=== PATIENT | female | born 1975 | race Caucasian/White ===

== ENCOUNTER 2019-12-06 03:55 | Inpatient (IN) ==
[2019-12-06] MEDS ORDERED: fentaNYL citrate 100 MCG/2 ML VIAL IV PRN (04:00)
[2019-12-06] MEDS ORDERED: NiCARDipine HCL INJ 2.5 MG/ML 10 ML AMP ONE (04:09)
[2019-12-06] MEDS ORDERED: fentaNYL citrate 100 MCG/2 ML VIAL ONE (04:09)
[2019-12-06] MEDS ORDERED: HEPARIN (PORCINE) 1000 UNIT/ML 10 ML (CATH LAB USE ONLY) ONE ×2 (04:09→05:10)
[2019-12-06] MEDS ORDERED: MIDAZOLAM HCL 1 MG/ML 2ML VIAL ONE ×2 (04:10→04:47)
[2019-12-06] MEDS ORDERED: NITROGLYCERIN/D5W 100MCG/ML 20ML SYR ONE (04:10)
--- NOTE | 2019-12-06 04:18 | Emergency Department Note ---
History of Present Illness General Chief complaint: Chest Pain Stated complaint: Chest Pain Time Seen by Provider: 12/06/19 03:59 Source: patient and EMS Mode of arrival: EMS Limitations: no limitations History of Present Illness Provider complaint: Chest pain Location: chest Radiation: back Severity: moderate Pain Consistency: + constant Maximum Pain Intensity: 7 Current Pain Intensity: 1 Quality: + constant Relieved By: + medication Exacerbated By: + movement Treatments prior to arrival: aspirin and other (Nitro) 44-year-old female brought in by EMS for central chest pain. EMS called in to alert us of the patient's condition condition prior to arrival and was suspicious for an evolving heart attack. Based on description of patient's symptoms, risk factors, as well as my review of the prehospital EKG, a heart alert was activated. Patient states she had some pain yesterday which she thought was indigestion. She states the pain went away and she felt fine during the rest of the day. She states pain came on again tonight. She states she had no accompanying abnormal feeling in bilateral arms. Patient states she had a brief period of back pain, however that has since resolved. Denies any pain in the neck or jaw. Denies nausea vomiting, trouble breathing, dizziness or lightheadedness. Patient denies any prior cardiac history. Patient states multiple family members have extensive cardiac history and of also as result of heart problems. Patient denies any recent illness, travel, or new medications. Patient states she has never had symptoms like this previously. Patient was given 4 baby aspirin and nitroglycerin sublingual by EMS prior to arrival. Patient's pain improved from a 6 or 7 down to a 1. On arrival here patient states she no longer had any chest pain or discomfort. Patient denies any current back or arm pain. Home Medications Home Medications Medication Instructions Recorded Confirmed Type No Known Home Medications 12/06/19 12/06/19 History Allergies Allergy/AdvReac Type Severity Reaction Status Date / Time coconut Allergy Unknown Verified 12/06/19 04:09 ham Allergy Unknown Uncoded 12/06/19 04:09 sun Allergy Unknown Uncoded 12/06/19 04:09 Past Med/Surg History Medical History Tobacco abuse Family History Other Coronary heart disease Diabetes Dyslipidemia Hypertension Myocardial infarction Social History Preferred Language: [place]ambican Communication Ability: Effective Beliefs That Will Affect Care: None Current Living Situation: Family Current Living Situation Comment: lives with brother Other Information That Helps Us Care for You: No Feels Safe at Home: Yes Safety Concerns: Feels Safe At This Time Smoking Status: Current every day smoker Tobacco Type: cigarettes ; Cigarettes Per Day: 3/4 pack a day ; Tobacco Cessation Education Requested by Patient: No Hx Alcohol Use: Yes Alcohol type: beer, wine and hard liquor Hx Substance Use: No Review of Systems See HPI for pertinent positives & negatives. and A total of 10 systems reviewed and were otherwise negative Physical Exam Vital Signs Vital Signs - 24 hr 12/06/19 04:01 12/06/19 04:20 12/06/19 04:26 Temperature 36.7 C Temperature Source Oral Pulse Rate 103 H 97 H Pulse Rate [Bilateral] 87 Pulse Rate from SpO2 Sensor 97 H Pulse Rhythm Regular Pulse Rhythm [Bilateral] Regular Pulse Strength Normal Pulse Strength [Bilateral] Normal Respiratory Rate 18 15 20 Respiratory Effort / Characteristics Non-Labored Spontaneous Non-Labored Spontaneous Respiratory Depth Normal Normal Respiratory Pattern Regular Regular Blood Pressure 150/96 H 153/118 H Blood Pressure [Left Arm] 165/94 H Blood Pressure Mean 114 129 Blood Pressure Mean [Left Arm] 117 Blood Pressure Position Sitting Blood Pressure Position [Left Arm] Sitting Pulse Oximetry 97 100 98 Oxygen Delivery Method Room Air Room Air Room Air Sepsis Recent Fever Within 48 Hours No Sepsis Action Taken by Nursing No Action Required GENERAL: alert, well appearing, well nourished, no distress, non-toxic EYE EXAM: normal conjunctiva, PERRL and EOM's grossly intact OROPHARYNX: no exudate, no erythema, lips, buccal mucosa, and tongue normal and mucous membranes are moist, poor dentition NECK: supple, no nuchal rigidity, no adenopathy, non-tender LUNGS: Clear to auscultation. Normal chest wall mechanics, no w/r/r HEART: no murmurs, S1 normal and S2 normal ABDOMEN: abdomen soft, non-tender, normo-active bowel sounds, no masses, no rebound or guarding. BACK: Back is symmetrical on inspection and there is no deformity, no midline tenderness, no CVA tenderness. SKIN: no rashes and no bruising UPPER EXTREMITIES: upper extremities are grossly normal. FROM, nml pulses b/l. LOWER EXTREMITIES: No pitting edema. FROM, nml pulses b/l. NEURO EXAM: Normal sensorium, cranial nerves II-XII grossly intact, normal speech, no gross weakness of arms, no gross weakness of legs. Gross sensation intact. Course Course 0415: Dr. Duran now at bedside evaluating the patient. 0430: Case discussed with Dr. Albarado, [facility] hospitalist team. Administered Medications Sodium Chloride (Nss 1000ml) 1,000 mls @ 125 mls/hr IV .Q8H ERROL Stop: 01/05/20 03:59 Last Admin: 12/06/19 06:55 Dose: 125 mls/hr Documented by: [id number] Discontinued Medications Fentanyl Citrate (Fentanyl Citrate) Confirm Administered Dose 100 mcg .ROUTE .STK-MED ONE Stop: 12/06/19 04:10 Last Admin: 12/06/19 06:08 Dose: 125 mcg Documented by: [id number] Heparin Sodium (Porcine) (Heparin Iv Bolus ([employer] Use Only)) Confirm Ad ministered Dose 10,000 units .ROUTE .STK-MED ONE Stop: 12/06/19 04:10 Last Admin: 12/06/19 06:08 Dose: 13,000 units Documented by: [id number] Heparin Sodium (Porcine) (Heparin Iv Bolus ([employer] Use Only)) Confirm Administered Dose 10,000 units .ROUTE .STK-MED ONE Stop: 12/06/19 05:11 Last Admin: 12/06/19 06:10 Dose: Not Given Documented by: [id number] Heparin Sodium/Sodium Chloride (Heparin/Nss 1000 Unit/500ml Flush Bag) Confirm Administered Dose 3,000 units IV .STK-MED ONE Stop: 12/06/19 04:11 Last Admin: 12/06/19 06:09 Dose: 3,000 units Documented by: [id number] Midazolam HCl (Versed) Confirm Administered Dose 2 mg .ROUTE .STK-MED ONE Stop: 12/06/19 04:11 Last Admin: 12/06/19 06:09 Dose: 4 mg Documented by: [id number] Midazolam HCl (Versed) Confirm Administered Dose 2 mg .ROUTE .STK-MED ONE Stop: 12/06/19 04:48 Last Admin: 12/06/19 06:09 Dose: Not Given Documented by: [id number] Nicardipine HCl (Cardene) Confirm Administered Dose 25 mg .ROUTE .ThePresent.Co-MED ONE Stop: 12/06/19 04:10 Last Admin: 12/06/19 05:56 Dose: 25 mg Documented by: [id number] Nitroglycerin/Dextrose (Nitroglycerin/D5w 100 Mcg/Ml 20ml Syringe) Confirm Administered Dose 2,000 mcg .ROUTE .ThePresent.Co-MED ONE Stop: 12/06/19 04:11 Last Admin: 12/06/19 06:09 Dose: 2,000 mcg Documented by: [id number] Ticagrelor (Brilinta) Confirm Administered Dose 180 mg PO .[employer] ONE Stop: 12/06/19 05:52 Last Admin: 12/06/19 06:10 Dose: 180 mg Documented by: [id number] Medical Decision Making Differential Diagnosis Differential diagnoses includes but is not limited to acute coronary syndrome, myocardial infarction, pericarditis, pulmonary embolus, aortic dissection, pneumonia, pneumothorax, musculoskeletal, shingles, esophageal. Medical Records Attestation: I reviewed the patient's medical records. Home Medications Current Medication List: was personally reviewed by me Laboratory Data Attestation: I reviewed the patient's lab results. Result diagrams: 12/06/19 04:14 12/06/19 04:14 Lab Results 12/06/19 12/06/19 12/06/19 Range/Units 04:14 04:14 04:14 WBC 12.04 H (4.8-10.8) K/uL RBC 4.68 (4.2-5.4) M/uL Hgb 13.8 (12.0-16.0) g/dL Hct 39.2 (37-47) % MCV 83.8 (80-100) fL MCH 29.5 (25-34) pg MCHC 35.2 (32-36) g/dL RDW Std Deviation 41.3 (36.4-46.3) fL RDW Coeff of Bishop 13.8 (11.5-14.5) % Plt Count 240 (130-400) K/uL MPV 11.5 H (7.4-10.4) fL Immature Gran % (Auto) 0.2 % Neut % (Auto) 79.7 % Lymph % (Auto) 14.4 % Weld % (Auto) 4.3 % Eos % (Auto) 1.2 % Baso % (Auto) 0.2 % Immature Gran # (Auto) 0.03 H (0.00-0.02) K/uL Neut # (Auto) 9.58 H (1.4-6.5) K/uL Lymph # (Auto) 1.73 (1.2-3.4) K/uL Weld # (Auto) 0.52 (0.11-0.59) K/uL Eos # (Auto) 0.15 (0-0.5) K/uL Baso # (Auto) 0.03 (0-0.2) K/uL PT 10.0 (9.0-12.0) Seconds INR 1.0 (0.9-1.1) APTT 23.4 (21.0-31.0) Seconds PTT Ratio 0.9 Activ Coag Time Kaolin (94-140) SECONDS Sodium 135 L (136-145) mmol/L Potassium 3.8 (3.5-5.1) mmol/L Chloride 102 (98-107) mmol/L Carbon Dioxide 25 (21-32) mmol/L Anion Gap 8.0 (3-11) BUN 11 (7-18) mg/dl Creatinine 0.83 (0.6-1.2) mg/dl Est Cr Clr Drug Dosing 88.3 ml/min Est GFR ( Amer) 100.8 Est GFR (Non-Af Amer) 87.0 BUN/Creatinine Ratio 13.2 (10-20) Glucose 323 H* (70-99) mg/dl Calcium 8.9 (8.5-10.1) mg/dl Magnesium 1.9 (1.8-2.4) mg/dl Total Bilirubin 0.3 (0.2-1) mg/dl AST 10 L (15-37) U/L ALT 27 (12-78) U/L Alkaline Phosphatase 121 H (45-117) U/L Total Creatine Kinase 68 (26-192) U/L CK-MB (CK-2) 3.2 (0.5-3.6) ng/ml CK/CKMB % Calc 4.7 H (0-3.0) Troponin I 0.159 H* (0-0.045) ng/ml Total Protein 8.2 (6.4-8.2) gm/dl Albumin 3.6 (3.4-5.0) gm/dl Globulin 4.6 H (2.5-4.0) gm/dl Albumin/Globulin Ratio 0.8 L (0.9-2) Lipase 63 L (73-393) U/L Beta-Hydroxybutyric Acd 5.32 H (0.2-2.81) mg/dl TSH 1.780 (0.300-4.500) uIu/ml 12/06/19 12/06/19 Range/Units 05:06 05:32 WBC (4.8-10.8) K/uL RBC (4.2-5.4) M/uL Hgb (12.0-16.0) g/dL Hct (37-47) % MCV (80-100) fL MCH (25-34) pg MCHC (32-36) g/dL RDW Std Deviation (36.4-46.3) fL RDW Coeff of Bishop (11.5-14.5) % Plt Count (130-400) K/uL MPV (7.4-10.4) fL Immature Gran % (Auto) % Neut % (Auto) % Lymph % (Auto) % Weld % (Auto) % Eos % (Auto) % Baso % (Auto) % Immature Gran # (Auto) (0.00-0.02) K/uL Neut # (Auto) (1.4-6.5) K/uL Lymph # (Auto) (1.2-3.4) K/uL Weld # (Auto) (0.11-0.59) K/uL Eos # (Auto) (0-0.5) K/uL Baso # (Auto) (0-0.2) K/uL PT (9.0-12.0) Seconds INR (0.9-1.1) APTT (21.0-31.0) Seconds PTT Ratio Activ Coag Time Kaolin 246 H 263 H (94-140) SECONDS Sodium (136-145) mmol/L Potassium (3.5-5.1) mmol/L Chloride (98-107) mmol/L Carbon Dioxide (21-32) mmol/L Anion Gap (3-11) BUN (7-18) mg/dl Creatinine (0.6-1.2) mg/dl Est Cr Clr Drug Dosing ml/min Est GFR ( Amer) Est GFR (Non-Af Amer) BUN/Creatinine Ratio (10-20) Glucose (70-99) mg/dl Calcium (8.5-10.1) mg/dl Magnesium (1.8-2.4) mg/dl Total Bilirubin (0.2-1) mg/dl AST (15-37) U/L ALT (12-78) U/L Alkaline Phosphatase (45-117) U/L Total Creatine Kinase (26-192) U/L CK-MB (CK-2) (0.5-3.6) ng/ml CK/CKMB % Calc (0-3.0) Troponin I (0-0.045) ng/ml Total Protein (6.4-8.2) gm/dl Albumin (3.4-5.0) gm/dl Globulin (2.5-4.0) gm/dl Albumin/Globulin Ratio (0.9-2) Lipase (73-393) U/L Beta-Hydroxybutyric Acd (0.2-2.81) mg/dl TSH (0.300-4.500) uIu/ml Imaging Data My Impression: X-ray: I interpreted the following studies. Chest: A single view study of the chest was reviewed and was negative for cardiomegaly, focal infiltrate, effusion, pulmonary edema, or wide mediastinum. ECG Data Attestation: I personally reviewed and interpreted this ECG as follows: Indication: chest pain Rate (beats per minute): 95 Rhythm: normal sinus Findings: + ST depression and + ST elevation Additional Comments: ST elevation in II, III, aVF, V5/6 ST depression I, aVL Blood Pressure Blood Pressure Findings: Elevated blood pressure Blood Pressure Disposition: further management by hospitalist MELANY Narrative Patient brought in by EMS as a heart alert which was called prehospital. Upon arrival here, EKG obtained, labs drawn and sent, chest x-ray performed, and a second IV site was eventually established by the time the interventional c ardiologist, Dr. Duran, came to bedside. Patient remained hemodynamically stable and denied any recurrent pain. Patient had received aspirin and nitro from EMS. Patient taken to the [facility] [employer] [facility] prior to any additional results being noted. Impression & Plan Chest pain, ST elevation myocardial infarction (STEMI), Tobacco abuse, Hyperglycemia Discharge Plan Visit Data *Final* Discharge Date/Time: 12/06/19 04:30 Chief Complaint: Chest Pain Stated Complaint: Chest Pain ED Provider: Malu Garcia Discharge Problem: Chest pain, ST elevation myocardial infarction (STEMI), Tobacco abuse, Hyperglycemia Patient Disposition: Still a Patient Condition: Good Discharge Instructions Interventions: ED Discharge Assessment Last Done: 12/06/19 04:30 Discharge Problem: Chest pain Qualifiers: Chest pain type: chest pain due to myocardial ischemia Ischemic chest pain type: unspecified angina pectoris type Qualified Code(s): I25.9 - Chronic ischemic heart disease, unspecified ST elevation myocardial infarction (STEMI) Qualifiers: Involved coronary artery: unspecified coronary artery Qualified Code(s): I21.3 - ST elevation (STEMI) myocardial infarction of unspecified site
[2019-12-06 04:24] LABS: Basophils # (auto) 0.03 K/uL (0-0.2); Basophils % (auto) 0.2 %; Eosinophils # (auto) 0.15 K/uL (0-0.5); Eosinophils % (auto) 1.2 %; Hematocrit (blood only) 39.2 % (37-47); Hemoglobin 13.8 g/dL (12.0-16.0); Immature Granulocytes # (auto) 0.03 K/uL (0.00-0.02); Immature Granulocytes % (auto) 0.2 %; Lymphocytes # (auto) 1.73 K/uL (1.2-3.4); Lymphocytes % (auto) 14.4 %; Mean Corpuscular Hemoglobin 29.5 pg (25-34); Mean Corpuscular Hgb Conc 35.2 g/dL (32-36); Mean Corpuscular Volume 83.8 fL (80-100); Mean Platelet Volume 11.5 fL (7.4-10.4); Monocytes # (auto) 0.52 K/uL (0.11-0.59); Monocytes % (auto) 4.3 %; Neutrophils # (auto) 9.58 K/uL (1.4-6.5); Neutrophils % (auto) 79.7 %; Platelet Count 240 K/uL (130-400); RDW Coefficient of Variation 13.8 % (11.5-14.5); RDW Standard Deviation 41.3 fL (36.4-46.3); Red Blood Count 4.68 M/uL (4.2-5.4); White Blood Count 12.04 K/uL (4.8-10.8)
--- NOTE | 2019-12-06 04:27 | Pre Anesthesia Assessment ---
Date of Service December 06, 2019 Pre Sedation Assessment Vital Signs Temp Pulse Resp BP Pulse Ox 12/06/19 04:01 98.1 F 103 H 18 150/96 H 97 Pre-Sedation Airway Assessment Smoking Status: Current every day smoker Notes The planned sedation has been discussed with the patient. Informed Consent was obtained. I have identified the patient, determined the appropriateness of sedation and have assessed the patient immediately prior to the procedure. All medicine(s) and interventions are by my order.
[2019-12-06 04:36] LABS: Partial Thromboplastin Ratio 0.9; Partial Thromboplastin Time 23.4 Seconds (21.0-31.0)
--- NOTE | 2019-12-06 04:36 | Cardiology Consultation ---
Date of Consultation December 06, 2019 Assessment & Plan (1) Acute AR: Presentation consistent with inferolateral STEMI and recommend proceeding with emergent cardiac catheterization and likely primary PCI. No apparent contraindications to procedure. Discussed risks, benefits, alternatives of procedure with patient and they are willing to proceed. Further recommendations pending findings of coronary angiography. History of Present Illness History of Present Illness Ms. Marcelo is a 44-year-old woman here with acute chest pain and ECG concerning for acute AR. Patient seen emergently in the ED after heart alert activated en route. No prior significant cardiac history. Cardiac risk factors include ongoing tobacco use, family history of premature coronary disease, obesity. Denies other medical problems and is on no medications. Reports an episode of chest pain occurring approximately 1 day prior to presentation. Pain mild, associated with strange feeling in her arms and eventually went away with rest. Approximately 1 AM while patient was at work today (around 3 hours prior to arrival) chest pain recurred, more severe, again associated with numbness in her arms along with nausea, diaphoresis. Initial EKG from the field showed sinus rhythm with inferolateral ST elevations. Given sublingual nitroglycerin with improvement in pain. In ED hemodynamically stable. Chest pain 410. EKG showed improved but still present inferolateral ST elevations. Allergies Allergy/AdvReac Type Severity Reaction Status Date / Time coconut Allergy Unknown Verified 12/06/19 04:09 ham Allergy Unknown Uncoded 12/06/19 04:09 sun Allergy Unknown Uncoded 12/06/19 04:09 Home Medications Home Medications Medication Instructions Recorded Confirmed Type No Known Home Medications 12/06/19 12/06/19 History Patient History Medical History (Updated 12/06/19 @ 04:48 by Malu Garcia DO) Tobacco abuse Family History (Updated 12/06/19 @ 04:15 by Malu Garcia DO) Other Coronary heart disease Diabetes Dyslipidemia Hypertension Myocardial infarction Social History Feels Safe at Home: Yes Smoking Status: Current every day smoker Review of Systems Review of Systems: All systems reviewed & are unremarkable except as noted in HPI & below Physical Exam Physical Exam: General: Uncomfortable but no acute distress HEENT: Sclerae anicteric, mucous membranes moist Lungs: Clear to auscultation bilaterally, no rhonchi or wheezes Cardiac: Regular rate and rhythm, no murmurs. Abdomen: Soft, nontender Extremities: Warm, well perfused, no edema. 2+ radial pulses Skin: No rashes or lesions. Neuro: Nonfocal Psych: Alert orient x3, normal affect and mood Results & Data Vital Signs (Past 12 Hours) Vital Signs Temp Pulse Pulse Resp BP BP Pulse Ox 12/06/19 04:26 87 20 165/94 H 98 12/06/19 04:20 97 H 15 153/118 H 100 12/06/19 04:01 98.1 F 103 H 18 150/96 H 97 PG Care Time/CCT Total # of Minutes Spent Total Time Spent with Patient: Total time spent is greater than 50% in coordination of care (as documented) at patient's floor/unit and/or counseling patient: Coding Level of Care Code 32761 Inpt Consult Level 5 Diagnoses Acute AR I21.9
[2019-12-06 05:04] LABS: Albumin Globulin Ratio 0.8 (0.9-2); Albumin Level 3.6 gm/dl (3.4-5.0); BUN Creatinine Ratio 13.2 (10-20); Bilirubin,Total 0.3 mg/dl (0.2-1); Calcium 8.9 mg/dl (8.5-10.1); Creatine Kinase MB 3.2 ng/ml (0.5-3.6); Creatinine Clr Calc Pharmacy 88.3 ml/min; Est GFR (African American) 100.8; Globulin 4.6 gm/dl (2.5-4.0); Magnesium 1.9 mg/dl (1.8-2.4); Potassium 3.8 mmol/L (3.5-5.1); Thyroid Stimulating Hormone 1.78 uIu/ml (0.300-4.500); Total Protein 8.2 gm/dl (6.4-8.2); Troponin I 0.159 ng/ml (0-0.045)
[2019-12-06 05:21] LABS: Beta-Hydroxybutyrate 5.32 mg/dl (0.2-2.81)
[2019-12-06] MEDS ORDERED: TICAGRELOR 90 MG TAB PO ONE (05:51)
[2019-12-06] MEDS ORDERED: ICU PROTOCOL FOR HYPERGLYCEMIA PRN (05:58)
[2019-12-06] MEDS ORDERED: ONDANSETRON INJ 2 MG/ML 2 ML VIAL IV PRN (05:58)
--- NOTE | 2019-12-06 06:08 | Post Anesthesia Assessment ---
Date of Service December 06, 2019 Post Sedation Assessment Vital Signs Temp Pulse Pulse Resp BP BP Pulse Ox 12/06/19 04:26 87 20 165/94 H 98 12/06/19 04:20 97 H 15 153/118 H 100 12/06/19 04:01 98.1 F 103 H 18 150/96 H 97 Recovery Score Activity: Moves 4 extremities Respiration: Deep Breath/Cough Circulation: +/-20% PreAnes Value Consciousness: Fully Awake Oxygen Saturation: O2 needed for >90% Discharge Sedation Level of Care: Fast Track Phase II Post Sedation Plan On clinical assessment, the patient appears to have tolerated the sedation without complications. Patient is recovering as anticipated. Patient will continue to be monitored by nursing and may be discharged when sedation discharge criteria are met per below protocol. Upon Completions of procedure up to 15 minutes continue every 5 minute vital signs and the P.A.R. score; then discharge to a Phase I or Fast Track to Phase II per the following guidelines: * Discharge Patient to appropriate Phase II area if PAR is 8 or greater or return to pre- procedure baseline. The post - procedure orders will be as directed. * If PAR score is less than 8 or not return to pre-procedure baseline then patient will follow Phase I monitoring till PAR is reached for Phase II. The Phase I may be done in procedure room or may call to secure a Phase I area. * If naloxone or flumazenil are used for reversal, hold in Phase I for con tinued monitoring from when last reversal dose was given for a minimum of 60 minutes or longer pending the nurse and/or physician discretion of patient condition before discharge to Phase II. Please call the Sedation Physician to re-evaluate and complete post-note for discharge to Phase II area. Do NOT discharge from procedure sedation or Phase 1 until post- sedation evaluation note is complete by procedure /sedation MD Sedation Discharge Instructions to be given to the patient at discharge to home.
--- NOTE | 2019-12-06 06:12 | History & Physical Report ---
Date of Service December 06, 2019 Assessment & Plan (1) ST elevation myocardial infarction (STEMI): Admit ICU Inferior [place] Stent placed to distal circ 100% Stent placed to distal RCA 80% (non-culprit lesion) Aspirin 81 mg daily Brilinta 90mg BID Atorvastatin 80mg daily Lisinopril 5mg daily Metoprolol 25mg BID Smoking cessation. (2) Type II diabetes mellitus: Glucose 323 This is new onset No anion gap Will order Lantus 10units to start (5 units BID) Cover with sliding scale insulin. Would not be able to start metformin for 48 hours. History of Present Illness 44 y/o female presented to the ED via EMS with substernal non-radiating chest pain. The pain was 6/10 and improved to 1/10 after NTG. She has multiple members of her family with CAD. Patient was taken directly from the ED to clinical genetics laboratory chief for intervention. She is currently in the ICU. She is chest pain free. . Primary Care Provider: NO PCP Allergies Allergy/AdvReac Type Severity Reaction Status Date / Time coconut Allergy Unknown Verified 12/06/19 04:09 ham Allergy Unknown Uncoded 12/06/19 04:09 sun Allergy Unknown Uncoded 12/06/19 04:09 Home Medications Home Medications Medication Instructions Recorded Confirmed Type No Known Home Medications 12/06/19 12/06/19 History Past Med/Surg History Medical History Tobacco abuse Family History Other Coronary heart disease Diabetes Dyslipidemia Hypertension Myocardial infarction Social History Preferred Language: [place] Communication Ability: Effective Beliefs That Will Affect Care: None Current Living Situation: Family Current Living Situation Comment: lives with brother Other Information That Helps Us Care for You: No Feels Safe at Home: Yes Safety Concerns: Feels Safe At This Time Smoking Status: Current every day smoker Tobacco Type: cigarettes ; Cigarettes Per Day: 3/4 pack a day ; Tobacco Cessation Education Requested by Patient: No Hx Alcohol Use: Yes Alcohol type: beer, wine and hard liquor Hx Substance Use: No Review of Systems Review of Systems: Constitutional- no fever; no weight loss Eyes- no acute visual changes ENT- no sinus drainage; no pharyngitis Pulmonary- no cough, no wheezing, no shortness of breath Cardiac- As in HPI GI- no nausea, no vomiting, no diarrhea, no melena, no hematochezia - no dysuria, no hematuria Musculoskeletal- no arthralgias, no myalgias Derm- no rashes, no new skin lesions. Hematologic- no unusual bruising, no unusual bleeding Lymphatics- no adenopathy Endocrine- no polyuria or polydipsia; no heat or cold intolerance Neuro- no headaches, no focal neurologic symptoms Psych- no anxiety, no depression Physical Exam Physical Exam: General- adult female, NAD. Head- atraumatic Eyes- PERRL, EOMI, anicteric ENT- oropharynx clear Neck- supple, no JVD, no adenopathy, no thyromegaly. Lungs- CTA b/l no R/R/W. Heart- regular rhythm; no murmur, no gallop, no rub appreciated Abdomen- normal bowel sounds, soft, nontender. Extremities- no pretibial edema, no calf tenderness; peripheral pulses intact Neuro- alert, oriented x 3; PERRL, EOMI; CN's II-XII grossly intact, non-focal. Skin- warm & dry Results & Data Vital Signs (Past 12 Hours) Vital Signs Temp Pulse Pulse Resp BP BP Pulse Ox 12/06/19 04:26 87 20 165/94 H 98 12/06/19 04:20 97 H 15 153/118 H 100 12/06/19 04:01 36.7 C 103 H 18 150/96 H 97 Laboratory Results Laboratory Results WBC 12.04 K/uL (4.8-10.8) H 12/06/19 04:14 RBC 4.68 M/uL (4.2-5.4) 12/06/19 04:14 Hgb 13.8 g/dL (12.0-16.0) 12/06/19 04:14 Hct 39.2 % (37-47) 12/06/19 04:14 MCV 83.8 fL (80-100) 12/06/19 04:14 MCH 29.5 pg (25-34) 12/06/19 04:14 MCHC 35.2 g/dL (32-36) 12/06/19 04:14 RDW Std Deviation 41.3 fL (36.4-46.3) 12/06/19 04:14 RDW Coeff of Bishop 13.8 % (11.5-14.5) 12/06/19 04:14 Plt Count 240 K/uL (130-400) 12/06/19 04:14 MPV 11.5 fL (7.4-10.4) H 12/06/19 04:14 Immature Gran % (Auto) 0.2 % 12/06/19 04:14 Neut % (Auto) 79.7 % 12/06/19 04:14 Lymph % (Auto) 14.4 % 12/06/19 04:14 [place] % (Auto) 4.3 % 12/06/19 04:14 Eos % (Auto) 1.2 % 12/06/19 04:14 Baso % (Auto) 0.2 % 12/06/19 04:14 Immature Gran # (Auto) 0.03 K/uL (0.00-0.02) H 12/06/19 04:14 Neut # (Auto) 9.58 K/uL (1.4-6.5) H 12/06/19 04:14 Lymph # (Auto) 1.73 K/uL (1.2-3.4) 12/06/19 04:14 [place] # (Auto) 0.52 K/uL (0.11-0.59) 12/06/19 04:14 Eos # (Auto) 0.15 K/uL (0-0.5) 12/06/19 04:14 Baso # (Auto) 0.03 K/uL (0-0.2) 12/06/19 04:14 PT 10.0 Seconds (9.0-12.0) 12/06/19 04:14 INR 1.0 (0.9-1.1) 12/06/19 04:14 APTT 23.4 Seconds (21.0-31.0) 12/06/19 04:14 PTT Ratio 0.9 12/06/19 04:14 Activ Coag Time Kaolin 263 SECONDS (94-140) H 12/06/19 05:32 Sodium 135 mmol/L (136-145) L 12/06/19 04:14 Potassium 3.8 mmol/L (3.5-5.1) 12/06/19 04:14 Chloride 102 mmol/L (98-107) 12/06/19 04:14 Carbon Dioxide 25 mmol/L (21-32) 12/06/19 04:14 Anion Gap 8.0 (3-11) 12/06/19 04:14 BUN 11 mg/dl (7-18) 12/06/19 04:14 Creatinine 0.83 mg/dl (0.6-1.2) 12/06/19 04:14 Est Cr Clr Drug Dosing 88.3 ml/min 12/06/19 04:14 Est GFR ( Amer) 100.8 12/06/19 04:14 Est GFR (Non-Af Amer) 87.0 12/06/19 04:14 BUN/Creatinine Ratio 13.2 (10-20) 12/06/19 04:14 Glucose 323 mg/dl (70-99) H* 12/06/19 04:14 Calcium 8.9 mg/dl (8.5-10.1) 12/06/19 04:14 Magnesium 1.9 mg/dl (1.8-2.4) 12/06/19 04:14 Total Bilirubin 0.3 mg/dl (0.2-1) 12/06/19 04:14 AST 10 U/L (15-37) L 12/06/19 04:14 ALT 27 U/L (12-78) 12/06/19 04:14 Alkaline Phosphatase 121 U/L (45-117) H 12/06/19 04:14 Total Creatine Kinase 68 U/L (26-192) 12/06/19 04:14 CK-MB (CK-2) 3.2 ng/ml (0.5-3.6) 12/06/19 04:14 CK/CKMB % Calc 4.7 (0-3.0) H 12/06/19 04:14 Troponin I 0.159 ng/ml (0-0.045) H* 12/06/19 04:14 Total Protein 8.2 gm/dl (6.4-8.2) 12/06/19 04:14 Albumin 3.6 gm/dl (3.4-5.0) 12/06/19 04:14 Globulin 4.6 gm/dl (2.5-4.0) H 12/06/19 04:14 Albumin/Globulin Ratio 0.8 (0.9-2) L 12/06/19 04:14 Lipase 63 U/L (73-393) L 12/06/19 04:14 Beta-Hydroxybutyric Acd 5.32 mg/dl (0.2-2.81) H 12/06/19 04:14 TSH 1.780 uIu/ml (0.300-4.500) 12/06/19 04:14 PG Care Time/CCT Total # of Minutes Spent Total Time Spent: 45 Total Time Spent with Patient: Total time spent is greater than 50% in coordination of care (as documented) at patient's floor/unit and/or counseling patient: Coding Level of Care Code 36541 Initial Inpt Care Lvl [address] elevation myocardial infarction (STEMI) I21.3 Involved coronary artery: unspecified coronary artery Type II diabetes mellitus E11.9 (1) ST elevation myocardial infarction (STEMI) Involved coronary artery: unspecified coronary artery Qualified Code(s): I21.3 - ST elevation (STEMI) myocardial infarction of unspecified site
[2019-12-06] MEDS ORDERED: GLUCAGON FOR INJ 1 MG VIAL SQ PRN (06:19)
[2019-12-06] MEDS ORDERED: CARBOHYDRATES FOR HYPOGLYCEMIA PO PRN (06:19)
[2019-12-06] MEDS ORDERED: DEXTROSE 50% 50 ML SYRINGE IV PRN (06:19)
[2019-12-06] MEDS ORDERED: GLUCOSE 10 TABS/TUBE PO PRN (06:19)
[2019-12-06] MEDS ORDERED: GLUCOSE 40% GEL 15 GM TUBE PO PRN (06:19)
--- NOTE | 2019-12-06 06:22 | Cardiac Catheterization ---
ACC Data: Assistant Clinical Director Cardiac Status Clinical evaluation leading to the procedure CAD Presenation: STEMI Anginal Classification: CCS IV Heart Failure: No Cardiogenic Shock within 24 Hours: No Cardiac Arrest within 24 Hours: No Imaging Studies Past 6 Months: No Stress Studies Past 6 Months: No Diagnostic Physicians Name: Luan Duran MD Closure Device Percutaneous Entry Location: Radial Closure Device: Radial Band Recommendations: PCI without planned CABG PCI Indication: Immediate PCI for STEMI First Noted: First EKG Lesion Segment Name: distal circumflex Culprit Artery: Yes Stenosis Prior to Rx (%): 100 Chronic Total Occlusion: No IVUS: No FFR: No Pre-Procedure DARIEL Flow: 0 Previously Treated Lesion: No Lesion Complexity: Non-High/Non-C Lesion Length (mm): 25 Thrombus Present: Yes Bifurcation Lesion: No Guidewire Across Lesion: Stenosis Post-Procedure (%): 0 Post-Procedure DARIEL Flow: 3 Devices(s) Deployed: Yes Yes Lesion #2 Segment Name: Distal RCA Culprit Artery: No Stenosis Prior to Rx (%): 80 Chronic Total Occlusion: No IVUS: No FFR: No Pre-Procedure DARIEL Flow: 3 Previously Treated Lesion: No Lesion Complexity: Non-High/Non-C Lesion Length (mm): 15 Thrombus Present: No Bifurcation Lesion: No Guidewire Across Lesion: Yes Stenosis Post-Procedure (%): 0 Post-Procedure DARIEL Flow: 3 Devices(s) Deployed: Yes Intraprocedure Events Significant Disection: No Perforation: No Cardiac Cath Procedure Full Procedure Date December 06, 2019 Pre-Procedure Diagnosis Pre-Procedure Diagnosis: STEMI AUC Score AUC Score: 9 Post-Procedure Diagnosis Post-Procedure Diagnosis: Severe CAD, Successful PCI and Elevated Intracardiac Pressures Procedure(s) Performed Procedure(s) Performed: Coronary Angiography, Left Heart Cath, Drug Eluting Stent and Femoral Artery Angiography Water Pollution Control Technician Luan Duran MD Periodontal Assistant(s) Tawana Estimated Blood Loss Estimated Blood Loss: 15 Medication(s) Medication(s): Fentanyl, Heparin, Lidocaine 1%, Nicardipine, Nitroglycerin and Versed Medication(s): Ticagrelor Summary of Findings Indication: STEMI/Heart Alert Access: 6 Fr right radial artery (unable to pass catheter through proximal radial/distal brachial artery due to spasm and converted to femoral approach) 6 Fr right common femoral artery Catheters: JL4, EBU 3.75 guide, JR4, JR4 guide Findings: LM -medium caliber, angiographically normal LAD -medium caliber, 20 to 30% mid segment disease, distal luminal irregularities prior to vessel wrapping around apex. Medium caliber first diagonal with 30 to 40% mid segment disease. Circumflex -large caliber, proximal luminal irregularities, distal 100% acute occlusion after takeoff of medium caliber OM 2. RCA -large caliber vessel, mid segment luminal irregularities, 80% distal stenosis. Small PDA with 50 to 60% proximal disease LVEDP -20 -- PCI -- Antithrombotic therapy: Heparin, ticagrelor Procedure: Left main cannulated with EBU 3.75 guide BMW wire passed across lesion into distal PLB Distal circumflex lesion predilated with 2.5 compliant balloon Dilated lesion stented with 2.75 x 33 mm Xience Lucia Stent post-dilated with 3.0 noncompliant balloon IC vasodilators administered for spasm Post procedure DARIEL 3 flow, stent well expanded with minimal residual stenosis. Some apparent thrombus in distal aspect of OM 2, dottered with 2.5 balloon with reestablished flow. RCA cannulated with JR4 guide BMW wire placed across lesion into distal vessel Mid to distal RCA stented with 3.5 x 23 mm Xience Lucia Stent postdilated with 3.5 NC balloon Post procedure DARIEL 3 flow, stent well expanded with minimal residual stenosis. Arterial Closure: TR band Summary: 1. Inferolateral STEMI/100% occluded distal circumflex 2. Severe non-culprit vessel coronary artery disease -80% distal RCA 3. Elevated intracardiac filling pressure 4. Successful PCI of mid to distal circumflex with single drug-eluting stent (2.75 x 33 mm Xience Lucia; postdilated with 3.0 NC). 5. Successful PCI of mid to distal RCA with single drug-eluting stent (3.5 x 23 mm Xience Lucia). Recommendations: Admit to ICU for continued monitoring Loaded with ticagrelor 180 mg in cath lab radiological technologist Continue dual-antiplatelet therapy for at least 1 year. Trend troponins until peak, Check Echo Uptitrate beta-natalie/RADHA as BP allows High-dose statin Consult cardiac Rehab Hemodynamics Rest Ao:: 125/85/104 Final Ao: 128/78/102 LV: 139/20 Recommendations Recommendations: PCI without planned CABG Specimens Specimens: None Radiation Exposure (mGy) 4532 Contrast (mls) 145 Fluids (cc crystalloids) Fluids (cc crystalloids): 134 Drains Drains: None Anesthesia Moderate Procedural Complication(s) None Disposition ICU I attest to the content of the Intraoperative Record and any orders documented therein. Any exceptions are noted below. [facility] Card Cath Procedure Codes Cardiac Catheterization Procedure 1: Cardiovascular Cath Procedures: 56633 Coronaries and LHC (+/-LV) Moderate Sedation Procedure 1: Sedation/Anesthesia: 93788 Mod Sedation by the same physician;Init15 Min Child Age 5 & Up Procedure 2: Sedation/Anesthesia: 55910 Mod Sedation by the same physician; Ea [id number] Minutes Stenting Procedure 1: Cardiovascular Stent Procedures: 57367 Perc transluminal revascularization of acute sub/total occl, aMI Procedure 10: Cardiovascular Stent Procedures: 48086 Ea addl branch of a major coronary artery PG Care Time/CCT Total # of Minutes Spent Total Time Spent with Patient: Total time spent is greater than 50% in coordination of care (as documented) at patient's floor/unit and/or counseling patient:
--- NOTE | 2019-12-06 06:47 | Critical Care Consultation ---
Date of Consultation December 06, 2019 Assessment & Plan (1) Admitted to intensive care unit: Reason Critically Ill: 44-year-old female with no significant past medical history presented with STEMI, now status post cardiac cath with PCI to circumflex x1 and RCA x1 Neuro - CAM ICU: Negative Cardiac - STEMIno prior history of heart disease, presented with chest pain, nausea and vomiting, arm numbness while at work 3 hours prior to arrival -EKG showed ST elevation in inferolateral leads and heart alert initiated -Initial troponin 0.159, will trend for peak -Cardiac catheter revealed 100% occlusion of circumflex and 80% occlusion of RCA, successful PCI to distal circumflex with PABLO and successful PCI to mid RCA with PABLO -Bolused with heparin Brilinta in [facility] [facility] -Continue ASA, Brilinta, Lipitor, MTP, lisinopril -Follow-up lipid panel, hemoglobin A1c -Maximize electrolytes, monitor on telemetry, risk for reperfusion dysrhythmias -Follow-up echo -Follow-up cardiology recs Respiratory - No history of pulmonary disease, maintaining sats on room air, continuous monitor on pulse ox Current smoker, encourage cessation GI - Heart healthy diabetic diet RENAL/LYTES - Creatinine stable, maximize electrolytes and replete as necessary - Strict I's and O's ENDO - TSH within normal limits Likely new onset type II diabetic with blood glucose 323 on admission -BHA 5.23, no anion gap -Follow-up hemoglobin A1c, consider director it project consult if elevated -ICU hyperglycemic protocol, started on Lantus/NovoLog therapy HEME - H&H stable, monitor routine CBCs ID - No indication for infectious process at this time LINES/IV ACCESS - Peripheral IVs DVT PROPHYLAXIS - SCDs, will hold anticoagulation for now as patient was loaded with Brilinta and heparin in [facility] [employer] Representative Thank you for allowing us to participate in the care of this patient. Please refer to my attending physician's documentation for any further recommendations. (2) Type II diabetes mellitus: (3) ST elevation myocardial infarction (STEMI): (4) Acute OK: (5) Tobacco abuse: History of Present Illness Attending Physician: Luan Duran MD History of Present Illness Patient is a 44-year-old female without prior medical history but smokes and has family history of CAD, who was at work and started experiencing chest pain with associated nausea and vomiting and numbness in the left arm. She was brought to the ED by EMS and was experiencing substernal chest pain 6 out of 10 which had improved from previous. She was found to have anteriolateral ST elevation on EKG and mildly elevated troponin. Heart alert was initiated and patient was taken to [facility] Representative where she was found to have 1% occlusion of circumflex and 80% occlusion of RCA. She received successful PCI with PABLO x1 to the circumflex artery, and successful PCI with PABLO x1 to RCA. She was given Brilinta and heparin. She now presents to ICU post catheterization. On arrival to the ICU the patient is alert and oriented and appears comfortable. She currently denies headache, dizziness, chest pain, shortness of breath, palpitations, nausea or vomiting. She denies numbness or lack of sensation to right lower extremity and has good color and perfusion below catheter site. Patient does appear to have very poor dental hygiene with tooth decay. She also likely has new onset diabetes, hemoglobin A1c pending, but will likely need animal caretaker on this admission. Patient to remain in ICU for now following cardiac cath with stent x2. Allergies Allergy/AdvReac Type Severity Reaction Status Date / Time coconut Allergy Unknown Verified 12/06/19 04:09 ham Allergy Unknown Uncoded 12/06/19 04:09 sun Allergy Unknown Uncoded 12/06/19 04:09 Home Medications Home Medications Medication Instructions Recorded Confirmed Type No Known Home Medications 12/06/19 12/06/19 History Patient History Medical History Tobacco abuse Family History Other Coronary heart disease Diabetes Dyslipidemia Hypertension Myocardial infarction Social History Preferred Language: Kinyarw[place] Communication Ability: Effective Beliefs That Will Affect Care: None Current Living Situation: Family Current Living Situation Comment: lives with brother Other Information That Helps Us Care for You: No Feels Safe at Home: Yes Safety Concerns: Feels Safe At This Time Smoking Status: Current every day smoker Tobacco Type: cigarettes ; Cigarettes Per Day: 3/4 pack a day ; Tobacco Cessation Education Requested by Patient: No Hx Alcohol Use: Yes Alcohol type: beer, wine and hard liquor Hx Substance Use: No Review of Systems Review of Systems: All systems reviewed & are unremarkable except as noted in HPI & below Physical Exam Constitutional: cooperative and comfortable Eyes: PERRL, conjunctivae normal, anicteric sclerae ENMT: external ear and nose normal, oropharynx normal Patient with poor dental hygiene and tooth decay, malodorous breath Neck: trachea midline, no thyromegaly Respiratory: normal respiratory effort, lungs clear to auscultation Cardiovascular: RRR, no murmur, no edema Heart Sounds: normal S1 and normal S2 Vessels: no JVD Extremities: normal capillary refill; no edema Gastrointestinal (Abdomen): normal bowel sounds, soft, nontender, no hepatosplenomegaly Skin: no rashes, warm and dry Neurologic: PERRL, EOMI, accommodation nl, no face palsy, no dysarthria Psychiatric: A+Ox3, euthymic affect Results & Data ([facility]) Vital Signs (Past 12 Hours) Vital Signs Temp Pulse Pulse Resp BP BP Pulse Ox 12/06/19 04:26 87 20 165/94 H 98 12/06/19 04:20 97 H 15 153/118 H 100 12/06/19 04:01 36.7 C 103 H 18 150/96 H 97 Coding Level of Care Code 56935 Inpt Consult Level 5 Diagnoses Admitted to intensive care unit Z78.9 Type II diabetes mellitus E11.9 ST elevation myocardial infarction (STEMI) I21.3 Involved coronary artery: unspecified coronary artery Acute OK I21.9 Tobacco abuse Z72.0 (1) ST elevation myocardial infarction (STEMI) Involved coronary artery: unspecified coronary artery Qualified Code(s): I21.3 - ST elevation (STEMI) myocardial infarction of unspecified site
[2019-12-06] MEDS: SODIUM CHLORIDE 0.9% 1000ML 1,000 ML IV SCH ×3 (06:55→20:48)
--- NOTE | 2019-12-06 06:55 | XRay Report ---
XR chest 1V portable CLINICAL HISTORY: Chest pain. Heart alert. COMPARISON STUDY: No previous studies for comparison. FINDINGS: Lung volumes are normal. Lungs are clear. There is no pneumothorax or pleural effusion. Car diac size is normal. Mediastinal contours are normal. There is no evidence for pulmonary edema. IMPRESSION: No acute cardiopulmonary findings. ACT 112: Negative or not required by law. Electronically signed by: Kwabena Phipps M.D. 12/06/2019 6:54 AM
[2019-12-06] MEDS: INSULIN ASPART 100 UNITS/ML 3 ML PEN SC SCH ×4 (08:30→20:50)
[2019-12-06] MEDS ORDERED: ICU PROTOCOL FOR HYPERGLYCEMIA SCH (09:00)
[2019-12-06] MEDS ORDERED: INSULIN GLARGINE SOLOSTAR 100 UNITS/ML 3 ML PEN SC SCH ×3 (09:00→21:00)
--- NOTE | 2019-12-06 09:32 | XCELERA ---
[id number] [email or web address]\[email or web address]\[id number]
[2019-12-06] MEDS: ASPIRIN 81 MG ECTAB PO SCH (11:56)
[2019-12-06] MEDS: ATORVASTATIN 40 MG TAB PO SCH (11:56)
[2019-12-06] MEDS: METOPROLOL TARTRATE 25 MG TAB PO SCH ×2 (11:56→20:59)
[2019-12-06] MEDS: lisinopriL 5 MG TAB PO SCH (11:56)
[2019-12-06] MEDS ORDERED: PHARMACY GLYCEMIC MGMT CONSULT PRN (12:02)
--- NOTE | 2019-12-06 12:05 | Pharmacy Report ---
Pharmacy Glycemic Short Note 2 - Date of Service December 06, 2019 - Glycemic Short BSG Results (Last 24 hours): 12/06/19 12/06/19 04:14 08:11 Glucose 323 H* POC Glucose 261 H OUTPATIENT ANTIDIABETIC REGIMEN: * No prior dx of DM * A1c = pending ASSESSMENT: * Patient admitted with STEMI now s/p PABLO x 2 * Hyperglycemia noted on both PRP and Accucheck this AM. A1c ordered to assess possible underlying insulin resistance vs stress hyperglycemia * Prelunch BSG also elevated in 230's * Will escalate basal/bolus SQ orders at this time based upon pt weight and moderate stress level PLAN FOR INPATIENT GLYCEMIC CONTROL: * Check A1c * Basal insulin * Lantus 10 units SQ BID (give 5 units now x 1 as pt received only 5 units this AM) * Bolus insulin * NovoLog per scale ACHS or Q6hrs while NPO * Goal Range: Low 110 mg/dL - High 140 mg/dL * Correction Factor: 30 mg/dL/unit * Nutritional / Prandial insulin per carb ratio of 1 unit per 9 grams CHO consumed PLAN FOR DISCHARGE: * to be determined
[2019-12-06 12:20] LABS: Estimated Average Glucose 258 mg/dl; Hemoglobin A1C 10.6 % (4.5-5.6)
--- NOTE | 2019-12-06 12:45 | Electrocardiogram Report ---
Test Reason : Blood Pressure : / mmHG Vent. Rate : 095 BPM Atrial Rate : 095 BPM P-R Int : 154 ms QRS Dur : 082 ms QT Int : 380 ms P-R-T Axes : 050 036 057 degrees QTc Int : 477 ms Normal sinus rhythm ST elevation, consider early repolarization, pericarditis, or injury Abnormal ECG No previous ECGs available Confirmed by Alberto Douglas ([id number]) on 12/06/2019 12:45:22 PM Referred By: REFERRED SELF Confirmed By:Alberto Douglas
--- NOTE | 2019-12-06 12:49 | Electrocardiogram Report ---
Test Reason : Blood Pressure : / mmHG Vent. Rate : 089 BPM Atrial Rate : 089 BPM P-R Int : 166 ms QRS Dur : 084 ms QT Int : 388 ms P-R-T Axes : 060 -14 066 degrees QTc Int : 472 ms Normal sinus rhythm Early repolarization Nonspecific T wave abnormality Abnormal ECG When compared with ECG of 06-DEC-2019 04:01, (unconfirmed) ST no longer elevated in Inferior leads ST less elevated in Lateral leads Nonspecific T wave abnormality now evident in Lateral leads Confirmed by Alberto Douglas ([id number]) on 12/06/2019 12:48:36 PM Referred By: REFERRED SELF Confirmed By:Alberto Douglas
--- NOTE | 2019-12-06 14:48 | History & Physical Bridge Note ---
Date of Service December 06, 2019 History & Physical Bridge Note I have examined the patient, reviewed the History & Physical and in the interval since the performance of the History & Physical I have noted the following changes of clinical significance: patient resting comfortably in the ICU, no further chest pain, vitals stable every since cath with PCI reviewed the chart and recommendations from cardiology will keep patient in the ICU over night
[2019-12-06] MEDS: TICAGRELOR 90 MG TAB PO SCH (17:27)
[2019-12-07] MEDS: INSULIN ASPART 100 UNITS/ML 3 ML PEN SC SCH ×5 (03:31→20:41)
[2019-12-07] MEDS: SODIUM CHLORIDE 0.9% 1000ML 1,000 ML IV SCH (04:05)
[2019-12-07 07:21] LABS: Basophils # (auto) 0.04 K/uL (0-0.2); Basophils % (auto) 0.4 %; Eosinophils # (auto) 0.24 K/uL (0-0.5); Eosinophils % (auto) 2.3 %; Hematocrit (blood only) 34.1 % (37-47); Hemoglobin 11.3 g/dL (12.0-16.0); Immature Granulocytes # (auto) 0.02 K/uL (0.00-0.02); Immature Granulocytes % (auto) 0.2 %; Lymphocytes # (auto) 3.34 K/uL (1.2-3.4); Lymphocytes % (auto) 32.1 %; Mean Corpuscular Hemoglobin 28.4 pg (25-34); Mean Corpuscular Hgb Conc 33.1 g/dL (32-36); Mean Corpuscular Volume 85.7 fL (80-100); Mean Platelet Volume 11.5 fL (7.4-10.4); Monocytes # (auto) 0.82 K/uL (0.11-0.59); Monocytes % (auto) 7.9 %; Neutrophils # (auto) 5.96 K/uL (1.4-6.5); Neutrophils % (auto) 57.1 %; Platelet Count 205 K/uL (130-400); RDW Coefficient of Variation 14.4 % (11.5-14.5); RDW Standard Deviation 44.7 fL (36.4-46.3); Red Blood Count 3.98 M/uL (4.2-5.4); White Blood Count 10.42 K/uL (4.8-10.8)
[2019-12-07] MEDS: INSULIN GLARGINE SOLOSTAR 100 UNITS/ML 3 ML PEN SC SCH ×2 (07:44→20:41)
[2019-12-07] MEDS: METOPROLOL TARTRATE 25 MG TAB PO SCH ×2 (07:45→20:40)
[2019-12-07] MEDS: lisinopriL 5 MG TAB PO SCH (07:45)
[2019-12-07] MEDS: TICAGRELOR 90 MG TAB PO SCH ×2 (07:45→20:40)
[2019-12-07] MEDS: ATORVASTATIN 40 MG TAB PO SCH (07:45)
[2019-12-07] MEDS: ASPIRIN 81 MG ECTAB PO SCH (07:46)
[2019-12-07 07:49] LABS: BUN Creatinine Ratio 16.4 (10-20); Calcium 8.3 mg/dl (8.5-10.1); Creatinine Clr Calc Pharmacy 111.3 ml/min; Est GFR (African American) 126.9; Est GFR (Non-African American) 109.5; Potassium 3.3 mmol/L (3.5-5.1)
[2019-12-07] MEDS ORDERED: INSULIN GLARGINE SOLOSTAR 100 UNITS/ML 3 ML PEN SC SCH (09:00)
--- NOTE | 2019-12-07 09:10 | Cardiology Progress Note ---
Date of Service December 07, 2019 Assessment & Plan (1) ST elevation myocardial infarction (STEMI): 2. Severe non-culprit multivessel disease 3. Preserved LV function with inferolateral wall motion abnormality 4. Newly diagnosed diabetes 5. Dyslipidemia 6. Anemia Has remained chest pain-free. Troponins peaked. Some relatively low blood pressures overnight No heart failure on exam No access site complications Post procedure labs stable Continue DAPT with aspirin, Brilinta Can discontinue IV fluids Continue current metoprolol, lisinopril Continue high-intensity statin On insulin per primary team Up walking halls today. Likely home tomorrow a.m. Subjective Feeling well this morning. No recurrent chest pain. Denies significant shortness of breath. Just tired from difficulty sleeping at hospital. Denies significant pain at right radial and right common femoral artery access sites. Telemetry reviewedno events Review of Systems Review of Systems: All systems reviewed & are unremarkable except as noted in HPI & below Physical Exam Physical Exam: General: Comfortable, no acute distress HEENT: Sclerae anicteric, mucous membranes moist Lungs: Clear to auscultation bilaterally, no rhonchi or wheezes Cardiac: Regular rate and rhythm, no murmurs. Abdomen: Soft, nontender Extremities: Warm, well perfused, no edema. Right radial artery access site with no ecchymosis, hematoma. Distal pulse and sensation intact. Right ACID PATROLLER tender, no significant hematoma, pulse intact Skin: No rashes or lesions. Neuro: Nonfocal Psych: Alert orient x3, normal affect and mood Results & Data Vital Signs (Past 12 Hours) Vital Signs Temp Pulse Pulse Resp BP Pulse Ox 12/07/19 07:09 97.9 F 71 18 107/77 98 12/07/19 03:06 98.1 F 76 18 100/68 98 12/07/19 00:00 83 12/06/19 23:43 98.1 F 73 20 89/62 L 97 PG Care Time/CCT Total # of Minutes Spent Total Time Spent with Patient: Total time spent is greater than 50% in coordination of care (as documented) at patient's floor/unit and/or counseling patient: Coding Level of Care Code 86044 Subseq Hosp Care Lvl [address] elevation myocardial infarction (STEMI) I21.3 Involved coronary artery: unspecified coronary artery (1) ST elevation myocardial infarction (STEMI) Involved coronary artery: unspecified coronary artery Qualified Code(s): I21.3 - ST elevation (STEMI) myocardial infarction of unspecified site
--- NOTE | 2019-12-07 09:34 | Pharmacy Report ---
Pharmacy Glycemic Short Note 2 - Date of Service December 07, 2019 - Glycemic Short BSG Results (Last 24 hours): 12/06/19 12/06/19 12/06/19 11:50 16:23 20:23 Glucose POC Glucose 233 H 272 H 278 H 12/07/19 12/07/19 12/07/19 03:28 07:04 07:23 Glucose 156 H POC Glucose 190 H 157 H OUTPATIENT ANTIDIABETIC REGIMEN: * No prior dx of DM * A1c = pending ASSESSMENT: 12/07 * 47 units SQ insulin administered yesterday * Fasting BSG 157 this AM with 20 units Lantus on board and after receiving 9 units correctional insulin HS thru this AM - will increase basal dose * Post-prandial BSGs now well controlled yesterday, however this was in part due to basal insulin deficiency. * Insulin doses will be increased today based upon anticipated total daily dose 50+ units * Initiate metformin at least 48 hrs from cath procedure 12/06 * Patient admitted with STEMI now s/p PABLO x 2 * Hyperglycemia noted on both PRP and Accucheck this AM. A1c ordered to assess possible underlying insulin resistance vs stress hyperglycemia * Prelunch BSG also elevated in 230's * Will escalate basal/bolus SQ orders at this time based upon pt weight and moderate stress level PLAN FOR INPATIENT GLYCEMIC CONTROL: * Begin metformin 500mg PO BID tomorrow AM * Basal insulin - increase * Lantus 15units BID * Bolus insulin - increase * NovoLog per scale ACHS or Q6hrs while NPO * Goal Range: Low 110 mg/dL - High 140 mg/dL * Correction Factor: 20 mg/dL/unit * Nutritional / Prandial insulin per carb ratio of 1 unit per 7 grams CHO consumed PLAN FOR DISCHARGE: * Given A1c result of 10.6%, recent STEMI and patient's age, would recommend discharge on metformin + basal insulin + (GLP1-RA or prandial insulin) as well as lifestyle modifications. If patient is unwilling to use insulin therapy or injectable therapy on discharge, metformin + SGLT2i (either empagliflozin or canagliflozin) + lifestyle modifications would be our secondary recommendation.
--- NOTE | 2019-12-07 12:47 | Hospitalist Progress Note ---
Date of Service December 07, 2019 Assessment & Plan (1) ST elevation myocardial infarction (STEMI): Inferior [place] Stent placed to distal circ 100% Stent placed to distal RCA 80% (non-culprit lesion) Aspirin 81 mg daily Brilinta 90mg BID Atorvastatin 80mg daily Lisinopril 5mg daily Metoprolol 25mg BID patient doing well today, no chest pain or pressure ambulating in halls without difficulty will plan to d/c tomorrow will need DAPT for year with aspirin and Brilinta Lipitor 80mg metoprolol and lisinopril (2) Type II diabetes mellitus: Glucose 323 This is new onset No anion gap continue on Lantus and Novolog while hospitalized plan to start on Metformin on discharge DM educator met with patient to explain dietary changes, glucose monitoring she is well versed in checking sugars as she checked her mom's sugar and administered insulin to her over the years lots of room for improvement in diet, as she drinks a lot of soda, eats complex carbs (3) Tobacco abuse: educated on need to quit (4) Cardiomyopathy: EF is reduced at 45-50% with hypokinesis in areas of [place] likely transient issue will be on lisinopril and metoprolol and will need repeat repeat echo in a few months euvolemic on exam (5) CAD (coronary artery disease): diffuse disease with two areas of severe stenosis treated with PABLO continue DAPT, continue Lipitor Subjective patient feeling well today, no chest pain she was able to walk 4 laps around the RN unit without any chest pain or pressure had some dyspnea that made her stop no fever/chills, no nausea, no diarrhea eating well we discussed new diagnosis of DM with HBA1c of 10.4% she admits to a family h/o DM, her mother was on hemodialysis due to ESRD with DM she does not like the idea of using insulin, hoping to control with dietary changes and Metformin she admits to drinking a lot of soda, eating pasta, breads and other complex car bs labs reviewed, LDL is < 100 and HDL is only 32 CBC and BMP stable discussed with Dr. Duran, plan for d/c tomorrow morning Review of Systems Review of Systems: All systems reviewed & are unremarkable except as noted in HPI & below Constitutional: no fever, no chills and no sweats Respiratory: no cough Cardiovascular: no chest pain, no palpitations and no edema Gastrointestinal: no abdominal pain, no nausea, no vomiting, no constipation and no diarrhea/loose stools Physical Exam Constitutional: WD/WN, vitals as above Eyes: PERRL, conjunctivae normal, anicteric sclerae ENMT: external ear and nose normal, oropharynx normal (Poor dentition) Neck: trachea midline, no thyromegaly Respiratory: normal respiratory effort, lungs clear to auscultation Cardiovascular: RRR, no murmur, no edema Gastrointestinal (Abdomen): normal bowel sounds, soft, nontender, no hepatosplenomegaly Musculoskeletal: no cyanosis or clubbing, extremities motor strength 5/5 Skin: no rashes, warm and dry Neurologic: patellar DTR's 2+ bilat, sensation intact and PERRL, EOMI, accommodation nl, no face palsy, no dysarthria Psychiatric: A+Ox3, euthymic affect Lymphatic: no cervical or axillary lymphadenopathy Results & Data ([facility]) Vital Signs (Past 12 Hours) Vital Signs Temp Pulse Resp BP Pulse Ox 12/07/19 11:00 37.0 C 72 19 90/61 L 97 12/07/19 07:09 36.6 C 71 18 107/77 98 12/07/19 03:06 36.7 C 76 18 100/68 98 Laboratory Results Laboratory Results - last 24 hr 12/06/19 12/06/19 12/06/19 15:21 16:23 18:07 WBC RBC Hgb Hct MCV MCH MCHC RDW Std Deviation RDW Coeff of Bishop Plt Count MPV Immature Gran % (Auto) Neut % (Auto) Lymph % (Auto) [place] % (Auto) Eos % (Auto) Baso % (Auto) Immature Gran # (Auto) Neut # (Auto) Lymph # (Auto) [place] # (Auto) Eos # (Auto) Baso # (Auto) Sodium Potassium Chloride Carbon Dioxide Anion Gap BUN Creatinine Est Cr Clr Drug Dosing Est GFR ( Amer) Est GFR (Non-Af Amer) BUN/Creatinine Ratio Glucose POC Glucose 272 H Calcium Troponin I 67.100 H* 54.500 H* Triglycerides Cholesterol LDL Cholesterol, Calc VLDL Cholesterol, Calc HDL Cholesterol Cholesterol/HDL Ratio 12/06/19 12/06/19 12/07/19 20:23 21:02 03:28 WBC RBC Hgb Hct MCV MCH MCHC RDW Std Deviation RDW Coeff of Bishop Plt Count MPV Immature Gran % (Auto) Neut % (Auto) Lymph % (Auto) [place] % (Auto) Eos % (Auto) Baso % (Auto) Immature Gran # (Auto) Neut # (Auto) Lymph # (Auto) [place] # (Auto) Eos # (Auto) Baso # (Auto) Sodium Potassium Chloride Carbon Dioxide Anion Gap BUN Creatinine Est Cr Clr Drug Dosing Est GFR ( Amer) Est GFR (Non-Af Amer) BUN/Creatinine Ratio Glucose POC Glucose 278 H 190 H Calcium Troponin I 57.200 H* Triglycerides Cholesterol LDL Cholesterol, Calc VLDL Cholesterol, Calc HDL Cholesterol Cholesterol/HDL Ratio 12/07/19 12/07/19 12/07/19 07:04 07:04 07:23 WBC 10.42 RBC 3.98 L Hgb 11.3 L Hct 34.1 L MCV 85.7 MCH 28.4 MCHC 33.1 RDW Std Deviation 44.7 RDW Coeff of Bishop 14.4 Plt Count 205 MPV 11.5 H Immature Gran % (Auto) 0.2 Neut % (Auto) 57.1 Lymph % (Auto) 32.1 [place] % (Auto) 7.9 Eos % (Auto) 2.3 Baso % (Auto) 0.4 Immature Gran # (Auto) 0.02 Neut # (Auto) 5.96 Lymph # (Auto) 3.34 [place] # (Auto) 0.82 H Eos # (Auto) 0.24 Baso # (Auto) 0.04 Sodium 141 Potassium 3.3 L Chloride 112 H Carbon Dioxide 23 Anion Gap 6.0 BUN 11 Creatinine 0.65 Est Cr Clr Drug Dosing 111.3 Est GFR ( Amer) 126.9 Est GFR (Non-Af Amer) 109.5 BUN/Creatinine Ratio 16.4 Glucose 156 H POC Glucose 157 H Calcium 8.3 L Troponin I Triglycerides 243 H Cholesterol 170 LDL Cholesterol, Calc 89 VLDL Cholesterol, Calc 49 HDL Cholesterol 32 Cholesterol/HDL Ratio 5 12/07/19 11:26 WBC RBC Hgb Hct MCV MCH MCHC RDW Std Deviation RDW Coeff of Bishop Plt Count MPV Immature Gran % (Auto) Neut % (Auto) Lymph % (Auto) [place] % (Auto) Eos % (Auto) Baso % (Auto) Immature Gran # (Auto) Neut # (Auto) Lymph # (Auto) [place] # (Auto) Eos # (Auto) Baso # (Auto) Sodium Potassium Chloride Carbon Dioxide Anion Gap BUN Creatinine Est Cr Clr Drug Dosing Est GFR ( Amer) Est GFR (Non-Af Amer) BUN/Creatinine Ratio Glucose POC Glucose 181 H Calcium Troponin I Triglycerides Cholesterol LDL Cholesterol, Calc VLDL Cholesterol, Calc HDL Cholesterol Cholesterol/HDL Ratio Medications Administered Current Inpatient Medications Aspirin (Ecotrin Ectab) 81 mg PO [facility] Stop: 01/05/20 08:59 Last Admin: 12/07/19 07:46 Dose: 81 mg Documented by: Atorvastatin Calcium (Lipitor) 80 mg PO [facility] Stop: 01/05/20 08:59 Last Admin: 12/07/19 07:45 Dose: 80 mg Documented by: Dextrose (Dextrose 50%) 25 - 50 ml IV UD PRN; Protocol PRN Reason: Hypoglycemia Protocol Stop: 01/05/20 06:18 Glucagon (Glucagen) 1 mg SQ UD PRN; Protocol PRN Reason: Hypoglycemia Protocol Stop: 01/05/20 06:18 Glucose (Dex4 Glucose) 4 - 8 tabs PO UD PRN; Protocol PRN Reason: Hypoglycemia Protocol Stop: 01/05/20 06:18 Glucose (Glucose 40%) 15 - 30 gm PO UD PRN; Protocol PRN Reason: Hypoglycemia Protocol Stop: 01/05/20 06:18 Insulin Aspart (Novolog Flexpen) 0 units SC ACHS [facility]; Protocol Stop: 01/05/20 07:29 Last Admin: 12/07/19 12:01 Dose: 10 units Documented by: Insulin Aspart (Novolog Flexpen) 0 units SC TODAY@0200 [facility]; Protocol Stop: 01/06/20 01:59 Last Admin: 12/07/19 03:31 Dose: 2 units Documented by: Insulin Glargine (Lantus Solostar Pen) 15 units SC BID [facility]; Protocol Stop: 01/06/20 08:59 Last Admin: 12/07/19 07:44 Dose: 15 units Documented by: Lisinopril (Zestril) 5 mg PO [facility] Stop: 01/05/20 08:59 Last Admin: 12/07/19 07:45 Dose: 5 mg Documented by: [facility] ([facility]) [facility] Stop: 01/07/20 07:59 Metoprolol Tartrate (Lopressor) 25 mg PO BID [facility] Stop: 01/05/20 08:59 Last Admin: 12/07/19 07:45 Dose: 25 mg Documented by: Miscellaneous (Carbohydrates For Hypoglycemia) 15 - 30 gm PO UD PRN PRN Reason: Hypoglycemia Protocol Stop: 01/05/20 06:18 Miscellaneous Information (Consult Glycemic Management Pharmacy) 1 ea N/A UD PRN PRN Reason: Consult Stop: 01/05/20 12:01 Ondansetron HCl (Zofran) 4 mg IV Q6H PRN PRN Reason: Nausea And Vomiting Stop: 01/05/20 05:57 Ticagrelor (Brilinta) 90 mg PO BID [facility] Stop: 01/05/20 17:59 Last Admin: 12/07/19 07:45 Dose: 90 mg Documented by: PG Care Time/CCT Total # of Minutes Spent Total Time Spent with Patient: Total time spent is greater than 50% in coordination of care (as documented) at patient's floor/unit and/or counseling patient: Coding Level of Care Code 59791 Subseq Hosp Care Lvl [address] elevation myocardial infarction (STEMI) I21.3 Involved coronary artery: unspecified coronary artery Type II diabetes mellitus E11.9 Tobacco abuse Z72.0 Cardiomyopathy I42.9 CAD (coronary artery disease) I25.10 (1) ST elevation myocardial infarction (STEMI) Involved coronary artery: unspecified coronary artery Qualified Code(s): I21.3 - ST elevation (STEMI) myocardial infarction of unspecified site :
[2019-12-08] MEDS: INSULIN ASPART 100 UNITS/ML 3 ML PEN SC SCH ×2 (02:23→08:41)
[2019-12-08 07:52] LABS: BUN Creatinine Ratio 25.9 (10-20); Calcium 8.5 mg/dl (8.5-10.1); Est GFR (African American) 117.7; Est GFR (Non-African American) 101.6; Potassium 3.3 mmol/L (3.5-5.1)
[2019-12-08] MEDS ORDERED: METFORMIN HCL 500 MG TAB PO SCH ×2 (08:00→11:30)
[2019-12-08] MEDS: lisinopriL 5 MG TAB PO SCH (08:39)
[2019-12-08] MEDS: METOPROLOL TARTRATE 25 MG TAB PO SCH (08:39)
[2019-12-08] MEDS: ATORVASTATIN 40 MG TAB PO SCH (08:39)
[2019-12-08] MEDS: ASPIRIN 81 MG ECTAB PO SCH (08:40)
[2019-12-08] MEDS ORDERED: INSULIN GLARGINE SOLOSTAR 100 UNITS/ML 3 ML PEN SC SCH (09:00)
--- NOTE | 2019-12-08 10:03 | Discharge Summary ---
Date of Service December 08, 2019 Admission HPI Per Admitting Provider 44 y/o female presented to the ED via EMS with substernal non-radiating chest pain. The pain was 6/10 and improved to 1/10 after NTG. She has multiple members of her family with CAD. Patient was taken directly from the ED to petroleum laboratory technician for intervention. She is currently in the ICU. She is chest pain free. Principal Diagnosis ST elevation [place] Discharge Exam Constitutional WD/WN, vitals as above Eyes PERRL, conjunctivae normal, anicteric sclerae ENMT external ear and nose normal, oropharynx normal (Poor dentition) Neck trachea midline, no thyromegaly Respiratory normal respiratory effort, lungs clear to auscultation Cardiovascular RRR, no murmur, no edema Gastrointestinal (Abdomen) normal bowel sounds, soft, nontender, no hepatosplenomegaly Musculoskeletal no cyanosis or clubbing, extremities motor strength 5/5 Skin no rashes, warm and dry Neurologic patellar DTR's 2+ bilat, sensation intact and PERRL, EOMI, accommodation nl, no face palsy, no dysarthria Psychiatric A+Ox3, euthymic affect Lymphatic no cervical or axillary lymphadenopathy Discharge Data Allergies Allergy/AdvReac Type Severity Reaction Status Date / Time coconut Allergy Unknown Verified 12/06/19 04:09 ham Allergy Unknown Uncoded 12/06/19 04:09 sun Allergy Unknown Uncoded 12/06/19 04:09 Consultations 12/06/19 06:03 Consult Cardiac Rehabilitation Routine Consult Case Management - Discharge Planning Routine Consult Housing Specialist Routine Procedures Performed Operation Date: 12/06/19 05:00 Actual Procedures p Aspiration/PCI w/PABLO for Stemi - Caesar Duran MD s Drug Eluting Stent each ADDTL Vessel - Caesar Duran MD s Cineradiography w/Routine Exam - Caesar Duran MD s Placement Art Occlusive Device - Caesar Duran MD Ordered Studies 12/06/19 03:59 CL Cath Imgs for PACS use only Stat Hospital Course (1) ST elevation myocardial infarction (STEMI): Inferior [place] Stent placed to distal circ 100% (culprit lesion) Stent placed to distal RCA 80% (non-culprit lesion) will need DAPT for a year, Aspirin 81 mg daily, Brilinta 90mg BID Atorvastatin 80mg daily Lisinopril 5mg daily Metoprolol 25mg BID patient doing well for two days, no chest pain or pressure when walking in halls will follow up with new PCP and will see Dr. Duran in 2-3 weeks (2) Type II diabetes mellitus: Glucose 323 This is new onset No anion gap treated with Lantus and Novolog while hospitalized will start Metformin 500mg BID on discharge DM educator met with patient to explain dietary changes, glucose monitoring she is well versed in checking sugars as she checked her mom's sugar and administered insulin to her over the years lots of room for improvement in diet, as she drinks a lot of soda, eats complex carbs spent time educating her on day of discharge, she seems motivated to quit follow up with PCP (3) Tobacco abuse: educated on need to quit (4) Cardiomyopathy: EF is reduced at 45-50% with hypokinesis in areas of [place] likely transient issue will be on lisinopril and metoprolol and will need repeat repeat echo in a few months euvolemic on exam (5) CAD (coronary artery disease): diffuse disease with two areas of severe stenosis treated with PABLO continue DAPT, continue Lipitor Total Time Total Time Spent Total Time Spent (In Minutes): 39 minutes Total Time Includes: Examination of the Patient, Discharge Planning, Medication Reconciliation and Communication With Other Providers (cardiology) Discharge Plan Discharge Items Patient Disposition: Home - Self-Care Reason For Visit: STEMI Discharge Diagnosis: STEMI Ischemic cardiomyopathy DM type II, new diagnosis Condition on Discharge: Good Goals: improve heart function by taking medications treat diabetes with Metformin and dietary/lifestyle changes Activity: Per Instructions section Bathing: No limitations Exercise/Sports: Gradually increase as tolerated Driving/Machine Use: Resume 1 day after discharge Non-emergency contact: Primary Care Provider and Woodyard Operator Call non-emergency contact if: you have any medication questions, your symptoms worsen and you have a fever Follow-up/Referrals: Caesar Duran MD [Physician] - 12/21/19 10:00 am (patient should be seen in 2 weeks) Carlos Dobson D.O. [Primary Care Provider] - 12/14/19 1:30 pm (Please, follow up at Dr. Dobson's office on FridayDecember 14 at 1:30 pm. *I called and faxed his office with your information. THE NURSE, CHARLINE, ASKED FOR YOU CALL THEIR OFFICE LATER TODAY TO CONFIRM THE APPOINTMENT AND REVIEW DR. DOBSON'S OFFICE POLICIES. The office phone number is [phone].) Diet: Carb Consistent or DM2 and Heart Healthy Addtl Attending Provider Instructions: Medications: - BRILINTA: 90mg twice a day to help keep stent open, you need to take this as directed, do not miss doses - ASPIRIN: 81mg daily to help keep stent open, you can but this over the counter - LIPITOR: statin medication to lower cholesterol, stabilize plaques, proven to prevent future heart attacks, take 80mg daily - LISINOPRIL: 5mg daily, will help prevent remodeling of heart muscle, help your heart recover from ND - METOPROLOL: 25mg twice a day, also, helps decrease stress on heart muscle as it recovers from ND - METFORMIN: 500mg twice a day, may increase to 1000mg twice a day after 2 weeks if you are tolerating well, main side effect is loose stools, stay with it as it should improve Acute heart attack, treated with stents to distal circumflex artery and right coronary artery echocardiogram shows that heart function mildly reduced, this is due to the acute heart attack, should recover over next few weeks/months the medications you will be on are essential to both preventing future heart attacks and helping heart muscle recover, improving overall function take Brilinta and aspirin as directed to help keep stents open take Lipitor 80mg daily to stabilize plaques and control cholesterol take lisinopril and metoprolol to treat cardiomyopathy Diabetes type II, hb A1c is 10.4% new diagnosis, will start on Metformin 500mg twice a day, likely will increase this dose but this will be per Dr Dobson provided with scripts for test strips and Lancets recommend checking sugars 1-2 times a day, can check in the morning when you wake up, check in the afternoon as we discussed, there is a lot of room for improvement with you diet avoid excessive amounts of complex carbohydrates such as pasta, breads, you can still eat these but decrease portions by 50% stop eating simple sugars such as sweets, sodas focus on eating more proteins, vegetables follow up with Dr. Dobson for primary care, will need to follow renal function, get eye and foot exams routinely if you make major diet and lifestyle changes (exercise 4-5 times a day, 30 minutes at at time) you can improve your HbA1c and hopefully avoid need for insulin Pending Studies at Discharge: No Stand-Alone Forms: Call Back Authorization, [facility], Smoking Cessation Medications and DC Order Prescriptions: New Brilinta 90 mg Tablet 90 mg PO BID 30 Days Qty: 60 RF: 3 atorvastatin 80 mg tablet 80 mg PO QAM 30 Days Qty: 30 RF: 3 metformin [Glucophage] 500 mg Tablet 500 mg PO BIDM 30 Days Qty: 60 RF: 3 aspirin [Ecotrin Low Strength] 81 mg Tablet,Delayed Release (Dr/Ec) 81 mg PO QAM 30 Days Qty: 30 RF: 3 lisinopril [Zestril] 5 mg Tablet 5 mg PO QAM 30 Days Qty: 30 RF: 3 metoprolol tartrate 25 mg Tablet 25 mg PO BID 30 Days Qty: 60 RF: 3 (DME) OneTouch Verio Strip See Rx Instructions .ROUTE .MEDSUPPLY Qty: 50 RF: 1 (DME) lancets [OneTouch Delica Lancets] 33 gauge misc See Rx Instructions .ROUTE .MEDSUPPLY Qty: 100 RF: 1 No Action No Known Home Medications RF: 0 Discharge Orders: Discharge Order (Routine); Ordered 12/08/19 Ordered By: Bryan Guido Admission Data Admit Date/Time: 12/06/19 06:03 Attending Provider: Bryan Guido Admit Provider: Caesar Duran Primary Care Provider: Carlos Dobson Other Providers: Chirag Tineo Other Interventions: Discharge Summary Assessment (RN) Last Done: 12/08/19 10:32 DC Date/Time DO NOT enter until pt leaves facility: 12/08/19 12:45 Coding Level of Care Code D/C Day Management >[address] elevation myocardial infarction (STEMI) I21.3 Involved coronary artery: unspecified coronary artery Type II diabetes mellitus E11.9 Tobacco abuse Z72.0 Cardiomyopathy I42.9 CAD (coronary artery disease) I25.10
[2019-12-08] MEDS: TICAGRELOR 90 MG TAB PO SCH (10:08)
[2019-12-08] MEDS ORDERED: Nursing to Pharmacy Communication ONE (11:04)
--- NOTE | 2019-12-08 11:15 | Cardiology Progress Note ---
Date of Service December 08, 2019 Assessment & Plan (1) ST elevation myocardial infarction (STEMI): 2. Severe non-culprit multivessel disease 3. Preserved LV function with inferolateral wall motion abnormality 4. Newly diagnosed diabetes 5. Dyslipidemia 6. Anemia Patient stable for discharge today from a cardiac standpoint. Home on ASA and ticagrelor for at least 1 year. Continue current metoprolol, lisinopril Continue high-intensity statin Follow-up with me in 2 weeks. Subjective Doing well this morning. Ready to go home. Denies chest pain or pain at access sites. Review of Systems Review of Systems: All systems reviewed & are unremarkable except as noted in HPI & below Physical Exam Physical Exam: General: Comfortable, no acute distress Eyes: Sclerae anicteric, extraocular movements intact HENT: Oropharynx clear mucous membranes moist Lungs: Clear to auscultation bilaterally Cardiac: Regular rate and rhythm, no murmurs Abdomen: Soft, nontender Neuro: Nonfocal Psych: Alert orient x3, normal affect and mood Extremities/Vascular: -- 2+ radial bilaterally -- No edema Results & Data Vital Signs (Past 12 Hours) Vital Signs Temp Pulse Pulse Pulse Resp BP Pulse Ox 12/08/19 10:32 98.2 F 81 69 20 106/72 98 12/08/19 07:59 98.2 F 69 20 106/72 98 12/08/19 07:47 68 12/08/19 03:10 99.5 F 73 18 102/71 96 12/08/19 00:00 76 PG Care Time/CCT Total # of Minutes Spent Total Time Spent with Patient: Total time spent is greater than 50% in coordination of care (as documented) at patient's floor/unit and/or counseling patient: Coding Level of Care Code 28741 Subseq Hosp Care Lvl [address] elevation myocardial infarction (STEMI) I21.3 Involved coronary artery: unspecified coronary artery (1) ST elevation myocardial infarction (STEMI) Involved coronary artery: unspecified coronary artery Qualified Code(s): I21.3 - ST elevation (STEMI) myocardial infarction of unspecified site
[2019-12-08] MEDS ORDERED: TICAGRELOR 90 MG TAB PO SCH (11:30)
[2019-12-08] MEDS ORDERED: METOPROLOL TARTRATE 25 MG TAB PO SCH (11:30)
== END 2019-12-08 12:45 | disposition home or self-care (01) | DRG 247 ==
LOC: ED 03:55 → CC 04:25 → 1E 06:03 → SUATTDRO 06:03 → 2S 15:30
DX: I21.9 Acute myocardial infarction, unspecified; I21.3 ST elevation (STEMI) myocardial infarction of unspecified site; F17.210 Nicotine dependence, cigarettes, uncomplicated; Z83.3 Family history of diabetes mellitus; Z82.49 Family history of ischemic heart disease and other diseases of the circulatory system; E11.9 Type 2 diabetes mellitus without complications; I25.9 Chronic ischemic heart disease, unspecified

== ENCOUNTER 2023-06-19 20:24 | Observation (INO) ==
[2023-06-19] MEDS ORDERED: SODIUM CHLORIDE 0.9% 500 ML IV ONE (20:46)
[2023-06-19 21:16] LABS: Basophils # (auto) 0.07 K/uL (0-0.2); Basophils % (auto) 0.5 %; Eosinophils # (auto) 0.31 K/uL (0-0.50); Eosinophils % (auto) 2.3 %; Hematocrit (blood only) 31.1 % (37.0-47.0); Hemoglobin 10.2 g/dl (12.0-16.0); Immature Granulocytes # (auto) 0.06 K/uL (0.01-0.20); Immature Granulocytes % (auto) 0.4 %; Lymphocytes # (auto) 1.86 K/uL (1.2-3.4); Lymphocytes % (auto) 13.9 %; Mean Corpuscular Hemoglobin 31.1 pg (25.0-34.0); Mean Corpuscular Hgb Conc 32.8 g/dL (32.0-36.0); Mean Corpuscular Volume 94.8 fL (80.0-100.0); Mean Platelet Volume 10.9 fL (9.4-12.4); Monocytes # (auto) 0.78 K/uL (0.11-0.59); Monocytes % (auto) 5.8 %; Neutrophils # (auto) 10.31 K/uL (1.40-6.50); Neutrophils % (auto) 77.1 %; Platelet Count 246 K/uL (130-400); RDW Coefficient of Variation 14.1 % (11.5-14.5); RDW Standard Deviation 48.9 fL (36.4-46.3); Red Blood Count 3.28 M/uL (4.20-5.40); White Blood Count 13.39 K/ul (4.8-10.8)
[2023-06-19 21:29] LABS: Albumin Level 3.9 gm/dl (3.4-5.0); Bilirubin,Total 0.3 mg/dl (0.2-1.0); Calcium 8.2 mg/dl (8.6-10.3); Potassium 4.3 mmol/L (3.5-5.1)
[2023-06-19 21:35] LABS: Albumin Globulin Ratio 1.3 (0.9-2); BUN Creatinine Ratio 16.4 (10-20); Creatinine Clr Calc Pharmacy 40.2 ml/min; Est GFR (African American) 39.5 ml/min; Est GFR (Non-African American) 34.1 ml/min; Globulin 2.9 gm/dl (2.5-4.0); Total Protein 6.8 gm/dl (6.0-8.3)
[2023-06-19] MEDS ORDERED: FAMOTIDINE 20MG IV PUSH 20 MG/5 ML SYR IV STA (21:35)
[2023-06-19] MEDS ORDERED: SODIUM CHLORIDE 0.9% 1000ML 1,000 ML IV ONE ×2 (21:35→22:47)
[2023-06-19] MEDS ORDERED: ONDANSETRON INJ 2 MG/ML 2 ML VIAL IV STA (21:36)
[2023-06-19 22:03] LABS: Pregnancy Test, Serum Negative (Negative)
[2023-06-19 23:01] LABS: Magnesium 1.6 mg/dl (1.7-2.4)
[2023-06-19 23:09] LABS: Troponin I High Sensitivity 4.3 pg/ml (0-14)
--- NOTE | 2023-06-19 23:16 | CT Scan Report ---
Exam(s): CT HEAD Without Contrast EXAM: CT Head Without Intravenous Contrast CLINICAL HISTORY: Reason for exam: TORRES, hypotension. TECHNIQUE: Axial computed tomography images of the head/brain without intravenous contrast. CTDI is 37.61 mGy and DLP is 624.41 mGy-cm. Automated exposure control was utilized for the study. A dose lowering technique was utilized adhering to the principles of ALARA. COMPARISON: No relevant prior studies available. FINDINGS: No acute intracranial hemorrhage. No midline shift or mass effect. The territorial hood-white matter differentiation is maintained throughout. The ventricles and sulci are commensurate with age. The visualized orbits appear grossly unremarkable. The calvarium is intact. The visualized paranasal sinuses and mastoid air cells are grossly clear. IMPRESSION: No acute intracranial hemorrhage, midline shift, or mass effect. Electronically signed by: David Thorne MD 06/19/23 23:15 PM
--- NOTE | 2023-06-19 23:51 | Emergency Department Note ---
History of Present Illness General Chief complaint: Hypotension Stated complaint: NEAR SYNCOPAL/HYPOTENSION Time Seen by Provider: 06/19/23 21:24 History of Present Illness Maximum Pain Intensity: 7 This 47-year-old female presents ER complaint of nausea vomiting diarrhea dehydration near syncope and low blood pressure for the past 2 days. Patient had antibiotics recently for a dental infection. Patient denies chest pain, dyspnea, abdominal pain, flank pain, fever, chills, cough, congestion. No blood or black in the vomit or diarrhea. No well water. Home Medications Medication Instructions Recorded Confirmed Type aspirin 81 mg tablet,delayed 81 mg PO QAM 30 days #30 tabs 12/08/19 06/20/23 Rx release (Ecotrin Low Strength) atorvastatin 80 mg tablet 80 mg PO QAM 30 days #30 tabs 12/08/19 06/20/23 Rx blood sugar diagnostic (LockrTouch #50 ea 12/08/19 06/19/23 Rx Verio test strips) lancets 33 gauge ([email or web address] Delica #100 ea 12/08/19 06/19/23 Rx Lancets) metoprolol tartrate 25 mg tablet 25 mg PO BID 30 days #60 tabs 12/08/19 06/20/23 Rx lisinopril 20 mg tablet 20 mg PO QAM 30 days #90 tabs 02/04/23 06/20/23 Rx metformin 1,000 mg tablet 1,000 mg PO BID 06/19/23 06/20/23 History empagliflozin 10 mg tablet 10 mg PO QAM 06/20/23 06/20/23 History gemfibrozil 600 mg tablet 600 mg PO BID 06/20/23 06/20/23 History Allergies Allergy/AdvReac Type Severity Reaction Status Date / Time coconut Allergy Unknown Verified 04/18/22 13:09 ham Allergy Unknown Uncoded 04/18/22 13:09 sun Allergy Unknown Uncoded 04/18/22 13:09 Past Med/Surg History Medical History (Updated 06/20/23 @ 01:02 by Lucretia Lopez PA-C) Tobacco abuse Family History Other Coronary heart disease Diabetes Dyslipidemia Hypertension Myocardial infarction Social History Smoking Status: Current every day smoker Tobacco Type: Cigarettes and E-cigarettes / Vaping Cigarettes Per Day: 3/4 pack a day; Hx Alcohol Use: Yes Alcohol type: beer, wine and hard liquor Hx Substance Use: No Preferred Language: American Communication Ability: Effective Beliefs That Will Affect Care: None Current Living Situation: Family Current Living Situation Comment: lives with brother Feels Safe at Home: Yes Assistive Devices: Glasses Review of Systems A total of 10 systems reviewed and were otherwise negative Physical Exam Vital Signs Vital Signs - 24 hr 06/19/23 20:37 06/19/23 20:45 06/19/23 21:00 Temperature 36.8 C Temperature Source Oral Pulse Rate 79 82 75 Pulse Rate from SpO2 Sensor 82 75 Respiratory Rate 18 19 19 Respiratory Effort / Characteristics Non-Labored Spontaneous Respiratory Depth Normal Blood Pressure 87/55 L 95/67 L 87/61 L Blood Pressure Mean 65 76 69 Pulse Oximetry 99 100 100 Oxygen Delivery Method Room Air Sepsis Recent Fever Within 48 Hours No Sepsis New/Unexplained Change in Mental Status No Sepsis Action Taken by Nursing No Action Required 06/19/23 20:35 06/19/23 21:15 06/19/23 21:28 Temperature Temperature Source Pulse Rate 79 75 78 Pulse Rate from SpO2 Sensor 76 79 Respiratory Rate 26 H 18 Respiratory Effort / Characteristics Respiratory Depth Blood Pressure 88/56 L 91/59 L Blood Pressure Mean 66 69 Pulse Oximetry 100 100 Oxygen Delivery Method Sepsis Recent Fever Within 48 Hours Sepsis New/Unexplained Change in Mental Status Sepsis Action Taken by Nursing 06/19/23 21:30 06/19/23 21:30 06/19/23 21:45 Temperature Temperature Source Pulse Rate 90 75 Pulse Rate from SpO2 Sensor 83 75 Respiratory Rate 16 18 Respiratory Effort / Characteristics Respiratory Depth Blood Pressure 91/59 L 90/49 L Blood Pressure Mean 61 62 Pulse Oximetry 99 100 Oxygen Delivery Method Sepsis Recent Fever Within 48 Hours Sepsis New/Unexplained Change in Mental Status Sepsis Action Taken by Nursing 06/19/23 22:00 06/19/23 22:23 06/19/23 22:30 Temperature Temperature Source Pulse Rate 77 84 85 Pulse Rate from SpO2 Sensor 75 85 Respiratory Rate 14 19 23 Respiratory Effort / Characteristics Respiratory Depth Blood Pressure 84/54 L 90/55 L 91/52 L Blood Pressure Mean 64 66 65 Pulse Oximetry 100 99 Oxygen Delivery Method Sepsis Recent Fever Within 48 Hours Sepsis New/Unexplained Change in Mental Status Sepsis Action Taken by Nursing 06/19/23 22:47 06/19/23 22:47 06/19/23 20:30 Temperature Temperature Source Pulse Rate 91 H 79 Pulse Rate from SpO2 Sensor 90 Respiratory Rate 18 Respiratory Effort / Characteristics Respiratory Depth Blood Pressure 81/48 L Blood Pressure Mean 55 Pulse Oximetry 95 Oxygen Delivery Method Sepsis Recent Fever Within 48 Hours Sepsis New/Unexplained Change in Mental Status Sepsis Action Taken by Nursing 06/19/23 23:08 06/19/23 23:26 06/19/23 23:30 Temperature Temperature Source Pulse Rate Pulse Rate from SpO2 Sensor Respiratory Rate Respiratory Effort / Characteristics Respiratory Depth Blood Pressure 90/58 L 87/50 L 97/56 L Blood Pressure Mean 63 61 64 Pulse Oximetry Oxygen Delivery Method Sepsis Recent Fever Within 48 Hours Sepsis New/Unexplained Change in Mental Status Sepsis Action Taken by Nursing 06/20/23 00:31 06/20/23 00:00 06/20/23 00:15 Temperature Temperature Source Pulse Rate 81 94 H 78 Pulse Rate from SpO2 Sensor Respiratory Rate 20 16 Respiratory Effort / Characteristics Respiratory Depth Blood Pressure 84/60 L 98/64 L Blood Pressure Mean 68 75 Pulse Oximetry 100 Oxygen Delivery Method Sepsis Recent Fever Within 48 Hours Sepsis New/Unexplained Change in Mental Status Sepsis Action Taken by Nursing 06/20/23 00:30 Temperature Temperature Source Pulse Rate 87 Pulse Rate from SpO2 Sensor Respiratory Rate 26 H Respiratory Effort / Characteristics Respiratory Depth Blood Pressure 117/78 Blood Pressure Mean 91 Pulse Oximetry 99 Oxygen Delivery Method Sepsis Recent Fever Within 48 Hours Sepsis New/Unexplained Change in Mental Status Sepsis Action Taken by Nursing VITALS: Vitals are noted on the nurse's note and reviewed by myself. Vital signs reviewed. GENERAL: Pleasant female, in no acute distress, nondiaphoretic, well-developed well-nourished. SKIN: The skin was without rashes, erythema, edema, or bruising. There is no tenting of the skin. Capillary reflex less than 2 seconds. HEAD: Normocephalic atraumatic. EARS: External auditory canals clear, tympanic membranes pearly hood without erythema or effusion bilaterally. EYES: Pupils equal round and reactive to light and accommodation. Conjunctivae without injection, sclerae without icterus. Extraocular movements intact. NOSE: Patent, turbinates without inflammation or discharge. . MOUTH: Mucous membranes dry Pharynx without erythema or exudate. Uvula midline. Airway patent. Tongue does not deviate. NECK: Supple without nuchal rigidity. No lymphadenopathy. No thyromegaly. Cervical spine is nontender. No JVD. HEART: Regular rate and rhythm LUNGS: Clear to auscultation bilaterally without wheezes, rales or rhonchi. No retractions or accessory muscle use. ABDOMEN: Positive bowel sounds x 4. Normal tympanic percussion. Soft, nontender, without masses or organomegaly. Real sign negative. No guarding or rebound tenderness. No CVA tenderness MUSCULOSKELETAL: No muscle atrophy, erythema, or edema noted. NEURO: Patient was alert and oriented to person place and time. Normal sensation to light and sharp touch. No focal neurological deficits. Course Administered Medications Sodium Chloride (Nss 1000ml) 1,000 mls @ 999 mls/hr IV .Q1H1M ONE Stop: 06/20/23 01:09 Last Admin: 06/20/23 00:30 Dose: 999 mls/hr Documented By: BUD Discontinued Medications Sodium Chloride (Nss) 500 mls @ 999 mls/hr IV .Q31M ONE Stop: 06/19/23 21:16 Last Infusion: 06/19/23 21:55 Dose: 0 mls/hr Documented By: Admin: 06/19/23 21:04 Dose: 999 mls/hr Documented By: CRISTOBAL Famotidine (Pepcid 20mg Iv Push) 20 mg in 5 mls @ 2.5 mls/min IV NOW STA Stop: 06/19/23 21:36 Last Admin: 06/19/23 22:31 Dose: Not Given Documented By: CRISTOBAL Sodium Chloride (Nss 1000ml) 1,000 mls @ 999 mls/hr IV .Q1H1M ONE Stop: 06/19/23 22:35 Last Infusion: 06/20/23 00:08 Dose: 0 mls/hr Documented By: Admin: 06/19/23 22:30 Dose: 999 mls/hr Documented By: CRISTOBAL Sodium Chloride (Nss 1000ml) 1,000 mls @ 999 mls/hr IV .Q1H1M ONE Stop: 06/19/23 23:47 Last Infusion: 06/20/23 00:08 Dose: 0 mls/hr Documented By: Admin: 06/19/23 22:54 Dose: 999 mls/hr Documented By: CRISTOBAL Ondansetron HCl (Ondansetron Inj 2 Mg/Ml 2 Ml Vial) 4 mg IV NOW STA Stop: 06/19/23 21:37 Last Admin: 06/19/23 22:32 Dose: Not Given Documented By: CRISTOBAL Medical Decision Making Medical Records Attestation: I reviewed the patient's medical records. Home Medications Current Medication List: was personally reviewed by me Laboratory Data Attestation: I reviewed the patient's lab results. 06/19/23 Unknown 06/19/23 Unknown Lab Results 06/19/23 06/19/23 06/19/23 Range/Units 23:23 Unknown Unknown WBC 13.39 H (4.8-10.8) K/ul RBC 3.28 L (4.20-5.40) M/uL Hgb 10.2 L (12.0-16.0) g/dl Hct 31.1 L (37.0-47.0) % MCV 94.8 (80.0-100.0) fL MCH 31.1 (25.0-34.0) pg MCHC 32.8 (32.0-36.0) g/dL RDW Std Deviation 48.9 H (36.4-46.3) fL RDW Coeff of Bishop 14.1 (11.5-14.5) % Plt Count 246 (130-400) K/uL MPV 10.9 (9.4-12.4) fL Immature Gran % (Auto) 0.4 % Neut % (Auto) 77.1 % Lymph % (Auto) 13.9 % Bath % (Auto) 5.8 % Eos % (Auto) 2.3 % Baso % (Auto) 0.5 % Neut # (Auto) 10.31 H (1.40-6.50) K/uL Lymph # (Auto) 1.86 (1.2-3.4) K/uL Bath # (Auto) 0.78 H (0.11-0.59) K/uL Eos # (Auto) 0.31 (0-0.50) K/uL Baso # (Auto) 0.07 (0-0.2) K/uL Immature Gran # (Auto) 0.06 (0.01-0.20) K/uL Sodium 138 (136-145) mmol/L Potassium 4.3 (3.5-5.1) mmol/L Chloride 110 H (98-107) mmol/L Carbon Dioxide 19 L (21-32) mmol/L Anion Gap 9 (3-11) BUN 29 H (6-23) mg/dl Creatinine 1.77 H (0.6-1.2) mg/dl Est Cr Clr Drug Dosing 40.2 ml/min Est GFR ( Amer) 39.5 ml/min Est GFR (Non-Af Amer) 34.1 ml/min BUN/Creatinine Ratio 16.4 (10-20) Glucose 124 H (70-99(Fasting)) mg/dl Calcium 8.2 L (8.6-10.3) mg/dl Magnesium Cancelled Total Bilirubin 0.3 (0.2-1.0) mg/dl AST 13 (13-39) U/L ALT 11 (7-52) U/L Alkaline Phosphatase 83 (34-104) U/L Troponin I High Sens Cancelled Total Protein 6.8 (6.0-8.3) gm/dl Albumin 3.9 (3.4-5.0) gm/dl Globulin 2.9 (2.5-4.0) gm/dl Albumin/Globulin Ratio 1.3 (0.9-2) TSH (0.300-4.500) uIu/ml HCG, Qual (Negative) Urine Color Yellow Urine Appearance Clear (Clear) Urine pH 5.0 (4.5-7.5) Ur Specific [place] 1.016 (1.000-1.030) Urine Protein Negative (Negative) Urine Glucose (UA) 3+ H (Negative) Urine Ketones Negative (Negative) Urine Blood Negative (Negative) Urine Nitrite Negative (Negative) Urine Bilirubin Negative (Negative) Urine Urobilinogen Negative (Negative) Ur Leukocyte Esterase Negative (Negative) 06/19/23 06/19/23 06/19/23 Range/Units Unknown Unknown Unknown WBC (4.8-10.8) K/ul RBC (4.20-5.40) M/uL Hgb (12.0-16.0) g/dl Hct (37.0-47.0) % MCV (80.0-100.0) fL MCH (25.0-34.0) pg MCHC (32.0-36.0) g/dL RDW Std Deviation (36.4-46.3) fL RDW Coeff of Bishop (11.5-14.5) % Plt Count (130-400) K/uL MPV (9.4-12.4) fL Immature Gran % (Auto) % Neut % (Auto) % Lymph % (Auto) % Bath % (Auto) % Eos % (Auto) % Baso % (Auto) % Neut # (Auto) (1.40-6.50) K/uL Lymph # (Auto) (1.2-3.4) K/uL Bath # (Auto) (0.11-0.59) K/uL Eos # (Auto) (0-0.50) K/uL Baso # (Auto) (0-0.2) K/uL Immature Gran # (Auto) (0.01-0.20) K/uL Sodium (136-145) mmol/L Potassium (3.5-5.1) mmol/L Chloride (98-107) mmol/L Carbon Dioxide (21-32) mmol/L Anion Gap (3-11) BUN (6-23) mg/dl Creatinine (0.6-1.2) mg/dl Est Cr Clr Drug Dosing ml/min Est GFR ( Amer) ml/min Est GFR (Non-Af Amer) ml/min BUN/Creatinine Ratio (10-20) Glucose (70-99(Fasting)) mg/dl Calcium (8.6-10.3) mg/dl Magnesium 1.6 L Total Bilirubin (0.2-1.0) mg/dl AST (13-39) U/L ALT (7-52) U/L Alkaline Phosphatase (34-104) U/L Troponin I High Sens 4.3 Total Protein (6.0-8.3) gm/dl Albumin (3.4-5.0) gm/dl Globulin (2.5-4.0) gm/dl Albumin/Globulin Ratio (0.9-2) TSH 1.942 (0.300-4.500) uIu/ml HCG, Qual Negative (Negative) Urine Color Urine Appearance (Clear) Urine pH (4.5-7.5) Ur Specific [place] (1.000-1.030) Urine Protein (Negative) Urine Glucose (UA) (Negative) Urine Ketones (Negative) Urine Blood (Negative) Urine Nitrite (Negative) Urine Bilirubin (Negative) Urine Urobilinogen (Negative) Ur Leukocyte Esterase (Negative) Imaging Data Attestation: I personally reviewed and interpreted this imaging study as follows: Radiologist's Impression: Head CT 06/19/23 21:35 Exam(s): CT HEAD Without Contrast EXAM: CT Head Without Intravenous Contrast CLINICAL HISTORY: Reason for exam: TORRES, hypotension. TECHNIQUE: Axial computed tomography images of the head/brain without intravenous contrast. CTDI is 37.61 mGy and DLP is 624.41 mGy-cm. Automated exposure control was utilized for the study. A dose lowering technique was utilized adhering to the principles of ALARA. COMPARISON: No relevant prior studies available. FINDINGS: No acute intracranial hemorrhage. No midline shift or mass effect. The territorial hood-white matter differentiation is maintained throughout. The ventricles and sulci are commensurate with age. The visualized orbits appear grossly unremarkable. The calvarium is intact. The visualized paranasal sinuses and mastoid air cells are grossly clear. IMPRESSION: No acute intracranial hemorrhage, midline shift, or mass effect. Electronically signed by: David Thorne MD 06/19/23 23:15 PM [facility] Narrative Prior records/ancillary studies reviewed. Triage Nursing notes reviewed. Additional history obtained from nursing The patient's history was concerning for nausea, vomiting, diarrhea, and abdominal pain. Differential diagnosis: Etiologies such as gastroenteritis, food borne illness, infections, appendicitis, diverticulitis, inflammatory bowel disease, obstruction, GI bleed, biliary pathology, as well as others were entertained. Physical examination findings: As above. Abdominal examination revealed nontender. Vital signs reviewed and revealed hypotensive. ER treatment provided: IV hydration 2 L NSS. Pepcid Zofran p.o. fluids and crackers were ordered On reassessment the patient felt better. Patient was tolerating p.o. intake. Diagnostics interpretation by me: EKG ordered for near syncope EKG: Normal sinus, normal intervals, no acute ST-T wave changes. Impression normal sinus rhythm independent interpreted by myself. I think arrhythmia is unlikely. EKG shows normal sinus rhythm with no interval abnormalities such as QT prolongation or WPW. There are no findings to suggest Brugada syndrome. Cardiac monitoring in the emergency department reveals no tachycardic or bradycardic dysrhythmia. Hypertrophic cardiomyopathy was considered but there are no clear historical elements pointing toward this. EKG is not suggestive. The QRS voltage is not extremely large and there are no suggestive Q waves. The labs Independently Interpreted by myself revealed acute kidney injury Leukocytosis, negative hCG, euthyroid Imaging studies: Chest x-ray with no acute consolidation, pneumothorax or free air per my independent interpretation Head CT negative for intracranial bleed per my independent interpretation Consultation: A consultation was placed with the hospitalist. The case was discussed and diagnostics were reviewed. The patient was evaluated in the ER for further treatment. This appears to be consistent with acute kidney injury dehydration hypotension. Patient's blood pressure did improve with IV fluids. Labs and diagnostics were independent interpreted by myself. Medicine was consulted and the case was discussed. Patient will be admitted for acute kidney injury dehydration hypotension in stable condition. By the evaluation outlined above emergent etiologies such as appendicitis, diverticulitis, obstruction, cardiac sources, mesenteric ischemia, aortic pathology, inflammatory bowel disease, renal colic, PUD, biliary pathology, UTI, as well as others were deemed relatively unlikely. The pt informed about the findings as listed above. All questions were answered and pleased with the treatment. The chart was completed utilizing [employer] Speech voice recognition software. Grammatical errors, random word insertions, pronoun errors, and incomplete sentences are an occassional consequence of this system due to software limitations, ambient noise, and hardware issues. Any formal questions or concerns about the content, text, or information contained within the body of this dictation should be directly addressed to the physician ice cream freezer assistant for clarification. Impression & Plan MART (acute kidney injury), Nausea vomiting and diarrhea, Acute dehydration, Hypotension Discharge Plan Visit Data Chief Complaint: Hypotension Stated Complaint: NEAR SYNCOPAL/HYPOTENSION ED Provider: Bj Reed ED Midlevel Provider: Lucretia Lopez Discharge Problem: MART (acute kidney injury), Nausea vomiting and diarrhea, Acute dehydration, Hypotension Patient Disposition: Admitted As Inpatient Condition: Good Forms Stand Alone Forms: My Application Craft Prescriptions Prescriptions: No Action lisinopril 20 mg tablet 20 mg PO QAM 30 Days Qty: 90 3RF atorvastatin 80 mg tablet 80 mg PO QAM 30 Days Qty: 30 3RF aspirin [Ecotrin Low Strength] 81 mg Tablet,Delayed Release (Dr/Ec) 81 mg PO QAM 30 Days Qty: 30 3RF metoprolol tartrate 25 mg Tablet 25 mg PO BID 30 Days Qty: 60 3RF (DME) OneTouch Verio test strips Strip See Rx Instructions .ROUTE .MEDSUPPLY Qty: 50 1RF Rx Instructions: As directed (DME) lancets [OneTouch Delica Lancets] 33 gauge misc See Rx Instructions .ROUTE .MEDSUPPLY Qty: 100 1RF Rx Instructions: As directed metformin 1,000 mg tablet 1,000 mg PO BID gemfibrozil 600 mg tablet 600 mg PO BID empagliflozin 10 mg tablet 10 mg PO QAM Referrals Referrals: Carlos Olson D.O. [Primary Care Provider] -
[2023-06-20 00:03] LABS: Appearance Urine Clear (Clear); Bilirubin Urine Negative (Negative); Blood Urine Negative (Negative); Color Urine Yellow; Glucose Urine UA 3+ (Negative); Ketones Urine Negative (Negative); Leukocyte Esterase Urine Negative (Negative); Nitrite Urine Negative (Negative); Protein Urine Negative (Negative); Specific Gravity Urine 1.016 (1.000-1.030); Urobilinogen Urine Negative (Negative)
[2023-06-20] MEDS ORDERED: SODIUM CHLORIDE 0.9% 1000ML 1,000 ML IV ONE (00:09)
--- NOTE | 2023-06-20 00:44 | History & Physical Report ---
Date of Service June 20, 2023 Assessment & Plan (1) Near syncope: (2) MART (acute kidney injury): (3) Nausea vomiting and diarrhea: (4) Acute dehydration: (5) Hypotension: (6) CAD (coronary artery disease): (7) Cardiomyopathy: (8) Type II diabetes mellitus: (9) Hypomagnesemia: (10) Tobacco abuse: Plan Near syncope/hypotension/CAD/cardiomyopathy- Secondary to nausea, vomiting and dehydration with acute kidney injury and hypomagnesemia- Nausea, vomiting and diarrhea were self-limited, and had been improving earlier in the day today, but she had already become volume depleted enough to develop a near syncopal episode Patient received 2.5 L of IV fluids with a blood pressure low of 81/48, which improved to 100/67 Continue IV fluids, normal saline at 100 mils per hour x1 additional liter Hold lisinopril, and metoprolol tartrate due to hypotension Normal troponin Follow on telemetry for any arrhythmias Acute kidney injury- Creatinine 1.77 upon admission, with base 0.81 Secondary to GI volume losses We will receive a total 3 and half liters of IV fluids Repeat laboratories in a.m. Hold lisinopril Diabetes mellitus- Hold empagliflozin and metformin Placed on Accu-Cheks with NovoLog SSI Check hemoglobin A1c Hypomagnesemia- Magnesium 1.6 on admission Replace IV, recheck laboratories in a.m. History of Present Illness Chief Complaint: The patient presents to the emergency department with complaint of nausea, vomiting, diarrhea, feelings of dehydration for the past 2 days, and almost passed out today at work Primary Care Provider: Carlos Olson The patient is a 47-year-old female with a past medical history including CAD, cardiomyopathy, hyperglycemia, diabetes mellitus type 2, STEMI and tobacco abu se. She reports that 2 days ago for unknown reasons, she began to have intermittent symptoms as noted above. She did check her blood pressure and found it was disproportionately low for her, and after her near syncopal episode this afternoon, she came to the ED for assessment. Significant laboratories: WBC 13.39, hemoglobin 10.2, hematocrit 31.1, creatinine 1.77, glucose 124, magnesium 1.6, and BUN 29. CT of the head was negative, x-ray chest was normal. Allergies Allergy/AdvReac Type Severity Reaction Status Date / Time coconut Allergy Unknown Verified 04/18/22 13:09 ham Allergy Unknown Uncoded 04/18/22 13:09 sun Allergy Unknown Uncoded 04/18/22 13:09 Home Medications Medication Instructions Recorded Confirmed Type aspirin 81 mg tablet,delayed 81 mg PO QAM 30 days #30 tabs 12/08/19 06/20/23 Rx release (Ecotrin Low Strength) atorvastatin 80 mg tablet 80 mg PO QAM 30 days #30 tabs 12/08/19 06/20/23 Rx blood sugar diagnostic (OneTouch #50 ea 12/08/19 06/19/23 Rx Verio test strips) lancets 33 gauge (OneTouch Delica #100 ea 12/08/19 06/19/23 Rx Lancets) metoprolol tartrate 25 mg tablet 25 mg PO BID 30 days #60 tabs 12/08/19 06/20/23 Rx lisinopril 20 mg tablet 20 mg PO QAM 30 days #90 tabs 02/04/23 06/20/23 Rx metformin 1,000 mg tablet 1,000 mg PO BID 06/19/23 06/20/23 History empagliflozin 10 mg tablet 10 mg PO QAM 06/20/23 06/20/23 History gemfibrozil 600 mg tablet 600 mg PO BID 06/20/23 06/20/23 History Past Med/Surg History Medical History (Updated 06/20/23 @ 04:19 by Luis Baez MD) Tobacco abuse Family History Other Coronary heart disease Diabetes Dyslipidemia Hypertension Myocardial infarction Social History Smoking Status: Current every day smoker Tobacco Type: Cigarettes Cigarettes Per Day: 10; Do You Dip or Chew Tobacco: No; Hx Alcohol Use: No Hx Substance Use: Yes Last Used Substance: Days (ago) Last Used Substance Other:: 06/05/23 Preferred Language: Occitan Communication Ability: Effective Vocational Nurse Required: No Beliefs That Will Affect Care: None Current Living Situation: Alone Current Living Situation Comment: lives with brother Other Information That Helps Us Care for You: No Feels Safe at Home: Yes Safety Concerns: Feels Safe At This Time Assistive Devices: None Review of Systems Review of Systems: The patient denies chest pain, palpitations, shortness of breath, dyspnea on exertion, cough, lower extremity swelling, sore throat, fevers, chills, sweats, constipation, abdominal pain, pelvic pain, blood in urine or stool, dysuria, urinary frequency or urgency, memory loss, loss of consciousness, rash, abnormal bruising or bleeding, focal weakness, numbness or tingling in arms or legs, generalized arthralgias or myalgias, back or neck pain, or night sweats. The review of systems is otherwise negative other than for that already noted above, and at least 10 systems have been reviewed. Physical Exam Physical Exam: The patient is awake, alert and oriented 3, well developed and well nourished, normocephalic and atraumatic, lying in bed and in no acute distress. HEENT--PERRL, EOMI, mucous membranes and oropharynx dry. Neck--supple. No JVD. No bruits. Thyroid normal, trachea midline, no adenopathy. Heart--normal S1 and S2. No murmurs, rubs or gallops. Lungs--clear bilaterally, no respiratory distress, no accessory muscle use. Abdomen--normal bowel sounds and soft. Nontender. Nondistended, no hernias or masses, no organomegaly. Extremities--no cyanosis or clubbing. No edema. Dermatologic--normal skin turgor, normal color, no abnormal lymph nodes, no rash. Neurologic--cranial nerves II through XII grossly intact. Rheumatologic--normal range of motion. Psychiatric--normal affect. Results & Data Results & Data Vital Signs (Past 12 Hours) Vital Signs Temp Pulse Resp BP Pulse Ox O2 Del Method 06/20/23 00:30 87 26 H 117/78 99 06/20/23 00:15 78 16 98/64 L 100 06/20/23 00:00 94 H 20 84/60 L 06/20/23 00:31 81 06/19/23 23:30 97/56 L 06/19/23 23:26 87/50 L 06/19/23 23:08 90/58 L 06/19/23 20:30 79 06/19/23 22:47 81/48 L 06/19/23 22:47 91 H 18 95 06/19/23 22:30 85 23 91/52 L 99 06/19/23 22:23 84 19 90/55 L 06/19/23 22:00 77 14 84/54 L 100 06/19/23 21:45 75 18 90/49 L 100 06/19/23 21:30 90 16 99 06/19/23 21:30 91/59 L 06/19/23 21:28 78 18 91/59 L 100 06/19/23 21:15 75 26 H 88/56 L 100 06/19/23 20:35 79 06/19/23 21:00 75 19 87/61 L 100 06/19/23 20:45 82 19 95/67 L 100 06/19/23 20:37 36.8 C 79 18 87/55 L 99 Room Air Laboratory Results Laboratory Results WBC 13.39 K/ul (4.8-10.8) H 06/19/23 Unknown RBC 3.28 M/uL (4.20-5.40) L 06/19/23 Unknown Hgb 10.2 g/dl (12.0-16.0) L 06/19/23 Unknown Hct 31.1 % (37.0-47.0) L 06/19/23 Unknown MCV 94.8 fL (80.0-100.0) 06/19/23 Unknown MCH 31.1 pg (25.0-34.0) 06/19/23 Unknown MCHC 32.8 g/dL (32.0-36.0) 06/19/23 Unknown RDW Std Deviation 48.9 fL (36.4-46.3) H 06/19/23 Unknown RDW Coeff of Bishop 14.1 % (11.5-14.5) 06/19/23 Unknown Plt Count 246 K/uL (130-400) 06/19/23 Unknown MPV 10.9 fL (9.4-12.4) 06/19/23 Unknown Immature Gran % (Auto) 0.4 % 06/19/23 Unknown Neut % (Auto) 77.1 % 06/19/23 Unknown Lymph % (Auto) 13.9 % 06/19/23 Unknown Glenn % (Auto) 5.8 % 06/19/23 Unknown Eos % (Auto) 2.3 % 06/19/23 Unknown Baso % (Auto) 0.5 % 06/19/23 Unknown Neut # (Auto) 10.31 K/uL (1.40-6.50) H 06/19/23 Unknown Lymph # (Auto) 1.86 K/uL (1.2-3.4) 06/19/23 Unknown Glenn # (Auto) 0.78 K/uL (0.11-0.59) H 06/19/23 Unknown Eos # (Auto) 0.31 K/uL (0-0.50) 06/19/23 Unknown Baso # (Auto) 0.07 K/uL (0-0.2) 06/19/23 Unknown Immature Gran # (Auto) 0.06 K/uL (0.01-0.20) 06/19/23 Unknown Sodium 138 mmol/L (136-145) 06/19/23 Unknown Potassium 4.3 mmol/L (3.5-5.1) 06/19/23 Unknown Chloride 110 mmol/L (98-107) H 06/19/23 Unknown Carbon Dioxide 19 mmol/L (21-32) L 06/19/23 Unknown Anion Gap 9 (3-11) 06/19/23 Unknown BUN 29 mg/dl (6-23) H 06/19/23 Unknown Creatinine 1.77 mg/dl (0.6-1.2) H 06/19/23 Unknown Est Cr Clr Drug Dosing 40.2 ml/min 06/19/23 Unknown Est GFR ( Amer) 39.5 ml/min 06/19/23 Unknown Est GFR (Non-Af Amer) 34.1 ml/min 06/19/23 Unknown BUN/Creatinine Ratio 16.4 (10-20) 06/19/23 Unknown Glucose 124 mg/dl (70-99(Fasting)) H 06/19/23 Unknown Calcium 8.2 mg/dl (8.6-10.3) L 06/19/23 Unknown Magnesium 1.6 mg/dl (1.7-2.4) L 06/19/23 Unknown Magnesium Cancelled 06/19/23 Unknown Total Bilirubin 0.3 mg/dl (0.2-1.0) 06/19/23 Unknown AST 13 U/L (13-39) 06/19/23 Unknown ALT 11 U/L (7-52) 06/19/23 Unknown Alkaline Phosphatase 83 U/L (34-104) 06/19/23 Unknown Troponin I High Sens 4.3 pg/ml (0-14) 06/19/23 Unknown Troponin I High Sens Cancelled 06/19/23 Unknown Total Protein 6.8 gm/dl (6.0-8.3) 06/19/23 Unknown Albumin 3.9 gm/dl (3.4-5.0) 06/19/23 Unknown Globulin 2.9 gm/dl (2.5-4.0) 06/19/23 Unknown Albumin/Globulin Ratio 1.3 (0.9-2) 06/19/23 Unknown TSH 1.942 uIu/ml (0.300-4.500) 06/19/23 Unknown HCG, Qual Negative (Negative) 06/19/23 Unknown Urine Color Yellow 06/19/23 23:23 Urine Appearance Clear (Clear) 06/19/23 23:23 Urine pH 5.0 (4.5-7.5) 06/19/23 23:23 Ur Specific [place] 1.016 (1.000-1.030) 06/19/23 23:23 Urine Protein Negative (Negative) 06/19/23 23:23 Urine Glucose (UA) 3+ (Negative) H 06/19/23 23:23 Urine Ketones Negative (Negative) 06/19/23 23:23 Urine Blood Negative (Negative) 06/19/23 23:23 Urine Nitrite Negative (Negative) 06/19/23 23:23 Urine Bilirubin Negative (Negative) 06/19/23 23:23 Urine Urobilinogen Negative (Negative) 06/19/23 23:23 Ur Leukocyte Esterase Negative (Negative) 06/19/23 23:[address] 06/19/23 21:35 Exam(s): CT HEAD Without Contrast EXAM: CT Head Without Intravenous Contrast CLINICAL HISTORY: Reason for exam: TORRES, hypotension. TECHNIQUE: Axial computed tomography images of the head/brain without intravenous contrast. CTDI is 37.61 mGy and DLP is 624.41 mGy-cm. Automated exposure control was utilized for the study. A dose lowering technique was utilized adhering to the principles of ALARA. COMPARISON: No relevant prior studies available. FINDINGS: No acute intracranial hemorrhage. No midline shift or mass effect. The territorial hood-white matter differentiation is maintained throughout. The ventricles and sulci are commensurate with age. The visualized orbits appear grossly unremarkable. The calvarium is intact. The visualized paranasal sinuses and mastoid air cells are grossly clear. IMPRESSION: No acute intracranial hemorrhage, midline shift, or mass effect. Electronically signed by: David Thorne MD 06/19/23 23:15 PM Code Status & VTE Plan Code Status Full code VTE Prophylaxis Plan VTE Prophylaxis will be ordered: Yes PG Care Time/CCT Total # of Minutes Spent Total Time Spent with Patient: Total time spent is greater than 50% in coordination of care (as documented) at patient's floor/unit and/or counseling patient: Coding Level of Care Code 20434 INT INP/OBS CARE 3/75MIN Diagnoses Near syncope R55 MART (acute kidney injury) N17.9 Nausea vomiting and diarrhea R11.2; R19.7 Acute dehydration E86.0 Hypotension I95.9 CAD (coronary artery disease) I25.10 Cardiomyopathy I42.9 Type II diabetes mellitus E11.9 Hypomagnesemia E83.42 Tobacco abuse Z72.0
[2023-06-20] MEDS ORDERED: DEXTROSE 50% 50 ML SYRINGE IV PRN (02:06)
[2023-06-20] MEDS ORDERED: GLUCAGON FOR INJ 1 MG VIAL SQ PRN (02:06)
[2023-06-20] MEDS ORDERED: GLUCOSE 40% GEL 15 GM TUBE PO PRN (02:06)
[2023-06-20] MEDS ORDERED: ACETAMINOPHEN 325 MG TAB PO PRN (02:06)
[2023-06-20] MEDS ORDERED: SODIUM CHLORIDE 0.9% 1000ML 1,000 ML IV SCH (02:06)
[2023-06-20] MEDS ORDERED: GLUCOSE 10 TAB/TUBE PO PRN (02:06)
[2023-06-20] MEDS ORDERED: CARBOHYDRATES FOR HYPOGLYCEMIA PO PRN (02:06)
[2023-06-20] MEDS ORDERED: ONDANSETRON INJ 2 MG/ML 2 ML VIAL IV PRN (02:06)
[2023-06-20] MEDS ORDERED: MAGNESIUM SULFATE / D5W 1 GM/100 ML BAG IV ONE (04:45)
[2023-06-20] MEDS ORDERED: ENOXAPARIN INJ 40 MG/0.4 ML SYR SQ SCH (06:00)
--- NOTE | 2023-06-20 07:16 | XRay Report ---
XR chest 1V not portable HISTORY: 47 years-old Female hypotension COMPARISON: 12/06/2019 TECHNIQUE: AP view of the chest FINDINGS: Cardiomediastinal and hilar silhouettes are within normal limits. No pneumothorax, pleural effusion, airspace consolidation or pulmonary edema. Bones appear grossly intact. IMPRESSION: No acute process. ACT 112: Negative or not required by law. The above report was generated using voice recognition software. It may contain grammatical, syntax o r spelling errors. Electronically signed by: Estuardo Stack M.D. 06/20/2023 7:15 AM
[2023-06-20 08:16] LABS: Hematocrit (blood only) 27.2 % (37.0-47.0); Mean Corpuscular Hemoglobin 30.7 pg (25.0-34.0); Mean Corpuscular Hgb Conc 33.1 g/dL (32.0-36.0); Mean Corpuscular Volume 92.8 fL (80.0-100.0); Mean Platelet Volume 11.5 fL (9.4-12.4); Platelet Count 236 K/uL (130-400); RDW Coefficient of Variation 14.2 % (11.5-14.5); RDW Standard Deviation 48.9 fL (36.4-46.3); Red Blood Count 2.93 M/uL (4.20-5.40); White Blood Count 8.66 K/ul (4.8-10.8)
[2023-06-20 08:21] LABS: Albumin Globulin Ratio 1.3 (0.9-2); Albumin Level 3.3 gm/dl (3.4-5.0); BUN Creatinine Ratio 18.9 (10-20); Bilirubin,Total 0.3 mg/dl (0.2-1.0); Calcium 7.5 mg/dl (8.6-10.3); Creatinine Clr Calc Pharmacy 57.1 ml/min; Est GFR (Non-African American) 53.5 ml/min; Globulin 2.5 gm/dl (2.5-4.0); Magnesium 1.9 mg/dl (1.7-2.4); Potassium 3.9 mmol/L (3.5-5.1); Total Protein 5.8 gm/dl (6.0-8.3)
[2023-06-20 08:26] LABS: Estimated Average Glucose 148 mg/dl; Hemoglobin A1C 6.8 % (4.5-5.6)
[2023-06-20] MEDS ORDERED: METOPROLOL TARTRATE 25 MG TAB PO SCH (09:00)
[2023-06-20] MEDS ORDERED: ASPIRIN 81 MG ECTAB PO SCH (09:00)
[2023-06-20] MEDS ORDERED: ATORVASTATIN 40 MG TAB PO SCH (09:00)
[2023-06-20] MEDS ORDERED: gemfibroziL 600 MG TAB PO SCH (09:00)
[2023-06-20] MEDS: INSULIN ASPART PER UNIT CHARGE SC SCH ×2 (09:34→13:35)
--- NOTE | 2023-06-20 12:42 | Electrocardiogram Report ---
Test Reason : Blood Pressure : / mmHG Vent. Rate : 083 BPM Atrial Rate : 083 BPM P-R Int : 172 ms QRS Dur : 082 ms QT Int : 410 ms P-R-T Axes : 059 033 078 degrees QTc Int : 481 ms Normal sinus rhythm Low voltage QRS Prolonged QT Abnormal ECG When compared with ECG of 06-DEC-2019 06:56, No significant change was found Confirmed by Alberto Douglas ([id number]) on 06/20/2023 12:41:29 PM Referred By: REFERRED SELF Confirmed By:Alberto Douglas
--- NOTE | 2023-06-20 12:46 | Electrocardiogram Report ---
Test Reason : Blood Pressure : / mmHG Vent. Rate : 073 BPM Atrial Rate : 073 BPM P-R Int : 154 ms QRS Dur : 072 ms QT Int : 416 ms P-R-T Axes : 052 034 059 degrees QTc Int : 458 ms Normal sinus rhythm Low voltage QRS Borderline ECG When compared with ECG of 19-JUN-2023 20:31, (unconfirmed) No significant change was found Confirmed by Alberto Douglas ([id number]) on 06/20/2023 12:45:45 PM Referred By: REFERRED SELF Confirmed By:Alberto Douglas
--- NOTE | 2023-06-20 13:34 | Discharge Summary ---
Date of Service June 20, 2023 Admission HPI Per Admitting Provider The patient is a 47-year-old female with a past medical history including CAD, cardiomyopathy, hyperglycemia, diabetes mellitus type 2, STEMI and tobacco abuse. She reports that 2 days ago for unknown reasons, she began to have intermittent symptoms as noted above. She did check her blood pressure and found it was disproportionately low for her, and after her near syncopal episode this afternoon, she came to the ED for assessment. Significant laboratories: WBC 13.39, hemoglobin 10.2, hematocrit 31.1, creatinine 1.77, glucose 124, magnesium 1.6, and BUN 29. CT of the head was negative, x-ray chest was normal. Admission Exam Per Admitting Provider The patient is awake, alert and oriented 3, well developed and well nourished, normocephalic and atraumatic, lying in bed and in no acute distress. HEENT--PERRL, EOMI, mucous membranes and oropharynx dry. Neck--supple. No JVD. No bruits. Thyroid normal, trachea midline, no adenopathy . Heart--normal S1 and S2. No murmurs, rubs or gallops. Lungs--clear bilaterally, no respiratory distress, no accessory muscle use. Abdomen--normal bowel sounds and soft. Nontender. Nondistended, no hernias or masses, no organomegaly. Extremities--no cyanosis or clubbing. No edema. Dermatologic--normal skin turgor, normal color, no abnormal lymph nodes, no rash. Neurologic--cranial nerves II through XII grossly intact. Rheumatologic--normal range of motion. Psychiatric--normal affect. Principal Diagnosis Dehydration Discharge Exam Constitutional: well-appearing, no acute distress HEENT: NCAT, no conjunctival injection CV: regular rhythm, no murmur appreciated, extremities well-perfused, no LE edema Resp: CTABL, no wheezes/rales/rhonchi appreciated, no increased work of breathing GI: soft, nondistended, nontender, BS normoactive MSK: no gross deformities appreciated Skin: warm, dry, no rash appreciated Neuro: alert, oriented, no focal neurologic deficit appreciated Discharge Data Allergies Allergy/AdvReac Type Severity Reaction Status Date / Time coconut Allergy Unknown Verified 04/18/22 13:09 ham Allergy Unknown Uncoded 04/18/22 13:09 sun Allergy Unknown Uncoded 04/18/22 13:09 Consultations 06/19/23 23:37 ED Decision to Admit Stat Procedures Performed Chest X-Ray 06/19/23 20:45 XR chest 1V not portable HISTORY: 47 years-old Female hypotension COMPARISON: 12/06/2019 TECHNIQUE: AP view of the chest FINDINGS: Cardiomediastinal and hilar silhouettes are within normal limits. No pneumothorax, pleural effusion, airspace consolidation or pulmonary edema. Bones appear grossly intact. IMPRESSION: No acute process. ACT 112: Negative or not required by law. The above report was generated using voice recognition software. It may contain grammatical, syntax or spelling errors. Electronically signed by: Estuardo Stack M.D. 06/20/2023 7:[address] 06/19/23 21:35 Exam(s): CT HEAD Without Contrast EXAM: CT Head Without Intravenous Contrast CLINICAL HISTORY: Reason for exam: TORRES, hypotension. TECHNIQUE: Axial computed tomography images of the head/brain without intravenous contrast. CTDI is 37.61 mGy and DLP is 624.41 mGy-cm. Automated exposure control was utilized for the study. A dose lowering technique was utilized adhering to the principles of ALARA. COMPARISON: No relevant prior studies available. FINDINGS: No acute intracranial hemorrhage. No midline shift or mass effect. The territorial hood-white matter differentiation is maintained throughout. The ventricles and sulci are commensurate with age. The visualized orbits appear grossly unremarkable. The calvarium is intact. The visualized paranasal sinuses and mastoid air cells are grossly clear. IMPRESSION: No acute intracranial hemorrhage, midline shift, or mass effect. Electronically signed by: David Thorne MD 06/19/23 23:15 PM Ordered Studies 06/19/23 21:35 CT head/brain wo con Stat Hospital Course (1) Near syncope: (2) MART (acute kidney injury): (3) Nausea vomiting and diarrhea: (4) Acute dehydration: (5) Hypotension: (6) CAD (coronary artery disease): (7) Cardiomyopathy: (8) Type II diabetes mellitus: (9) Hypomagnesemia: (10) Tobacco abuse: Plan Patient is a 47-year-old female who presented to the hospital for near syncopal event. Patient has been having nausea, vomiting, and has not been staying well- hydrated. Near syncope/hypotension/dehydration Patient most likely had a viral gastroenteritis that led to dehydration with near syncopal episode and hypotension. Chest x-ray negative CT head negative Patient's symptoms resolved with IV fluids. Should continue holding lisinopril and metoprolol until Friday. Recommend patient continue drinking at least 6070 ounces. Should follow-up with PCP in 1 week Did have leukocytosis at time of admission that resolved prior to discharge. Should have a CBC in 1 week in addition to patient's BMP. Diabetes mellitus Hemoglobin A1c of 6.8. Should follow-up with PCP. Acute kidney injury Creatinine 1.77 upon admission, with base 0.81 Most likely secondary to GI volume losses. Held nephrotoxic agents, improved with IV fluids. 1.22 at time of discharge. Patient should follow-up within 1 week with PCP and have a BMP done. Hypomagnesemia Magnesium 1.6 on admission, repleted Total Time Total Time Spent Total Time Spent (In Minutes): <30 Discharge Plan Discharge Items Patient Disposition: Home - Self-Care Reason For Visit: MART, DEHYDRATION, NEAR-SYNCOPE Discharge Diagnosis: Dehydration Condition on Discharge: Good Activity: Resume your previous activity Non-emergency contact: Primary Care Provider Call non-emergency contact if: you have any medication questions, your pain is unusual for you and your temperature is above 101.5 Follow-up/Referrals: Caesar Duran MD [Physician] - 06/23/23 2:00 pm (Follow up scheduled on 06/23/23 @ 2pm) Carlos Olson D.O. [Primary Care Provider] - 06/24/23 10:30 am (with Stefanie Taylor Pa-C) Diet: Heart Healthy Addtl Attending Provider Instructions: You were admitted to the hospital for dehydration. You were treated with IV fluids. A discharge summary will be sent to your primary care physician to ensure continuity of care. Please bring this discharge summary with you to your next office appointment so that your provider can review it at that time. Follow-up appointments: * Make a follow-up appointment with your PCP within the next week. It is very important that you follow up with them shortly after discharge from the hospital. * Keep all your follow-up appointments as already scheduled. If you cannot make an appointment, notify your provider. Medications: Your medication list has been reviewed and reconciled upon discharge to ensure accuracy and continuity of care. An updated list of all your medications is included with your hospital discharge paperwork. Please review this list closely, and make note of any changes. * No new medications were added during this visit. * You should hold your lisinopril and metoprolol until 06/23/2023. * If you have any issues filling these prescriptions, please call [phone] and ask to leave a message for Dr. Joe. * Take your medications as instructed; do not skip a dose of your medicines. Make sure all of your doctors know every medicine you are taking (including xbgn-yzi-ewyfdos medicines, vitamins, and supplements). Call your primary care provider before taking any new medicines (including over- the-counter medicines, vitamins, and supplements), because some of these may interact with your current medications, or may make your symptoms worse. Tell your primary care provider if you cannot afford your medications. CONTACT YOUR PRIMARY CARE PROVIDER if you experience any of the following: * Worsening of symptoms * Fever, chills, or fatigue * Difficulty following your treatment plan, or difficulty taking medications CALL 911 OR GO TO THE EMERGENCY DEPARTMENT if you experience any of the following: * Sudden, severe abdominal pain or nausea/vomiting * Severe chest pain, or chest pain that radiates (moves) to your jaw or arm * Sudden, severe shortness of breath or difficulty breathing Thank you for allowing us to participate in your care. Pending Studies at Discharge: No Stand-Alone Forms: [facility], Work/School Release, Smoking Cessation Medications and DC Order Prescriptions: Continued atorvastatin 80 mg tablet 80 mg PO QAM 30 Days Qty: 30 3RF aspirin [Ecotrin Low Strength] 81 mg Tablet,Delayed Release (Dr/Ec) 81 mg PO QAM 30 Days Qty: 30 3RF (DME) OneTouch Verio test strips Strip See Rx Instructions .ROUTE .MEDSUPPLY Qty: 50 1RF Rx Instructions: As directed (DME) lancets [OneTouch Delica Lancets] 33 gauge misc See Rx Instructions .ROUTE .MEDSUPPLY Qty: 100 1RF Rx Instructions: As directed metformin 1,000 mg tablet 1,000 mg PO BID gemfibrozil 600 mg tablet 600 mg PO BID empagliflozin 10 mg tablet 10 mg PO QAM Held lisinopril 20 mg tablet 20 mg PO QAM 30 Days Qty: 90 3RF Hold Instructions: Resume on 06/23/23. metoprolol tartrate 25 mg Tablet 25 mg PO BID 30 Days Qty: 60 3RF Hold Instructions: Resume on 06/23/23. Discharge Orders: Discharge Order (Routine); Ordered 06/20/23 Ordered By: Fabrice Joe Admission Data Admit Date/Time: 06/20/23 00:43 Attending Provider: Bj Mae Admit Provider: Luis Baez Primary Care Provider: Carlos Olson Other Providers: Luis Baez Other Interventions: Discharge Summary Assessment (RN) Last Done: 06/20/23 13:42 Supervising Physician Co-Signing Physician Notes I personally examined the patient and verified all louis points of history and exam, discussed case, and agree with decision making with Dr Joe feeling better. Not lightheaded. Not dizzy. Would like to go home. Vitals noted, in general she is awake and alert pleasant no distress. HEENT normocephalic atraumatic mucous membranes moist. Breathing unlabored no accessory muscle use good effort. Skin shows no rashes no pallor or icterus. Neuro without focal deficits. Lightheadedness/nausea vomiting diarrhea dehydrationappears to have had a viral enteritis versus less likely foodborne enteritiseither way she is able to eat and drink well and feels better and would like to go home. Her pressures are still somewhat softasked her to get a blood pressure cuff at home, asked her to hold her antihypertensives at least until Friday, will need PCP follow- up, repeat BMP, repeat CBC/outpatient work-up for anemia, no signs of blood loss here. Stable for home. Otherwise as above.
--- NOTE | 2023-06-20 19:17 | Billing Data ---
Date of Service June 20, 2023 Coding Level of Care Code 08847 IN/OBS DISCH 30 MIN/LESS
== END 2023-06-20 14:30 | disposition home or self-care (01) ==
LOC: 4W 20:24 → ED 20:24 → SUATTDRO 06-20 00:43 → 4W 06-20 02:00

== ENCOUNTER 2025-06-19 00:41 | Observation (INO) ==
[2025-06-19] MEDS: SODIUM CHLORIDE 0.9% 1,000 ML IV ONE ×2 (01:12→03:27)
--- NOTE | 2025-06-19 01:12 | Emergency Department Note ---
Impression & Plan PAD (peripheral artery disease), CAD (coronary artery disease), Claudication, Hypertension, Hyperglycemia due to type 2 diabetes mellitus ED Provider Note CHIEF COMPLAINT: Leg pain, fatigue HISTORY OF PRESENT ILLNESS: This 49-year-old female patient presents to the emergency department via ambulance for evaluation of leg pain and fatigue. The patient states she has had bodyaches. Her legs hurt with ambulation. Tonight, after work, she was unable to ambulate more than about 2 feet without severe pain in her legs. The patient states she does a history of hypertension and CAD with a STEMI several years ago. She has not been on any of her medications for approximately 1.5 to 2 years. She states over the past several weeks, she has noticed increasing pain in her toes. She states they turn blue when she gets out of the tub. She states that a few days ago, she noticed a black spot on the base of her right third toe. There is significant pain to any palpation of the extremity. The patient states there has been some intermittent numbness of the legs bilaterally. This comes and goes. She states several years ago, she had an episode of dehydration and hypotension and was advised to discontinue her blood pressure medications at that time. She does have a history of diabetes and has not been on her Jardiance or metformin for several years either. History provided by: Patient REVIEW OF SYSTEMS: A 10 system review of systems was performed with positives and pertinent negatives listed in the history of present illness. All other systems were reviewed and are negative. ALLERGIES: NKDA PHYSICAL EXAM: VITALS: Vitals are noted on the nurse's note and reviewed by myself. GENERAL: This is a 49-year-old female, in no acute distress, nondiaphoretic, well-developed well-nourished. SKIN: Duskiness of the toes of the left foot and the right 2nd through 4th toes. Capillary refill of these digits is approximately 5 seconds. There is a black ulcerated lesion approximately the size of a pencil eraser on the plantar aspect of the right middle toe. There is significant tenderness to even light palpation of the toes of both feet. The skin was otherwise without rashes, erythema, edema, or bruising. There is no tenting of the skin. Capillary refill otherwise less than 2 seconds. HEAD: Normocephalic atraumatic. EARS: External auditory canals clear, tympanic membranes pearly hood without erythema or effusion bilaterally. No hemotympanum. Negative causey sign EYES: Pupils equal round and reactive to light and accommodation. Conjunctivae without injection, sclerae without icterus. Extraocular movements intact. NOSE: Patent, turbinates without inflammation or discharge. No sinus tenderness. MOUTH: Mucous membranes moist. Tonsils are not enlarged. Pharynx without erythema or exudate. Uvula midline. Airway patent. Tongue does not deviate. NECK: Supple without nuchal rigidity. No lymphadenopathy. Cervical spine is nontender. No JVD. HEART: Regular rate and rhythm without murmurs gallops or rubs. LUNGS: Clear to auscultation bilaterally without wheezes, rales or rhonchi. No retractions or accessory muscle use. ABDOMEN: Positive bowel sounds x 4. Soft, nontender, without masses or organomegaly. Real sign negative. No guarding or rebound tenderness. MUSCULOSKELETAL: No muscle atrophy, erythema, or edema noted. Full range of motion in all extremities. No tenderness to palpation. Normal gait. Strength 5/5 throughout. NEURO: Patient was alert and oriented to person place and time. Hyperesthesia of the toes on the right foot. Deep tendon reflexes 2+ throughout. No focal neurological deficits. An order was placed for continuous regulatory submissions specialist. The monitor showed a sinus tachycardia at a ventricular rate of 107 bpm, per my interpretation. EKG was reviewed by myself and found to be normal sinus rhythm at a rate of 95 beats per minute and per my interpretation reveals no ST elevation or depression. No T wave inversion. And when compared to previous EKG of 06/19/2023 is without significant change Imaging as interpreted by myself and the radiologist revealed findings consistent with advanced peripheral arterial disease, with radiologist interpretation as above. I agree with the radiologist's findings as based upon my independent interpretation. EMERGENCY DEPARTMENT COURSE: The patient was evaluated as above. Patient presents to the emergency department due to leg pain and fatigue. The patient has had bodyaches and tonight, she was unable to ambulate more than about 2 feet without severe pain in her legs. Symptoms are consistent with claudication. The patient does have a history of hypertension, CAD with STEMI, diabetes, dyslipidemia. The patient lost her insurance several years ago and ran out of her medications. She discontinued all of her medications and has not been on them for about 2 years. On examination, the patient does have findings consistent with peripheral arterial disease with dusky toes and a necrotic appearing lesion on the right middle toe. IV access was obtained, labs were drawn. Labs were reviewed. Per my interpretation, no leukocytosis or anemia. No thrombocytopenia. Coags normal. Renal, hepatic function and electrolytes without significant abnormality. Blood glucose elevated at 451. Patient hydrated with 2 L of IV fluids. She was medicated with IV acetaminophen, she requested "something for pain but not too much". The patient was medicated with IV Lopressor for her hypertension. Imaging completed and reviewed by myself radiologist as noted. This is consistent with advanced peripheral arterial disease. No acute abnormality on the chest x-ray. Given the patient's severe peripheral arterial disease, uncontrolled hypertension, uncontrolled hyperglycemia, I do recommend inpatient care for further management of her chronic illnesses. The patient was agreeable. I discussed the case with tax manager cpa. I discussed the case with Dr. Baez, [facility] hospitalist physician. Please see hospitalist dictation regarding ongoing management final disposition of this patient. Case was discussed with the attending physician. I attest that I have personally reviewed the patient medication list. I attest that I have reviewed the patient's blood pressure and it was found to be elevated GCS: 15 In the evaluation and treatment of this patient the following differential diagnoses were entertained: PAD, viral infection, osteomyelitis, cellulitis, cardiac disease, infection, metabolic abnormality, DKA, malignancy, among others The chart was completed utilizing [employer] Speech voice recognition software. Grammatical errors, random word insertions, pronoun errors, and incomplete sentences are an occasional consequence of this system due to software limitations, ambient noise, and hardware issues. Any formal questions or concerns about the content, text, or information contained within the body of this dictation should be directly addressed to the provider for clarification. Past Med/Surg History Problem List (Updated 06/19/25 @ 04:20 by Amy Hernandez PA-C) Hyperglycemia due to type 2 diabetes mellitus (Acute) Hypertension (Acute) Claudication (Acute) CAD (coronary artery disease) (Acute) PAD (peripheral artery disease) (Acute) Encounter for pre-operative examination Acute MT Chest pain (Acute) ST elevation myocardial infarction (STEMI) (Acute) Type II diabetes mellitus Admitted to intensive care unit Hyperglycemia (Acute) Cardiomyopathy CAD (coronary artery disease) MART (acute kidney injury) (Acute) Nausea vomiting and diarrhea (Acute) Acute dehydration (Acute) Hypotension (Acute) Near syncope Hypomagnesemia Anemia Nausea Tobacco abuse (Acute) Medical History History of high blood pressure Smoker History of anesthesia reaction with heart cath in 2019 "woke up screaming" - needed something else and put deeper. Hyperactive gag reflex Anxiety and depression controlled without medication. History of kidney stones Hiatal hernia pt suspects. No official dx. Elevated triglycerides with high cholesterol History of myocardial infarction 2019. Diabetes Near syncope Jun 2023 - dehydration. had follow up with Dr. Duran office. Hx lisinopril, since near syncope episode haven't started back the lisinopril. Vitamin B 12 deficiency Anemia GERD (gastroesophageal reflux disease) Surgical History History of cardiac cath MT...2019 - total of 2 stents. Family History Other Coronary heart disease Diabetes Dyslipidemia Hypertension Myocardial infarction Social History Smoking Status: Current every day smoker Tobacco Type: Cigarettes Cigarettes Per Day: .5ppd/advised npo; Do You Dip or Chew Tobacco: No; Hx Alcohol Use: No Hx Substance Use: Yes (pot when i was younger) Last Used Substance: Days (ago) Last Used Substance Other:: 06/05/23 Substance Use Type Other:: marijuana on occ/last use was months (advised) Preferred Language: Pakistani Communication Ability: Effective Civil Structural Designer Required: No Beliefs That Will Affect Care: None Current Living Situation: Other Current Living Situation Comment: live where i work at [employer], own room - live alone. Feels Safe at Home: Yes Assistive Devices: Other Allergies Allergies Allergy/AdvReac Type Severity Reaction Status Date / Time coconut Allergy Unknown toasted, Verified 08/26/23 10:02 nauseated fenton Allergy Unknown throat Uncoded 08/26/23 10:02 feels like closing up, no trouble breathing. ham Allergy Unknown throat Uncoded 08/26/23 10:02 feels like closing up, no trouble breathing. sun Allergy Unknown get sun Uncoded 08/26/23 10:02 poisoning quickly Home Meds Home Medications Medication Instructions Recorded Confirmed No Known Home Medications 06/19/25 06/19/25 Results & Data (ED) Vital Signs Vital Signs - 24 hr 06/19/25 00:47 06/19/25 00:49 06/19/25 02:11 Temperature 36.5 C Temperature Source Oral Pulse Rate 104 H 107 H Pulse Rate [Finger] 88 Respiratory Rate 20 16 Blood Pressure 199/107 H Blood Pressure [Right Arm] 184/97 H Blood Pressure Mean 137 Blood Pressure Mean [Right Arm] 126 Pulse Oximetry 99 98 Oxygen Delivery Method Room Air Sepsis Recent Fever Within 48 Hours No Sepsis New/Unexplained Change in Mental Status N/A Sepsis Action Taken by Nursing No Action Required 06/19/25 03:45 06/19/25 03:55 Temperature Temperature Source Pulse Rate 85 Pulse Rate [Finger] 89 Respiratory Rate 20 Blood Pressure 153/89 H Blood Pressure [Right Arm] 153/89 H Blood Pressure Mean Blood Pressure Mean [Right Arm] 110 Pulse Oximetry 97 Oxygen Delivery Method Room Air Sepsis Recent Fever Within 48 Hours Sepsis New/Unexplained Change in Mental Status Sepsis Action Taken by Nursing Laboratory Data 06/19/25 00:48 06/19/25 01:05 Lab Results 06/19/25 06/19/25 Range/Units 00:48 01:05 WBC 8.92 (4.8-10.8) K/ul RBC 4.41 (4.20-5.40) M/uL Hgb 12.9 (12.0-16.0) g/dl Hct 37.6 (37.0-47.0) % MCV 85.3 (80.0-100.0) fL MCH 29.3 (25.0-34.0) pg MCHC 34.3 (32.0-36.0) g/dL RDW Std Deviation 40.6 (36.4-46.3) fL RDW Coeff of Bishop 13.1 (11.5-14.5) % Plt Count 193 (130-400) K/uL MPV 11.7 (9.4-12.4) fL Immature Gran % (Auto) 0.3 % Neut % (Auto) 61.8 % Lymph % (Auto) 27.0 % [place] % (Auto) 7.3 % Eos % (Auto) 3.0 % Baso % (Auto) 0.6 % Neut # (Auto) 5.51 (1.40-6.50) K/uL Lymph # (Auto) 2.41 (1.20-3.40) K/uL [place] # (Auto) 0.65 H (0.11-0.59) K/uL Eos # (Auto) 0.27 (0.00-0.50) K/uL Baso # (Auto) 0.05 (0.00-0.20) K/uL Immature Gran # (Auto) 0.03 (0.01-0.20) K/uL PT 10.4 (9.0-12.0) Seconds INR 1.0 (0.9-1.1) APTT 26 (21-31) Seconds PTT Ratio 1.0 Sodium 136 (136-145) mmol/L Potassium 3.7 (3.5-5.1) mmol/L Chloride 103 (98-107) mmol/L Carbon Dioxide 23 (21-32) mmol/L Anion Gap 10 (3-11) BUN 18 (6-23) mg/dl Creatinine 0.82 (0.6-1.2) mg/dl Est Cr Clr Drug Dosing 76.5 ml/min eGFR 88.73 BUN/Creatinine Ratio 22.0 H (10-20) Glucose 451 H* (70-99(Fasting)) mg/dl Calcium 9.5 (8.6-10.3) mg/dl Magnesium 1.6 L (1.7-2.4) mg/dl Total Bilirubin 0.4 (0.2-1.0) mg/dl AST 8 L (13-39) U/L ALT 11 (7-52) U/L Alkaline Phosphatase 137 H (34-104) U/L Troponin I High Sens 2.9 (0-14) pg/ml B-Natriuretic Peptide 16 (0-100) pg/ml Total Protein 7.3 (6.0-8.3) gm/dl Albumin 3.9 (3.4-5.0) gm/dl Globulin 3.4 (2.5-4.0) gm/dl Albumin/Globulin Ratio 1.1 (0.9-2) Lipase 19 (11-82) U/L TSH 1.897 (0.300-4.500) uIu/ml Administered Medications Discontinued Medications Sodium Chloride (Nss) 1,000 mls @ 999 mls/hr IV .Q1H1M ONE Stop: 06/19/25 02:04 Last Infusion: 06/19/25 02:15 Dose: Infused Documented By: Admin: 06/19/25 01:12 Dose: 999 mls/hr Documented By: SWATHI Acetaminophen (Ofirmev) 1,000 mg in 100 mls @ 400 mls/hr IV NOW STA Stop: 06/19/25 01:26 Last Infusion: 06/19/25 01:36 Dose: Infused Documented By: Admin: 06/19/25 01:15 Dose: 400 mls/hr Documented By: SWATHI Sodium Chloride (Nss) 1,000 mls @ 999 mls/hr IV .Q1H1M ONE Stop: 06/19/25 03:49 Last Admin: 06/19/25 03:27 Dose: 999 mls/hr Documented By: ASUNCION Metoprolol Tartrate (Metoprolol Tartrate 1 Mg/Ml Vial) 5 mg IV NOW STA Stop: 06/19/25 02:50 Last Admin: 06/19/25 03:27 Dose: 5 mg Documented By: ASUNCION Imaging Data Radiologist's Impression: Chest X-Ray 06/19/25 01:05 EXAM: XR chest 1V portable CLINICAL HISTORY: Fatigue. TECHNIQUE: An X-ray image of the chest is obtained in AP projection. COMPARISON: 06/19/2023. FINDINGS: Pulmonary Parenchyma: Lungs are clear bilaterally. No evidence of consolidation, collapse, or focal opacities. No pulmonary nodules are identified. No evidence of pleural effusion or pleural thickening. Heart and Mediastinum: Heart size and shape are normal. No mediastinal widening or masses. No hilar or mediastinal lymphadenopathy. Bony Thorax: Bony thorax appears intact without fractures or deformities. Soft Tissues: Soft tissues overlying the chest wall are unremarkable. IMPRESSION: 1. Normal chest X-ray. No acute cardiopulmonary abnormalities are identified. 2. No changes since the last study. Electronically signed by Nestor Mooney 06-19-2025 03:18 AM Duplex Scan Lower Extremity Artery 06/19/25 01:14 EXAM: US arterial duplex LE BI CLINICAL HISTORY: PAD, dusky toes, necrotic lesion right 3rd digit. TECHNIQUE: Ultrasound examination of the bilateral lower extremities' arteries with ankle brachial indices was performed in real time and duplex. One or more of the following were performed- spectral analysis, resistive index, waveform analysis, and pulsed Doppler. COMPARISON: None. FINDINGS: Vessel Flow Pattern Right Peak Velocity Right (cm/sec) Flow Pattern Left Peak Velocity Left (cm/sec) Common Femoral Artery (NANOTECHNICIAN) [place] 62.8 cm/sec [place] PSV 66.1 cm/sec Deep Femoral Artery (DPA) [place] 39.8 cm/sec [place] 52.9 cm/sec Superficial Femoral Artery (SFA) [place] 57.3 cm/sec [place] PSV 52.9 cm/sec Popliteal Artery (POP A) [place] 25.3 cm/sec [place] PSV 15.5 cm/sec Posterior Tibial Artery (QUALITY CONTROL CHEMIST), proximal [place] 29.2 cm /sec [place] 25.5 cm/sec Posterior Tibial Artery (QUALITY CONTROL CHEMIST), distal [place] 16.2 cm/sec [place] 8.0 cm/sec Dorsalis Pedis Artery (DPA) [place] 5.6 cm/sec [place] 25.5 cm/sec Waveforms are monophasic throughout the arterial trees of both lower limbs from the common femoral arteries to the dorsalis pedis arteries, with reduced peak systolic velocities and a pulsus tardus-parvus appearance, consistent with moderate to to severe peripheral arterial disease. No significant mural plaques are noted in the arteries of both lower extremities. IMPRESSION: Monophasic waveforms with reduced peak systolic velocities and tardus-parvus morphology are seen throughout both lower limb arterial trees, consistent with advanced peripheral arterial disease. CTA of the lower limb arterial system is recommended for further evaluation. Electronically signed by Nestor Mooney 06-19-2025 03:59 AM Discharge Plan Visit Data Chief Complaint: Leg Injury/Pain Stated Complaint: LOWER EXTREMITY PAIN ED Provider: Angela Veliz ED Midlevel Provider: Amy Hernandez Discharge Problem: PAD (peripheral artery disease), CAD (coronary artery disease), Claudication, Hypertension, Hyperglycemia due to type 2 diabetes mellitus Patient Disposition: Admitted As Inpatient Condition: Good Forms Stand Alone Forms: My [place] [facility] Prescriptions Prescriptions: No Action No Known Home Medications Referrals Referrals: Carlos Olson D.O. [Primary Care Provider] -
[2025-06-19] MEDS: ACETAMINOPHEN 1,000 MG/100 ML VIAL IV STA (01:15)
[2025-06-19 01:19] LABS: Hematocrit (blood only) 37.6 % (37.0-47.0); Hemoglobin 12.9 g/dl (12.0-16.0); Immature Granulocytes # (auto) 0.03 K/uL (0.01-0.20); Immature Granulocytes % (auto) 0.3 %; Mean Corpuscular Hemoglobin 29.3 pg (25.0-34.0); Mean Corpuscular Volume 85.3 fL (80.0-100.0); Platelet Count 193 K/uL (130-400); RDW Standard Deviation 40.6 fL (36.4-46.3); Red Blood Count 4.41 M/uL (4.20-5.40); White Blood Count 8.92 K/ul (4.8-10.8)
[2025-06-19 01:40] LABS: Lipase 19.0 U/L (11-82); Magnesium 1.6 mg/dl (1.7-2.4)
[2025-06-19 01:54] LABS: INR 1.0 (0.9-1.1); Partial Thromboplastin Time 26 Seconds (21-31); Prothrombin Time 10.4 Seconds (9.0-12.0)
[2025-06-19 01:57] LABS: Thyroid Stimulating Hormone 1.897 uIu/ml (0.300-4.500)
[2025-06-19 02:51] LABS: Alanine Aminotransferase 11.0 U/L (7-52); Albumin Globulin Ratio 1.1 (0.9-2); Albumin Level 3.9 gm/dl (3.4-5.0); Alkaline Phosphatase 137.0 U/L (34-104); Anion Gap 10.0 (3-11); Bilirubin,Total 0.4 mg/dl (0.2-1.0); Blood Urea Nitrogen 18.0 mg/dl (6-23); Calcium 9.5 mg/dl (8.6-10.3); Carbon Dioxide 23.0 mmol/L (21-32); Chloride 103.0 mmol/L (98-107); Creatinine Clr Calc Pharmacy 76.5 ml/min; Globulin 3.4 gm/dl (2.5-4.0); Glucose 451.0 mg/dl (70-99(Fasting)); Potassium 3.7 mmol/L (3.5-5.1); Sodium 136.0 mmol/L (136-145); Total Protein 7.3 gm/dl (6.0-8.3)
--- NOTE | 2025-06-19 03:18 | XRay Report ---
EXAM: XR chest 1V portable CLINICAL HISTORY: Fatigue. TECHNIQUE: An X-ray image of the chest is obtained in AP projection. COMPARISON: 06/19/2023. FINDINGS: Pulmonary Parenchyma: Lungs are clear bilaterally. No evidence of consolidation, collapse, or focal opacities. No pulmonary nodules are identified. No evidence of pleural effusion or pleural thickening. Heart and Mediastinum: Heart size and shape are normal. No mediastinal widening or masses. No hilar or mediastinal lymphadenopathy. Bony Thorax: Bony thorax appears intact without fractures or deformities. Soft Tissues: Soft tissues overlying the chest wall are unremarkable. IMPRESSION: 1. Normal chest X-ray. No acute cardiopulmonary abnormalities are identified. 2. No changes since the last study. Electronically signed by Nestor Mooney 06-19-2025 03:18 AM
[2025-06-19] MEDS: METOPROLOL TARTRATE 1 MG/ML VIAL IV STA (03:27)
--- NOTE | 2025-06-19 04:00 | Ultrasound Report ---
EXAM: US arterial duplex LE BI CLINICAL HISTORY: PAD, dusky toes, necrotic lesion right 3rd digit. TECHNIQUE: Ultrasound examination of the bilateral lower extremities' arteries with ankle brachial indices was performed in real time and duplex. One or more of the following were performed- spectral analysis, resistive index, waveform analysis, and pulsed Doppler. COMPARISON: None. FINDINGS: Vessel Flow Pattern Right Peak Velocity Right (cm/sec) Flow Pattern Left Peak Velocity Left (cm/sec) Common Femoral Artery (LACE FINISHER) [place] 62.8 cm/sec [place] PSV 66.1 cm/sec Deep Femoral Artery (DPA) [place] 39.8 cm/sec [place] 52.9 cm/sec Superficial Femoral Artery (SFA) [place] 57.3 cm/sec [place] PSV 52.9 cm/sec Popliteal Artery (POP A) [place] 25.3 cm/sec [place] PSV 15.5 cm/sec Posterior Tibial Artery (DIKE SUPERVISOR), proximal [place] 29.2 cm /sec [place] 25.5 cm/sec Posterior Tibial Artery (DIKE SUPERVISOR), distal [place] 16.2 cm/sec [place] 8.0 cm/sec Dorsalis Pedis Artery (DPA) [place] 5.6 cm/sec [place] 25.5 cm/sec Waveforms are monophasic throughout the arterial trees of both lower limbs from the common femoral arteries to the dorsalis pedis arteries, with reduced peak systolic velocities and a pulsus tardus-parvus appearance, consistent with moderate to to severe peripheral arterial disease. No significant mural plaques are noted in the arteries of both lower extremities. IMPRESSION: Monophasic waveforms with reduced peak systolic velocities and tardus-parvus morphology are seen throughout both lower limb arterial trees, consistent with advanced peripheral arterial disease. CTA of the lower limb arterial system is recommended for further evaluation. Electronically signed by Nestor Mooney 06-19-2025 03:59 AM
[2025-06-19] MEDS ORDERED: DEXTROSE 50% 50 ML SYRINGE IV PRN (04:07)
[2025-06-19] MEDS ORDERED: GLUCOSE 40% GEL 15 GM TUBE PO PRN (04:07)
[2025-06-19] MEDS ORDERED: GLUCOSE 10 TAB/TUBE PO PRN (04:07)
[2025-06-19] MEDS ORDERED: GLUCAGON FOR INJ 1 MG VIAL SQ PRN (04:07)
[2025-06-19] MEDS ORDERED: CARBOHYDRATES FOR HYPOGLYCEMIA PO PRN (04:07)
[2025-06-19] MEDS: ASPIRIN CHEW 324 MG PO STA (04:21)
[2025-06-19] MEDS: MoRPHine SULFATE 4 MG/ML 1 ML CARP\\VIAL IV STA (04:21)
--- NOTE | 2025-06-19 04:22 | History & Physical Report ---
Date of Service June 19, 2025 Assessment & Plan (1) PAD (peripheral artery disease): (2) Hyperglycemia due to type 2 diabetes mellitus: (3) Hypertension: (4) Hypomagnesemia: Plan Patient is a 49-year-old female with past medical history including hypertension, hyperlipidemia, nicotine use, type II DM, CAD s/p STEMI December 2021. Patient presented via EMS due to significant right foot pain. Her feet have been discolored for approximately 3 weeks and she has noticed a necrotic spot on her fourth toe for about 1 week. Arterial duplex revealed severe PAD. Patient has had no medical care for approximately 2 years including receiving her home medications due to lack of insurance. #severe PAD - patient history of HTN, HLD, DM, nicotine use untreated. Bilateral LE dusky/purple metatarsals. Bilateral LE arterial duplex revealed advanced PAD. With weak pulses at time of admission. Aorta with runoff CTA ordered Bilateral foot XR ordered however low concern for osteomyelitis Lipid panel and A1c ordered ASA 325 mg p.o. ordered on admission, continue with baby aspirin daily Pain control with Tylenol as needed, morphine 2/4 Mg IV for breakthrough pain - vascular surgery consulted #T2DM with hyperglycemia - history of type II DM, untreated due to insurance issues, insulin naive. Glucose 451 in the ED, repeat 337 after IV fluids. Anion gap stable, 10. - A1C with a.m. labs SSI ordered, adjust prn #hypomagnesemia with poor p.o. intake. Mag 1.6, K+ 3.7, renal function stable. 2G IV magnesium ordered on admission Trend magnesium and BMP #HTN untreated for several years. Elevated in ED, likely component of pain. Received Lopressor 5 Mg IV in ED Ensure adequate pain control Monitor on telemetry for possible need for IV antihypertensives #dehydration - dry on admission. - 2L NSS bolus in ED, continue with LR @ 80 ml/hr x 2L - UA ordered #CADs/p STEMI December 2021 with stents x 2 (distal circumflex and distal RCA). Echocardiogram ordered Baby aspirin as above #tobacco abuse - 1/2 ppd. Declines nicotine patch. VTE ppx: SCDs, defer chemical ppx with possible surgical management Dispo: med/tele Note that patient still does not have insurance - discuss with case management to assist. Admission and Anticipated Discharge Date Admission Date: 06/19/25 History of Present Illness Chief Complaint: leg pain Primary Care Provider: Carlos Olson Patient is a 76-year-old female with past medical history including hypertension, hyperlipidemia, nicotine use, type II DM, CAD s/p STEMI December 2021. Patient presented via EMS due to significant right foot pain. Her feet have been discolored for approximately 3 weeks and she has noticed a necrotic spot on her fourth toe for about 1 week. Arterial duplex revealed severe PAD. Patient has had no medical care for approximately 2 years including receiving her home medications due to lack of insurance. Patient seen at bedside. She stated approximately 3 weeks ago she noticed her toes were discolored of her bilateral feet. She also noticed a black dot on the bottom of her fourth right toe approximately 1 week ago that has worsened over the last few days. The pain was so severe today so she called EMS to come in but she cannot take it anymore. Pain 8/10 at bedside after 1 Mg IV Tylenol. She denies any fevers, chills, chest pain, shortness of breath nausea, vomiting, diarrhea. She has still been able to ambulate however with significant difficulty. She continues to smoke half a pack of cigarettes per day, declines need for nicotine patch at this time. She denies significant alcohol use. She stated she does feel dehydrated as she has not had good p.o. intake for the past few days. She does not have any home medications as she was previously on Jardiance and metformin for diabetes however cannot pay for these anymore due to lack of insurance. She has been off of all of her home medications for approximately 2 years and has had no primary care follow-up. She wishes to be full code. Allergies Allergy/AdvReac Type Severity Reaction Status Date / Time coconut Allergy Unknown toasted, Verified 08/26/23 10:02 nauseated fenton Allergy Unknown throat Uncoded 08/26/23 10:02 feels like closing up, no trouble breathing. ham Allergy Unknown throat Uncoded 08/26/23 10:02 feels like closing up, no trouble breathing. sun Allergy Unknown get sun Uncoded 08/26/23 10:02 poisoning quickly Home Medications Medication Instructions Recorded Confirmed Type No Known Home Medications 06/19/25 06/19/25 History Past Med/Surg History Problem List (Updated 06/19/25 @ 04:20 by Amy Hernandez PA-C) Hyperglycemia due to type 2 diabetes mellitus (Acute) Hypertension (Acute) Claudication (Acute) CAD (coronary artery disease) (Acute) PAD (peripheral artery disease) (Acute) Encounter for pre-operative examination Acute [place] Chest pain (Acute) ST elevation myocardial infarction (STEMI) (Acute) Type II diabetes mellitus Admitted to intensive care unit Hyperglycemia (Acute) Cardiomyopathy CAD (coronary artery disease) MART (acute kidney injury) (Acute) Nausea vomiting and diarrhea (Acute) Acute dehydration (Acute) Hypotension (Acute) Near syncope Hypomagnesemia Anemia Nausea Tobacco abuse (Acute) Medical History History of high blood pressure Smoker History of anesthesia reaction with heart cath in 2019 "woke up screaming" - needed something else and put deeper. Hyperactive gag reflex Anxiety and depression controlled without medication. History of kidney stones Hiatal hernia pt suspects. No official dx. Elevated triglycerides with high cholesterol History of myocardial infarction 2019. Diabetes Near syncope Jun 2023 - dehydration. had follow up with Dr. Duran office. Hx lisinopril, since near syncope episode haven't started back the lisinopril. Vitamin B 12 deficiency Anemia GERD (gastroesophageal reflux disease) Surgical History History of cardiac cath [place]...2019 - total of 2 stents. Family History Other Coronary heart disease Diabetes Dyslipidemia Hypertension Myocardial infarction Social History Smoking Status: Current every day smoker Tobacco Type: Cigarettes Cigarettes Per Day: .5ppd/advised npo; Do You Dip or Chew Tobacco: No; Hx Alcohol Use: No Hx Substance Use: Yes (pot when i was younger) Last Used Substance: Days (ago) Last Used Substance Other:: 06/05/23 Substance Use Type Other:: marijuana on occ/last use was months (advised) Preferred Language: Kosovan Communication Ability: Effective Tank [employer] Helper Required: No Beliefs That Will Affect Care: None Current Living Situation: Other Current Living Situation Comment: live where i work at [email or web address], own room - live alone. Feels Safe at Home: Yes Assistive Devices: Other Review of Systems 2 Review of Systems: see HPI Physical Exam 2 Physical Exam: The patient is awake, alert and oriented 3, well developed and well nourished, normocephalic and atraumatic, in no acute distress. Non-toxic appearing. HEENT- EOMI, mucous membranes dry. Hearing grossly intact. Heart-normal S1 and S2. No murmurs, rubs or gallops. Lungs-clear bilaterally, no respiratory distress, no accessory muscle use. Abdomen-normal bowel sounds and soft. No ascites noted. Non-tender. Extremities- Necrotic patch to plantar aspect of right 4th metatarsal. purple/dusky color to R 2nd,3rd, 4th metatarsal and L 2nd and 3rd metatarsal. Weak peripheral pulses BL. See images below. Psychiatric-normal affect. Right: Left: Results & Data Results & Data Vital Signs (Past 12 Hours) Vital Signs Temp Pulse Pulse Resp BP BP Pulse Ox 06/19/25 03:55 85 153/89 H 06/19/25 03:45 89 20 153/89 H 97 06/19/25 02:11 88 16 184/97 H 98 06/19/25 00:49 107 H 06/19/25 00:47 36.5 C 104 H 20 199/107 H 99 O2 Del Method 06/19/25 03:55 06/19/25 03:45 Room Air 06/19/25 02:11 06/19/25 00:49 06/19/25 00:47 Room Air Laboratory Results reviewed cbc, cmp, tsh Diagnostic Findings reviewed CXR and BL LE arterial doppler Medications Administered ED2L NSS bolus, 1G IV Tylenol, Lopressor 5 Mg IV ECG Additional Comments: nrs, rate 95 qtc 454 Code Status & VTE Plan Code Status full code VTE Prophylaxis Plan VTE Prophylaxis will be ordered: Yes Supervising Physician Co-Signing Physician Notes Attending addendum: I have physically seen this patient, have supervised the IBIS's activities, and agree with the H&P unless as otherwise noted. Assessment and Plan: The patient is a 49-year-old female with a past medical history including hypertension, hyperlipidemia, nicotine abuse, diabetes mellitus type 2, CAD status post STEMI December 2021, PAD, history of [place], cardiomyopathy, and hyperglycemia due to diabetes mellitus type 2. The patient presents to the emergency department via EMS due to significant right foot pain. She reports that her feet have been discolored for approximately 3 weeks, and she has noticed a darkened spot on her fourth toe for about 1 week. In the emergency department workup included an arterial duplex which revealed severe PAD, and suggestion for additional evaluation such as CTA. The patient reports that she has not had any medical care for the past 2 years including not being able to take her home medications due to lack of insurance. Severe PAD- Bilateral lower extremity arterial duplex reveals advanced PAD bilaterally Bilateral toes show lower extremities being dusky/purple metatarsals Aggravating factors including hypertension, hyperlipidemia, diabetes mellitus and tobacco abuse Order aorta with runoff Bilateral foot x-rays ordered Ordered hemoglobin A1c and lipid panel Give aspirin 325 mg p.o. now, and 81 mg every morning Acetaminophen 1 g by mouth every 6 hours as needed for mild pain or fever Morphine 2 mg IV every 4 hours as needed for moderate pain Morphine 4 mg IV every 4 hours as needed for severe pain Vascular surgery consult Hyperglycemia due to diabetes mellitus type 2- Patient has not had metformin or Jardiance for a couple years Glucose 451 on admission Glucose did improve to 337 after receiving 2 L of normal saline Check hemoglobin A1c Placed on Accu-Cheks with [employer] SSI CAD/hypertension- Patient was given Lopressor 5 mg IV from the ED, with improvement in blood pressure from 199/107 to 165/93 Avoid beta-blockers for now due to concerns regarding hypoglycemia unawareness Will start Cardizem 30 mg p.o. 4 times daily, adjust dosing as needed, and then convert to Cardizem CD The patient will be admitted to telemetry for serial cardiac enzymes, serial EKG's, cardiac rhythm monitoring and a 2-D echocardiogram with Dopplers. Hypomagnesemia- Magnesium 1.6 on admission To receive 2 g IV, and then recheck laboratories Dehydration- Status post 2 L normal saline bolus from the ED Placed on LR at 80 mL/h x 2 L Tobacco abuse- Currently smoking 1/2 pack/day Patient presently declines nicotine patch Cessation counseling Case management consult- Patient is in need of insurance PG Care Time/CCT Total # of Minutes Spent Total Time Spent with Patient: Total time spent is greater than 50% in coordination of care (as documented) at patient's floor/unit and/or counseling patient: Coding Level of Care Code 68260 INT INP/OBS CARE 3/75MIN Diagnoses PAD (peripheral artery disease) I73.9 Hyperglycemia due to type 2 diabetes mellitus E11.65 Hypertension I10 Hypomagnesemia E83.42
[2025-06-19] MEDS: MAGNESIUM SULFATE / D5W 1 GM/100 ML BAG IV SCH (04:30)
[2025-06-19 04:37] LABS: Appearance Urine Clear (Clear); Glucose Urine UA 3+ (Negative)
[2025-06-19] MEDS: OPTIRAY 320 125ml IV ONE (04:56)
[2025-06-19] MEDS ORDERED: NALOXONE HCL 0.4 MG/1 ML VIAL/CARP IV PRN (05:11)
[2025-06-19] MEDS ORDERED: ONDANSETRON INJ 2 MG/ML 2 ML VIAL IV PRN (05:11)
--- NOTE | 2025-06-19 05:58 | XRay Report ---
EXAM: XR foot RT min 3V routine CLINICAL HISTORY: Pain, dusky toes. TECHNIQUE: X-ray images of the right foot were obtained in anteroposterior (AP), lateral, and oblique projections. COMPARISON: No prior studies available for comparison. FINDINGS: Bone Structure: Bone structure is normal and aligned. No evidence of fracture or dislocation. No osseous lesions or abnormalities identified. No evidence of bone resorption/fragmentation. Normal bone density. No lytic bony lesion. Joint Spaces: Joint spaces are normal. No evidence of joint subluxation. Soft Tissues: Prominent achilles enthesopathy. Large calcaneal bony spur. No soft tissue swelling. IMPRESSION: 1. Prominent achilles enthesopathy. 2. Large calcaneal bony spur. 3. No evidence of bone resorption or fragmentation. Normal bone density. Normally aligned bones examined. Disclaimer: A subtle bone abnormality or fracture may not be readily apparent on X-rays, thus clinical correlation and further imaging including follow-up CT, MRI, or follow-up X-rays are advised as needed. Electronically signed by Nestor Mooney 06-19-2025 05:58 AM
--- NOTE | 2025-06-19 06:00 | XRay Report ---
EXAM: XR foot LT min 3V routine CLINICAL HISTORY: Pain, dusky toes TECHNIQUE: X-ray images of the left foot were obtained in anteroposterior (AP), lateral, and oblique projections. COMPARISON: No prior studies available for comparison. FINDINGS: Bone Structure: Bone structure is normal and aligned. No evidence of fracture or dislocation. No osseous lesions or abnormalities identified. No evidence of bone resorption/fragmentation. Normal bone density. No lytic bony lesion. Joint Spaces: Joint spaces are normal. No evidence of joint effusion or subluxation. Soft Tissues: Prominent achilles enthesopathy. Enthesopathy at base of fifth metatarsal bone. Large calcaneal bony spur. No soft tissue swelling. IMPRESSION: 1. Prominent achilles enthesopathy. 2. Enthesopathy at base of fifth metatarsal bone. 3. Large calcaneal bony spur. 4. No evidence of bone resorption or fragmentation. Normal bone density. Normally aligned bones examined. Disclaimer: A subtle bone abnormality or fracture may not be readily apparent on X-rays, thus clinical correlation and further imaging including follow-up CT, MRI, or follow-up X-rays are advised as needed. Electronically signed by Nestor Mooney 06-19-2025 06:00 AM
[2025-06-19] MEDS: LACTATED RINGER'S 1,000 ML IV SCH (06:11)
--- NOTE | 2025-06-19 06:38 | CT Scan Report ---
EXAM: CT ang SUMANTH mao hawa CLINICAL HISTORY: PAD TECHNIQUE: Contrast enhanced thin slice CT angiography scan of the abdominal aorta and bilateral lower extremity was performed with intravenous contrast. Contiguous axial images were obtained. Angiographic images were processed, 3D MIP images were acquired for interpretation. Reformatted coronal and sagittal images were also reviewed. If IV contrast material had not been administered, the likelihood of detecting abnormalities relevant to the patients condition would have been substantially decreased. CT scan was performed according to ALARA (as low as reasonable achievable). COMPARISON: none FINDINGS: Abdominal aorta is normal in course, calibre and opacification upto infrarenal level. Diffuse atherosclerotic changes with few tiny eccentric calcification noted within abdominal aorta and bilateral iliac arteries There is non opacification of infrarenal abdominal aorta with hypodense filling defect within for a length of ~40mm. Aorta is reformed via collaterals through inferior mesenteric artery. Origin of coeliac artery, superior mesenteric artery , bilateral main renal and lumbar arteries are normal with no hemodynamically significant ostial stenosis noted. Bilateral common, external and internal iliac arteries are normal in course, caliber and opacification with no hemodynamically significant stenosis. RIGHT LOWER LIMB: Common femoral , superficial femoral and profunda femoris arteries are normal in course, calibre and opacification with no hemodynamically significant stenosis seen. Popliteal artery and tibioperoneal arteries are normal in course, calibre and opacification with no hemodynamically significant stenosis. Anterior tibial , posterior tibial and peroneal arteries are normal in course, calibre and opacification. Dorsalis pedis artery is not opacified LEFT lOWER LIMB: Common femoral , superficial femoral and profunda femoris arteries are normal in course, calibre and opacification with no hemodynamically significant stenosis seen. Popliteal artery and tibioperoneal arteries are normal in course, calibre and opacification with no hemodynamically significant stenosis. Anterior tibial , posterior tibial and peroneal arteries are normal in course, calibre and opacification. Dorsalis pedis artery is not opacified IMPRESSION: Diffuse atherosclerotic changes with few tiny eccentric calcification noted within abdominal aorta and bilateral iliac arteries There is non opacification of infrarenal abdominal aorta with hypodense filling defect within for a length of ~40mm.- suggestive of thrombus. Non-opacification of bilateral dorsalis pedis arteries. Correlation with doppler USG is suggested. Electronically signed by Tom Luis 06-19-2025 06:37 AM
--- NOTE | 2025-06-19 07:28 | Hospitalist Progress Note ---
Date of Service June 19, 2025 Assessment & Plan (1) Ischemic toe: (2) Abdominal aorta thrombosis: (3) Claudication: (4) PAD (peripheral artery disease): (5) Type II diabetes mellitus with neurological manifestations: Plan In summary this is a 49-year-old female who presents with what appears to be an atheroembolic event causing subacute ischemic damage to the right 2nd and 3rd toe in the setting of severely uncontrolled type 2 diabetes mellitus. #Ischemic right 2nd and 3rd toe // Infrarenal abdominal aortic thrombus, likely chronic // Chronic PAD With regard to the patient's ischemic toe and subsequently found abdominal aortic thrombus on CTA obtained 06/19 we will continue with pain control, pending a vascular surgery consultation for further recommendation regarding medical management versus surgical intervention presenting A1c of 12.5%; glycemic target of preprandial less than 140 and random checks less than 180; the patient is not established on any home medications in part due to financial burden in the setting of being uninsured - start Lantus 10 units SQ twice daily - start aspart prandial bolus with correction factor of 35 mg/dL/unit, carbohydrate ratio 12 g/unit - pharmacy consulted for glycemic management Admission and Anticipated Discharge Date Admission Date: June 19, 2025 Subjective Ms. Blackwood is a 49-year-old female whose active medical conditions include severely uncontrolled type 2 diabetes mellitus with neurologic manifestations and peripheral arterial disease, coronary atherosclerotic disease, nicotine use disorder among other chronic medical conditions who presented to [facility] on 06/18 due to progressive right toe pain. The patient describes for the past several months she has had increased cramping and aching discomfort in her calves and feet when walking extended distances, however over the past 7 days she has had sudden onset worsening pain involving the right 2nd and 3rd phalange of her foot which has been progressively worsening over the past several days associated with discoloration that has also been progressive. Because of this, the patient presented for further evaluation. No acute overnight events; the patient this morning continues to have discomfort in their toes however not significantly worsened since presentation. Review of Systems Review of Systems: Remaining review of constitutional, pulmonary, cardiovascular, gastrointest inal, genitourinary, musculoskeletal, neurologic, and integumentary systems was unremarkable except for pertinent positive and negative findings noted in the HPI above. Physical Exam Physical Exam: General: Adult female in no acute distress Vital Signs: reviewed HEENT: pupils equally round reactive to light; extraocular motion intact; tacky mucous membranes; poor dentition throughout maxillary and mandibular gingiva with chronic gingivitis Neck: Pulmonary: symmetric chest wall excursion without restriction; lungs clear to auscultation bilaterally Cardiovascular: regular rate and rhythm without murmurs, rubs, or gallops; S1 and S2 normal; bilateral radial pulse 2+, bilateral posterior tibial pulse 1+, bilateral dorsalis pedis pulse 1 -; no notable lower extremity edema; capillary refill of the bilateral upper extremity nailbeds is brisk; capillary refill of the bilateral lower extremity nailbeds is delayed to approximately 4 to 5 seconds with almost no alevism of color for greater than 5 seconds involving the right 2nd and 3rd toe Gastrointestinal: soft, nontender Neurologic: CN II-XII grossly intact Skin: the right 2nd and 3rd toe are dusky appearing with extension of this approximately to just past the PIP joint of each toe; there is no ischemic ulceration evident on exam Results & Data Results & Data Vital Signs (Past 12 Hours) Vital Signs Temp Pulse Pulse Resp BP BP Pulse Ox 06/19/25 05:18 36.7 C 76 14 152/84 H 95 06/19/25 05:12 99 H 06/19/25 04:31 84 16 165/93 H 98 06/19/25 03:55 85 153/89 H 06/19/25 03:45 89 20 153/89 H 97 06/19/25 02:11 88 16 184/97 H 98 06/19/25 00:49 107 H 06/19/25 00:47 36.5 C 104 H 20 199/107 H 99 O2 Del Method 06/19/25 05:18 Room Air 06/19/25 05:12 06/19/25 04:31 Room Air 06/19/25 03:55 06/19/25 03:45 Room Air 06/19/25 02:11 06/19/25 00:49 06/19/25 00:47 Room Air PG Care Time/CCT Total # of Minutes Spent Total Time Spent with Patient: Total time spent is greater than 50% in coordination of care (as documented) at patient's floor/unit and/or counseling patient: Coding Level of Care Code 62784 SUB INP/OBS CARE 3/50MIN Diagnoses Ischemic toe I99.8 Abdominal aorta thrombosis I74.09 Claudication I73.9 PAD (peripheral artery disease) I73.9 Type II diabetes mellitus with neurological manifestations E11.49
[2025-06-19] MEDS ORDERED: PHARMACY GLYCEMIC MGMT CONSULT PRN (07:51)
[2025-06-19] MEDS: INSULIN ASPART PER UNIT CHARGE SC SCH ×2 (08:14→12:13)
[2025-06-19] MEDS: LANTUS PER UNIT CHARGE SQ ONE (08:35)
[2025-06-19] MEDS: MoRPHine SULFATE 4 MG/ML 1 ML CARP\\VIAL IV PRN (08:35)
[2025-06-19] MEDS: INSULIN ASPART PER UNIT CHARGE SC ONE (08:36)
[2025-06-19] MEDS: ASPIRIN 81 MG ECTAB PO SCH (08:37)
[2025-06-19 10:06] LABS: Hemoglobin A1C 12.5 % (4.5-5.6)
--- NOTE | 2025-06-19 13:04 | Vascular Medicine Consultation ---
Date of Consultation June 19, 2025 Assessment & Plan (1) PAD (peripheral artery disease): She has an infrarenal aortic occlusion. I suspect this is subacute to chronic. Given that she has had symptoms for at least 2 months I do not see a role for thrombolysis. Given her young age as well as the extensive aortic disease, I do not think that this would be ideally managed with an endovascular solution. Most likely she would benefit from aortoiliac bypass grafting. With this in mind, I would engage her cardiology colleagues to provide risk stratification. I would also hydrate her given the recent contrast load as well as her underlying renal insufficiency. I discussed all of this with her. There is nothing acute that requires intervention immediately but we should certainly move forward with plans for revascularization potentially during this hospitalization. History of Present Illness Reason for Consultation: Infrarenal aortic occlusion with symptomatic lower extremity ischemia Attending Physician: Bryan Shanks DO History of Present Illness Asked to evaluate this 49-year-old female with known atherosclerotic occlusive disease having undergone percutaneous coronary intervention in 2019. About 2 months ago she started to notice a decrease in her ability to walk because of pain in both legs as well as progressive duskiness of her toes. More recently she has noticed a spot on the fourth toe of her right foot that has been there for about a week or 2. She tells me that several months ago she was able to walk at least a mile but now she can barely walk 50 yards before developing pain in both thighs that forces her to stop. 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 Her family history is remarkable for heart attacks in both her mother and father in their 50s. She smokes about a half a pack of cigarettes per day and has been doing so for around 30 years. She has had significant challenges with access to medical care as documented in other notes. Allergies Allergy/AdvReac Type Severity Reaction Status Date / Time coconut Allergy Unknown toasted, Verified 08/26/23 10:02 nauseated fenton Allergy Unknown throat Uncoded 08/26/23 10:02 feels like closing up, no trouble breathing. ham Allergy Unknown throat Uncoded 08/26/23 10:02 feels like closing up, no trouble breathing. sun Allergy Unknown get sun Uncoded 08/26/23 10:02 poisoning quickly Home Medications Medication Instructions Recorded Confirmed Type No Known Home Medications 06/19/25 06/19/25 History Patient History Medical History History of high blood pressure Smoker History of anesthesia reaction with heart cath in 2019 "woke up screaming" - needed something else and put deeper. Hyperactive gag reflex Anxiety and depression controlled without medication. History of kidney stones Hiatal hernia pt suspects. No official dx. Elevated triglycerides with high cholesterol History of myocardial infarction 2019. Diabetes Near syncope Jun 2023 - dehydration. had follow up with Dr. Duran office. Hx lisinopril, since near syncope episode haven't started back the lisinopril. Vitamin B 12 deficiency Anemia GERD (gastroesophageal reflux disease) Surgical History History of cardiac cath [place]...2019 - total of 2 stents. Family History Other Coronary heart disease Diabetes Dyslipidemia Hypertension Myocardial infarction Social History Smoking Status: Current every day smoker Tobacco Type: Cigarettes Cigarettes Per Day: half a pack a day; Second Hand Exposure: Yes; Do You Dip or Chew Tobacco: No; Tobacco Cessation Education Requested by Patient: No Hx Alcohol Use: Yes Alcohol type: beer, wine and hard liquor Hx Substance Use: No Preferred Language: [place] Citizen Communication Ability: Effective Guest Attendant Required: No Beliefs That Will Affect Care: None Current Living Situation: Alone Current Living Situation Comment: Lives in the [facility] in [place]; since 2020; 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 Abdomen is soft and nontender. She is a little bit ticklish. I cannot feel any femoral pulses nor can I feel pulses in her feet. Her radial pulses are strong and equal bilaterally. Results & Data Vital Signs (Past 12 Hours) Vital Signs Temp Pulse Pulse Resp BP BP BP 06/19/25 11:15 36.6 C 82 18 112/68 06/19/25 07:28 36.3 C L 80 18 147/83 H 06/19/25 05:50 81 06/19/25 05:18 36.7 C 76 14 152/84 H 06/19/25 05:12 99 H 06/19/25 04:31 84 16 165/93 H 06/19/25 03:55 85 153/89 H 06/19/25 03:45 89 20 153/89 H 06/19/25 02:11 88 16 184/97 H Pulse Ox O2 Del Method 06/19/25 11:15 Room Air 06/19/25 07:28 97 Room Air 06/19/25 05:50 06/19/25 05:18 95 Room Air 06/19/25 05:12 06/19/25 04:31 98 Room Air 06/19/25 03:55 06/19/25 03:45 97 Room Air 06/19/25 02:11 98 Diagnostic Findings I reviewed her CT scan which shows an infrarenal aortic occlusion with reconstitution of the common external and internal iliac arteries as well as the common femoral superficial and deep femoral arteries bilaterally. There is evidence of calcification and aortoiliac occlusive disease. Some of these findings were present on a CT scan performed in 2020 although her aorta was patent at that time. PG Care Time/CCT Total # of Minutes Spent Total Time Spent with Patient: Total time spent is greater than 50% in coordination of care (as documented) at patient's floor/unit and/or counseling patient: Coding Level of Care Code 78063 IN/OBS CONSULT LVL 4,60M Diagnoses PAD (peripheral artery disease) I73.9
--- NOTE | 2025-06-19 13:29 | XCELERA ---
[id number]
--- NOTE | 2025-06-19 13:38 | Pharmacy Report ---
Pharmacy Glycemic Short Note 2 - Date of Service June 19, 2025 - Glycemic Short BSG Results (Last 24 hours): 06/19/25 06/19/25 06/19/25 01:05 04:03 07:20 Glucose 451 H* POC Glucose 337 H* 305 H* 06/19/25 06/19/25 07:24 11:11 Glucose POC Glucose 317 H* 199 H OUTPATIENT ANTIDIABETIC REGIMEN: * N/A - insurance issues noted in H&P HbA1c: 12.5% (06/19/25) ASSESSMENT: * EZ is a 49 year old female w/ severe peripheral artery disease, presenting with ischemic right 2nd/3rd toes * Patient with known history of type 2 diabetes mellitus, but is currently untreated as an outpatient (due to financial burden/insurance issues) * Blood sugars > 300 mg/dL on presentation, pharmacy consulted for glycemic management * Patient is insulin naive and blood sugar improved to 199 mg/dL at lunch, so will maintain current Novolog and utilize scaled basal dose this evening * CDE consulted to facilitate discharge planning PLAN FOR INPATIENT GLYCEMIC CONTROL: * Basal insulin * Lantus 10 units SC this AM * Lantus 0-10-15 units SC HS x 1 * Reassess in AM * Bolus insulin * NovoLog per scale ACHS or Q6hrs while NPO * Goal Range: Low 120 mg/dL - High 160 mg/dL * Correction Factor: 35 mg/dL/unit * Nutritional / Prandial insulin per carb ratio of 1 unit per 12 grams CHO consumed
[2025-06-19] MEDS: DOCUSATE SODIUM 100 MG CAP PO PRN (21:11)
[2025-06-19] MEDS: MELATONIN 3 MG TAB PO PRN (21:11)
[2025-06-19] MEDS: ACETAMINOPHEN 325 MG TAB PO PRN (21:11)
[2025-06-19] MEDS: LANTUS PER UNIT CHARGE SQ SCH (21:12)
--- NOTE | 2025-06-20 07:13 | Hospitalist Progress Note ---
Date of Service June 20, 2025 Assessment & Plan (1) Ischemic toe: (2) Abdominal aorta thrombosis: (3) Claudication: (4) PAD (peripheral artery disease): (5) Type II diabetes mellitus with neurological manifestations: Plan In summary this is a 49-year-old female who presents with what appears to be an atheroembolic event causing subacute ischemic damage to the right 2nd and 3rd toe in the setting of severely uncontrolled type 2 diabetes mellitus. #Ischemic right 2nd and 3rd toe // Infrarenal abdominal aortic thrombus, likely chronic // Chronic PAD With regard to the patient's ischemic toe and subsequently found abdominal aortic thrombus on CTA obtained 06/19; vascular surgery consulted and recommend potential revascularization during this hospitalization - TTE reviewed, without significant hemodynamic pathology #Type II diabetes mellitus with hyperglycemia presenting A1c of 12.5%; glycemic target of preprandial less than 140 and random checks less than 180; the patient is not established on any home medications in part due to financial burden in the setting of being uninsured - Continue Lantus 10 units SQ twice daily - Continue aspart prandial bolus with correction factor of 35 mg/dL/unit, carbohydrate ratio 12 g/unit - pharmacy consulted for glycemic management Admission and Anticipated Discharge Date Admission Date: June 19, 2025 Subjective Ms. 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 The patient describes for the past several months she has had increased cramping and aching discomfort in her calves and feet when walking extended distances, however over the past 7 days she has had sudden onset worsening pain involving the right 2nd and 3rd phalange of her foot which has been progressively worsening over the past several days associated with discoloration that has also been progressive. Because of this, the patient presented for further evaluation. No acute overnight events; the patient this morning continues to have discomfort in their toes however not significantly worsened since presentation. Review of Systems Review of Systems: Remaining review of constitutional, pulmonary, cardiovascular, gastrointestinal, genitourinary, musculoskeletal, neurologic, and integumentary systems was unremarkable except for pertinent positive and negative findings noted in the HPI above. Physical Exam Physical Exam: General: Adult female in no acute distress Vital Signs: reviewed HEENT: pupils equally round reactive to light; extraocular motion intact; tacky mucous membranes; poor dentition throughout maxillary and mandibular gingiva with chronic gingivitis Neck: Pulmonary: symmetric chest wall excursion without restriction; lungs clear to auscultation bilaterally Cardiovascular: regular rate and rhythm without murmurs, rubs, or gallops; S1 and S2 normal; bilateral radial pulse 2+, bilateral posterior tibial pulse 1+, bilateral dorsalis pedis pulse 1 -; no notable lower extremity edema; capillary refill of the bilateral upper extremity nailbeds is brisk; capillary refill of the bilateral lower extremity nailbeds is delayed to approximately 4 to 5 seconds with almost no uatsdin of color for greater than 5 seconds involving the right 2nd and 3rd toe Gastrointestinal: soft, nontender Neurologic: CN II-XII grossly intact Skin: the right 2nd and 3rd toe are dusky appearing with extension of this approximately to just past the PIP joint of each toe; there is no ischemic ulceration evident on exam Results & Data Results & Data Vital Signs (Past 12 Hours) Vital Signs Temp Pulse Pulse Resp BP Pulse Ox O2 Del Method 06/20/25 07:00 84 06/20/25 03:53 36.7 C 66 18 133/83 96 Room Air 06/19/25 23:21 36.6 C 71 16 118/81 94 Room Air 06/19/25 21:43 81 06/19/25 19:23 36.6 C 74 14 108/68 95 Room Air PG Care Time/CCT Total # of Minutes Spent Total Time Spent with Patient: Total time spent is greater than 50% in coordination of care (as documented) at patient's floor/unit and/or counseling patient: Coding Level of Care Code 26511 SUB INP/OBS CARE 2/35MIN Diagnoses Ischemic toe I99.8 Abdominal aorta thrombosis I74.09 Claudication I73.9 PAD (peripheral artery disease) I73.9 Type II diabetes mellitus with neurological manifestations E11.49
[2025-06-20 07:19] LABS: Hematocrit (blood only) 31.9 % (37.0-47.0); Hemoglobin 11.1 g/dl (12.0-16.0); Immature Granulocytes # (auto) 0.02 K/uL (0.01-0.20); Immature Granulocytes % (auto) 0.3 %; Mean Corpuscular Hemoglobin 29.8 pg (25.0-34.0); Mean Corpuscular Volume 85.8 fL (80.0-100.0); Platelet Count 166 K/uL (130-400); RDW Standard Deviation 40.7 fL (36.4-46.3); Red Blood Count 3.72 M/uL (4.20-5.40); White Blood Count 6.90 K/ul (4.8-10.8)
[2025-06-20 07:40] LABS: Anion Gap 6.0 (3-11); Blood Urea Nitrogen 17.0 mg/dl (6-23); Calcium 8.8 mg/dl (8.6-10.3); Carbon Dioxide 23.0 mmol/L (21-32); Chloride 109.0 mmol/L (98-107); Cholesterol 191.0 mg/dl (0-200); Creatinine Clr Calc Pharmacy 100.5 ml/min; Glucose 208.0 mg/dl (70-99(Fasting)); HDL Cholesterol 29.0 mg/dl; Magnesium 1.5 mg/dl (1.7-2.4); Potassium 3.9 mmol/L (3.5-5.1); Sodium 138.0 mmol/L (136-145); Triglycerides 310.0 mg/dl (0-150)
[2025-06-20] MEDS: MoRPHine SULFATE 2 MG/ML CARP IV PRN (08:32)
[2025-06-20] MEDS: LANTUS PER UNIT CHARGE SQ SCH ×2 (08:33→21:23)
--- NOTE | 2025-06-20 10:30 | Pharmacy Report ---
Pharmacy Glycemic Short Note 2 - Date of Service June 20, 2025 - Glycemic Short BSG Results (Last 24 hours): 06/19/25 06/19/25 06/19/25 11:11 16:16 20:19 Glucose POC Glucose 199 H 158 H 211 H 06/20/25 06/20/25 06:25 07:22 Glucose 208 H POC Glucose 202 H OUTPATIENT ANTIDIABETIC REGIMEN: * N/A - insurance issues noted in H&P HbA1c: 12.5% (06/19/25) ASSESSMENT: 06/20: * Gloria received 44 units of insulin yesterday (25 were basal) * Fasting BSG this AM elevated, will continue will approximately same basal regimen, likely basal deficiency contributing to BSG elevations. * NovoLog carbohydrate ratio tightened slightly. No glycemic stressors noted. 06/19: * AIDAN is a 49 year old female w/ severe peripheral artery disease, presenting with ischemic right 2nd/3rd toes * Patient with known history of type 2 diabetes mellitus, but is currently untreated as an outpatient (due to financial burden/insurance issues) * Blood sugars > 300 mg/dL on presentation, pharmacy consulted for glycemic management * Patient is insulin naive and blood sugar improved to 199 mg/dL at lunch, so will maintain current Novolog and utilize scaled basal dose this evening * CDE consulted to facilitate discharge planning PLAN FOR INPATIENT GLYCEMIC CONTROL: * Basal insulin * Lantus 20 units SC daily * Lantus 0-10 units SC HS (see eMAR for additional details) * Bolus insulin * NovoLog per scale ACHS or Q6hrs while NPO * Goal Range: Low 120 mg/dL - High 160 mg/dL * Correction Factor: 35 mg/dL/unit * Nutritional / Prandial insulin per carb ratio of 1 unit per 10 grams CHO consumed
[2025-06-20] MEDS: MAGNESIUM SULFATE / D5W 1 GM/100 ML BAG IV SCH (10:51)
--- NOTE | 2025-06-20 15:36 | Electrocardiogram Report ---
Test Reason : Blood Pressure : */* mmHG Vent. Rate : 95 BPM Atrial Rate : 95 BPM P-R Int : 150 ms QRS Dur : 80 ms QT Int : 362 ms P-R-T Axes : 60 38 57 degrees QTcB Int : 454 ms Normal sinus rhythm Nonspecific ST elevation Anterolateral leads Otherwise Normal ECG When compared with ECG of 19-Jun-2023 21:41, No significant change was found Confirmed by Andrews Dumas ([id number]) on 06/20/2025 3:35:29 PM Referred By: REFERRED SELF Confirmed By: Andrews Dumas
--- NOTE | 2025-06-20 15:53 | Cardiology Consultation ---
Date of Consultation June 20, 2025 Assessment & Plan (1) CAD S/P percutaneous coronary angioplasty: (2) HLD (hyperlipidemia): (3) Noncompliance w/medication treatment due to intermit use of medication: Plan #CAD s/p PCI RCA, circ in 2019 #HLD #Medical noncompliance 2/2 insignificant health care coverage - cardiac cath was at the facility by Dr. Duran - patient has not been taking her medications or receiving medical over the last 2 years - see echo and ekg interpretation - suggest dobutamine echo given patient's ambulatory issues and underlying cardiac history Supervising Physician Co-Signing Physician Notes Patient seen and case discussed with Queta Winchester. She has known coronary artery disease and has not been able to be active so we do not know if she would have exertional symptoms, prior to worsening vascular disease she was quite active and did not have symptoms. She has not been on risk factor modification recently due to cost and insurance issues and has had progressive aortic iliac disease. With the possibility that she has developed progressive coronary artery disease a stress test is indicated before major surgery. She also needs to try to maintain risk factor modification for the long run. History of Present Illness Reason for Consultation: Coronary artery disease Attending Physician: Bryan Shanks DO History of Present Illness Gloria is a 49 year old female with a pmh significant for CAD s/p PCI to RCA and distal circ in 2019, HLD, uncontrolled DM2, HTN, ongoing tobacco use who was admitted on 06/19/25 for significant right foot pain. Her feet have been discolored for approximately 3 weeks and she has noticed worsening of this to her right 4th toe over the last week. Arterial duplex revealed severe PAD. CTA aorta w/ runoff is suggesting aortic thrombosis. This is thought to be subacute or chronic which does not warrant thrombolysis. Vascular surgery was consulted for a potential intervention and has consulted cardiology for cardiac clearance. Her echocardiogram completed during this admission is showing moderate inferolateral hypokinesis with a normal EF. EKG was consistent with her underlying cardiac abnormalities. Troponin negative. She reports that her symptoms began all of a sudden in March of this year. Prior to this, she had not had any issues with performing ADLs. Prior to the start of her symptoms, she had been able to walk over a mile without any significant cardiac symptoms. However, the pain in her legs has slowed her down greatly and has been greatly affecting her quality of life. She reports mild intermittent swelling to her ankles which she attributes to dependent positioning. Only complaint at time of assessment is her leg pain. The rest of her ROS is negative. This patient was last seen in our office in 2022. Patient has had no medical care for approximately 2 years including receiving her home medications due to lack of insurance. Given her cardiac history and the fact that she has not been able to receive medical care or medications for the last 2 years, a dobutamine stress test would be reasonable before proceeding with any interventions. Allergies Allergy/AdvReac Type Severity Reaction Status Date / Time coconut Allergy Unknown toasted, Verified 08/26/23 10:02 nauseated pork derived (porcine) Allergy Unknown throat Verified 06/20/25 16:27 feels like it is closing up sun Allergy Unknown get sun Uncoded 08/26/23 10:02 poisoning quickly Home Medications Medication Instructions Recorded Confirmed Type aspirin 81 mg tablet,delayed 81 mg PO DAILY #0 tabs 06/22/25 Rx release atorvastatin 40 mg tablet 40 mg PO QAM #30 tabs 06/22/25 Rx blood sugar diagnostic (ReliOn #100 ea 06/22/25 Rx Prime Test Strips) insulin glargine 100 unit/mL (3 20 unit (0.2 mL) subcut PM #15 mL 06/22/25 Rx mL) subcutaneous pen (Basaglar KwikPen U-100 Insulin) metformin 1,000 mg tablet 1,000 mg PO DAILY #30 tabs 06/22/25 Rx oxycodone 5 mg tablet 5 - 10 mg (1 - 2 x 5 mg) PO Q4H 06/22/25 Rx PRN pain #30 tabs pen needle, diabetic 32 gauge x #100 ea 06/22/25 Rx 5/32" cephalexin 500 mg tablet 500 mg PO QID 7 days #28 tabs 06/27/25 Rx oxycodone 5 mg tablet 5 mg PO Q8H PRN pain #21 tabs 06/27/25 Rx Patient History Medical History Sleep-disordered breathing patient states has recorded herself sleeping with detected snoring and suspected pauses in breathing-no previous sleep apnea studies CAD S/P percutaneous coronary angioplasty History of high blood pressure Smoker History of anesthesia reaction with heart cath in 2019 "woke up screaming" - needed something else and put deeper. Hyperactive gag reflex Anxiety and depression controlled without medication. History of kidney stones Hiatal hernia pt suspects. No official dx. Elevated triglycerides with high cholesterol History of myocardial infarction 2019. Diabetes A1c 12% Near syncope Jun 2023 - dehydration. had follow up with Dr. Duran office-denies any additional episodes Vitamin B 12 deficiency Anemia GERD (gastroesophageal reflux disease) controlled, stable per pt Surgical History History of endoscopy History of cardiac cath [place]...2019 - total of 2 stents. Family History Other Coronary heart disease Diabetes Dyslipidemia Hypertension Myocardial infarction Social History Smoking Status: Former smoker Tobacco Type: Cigarettes Cigarettes Per Day: half a pack a day; Second Hand Exposure: Yes; Do You Dip or Chew Tobacco: No; Hx Alcohol Use: Yes Alcohol type: beer, wine and hard liquor Hx Substance Use: No Preferred Language: Occ[place] Communication Ability: Effective Nuclear Radiologist Required: No Beliefs That Will Affect Care: None Current Living Situation: Alone Current Living Situation Comment: [facility] [place]; since [facility]; 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 EENT: PERRL, MM appear dry; poor dentition with significant gum disease apparent. Neck: No JVD Pulmonary: symmetric chest wall excursion without restriction; lungs clear to auscultation bilaterally Cardiovascular: regular rate and rhythm without murmurs, rubs, or gallops; S1 and S2 normal Neurologic: AOx3, answers questions appropriately Skin: Right 2nd and 3rd toe appear dusky Results & Data Vital Signs (Past 12 Hours) Vital Signs Temp Pulse Pulse Resp BP BP Pulse Ox 06/20/25 15:24 36.5 C 76 16 134/85 97 06/20/25 10:53 36.5 C 70 20 120/80 99 06/20/25 08:04 36.7 C 76 16 139/92 96 06/20/25 07:00 84 06/20/25 03:53 36.7 C 66 18 133/83 96 O2 Del Method 06/20/25 15:24 Room Air 06/20/25 10:53 Room Air 06/20/25 08:04 Room Air 06/20/25 07:00 06/20/25 03:53 Room Air (2) HLD (hyperlipidemia) Hyperlipidemia type: unspecified Qualified Code(s): E78.5 - Hyperlipidemia, unspecified
--- NOTE | 2025-06-21 07:29 | Hospitalist Progress Note ---
Date of Service June 21, 2025 Assessment & Plan (1) Ischemic toe: (2) Abdominal aorta thrombosis: (3) Claudication: (4) PAD (peripheral artery disease): (5) Type II diabetes mellitus with neurological manifestations: Plan In summary this is a 49-year-old female who presents with what appears to be an atheroembolic event causing subacute ischemic damage to the right 2nd and 3rd toe in the setting of severely uncontrolled type 2 diabetes mellitus. #Ischemic right 2nd and 3rd toe // Infrarenal abdominal aortic thrombus, likely chronic // Chronic PAD With regard to the patient's ischemic toe and subsequently found abdominal aortic thrombus on CTA obtained 06/19; vascular surgery consulted and recommend potential revascularization during this hospitalization - Vascular surgery and Cardiology consulted; to undergo dobutamine stress echo on 06/21 as recommended by cardiology #Type II diabetes mellitus with hyperglycemia presenting A1c of 12.5%; glycemic target of preprandial less than 140 and random checks less than 180; the patient is not established on any home medications in part due to financial burden in the setting of being uninsured - Continue Lantus 20 units SQ daily - Continue aspart prandial bolus with correction factor of 35 mg/dL/unit, carbohydrate ratio 12 g/unit - pharmacy consulted for glycemic management Admission and Anticipated Discharge Date Admission Date: June 19, 2025 Subjective Ms. Blackwood is a 49-year-old female whose active medical conditions include sev erely uncontrolled type 2 diabetes mellitus with neurologic manifestations and peripheral arterial disease, coronary atherosclerotic disease, nicotine use disorder among other chronic medical conditions who presented to [facility] on 06/18 due to progressive right toe pain. The patient describes for the past several months she has had increased cramping and aching discomfort in her calves and feet when walking extended distances, however over the past 7 days she has had sudden onset worsening pain involving the right 2nd and 3rd phalange of her foot which has been progressively worsening over the past several days associated with discoloration that has also been progressive. Because of this, the patient presented for further evaluation. No acute overnight events; the patient this morning continues to have discomfort in their toes however not significantly worsened since presentation. Review of Systems Review of Systems: Remaining review of constitutional, pulmonary, cardiovascular, gastrointestinal, genitourinary, musculoskeletal, neurologic, and integumentary systems was unremarkable except for pertinent positive and negative findings noted in the HPI above. Physical Exam Physical Exam: General: Adult female in no acute distress Vital Signs: reviewed HEENT: pupils equally round reactive to light; extraocular motion intact; tacky mucous membranes; poor dentition throughout maxillary and mandibular gingiva with chronic gingivitis Neck: Pulmonary: symmetric chest wall excursion without restriction; lungs clear to auscultation bilaterally Cardiovascular: regular rate and rhythm without murmurs, rubs, or gallops; S1 and S2 normal; bilateral radial pulse 2+, bilateral posterior tibial pulse 1+, bilateral dorsalis pedis pulse 1 -; no notable lower extremity edema; capillary refill of the bilateral upper extremity nailbeds is brisk; capillary refill of the bilateral lower extremity nailbeds is delayed to approximately 4 to 5 seconds with almost no cheondoism of color for greater than 5 seconds involving the right 2nd and 3rd toe Gastrointestinal: soft, nontender Neurologic: CN II-XII grossly intact Skin: the right 2nd and 3rd toe are dusky appearing with extension of this approximately to just past the PIP joint of each toe; there is no ischemic ulceration evident on exam Results & Data Results & Data Vital Signs (Past 12 Hours) Vital Signs Temp Pulse Pulse Resp BP Pulse Ox O2 Del Method 06/21/25 05:45 88 06/21/25 03:06 36.5 C 68 14 163/93 H 98 Room Air 06/20/25 22:00 98 H PG Care Time/CCT Total # of Minutes Spent Total Time Spent with Patient: Total time spent is greater than 50% in coordination of care (as documented) at patient's floor/unit and/or counseling patient: Coding Level of Care Code 41871 SUB INP/OBS CARE 2/35MIN Diagnoses Ischemic toe I99.8 Abdominal aorta thrombosis I74.09 Claudication I73.9 PAD (peripheral artery disease) I73.9 Type II diabetes mellitus with neurological manifestations E11.49
[2025-06-21] MEDS: LANTUS PER UNIT CHARGE SQ ONE ×2 (09:50→13:26)
[2025-06-21] MEDS: ATORVASTATIN 40 MG TAB PO SCH (10:09)
[2025-06-21] MEDS: ATROPINE SULFATE 0.1 MG/ML 10ML SYR IV ONE (10:11)
[2025-06-21] MEDS: DOBUTamine HCL 12.5 MG/ML 20 ML VIAL IV ONE (10:12)
[2025-06-21] MEDS: METOPROLOL TARTRATE 1 MG/ML VIAL IV ONE ×2 (10:12→10:13)
--- NOTE | 2025-06-21 11:10 | Vascular Medicine ProgressNote ---
Date of Service June 21, 2025 Assessment & Plan (1) PAD (peripheral artery disease): Plan: Awaiting cardiac risk stratification and recommendations. Will tentatively plan for aortic reconstruction ([id number] bypass) sometime in early July. Can be discharged from my perspective once cardiac workup complete. Admission and Anticipated Discharge Date Admission Date: June 19, 2025 Subjective No acute events. Awaiting results of cardiac stress testing. Physical Exam Physical Exam: Rooke boots in place. No new findings. Results & Data Vital Signs (Past 12 Hours) Vital Signs Temp Pulse Pulse Resp BP Pulse Ox O2 Del Method 06/21/25 09:44 36.6 C 91 H 16 126/82 97 Room Air 06/21/25 08:00 36.4 C L 60 16 135/81 97 Room Air 06/21/25 05:45 88 06/21/25 03:06 36.5 C 68 14 163/93 H 98 Room Air PG Care Time/CCT Total # of Minutes Spent Total Time Spent with Patient: Total time spent is greater than 50% in coordination of care (as documented) at patient's floor/unit and/or counseling patient: Coding Level of Care Code 29965 SUB INP/OBS CARE 2/35MIN Diagnoses PAD (peripheral artery disease) I73.9
[2025-06-21] MEDS: LANTUS PER UNIT CHARGE SQ SCH (13:34)
--- NOTE | 2025-06-22 08:50 | Pharmacy Report ---
Pharmacy Glycemic Short Note 2 - Date of Service June 22, 2025 - Glycemic Short BSG Results (Last 24 hours): 06/21/25 06/21/25 06/21/25 12:44 16:55 20:15 POC Glucose 132 H 119 H 151 H 06/22/25 08:24 POC Glucose 105 H OUTPATIENT ANTIDIABETIC REGIMEN: * N/A - insurance issues noted in H&P HbA1c: 12.5% (06/19/25) ASSESSMENT: 06/22: * Excellent glycemic control over the past 24 hours with BSGs ranging from 119 - 151 mg/dL. Patient received a total of 23 units of SC insulin during that time (15 units Lantus + 8 units Novolog). Of note, patient was NPO for a portion of the day, diet has since been advanced. * Fasting BSG of 105 mg/dL this morning. Although at goal, will slightly reduce basal insulin to prevent further trending down of fasting while inpatient. * Post prandial BSGs with some fluctuation but overall acceptable. 06/20: * Gloria received 44 units of insulin yesterday (25 were basal) * Fasting BSG this AM elevated, will continue will approximately same basal regimen, likely basal deficiency contributing to BSG elevations. * NovoLog carbohydrate ratio tightened slightly. No glycemic stressors noted. 06/19: * EZ is a 49 year old female w/ severe peripheral artery disease, presenting with ischemic right 2nd/3rd toes * Patient with known history of type 2 diabetes mellitus, but is currently untreated as an outpatient (due to financial burden/insurance issues) * Blood sugars > 300 mg/dL on presentation, pharmacy consulted for glycemic management * Patient is insulin naive and blood sugar improved to 199 mg/dL at lunch, so will maintain current Novolog and utilize scaled basal dose this evening * CDE consulted to facilitate discharge planning PLAN FOR INPATIENT GLYCEMIC CONTROL: * Basal insulin * Lantus 15 units SC daily * Bolus insulin * NovoLog per scale ACHS or Q6hrs while NPO * Goal Range: Low 120 mg/dL - High 160 mg/dL * Correction Factor: 35 mg/dL/unit * Nutritional / Prandial insulin per carb ratio of 1 unit per 9 grams CHO consumed
[2025-06-22] MEDS ORDERED: LANTUS PER UNIT CHARGE SQ SCH (09:00)
[2025-06-22] MEDS: LANTUS PER UNIT CHARGE SQ SCH (10:02)
--- NOTE | 2025-06-22 11:12 | Vascular Medicine ProgressNote ---
Date of Service June 22, 2025 Assessment & Plan (1) PAD (peripheral artery disease): Plan: I have tentatively scheduled her for kyneo-og-mbiee bypass on 07/12/2025. This will be done through a laparotomy. Have discussed with Anesthesia the helpfulness of a postoperative epidural for pain control. She is only on ASA for antiplatelet/anticoagulation so nothing needs to be held prior to surgery. Awaiting final Cardiology eval and stress test results. I have asked our Anesthesia colleagues to see her while she is in house to avoid having to bring her back for a separate pre-admission testing visit. Would keep her in house as long as needed to optimize her medical management including a sustainable regimen for her underlying diabetes. Will plan to see her back in the office on 07/05 or 07/06 for preoperative counseling and consent. Admission and Anticipated Discharge Date Admission Date: June 19, 2025 Subjective No acute changes. She did not tolerate the Rooke boots due to hyperesthesia of her feet. Physical Exam Physical Exam: No significant change. Results & Data Vital Signs (Past 12 Hours) Vital Signs Temp Pulse Pulse Resp BP BP Pulse Ox 06/22/25 08:06 36.5 C 65 12 117/71 99 06/22/25 05:40 58 L 06/22/25 05:00 06/22/25 02:53 36.3 C L 57 L 18 102/67 97 Pulse Ox O2 Del Method O2 Del Method 06/22/25 08:06 Room Air 06/22/25 05:40 06/22/25 05:00 92 Room Air 06/22/25 02:53 Room Air PG Care Time/CCT Total # of Minutes Spent Total Time Spent with Patient: Total time spent is greater than 50% in coordination of care (as documented) at patient's floor/unit and/or counseling patient: Coding Level of Care Code 92263 SUB INP/OBS CARE 3/50MIN Diagnoses PAD (peripheral artery disease) I73.9
--- NOTE | 2025-06-22 11:38 | XCELERA ---
[id number]
[2025-06-22 11:56] VITALS: RESP 16
--- NOTE | 2025-06-22 12:41 | Cardiology Progress Note ---
Date of Service June 22, 2025 Assessment & Plan (1) PAD (peripheral artery disease): Plan: Aorto bi-iliac procedure is tentatively scheduled for early next month under Dr. Mcgrath. We were asked to evaluate the patient prior to surgery. A dobutamine stress was completed which was read as normal. Given this, her revised cardiac index score is 2. This puts her at low risk for a cardiac event during surgery at this time. (2) CAD S/P percutaneous coronary angioplasty: Plan: She had a cardiac cath completed at this facility by Dr. Duran in 2019. She has not had appropriate medical care over the last two years due to lack of insurance coverage. (3) HLD (hyperlipidemia): (4) Noncompliance w/medication treatment due to intermit use of medication: Plan: She has not taken the majority of her medications or has received any medical care over the last 2 years due to lack of insurance. Patient tells me today that prior to this, she had been taking her medication intermittently, but was doing her best at being compliant. She notes she was compliant with her Brillinta after her cardiac cath. Plan #CAD s/p PCI RCA, circ in 2019 #HLD #Medical noncompliance 2/2 insignificant health care coverage - cardiac cath in 2019 was at the facility by Dr. Duran - patient has not been taking her medications or receiving medical over the last 2 years - see echo and ekg interpretation - suggest dobutamine echo given patient's ambulatory issues and underlying cardiac history Admission and Anticipated Discharge Date Admission Date: June 19, 2025 Supervising Physician Co-Signing Physician Notes Agree with above. Without symptoms and with a negative stress test I would proceed with surgery without further cardiac evaluation. Subjective Followed up patient today regarding her dobutamine stress test yesterday. Results were read as normal. Given this, her Revised Cardiac Index for Preop risk score is 3. This overall puts her at relatively low chance as a major cardiac event during surgery. Physical Exam Physical Exam: Adult female resting in bed. EENT: PERRL, MM appear dry; poor dentition with significant gum disease apparent. Neck: No JVD Pulmonary: symmetric chest wall excursion without restriction; lungs clear to auscultation bilaterally Cardiovascular: regular rate and rhythm without murmurs, rubs, or gallops; S1 and S2 normal Neurologic: AOx3, answers questions appropriately Skin: Right 2nd and 3rd toe appear dusky Results & Data Vital Signs (Past 12 Hours) Vital Signs Temp Pulse Pulse Resp BP BP Pulse Ox 06/22/25 12:06 36.6 C 70 16 107/72 117/71 98 06/22/25 11:55 36.6 C 70 16 107/72 98 06/22/25 08:06 36.5 C 65 12 117/71 99 06/22/25 05:40 58 L 06/22/25 05:00 06/22/25 02:53 36.3 C L 57 L 18 102/67 97 Pulse Ox O2 Del Method O2 Del Method 06/22/25 12:06 06/22/25 11:55 Room Air 06/22/25 08:06 Room Air 06/22/25 05:40 06/22/25 05:00 92 Room Air 06/22/25 02:53 Room Air PG Care Time/CCT Total # of Minutes Spent Total Time Spent with Patient: Total time spent is greater than 50% in coordination of care (as documented) at patient's floor/unit and/or counseling patient: [place] [address] SUB INP/OBS CARE 11/27MIN Patient Type Established Medical Decision Making Straight Forward Diagnoses PAD (peripheral artery disease) I73.9 CAD S/P percutaneous coronary angioplasty I25.10; Z98.61 Hyperlipidemia, unspecified hyperlipidemia type E78.5 Hyperlipidemia type: unspecified Noncompliance w/medication treatment due to intermit use of medication Z91.148 (3) HLD (hyperlipidemia) Hyperlipidemia type: unspecified Qualified Code(s): E78.5 - Hyperlipidemia, unspecified
--- NOTE | 2025-06-22 14:14 | Communication Note ---
Date of Service: June 22, 2025 - I was asked by Dr. Powers to see patient to start process for PAT consult rather than patient returning to [facility] for outpatient PAT appointment. Informa tion obtained, anesthesia plan discussed with patient and that any determination/management of anticoagulation and potential post-op epidural is to surgeon's coordination. T&S ordered, any additional testing need will be to surgeon's discretion. Patient verbalized understanding, denied any questions or concerns. She was provided with my contact information. If something changes and procedure is needed urgently, she will need re-evaluated by anesthesiologist.
[2025-06-22 15:42] VITALS: BP 118/75; PULSE 80; TEMP 98.1; O2SAT 96
--- NOTE | 2025-06-22 17:27 | Discharge Summary ---
Discharge Summary Date of Service June 22, 2025 Principal Dx & Hospital Course #1 = Principal Diagnosis (1) Ischemic toe: (2) Abdominal aorta thrombosis: (3) Claudication: (4) PAD (peripheral artery disease): (5) Type II diabetes mellitus with neurological manifestations: Plan In summary this is a 49-year-old female who presents with what appears to be an atheroembolic event causing subacute ischemic damage to the right 2nd and 3rd toe in the setting of severely uncontrolled type 2 diabetes mellitus. #Ischemic right 2nd and 3rd toe // Infrarenal abdominal aortic thrombus, likely chronic // Chronic PAD With regard to the patient's ischemic toe and subsequently found abdominal aortic thrombus on CTA obtained 06/19; vascular surgery consulted and recommend hprsc-zr-[id number] bypass planned for 07/12/25 -preop testing done while in hospital -oxycodone and APAP as needed for pain -right 2nd, 3rd toe and base of toes slightly onto forefoot remains dusky and tender Cardiology consulted for preop clearance. History of CAD and has not been reliably on medications for two years. DSE was done today and was reassuring / low risk study. Per cardiology low risk for perioperative cardiac event. -started ASA and atorvastatin for CAD, PAD #Type II diabetes mellitus with hyperglycemia presenting A1c of 12.5% not established on any home medications in part due to financial burden in the setting of being uninsured - Lantus 20 units SQ daily - metformin 1000 mg daily - diabetic education provided, glucometer and supplies provided - follow up in primary care [facility] Admission HPI Per Admitting Provider Patient is a 76-year-old female with past medical history including hypertension, hyperlipidemia, nicotine use, type II DM, CAD s/p STEMI December 2021. Patient presented via EMS due to significant right foot pain. Her feet have been discolored for approximately 3 weeks and she has noticed a necrotic spot on her fourth toe for about 1 week. Arterial duplex revealed severe PAD. Patient has had no medical care for approximately 2 years including receiving her home medications due to lack of insurance. Patient seen at bedside. She stated approximately 3 weeks ago she noticed her toes were discolored of her bilateral feet. She also noticed a black dot on the bottom of her fourth right toe approximately 1 week ago that has worsened over the last few days. The pain was so severe today so she called EMS to come in but she cannot take it anymore. Pain 8/10 at bedside after 1 Mg IV Tylenol. She denies any fevers, chills, chest pain, shortness of breath nausea, vomiting, diarrhea. She has still been able to ambulate however with significant difficulty. She continues to smoke half a pack of cigarettes per day, declines need for nicotine patch at this time. She denies significant alcohol use. She stated she does feel dehydrated as she has not had good p.o. intake for the past few days. She does not have any home medications as she was previously on Jardiance and metformin for diabetes however cannot pay for these anymore due to lack of insurance. She has been off of all of her home medications for approximately 2 years and has had no primary care follow-up. She wishes to be full code. Discharge Plan Discharge Items Patient Disposition: Home - Self-Care Reason For Visit: PAD, PAIN, HYPERGLYCEMIA Discharge Diagnosis: ischemic toes, PAD, uncontrolled DM type 2 Condition on Discharge: Good Activity: Resume your previous activity Non-emergency contact: Primary Care Provider and Surgeon Call non-emergency contact if: you have any medication questions and your symptoms worsen Follow-up/Referrals: Scooby Benton MD [Physician] - Carlos Olson D.O. [Primary Care Provider] - Diet: Carb Consistent or DM2 Addtl Attending Provider Instructions: Please follow up with Dr Benton for vascular surgery - procedure planned early July Take care of your diabetes heart and vascular disease the best you can. Atorvastatin - to lower cholesterol, prevent inflammation - reduces the risk of heart attack, stroke, progression of vascular (arterial) disease Baby aspirin - affects the blood platelets to make them slippery and reduces the risk of heart attack, stroke, arterial blood clots, progression of vascular (arterial) disease Insulin and metformin - treats diabetes and thereby reduces the risk of heart attack, stroke, progression of vascular (arterial) disease Quitting smoking is one of the best things you can do to prevent the vascular disease from getting worse It was a pleasure taking care of you in the hospital, Amrita Powell MD Pending Studies at Discharge: No Stand-Alone Forms: My [employer], Work/School Release, Smoking Cessation Medications and DC Order Prescriptions: New atorvastatin 40 mg Tablet 40 mg PO QAM Qty: 30 1RF aspirin 81 mg Tablet,Delayed Release (Dr/Ec) 81 mg PO DAILY Qty: 0 0RF Rx Instructions: buy over the counter insulin glargine [Basaglar KwikPen U-100 Insulin] 100 unit/mL (3 mL) insulin pen 20 unit subcut PM Qty: 15 1RF metformin 1,000 mg tablet 1,000 mg PO DAILY Qty: 30 0RF Rx Instructions: start with half tab daily with dinner for one week then increase to 1 tab (DME) pen needle, diabetic 32 gauge x 5/32" needle See Rx Instructions .Route Qty: 100 1RF Rx Instructions: inject glargine insulin oncedaily (DME) ReliOn Prime Test Strips Strip See Rx Instructions .ROUTE Qty: 100 0RF Rx Instructions: As directed oxycodone 5 mg tablet 5 - 10 mg PO Q4H PRN (Reason: pain) Qty: 30 0RF Discharge Orders: Discharge Order (Routine); Ordered 06/22/25 Ordered By: Amrita Cochran/Other Patient Handouts: High Blood Sugar (Hyperglycemia), Managing Type 2 Diabetes, Critical Limb Ischemia, Diabetes and PAD Admission Data Admit Date/Time: 06/19/25 04:15 Attending Provider: Amrita Powell Admit Provider: Luis Baez Primary Care Provider: Carlos Olson Other Providers: Luis Baez; Scooby Benton; Jose Gallo; Alberto Douglas; Dom Martinez; Andrews Dumas; Aquiles Dhaliwal Jr; Moise Bah; Hortensia Funes; Yulisa Yan; Luan Duran; Luan Bassett; Bertha Lopez; Geovanny Baez; Ninoska Chaidez; Geovanny Pleitez; Sandro Mendoza; Cedric Barrios; Forrest Bradford; Gt Douglass; Emiliano Pride; Queta Winchester Other Interventions: Discharge Summary Assessment (RN) Last Done: 06/22/25 12:06 Hospital Stay Data Consultations 06/19/25 03:48 ED Decision to Admit Stat 06/19/25 05:11 Consult Vascular Surgery Routine 06/20/25 14:42 Consult Cardiology Routine Diagnostic Imagining Performed 06/19/25 01:14 US arterial duplex LE BI Stat 06/19/25 04:02 CTA abd aorta runof w con [CT ang AA runof w inc wo ifdon] Stat Pending Results Patient Have Any Pending Studies at Discharge: No Discharge Instructions Given to Patient (Per Discharging Provider) Please follow up with Dr Benton for vascular surgery - procedure planned early July Take care of your diabetes heart and vascular disease the best you can. Atorvastatin - to lower cholesterol, prevent inflammation - reduces the risk of heart attack, stroke, progression of vascular (arterial) disease Baby aspirin - affects the blood platelets to make them slippery and reduces the risk of heart attack, stroke, arterial blood clots, progression of vascular (arterial) disease Insulin and metformin - treats diabetes and thereby reduces the risk of heart attack, stroke, progression of vascular (arterial) disease Quitting smoking is one of the best things you can do to prevent the vascular disease from getting worse It was a pleasure taking care of you in the hospital, Amrita Powell MD Total Time Total Time Spent Total Time Spent (In Minutes): I personally spent: 55 minutes today on clinical care activities including: reviewing chart notes and vital signs discussion with service delivery consultant(s) discussion with care analyst, bedside RN examining and counseling the patient writing orders writing prescriptions, discharge instructions documentation Coding Level of Care Code 12846 INP/OBS DISCH >30 MIN Diagnoses Ischemic toe I99.8 Abdominal aorta thrombosis I74.09 Claudication I73.9 PAD (peripheral artery disease) I73.9 Type II diabetes mellitus with neurological manifestations E11.49
== END 2025-06-22 15:50 | disposition home or self-care (01) | DRG 300 ==
LOC: ED 00:41 → 2S 04:15 → SUATTDRO 04:15 → INTOOBSV 04:15 → 2S 04:45 → 2N 06-20 22:04

== ENCOUNTER 2025-07-12 06:02 | Inpatient (IN) ==
--- NOTE | 2025-06-23 10:19 | Anesthesiology Consultation ---
Date of Service June 23, 2025 Assessment & Plan (1) Encounter for pre-operative examination: Plan - check BSG am DOS. - Jody with Dr. Benton's office was notified of 12% A1c, reported snoring and suspected apnea and anticoagulation to their management/coordination with prescribing provider for potential beti-op epidural. - discharge summary 06/22/25 [facility]: "...Ischemic right 2nd and 3rd toe // Infrarenal abdominal aortic thrombus, likely chronic // Chronic PAD...vascular surgery consulted and recommend [id number] bypass planned for 07/12/25...Cardiology consulted for preop clearance. History of CAD and has not been reliably on medications for two years. DSE was done today and was reassuring / low risk study. Per cardiology low risk for perioperative cardiac event...Type II diabetes mellitus with hyperglycemia presenting A1c of 12.5% not established on any home medications in part due to financial burden in the setting of being uninsured- Lantus 20 units SQ daily- metformin 1000 mg daily..." - Above information was obtained from patient during conversation 06/22/25 prior to discharge at Dr. Powers's request, see communication note 06/22. Dr. Powers advised he has reviewed case including elevated A1c and patient reported snoring/suspected apneas and advised patient is acceptable to proceed at current status, advised just making sure surgeon's team is aware of elevated A1c. Lizabeth alfaro is now booked, note entered. - Patient instructed that any determination/coordination of anticoagulation adjustments regarding a potential beti-op epidural is to surgeon's management. - Pending quill machine tender call. Chart Review Chart Review: Pending: Refer to Additional Notes / Consult section and Patient NOT seen in Pre Admission Testing History Surgery Operation Date: 07/12/25 10:00 Proposed Procedures p [id number] Bypass - Scooby Benton MD Allergies Allergy/AdvReac Type Severity Reaction Status Date / Time coconut Allergy Unknown toasted, Verified 08/26/23 10:02 nauseated pork derived (porcine) Allergy Unknown throat Verified 06/20/25 16:27 feels like it is closing up sun Allergy Unknown get sun Uncoded 08/26/23 10:02 poisoning quickly Medications Home Medications Medication Instructions Recorded Confirmed Last Taken aspirin 81 mg tablet,delayed 81 mg PO DAILY #0 tabs 06/22/25 Unknown release atorvastatin 40 mg tablet 40 mg PO QAM #30 tabs 06/22/25 Unknown blood sugar diagnostic (ReliOn #100 ea 06/22/25 Unknown Prime Test Strips) insulin glargine 100 unit/mL (3 20 unit (0.2 mL) subcut PM #15 mL 06/22/25 Unknown mL) subcutaneous pen (Basaglar KwikPen U-100 Insulin) metformin 1,000 mg tablet 1,000 mg PO DAILY #30 tabs 06/22/25 Unknown oxycodone 5 mg tablet 5 - 10 mg (1 - 2 x 5 mg) PO Q4H 06/22/25 Unknown PRN pain #30 tabs pen needle, diabetic 32 gauge x #100 ea 06/22/25 Unknown " Past Medical History Medical History (Updated 06/23/25 @ 10:33 by Caitie Nickerson PA-C) Anemia Anxiety and depression controlled without medication. CAD S/P percutaneous coronary angioplasty Diabetes A1c 12% Elevated triglycerides with high cholesterol GERD (gastroesophageal reflux disease) controlled, stable per pt Hiatal hernia pt suspects. No official dx. History of anesthesia reaction with heart cath in 2019 "woke up screaming" - needed something else and put deeper. History of high blood pressure History of kidney stones History of myocardial infarction 2019. Hyperactive gag reflex Near syncope Jun 2023 - dehydration. had follow up with Dr. Duran office-denies any additional episodes Sleep-disordered breathing patient states has recorded herself sleeping with detected snoring and suspected pauses in breathing-no previous sleep apnea studies Smoker Vitamin B 12 deficiency Patient denies h/o stroke, seizures, heart failure, DVTs or blood transfusions. Exercise / Class Metabolic Activity III < 4 Walking/Shop/Light housework (denies chest discomfort or shortness of breath with usual activities-ambulation now limited as per hospitalization records from [facility]) Past Family History Family History Other Coronary heart disease Diabetes Dyslipidemia Hypertension Myocardial infarction Past Surgical History Surgical History (Updated 06/23/25 @ 10:29 by Caitie Nickerson PA-C) History of cardiac cath MD...2019 - total of 2 stents. History of endoscopy Past Anesthesia History No Family Hx of Anesthesia Complications and Other (required additional anesthesia for cardiac catheterization) History of PONV No Hx of PONV and No Hx of Motion Sickness Social History Smoking Status: Current every day smoker (-advised) tobacco type: cigarettes Smoking cigarettes per day: half a pack a day Do You Dip or Chew Tobacco: No Hx Alcohol Use: Yes Alcohol type: beer, wine and hard liquor alcohol intake frequency: holidays/special occasions only Hx Substance Use: No substance use type: does not use Substance Use Type Other:: marijuana on occ/last use was months (advised) Last Used Substance: Days (ago) Last Used Substance Other:: 06/05/23 Review of Systems Patient denies chest pain, shortness of breath, dyspnea on exertion, fever, chills, cough, wheezing, or palpitations. Physical Exam Physical Patient resting comfortably in hospital bed in no acute distress, alert and o riented, responding appropriately throughout visit Full cervical extension range of motion without pain TMD 3.5 finger breadths Mallampati Score 3 Dentition: intact, denies chipped or loose teeth, caps/crowns, implants or bridges Lungs: normal respiratory effort. Good air movement, clear throughout to auscultation, no adventitious breath sounds Cardiac: regular rate and rhythm, no murmurs noted Carotid arteries: negative bruit bilat Lab Results Anesthesia Preop Results Results Anesthesia Widget: WBC 6.90 K/ul (4.8-10.8) 06/20/25 Hgb 11.1 g/dl (12.0-16.0) L 06/20/25 Hct 31.9 % (37.0-47.0) L 06/20/25 Plt 166 K/uL (130-400) 06/20/25 Na 138 mmol/L (136-145) 06/20/25 K 3.9 mmol/L (3.5-5.1) 06/20/25 Cl 109 mmol/L (98-107) H 06/20/25 CO2 23 mmol/L (21-32) 06/20/25 BUN 17 mg/dl (6-23) 06/20/25 Creat 0.63 mg/dl (0.6-1.2) 06/20/25 Glucose Level 208 mg/dl (70-99(Fasting)) H 06/20/25 POC Glucose 163 mg/dl (70-99) H 06/22/25 PT 10.4 Seconds (9.0-12.0) 06/19/25 PTT 26 Seconds (21-31) 06/19/25 INR 1.0 (0.9-1.1) 06/19/25 TSH 1.897 uIu/ml (0.300-4.500) 06/19/25 HA1c 12.5 % (4.5-5.6) H 06/19/25 Urine Color Yellow 06/19/25 Urine Appearance Clear (Clear) 06/19/25 Urine pH 5.5 (4.5-7.5) 06/19/25 Urine Specific [place] 1.045 (1.000-1.030) H 06/19/25 Urine Protein Negative (Negative) 06/19/25 Urine Glucose (UA) 3+ (Negative) H 06/19/25 Urine Ketones Trace (Negative) H 06/19/25 Urine Blood Negative (Negative) 06/19/25 Urine Nitrite Negative (Negative) 06/19/25 Urine Bilirubin Negative (Negative) 06/19/25 Urine Urobilinogen Negative (Negative) 06/19/25 Urine Leukocyte Esterase Negative (Negative) 06/19/25 Blood Type A Negative 06/22/25 Antibody Screen NEGATIVE 06/22/25 Testing Electrocardiogram Date: 06/19/25 NSR, rate nonspecific ST elevation anterolateral leads No significant change vs 06/19/23 EKG Chest X-Ray Date: 06/19/25 *1 view* 1. Normal chest X-ray. No acute cardiopulmonary abnormalities are identified. 2. No changes since the last study. Echocardiogram Date: 06/19/25 LVEF 55-60% Base to mid moderate inferolateral hypokinesis No significant valvular pathology Mild cLVH Normal estimated PA pressure Stress Test Date: 06/22/25 MPHR 98% Normal pharmacologic stress echocardiogram No echocardiographic or ECG evidence of myocardial ischemia having achieved heart rate adequate for diagnostic purposes Stress wall motion was normal Low risk dobutamine stress echo Other Testing Aorta with runoff CTA 06/19/25 Diffuse atherosclerotic changes with few tiny eccentric calcification noted within abdominal aorta and bilateral iliac arteries There is non opacification of infrarenal abdominal aorta with hypodense filling defect within for a length of ~40mm.- suggestive of thrombus. Non-opacification of bilateral dorsalis pedis arteries. Correlation with doppler USG is suggested.
[2025-07-12] MEDS ORDERED: DEXAMETHASONE SOD INJ 4 MG/ML VIAL ONE (06:50)
[2025-07-12] MEDS ORDERED: ONDANSETRON INJ 2 MG/ML 2 ML VIAL ONE ×2 (06:50→13:23)
[2025-07-12] MEDS ORDERED: LIDOCAINE 2% 2 ML VIAL/AMP(20MG/ML) INFIL ONE (06:50)
[2025-07-12] MEDS ORDERED: PROPOFOL IV EMULSION 10 MG/ML 20 ML VIAL IV ONE ×2 (06:50→09:57)
[2025-07-12] MEDS ORDERED: ROCURONIUM BROMIDE 10 MG/ML 5 ML VIAL IV ONE ×2 (06:51→09:42)
[2025-07-12] MEDS ORDERED: MIDAZOLAM HCL 1 MG/ML 2ML VIAL ONE (06:51)
[2025-07-12] MEDS: LR 15ML/HR IV SCH (06:52)
[2025-07-12] MEDS ORDERED: NITROGLYCERIN/D5W 100 MCG/ML BTL ONE (06:59)
[2025-07-12] MEDS ORDERED: ALBUMIN HUMAN 5% 12.5 GM/250 ML VIAL IV ONE (07:00)
[2025-07-12] MEDS ORDERED: SODIUM BICARB 8.4% INJ 50 MEQ/50 ML SYR IV ONE (07:00)
[2025-07-12] MEDS ORDERED: PHENYLEPHRINE HCL 25 MG/250 ML NSS IV ONE (07:00)
[2025-07-12] MEDS ORDERED: PROTAMINE SULFATE 10 MG/ML 5 ML VIAL IV ONE (07:01)
[2025-07-12] MEDS ORDERED: HEPARIN SOD (PORCINE) 1000 UNIT/ML ONE (07:01)
[2025-07-12] MEDS ORDERED: HYDROmorphone INJ 2 MG/ML SYR/VIAL IV PRN (07:08)
[2025-07-12] MEDS ORDERED: ATROPINE SULFATE 0.1 MG/ML 10ML SYR IV PRN (07:08)
[2025-07-12] MEDS ORDERED: ONDANSETRON INJ 2 MG/ML 2 ML VIAL IV PRN (07:08)
--- NOTE | 2025-07-12 07:22 | History & Physical Bridge Note ---
Date of Service July 12, 2025 History & Physical Bridge Note I have examined the patient, reviewed the History & Physical and in the interval since the performance of the History & Physical I have noted the following changes of clinical significance: no changes noted
--- NOTE | 2025-07-12 07:48 | Anesthesia Procedure Note ---
Anesthesia Procedure Note Neuraxial Placement Note Date of procedure: 07/12/25 Consent: Risk / Benefits Reviewed With: PT / POA / Parent / Guardian, Accepts Plan, Informed Consent Obtained and All Questions Answered Monitors attached: Blood Pressure and Pulse Oximetry Time out completed: Yes Prehydrate: Lactated ringers Premedication: None Position: Sitting Surgical Prep: Hand hygeine: Alcohol based hand rub Equipment/Supplies: Cap, Mask, Sterile gloves and Sterile drapes Skin prep: Chloraprep Site: Midline (~t8) Local medication: 1% Lidocaine (ml) Neuraxial placement technique: Epidural Needle: 17g X 3.5 inch Tuohy Ultrasound Guidance: Ultrasound used: No Test dose: 1.5% Lidocaine with Epinephrine 1:200,000 (3ml) Parasthesias: No CSF: No Blood: No Attempts: 1 Procedure Summary: i identified scapula which was approximate t8. sterile prep/drape. 1% lidocaine infiltrated. i advanced the touey needle to CANDICE with air at 4 cm. I threaded the catheter to 11 cm and secured it. test dose with 1% lido with epi. negative IV/IT. Post-Procedure: Pt hemodynamically stable, Pt tolerates well and No complication
[2025-07-12] MEDS ORDERED: LARYING-O-JET KIT (LTA) ONE (08:47)
[2025-07-12] MEDS ORDERED: PHENYLEPHRINE 100MCG/ML 5ML SYR ONE ×2 (08:47→11:22)
--- NOTE | 2025-07-12 09:17 | Anesthesia Procedure Note ---
Anesthesia Procedure Note Central Line Note Date of procedure: 07/12/25 Indication: Central intravenous access Consent: Risk / Benefits Reviewed With: PT / POA / Parent / Guardian, Accepts Plan, Informed Consent Obtained and All Questions Answered Monitors attached: Blood Pressure, CO2, EKG and Pulse Oximetry Oxygen delivery method: ETT Time out completed: Yes Premedication: General anesthesia Laterality: Right Location: Internal Jugular Surgical Prep: Hand hygeine: Soap and water and Alcohol based hand rub Equipment/Supplies: Cap, Mask, Sterile gown, Sterile gloves, Sterile drapes and Sterile procedures used Skin prep: Chloraprep Ultrasound Guidance: Ultrasound used: Yes US equipment and supplies: Sterile Gel and Sterile Probe Cover Central line lumen: Triple Attempts: 2 Procedure Summary: after general anesthesia induced, pt placed in Trendelenburg and sterile prep/drape/gown/gloves. sterile us probe used to identify the right IJ. A needle was placed into the vein under US guidance while aspirating. Two attempts to get iv catheter to thread. Blood was transduced and shown to receed back into the vein. Guidewire was placed and catheter removed. A small incision was made along the wire and a dilator was placed. The central line was placed over the wire and the wire was removed. The ports were aspirated and flushed. The line was sutured in by Dr Bowmans PA Post-Procedure: Pt hemodynamically stable, Pt tolerates well and No complication
[2025-07-12] MEDS ORDERED: NALBUPHINE HCL INJ 10 MG/ML AMP IV PRN (09:29)
[2025-07-12] MEDS ORDERED: NALOXONE HCL 1 MG in SODIUM CHLORIDE 0.9% 1,000 ML IV PRN (09:29)
[2025-07-12] MEDS ORDERED: NALOXONE HCL 0.4 MG/1 ML VIAL/CARP IV PRN (09:29)
[2025-07-12] MEDS ORDERED: LACTATED RINGER'S 1,000 ML IV PRN (09:29)
[2025-07-12] MEDS ORDERED: diphenhydrAMINE 50 MG/ML VIAL IV PRN (09:29)
[2025-07-12] MEDS ORDERED: NO NARCOTICS OR SEDATIVES SCH (09:30)
[2025-07-12] MEDS ORDERED: CALCIUM CHLORIDE 10% 10 ML SYR IV ONE (11:21)
[2025-07-12] MEDS ORDERED: ceFAZolin 330 MG/ML 1 GM VIAL ONE ×2 (12:20)
[2025-07-12] MEDS ORDERED: BUPIVACAINE 0.25% PF 30 ML VIAL ONE (13:09)
[2025-07-12] MEDS ORDERED: SUGAMMADEX SODIUM 200 MG/2 ML VIAL IV ONE (13:09)
[2025-07-12] MEDS: HEPARIN (PORCINE) 1000 UNIT/ML 10 ML (CATH LAB USE ONLY) ONE (13:21)
[2025-07-12] MEDS: GELATIN SPONGE SZ 100 ONE (13:21)
[2025-07-12] MEDS: ceFAZolin 330 MG/ML 1 GM VIAL ONE (13:21)
[2025-07-12] MEDS: THROMBIN FOR SOLN 20000 UNIT KIT ONE (13:23)
[2025-07-12] MEDS ORDERED: HYDROmorphone INJ 2 MG/ML SYR/VIAL ONE (13:25)
--- NOTE | 2025-07-12 13:47 | Post Operative Brief Note ---
Immediate Post Op Note Date of Surgery July 12, 2025 Pre & Post Diagnosis Operation Date: 07/12/25 08:00 Pre-Op Diagnosis: Peripheral Artery Disease Post-Op Diagnosis: Peripheral Artery Disease I identified the patient and participated in the time-out.: Yes Procedure Operation Date: 07/12/25 08:00 Actual Procedures p [id number] Bypass(Not Applicable) - Scooby Benton MD Surgeon Scooby Benton MD Air Valve Repairer Aleah Patiño PA-C Estimated Blood Loss 700 Findings Consistent with Post-Op Diagnosis Fluids 3000cc crystalloid 250cc albumin 333cc cell saver Specimens aortic wall aortic thrombus Drains Yuen Catheter Anesthesia Type General/Epidural Complications none Disposition Accompanied Patient To Recovery: Yes Disposition: Surgical ICU
[2025-07-12 13:51] LABS: iSTAT Art Bld Gas Base Excess -8.0 meg/L (-9-1.8)
[2025-07-12] MEDS: PROMETHAZINE HCL 12.5 MG in SODIUM CHLORIDE 0.9% 50 ML IV PRN (14:36)
[2025-07-12] MEDS: PROMETHAZINE HCL INJ 25 MG/ML 1 ML VIAL ONE (14:42)
--- NOTE | 2025-07-12 15:13 | Anesthesiology Progress Note ---
Date of Service July 12, 2025 Anesthesia Post Procedure Vital Signs Vital Signs: Temp Pulse Resp BP BP BP Pulse Ox 07/12/25 15:05 36.5 C 92 H 16 128/61 133/76 95 07/12/25 15:00 92 H 16 134/81 134/60 95 07/12/25 14:50 93 H 15 124/77 96 07/12/25 14:40 88 18 126/76 95 07/12/25 14:30 79 18 114/76 96 07/12/25 14:22 35.7 C L 96 H 18 87/50 L 156/117 H 98 07/12/25 07:02 88 162/99 H 07/12/25 06:02 36.7 C 100 H 18 156/117 H 99 07/12/25 06:02 O2 Del Method O2 Flow Rate 07/12/25 15:05 Room Air 0 07/12/25 15:00 Room Air 0 07/12/25 14:50 Room Air 0 07/12/25 14:40 Room Air 0 07/12/25 14:30 Nasal Cannula 2 07/12/25 14:22 Nasal Cannula 2 07/12/25 07:02 07/12/25 06:02 Room Air 07/12/25 06:02 Room Air Pain Intensity Right Foot: Pain Intensity: 3 Abdomen: Pain Intensity: 9 Transfer of Care Handoff Completed per policy Notes Mental Status: alert / awake / arousable and participated in evaluation Patient Amnestic to Procedure: Yes Nausea / Vomiting: adequately controlled Pain: adequately controlled Airway Patency, RR, SpO2: stable & adequate BP & HR: stable & adequate Hydration State: stable & adequate Anesthetic Complications: no major complications apparent and Pt Satisfied with anesthetic care Notes: pt with thoracic epidural. i signed out to her icu nurse and the icu attending
--- NOTE | 2025-07-12 15:50 | Operative Report ---
PG Post Operative Report Pre & Post Diagnosis Operation Date: 07/12/25 08:00 Pre-Op Diagnosis: Peripheral Artery Disease Post-Op Diagnosis: Peripheral Artery Disease I identified the patient and participated in the time-out.: Yes Procedure Operation Date: 07/12/25 08:00 Actual Procedures p [id number] Bypass(Not Applicable) - Scooby Benton MD CPT 79539 Surgeon Scooby Benton MD Department Helper Aleah Patiño PA-C Estimated Blood Loss 700 Findings Consistent with Post-Op Diagnosis Fluids 3000cc crystalloid 250cc albumin 330cc cell saver Specimens aortic wall aortic thrombus Anesthesia Type General/Epidural Complications none Disposition Accompanied Patient To Recovery: Yes Disposition: Surgical ICU Indications 49-year-old woman with ischemic changes to 3rd and 4th toes of the right foot with necrosis. Subsequent workup revealed aortic occlusion. She is brought to the operating room for aortic revascularization. The risk goals and alternatives were discussed with the patient understood and gave consent to proceed. Description of Procedure A timeout was performed the patient was identified the procedure verified. Preoperative antibiotics were administered within 1 hour of incision time. The abdomen and both groins were prepped draped usual sterile fashion. An epidural catheter been placed by the anesthesia team preoperatively. A generous xyphopubic incision was created and the peritoneal cavity was entered without incident. Rapid manual exploration of the abdomen revealed no gross abnormalities of the stomach small or large intestine. The transverse colon was elevated cephalad along with the stomach and the small bowel was rotated to the right. Self-retaining retractors were placed. The inferior mesenteric vein was identified and divided between ties. The retroperitoneum was entered. The abdominal aorta was identified and was pulseless. The left renal vein was identified. The inferior border was skeletonized and the lumbar vein was divided to facilitate exposure but no further mobilization of the left renal vein was required. The left and right renal arteries were identified and a suitable infrarenal clamp site was prepared. The aorta here was soft and suitable for use with a good pulse. Distal dissection was then undertaken. The inferior mesenteric artery was noted to be occluded on preoperative imaging and this was ligated at its origin. There was some fairly dense reaction between the aortic wall and the retroperitoneum in the area that was thrombosed. Several crossing retroperitoneal veins were identified and ligated between ties. The aortic bifurcation was dissected free. The left common external and internal iliac arteries were dissected free after identifying the ureter and preserving it. The external and internal iliac arteries were separately controlled prepared for clamping. Similar dissection was performed on the right. The patient was systemically anticoagulated with heparin to achieve a therapeutic activated clotting time. The external iliac arteries were controlled. The infrarenal aorta was crossclamped and the aorta was divided about 2 cm below the clamp site. I excised enough of the infrarenal aorta here in order to allow an end-to-end graft to lie appropriately. It was trimmed up to the infrarenal portion allowing a suitable cuff for repair. The aorta was small and a 14 x 7 coated knitted bifurcated Dacron graft was chosen. It was not spatulated. The proximal anastomosis was created and end using running 3-0 Prolene. The anastomosis was completed tested secured and hemostatic. Air and debris were flushed into and then out of the graft and the clamp moved down onto the graft with good hemostasis. The left iliac anastomosis was performed first. I divided through the aorta and the left iliac artery and identified several lumbar arteries as well as the middle sacral artery which were controlled with 2-0 silk stick ties. The left iliac anastomosis was performed to the left iliac bifurcation after trimming the graft spatulating it fashioning to fit and it was sewn end and using running 4-0 Prolene. Prior to completion backbleeding for bleeding and flush maneuvers were performed and flow was restored first to the internal end of the external iliac artery. The patient tolerated the clamping quite nicely. The right side was similarly prepared. This anastomosis was also performed to the distal iliac bifurcation. The graft was trimmed spatulated fashion to fit and sewn end-to-end to the iliac bifurcation using running 4-0 Prolene with backbleeding for bleeding flushing maneuvers were performed prior to completion. The anastomosis was then completed tested secured and hemostatic and flow was restored first to the internal end of the external iliac artery and the patient tolerated this declining quite nicely as well. Femoral pulses were little difficult to feel because of the body habitus but the Doppler flow in the posterior tibial arteries at this point was significantly improved relative to baseline. All anastomotic lines were checked and hemostatic. The lumbar bed was as well checked and was hemostatic. The retroperitoneum was reapproximated with running 3-0 Prolene. The viscera were returned to the abdomen in an specialty cook fashion. The sigmoid colon was pink and well-perfused. The previously placed orogastric tube was removed and a nasogastric tube was placed and secured in the stomach. The uppermost portion of the incision was closed with interrupted Ethibond and the remainder the incision was closed with double-stranded looped PDS. Subcutaneous tissues were closed with interrupted Vicryl and the skin was closed with running Monocryl suture. Dermabond was applied. The patient was awakened and extubated and taken recovery room in stable condition and tolerated procedure well without immediate complication. Intraoperative autotransfusion was present and used. Doppler flow in the posterior tibial arteries was significantly improved relative to baseline and femoral pulses were palpable at the completion of the procedure, significantly improved to baseline. I attest to the content of the Intraoperative Record and any orders documented therein. Any exceptions are noted below.
--- NOTE | 2025-07-12 15:59 | Critical Care Consultation ---
Date of Consultation July 12, 2025 Assessment & Plan (1) PAD (peripheral artery disease): (2) Status post laparotomy: (3) Tobacco abuse: (4) Type II diabetes mellitus with neurological manifestations: (5) Hypotension: (6) Anemia: Supervising Physician Co-Signing Physician Notes 49-year-old female with a history of tobacco abuse, type 2 diabetes mellitus, peripheral artery disease and severe claudication who presented for elective aortofemoral bypass. She underwent an open laparotomy today and is postop day 0. Neurologic: Pain control per anesthesia services and vascular surgery team. Monitor mental status closely. Delirium precautions. Pulmonary: Patient with history of tobacco abuse. Monitor for signs of COPD exacerbation. Nebs as needed. I personally reviewed the chest x-ray at bedside. There is a small amount of pleural effusion on the right/atelectasis. Will continue to monitor. Cardiovascular: Maintain mean arterial pressure above 65 mmHg. Patient likely with anesthesia induced hypertension. Bolus as needed with crystalloids and transfuse blood to maintain hemoglobin at adequate levels depending on hemodynamic status. Frequent neurovascular bundle checks. Vascular surgical team ordered D5 half- normal saline at 60 mL an hour. Gastrointestinal: NG tube in place to low intermittent wall suction. High risk for likely ileus. Monitor electrolytes closely and maintain mag above 2 and potassium above 4. Stool softeners and motility agents per vascular surgery team when able to take p.o. Renal: Monitor urine output closely via Yuen catheter. Bolus crystalloids as needed for low urine output. Infectious disease: Patient received cefazolin during perisurgical period. Hematologic: Monitor for active signs of bleeding. Transfuse hemoglobin as indicated by hemodynamics. Endocrine: Maintain euglycemia. Lines and tubes: Right IJ 07/12/2025. Radial arterial line 07/12/2025 and Yuen catheter 07/12/2025. VTE prophylaxis: Lovenox 40 mg daily CODE STATUS: Full Family at bedside: Not available bedside Disposition: ICU I have personally spent 60 minutes of critical care time in the direct management of this patient. This is a life/limb threatening event. This includes time spent evaluating patient, direct bedside care, chart review, placing orders, interpretation of diagnostic studies, discussion with consultants, patient, and family members, as well as other required patient management activi ties. This time is exclusive of all separately billable procedures, and teaching time and separate from and in addition to any other critical care service time. I personally spent 60 minutes on the date of service in activities related to this patient's encounter, including 40 minutes of counseling with patient regarding treatment plan and 20 minutes of clinical review of lab results and documentation. I did veterans' counselor the patient regarding their diagnosis and treatment plan and they expressed understanding. This note was dictated using voice recognition software and may include grammatical errors, extra words, word substitutions and other inaccuracies due to errors in the voice recognition software and differences in speech patterns. History of Present Illness Reason for Consultation: Status post aortobiiliac bypass Attending Physician: Scooby Benton MD History of Present Illness Patient able to provide limited history as she is currently in pain somewhat sedated from pain medications. History is obtained from discussion with the bedside nurse and the vascular surgeon. Patient with a known history of severe peripheral vascular disease and infrarenal aortic occlusion. She originally presented to the ER 06/27/2025 due to pain that originated in her right toes and became numb. 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 She has been having significant claudication with short distances. Today she underwent aortoiliac aortofemoral bypass grafting. She is currently on low-dose phenylephrine infusion. She had a stress echo 06/22/2025 which did not reveal any dobutamine induced abnormalities and wall motion. She had a right IJ and radial arterial line placed in the OR. She currently has a Yuen catheter. She has a [employer] pump ordered. She has an epidural in place. Allergies Allergy/AdvReac Type Severity Reaction Status Date / Time pork derived (porcine) Allergy Severe throat Verified 07/12/25 06:23 feels like it is closing up coconut AdvReac Mild toasted Verified 07/12/25 06:23 coconut, nauseated allopurinol AdvReac Unknown wants Verified 07/12/25 06:23 listed>mother and sister allergic to sun Allergy Unknown get sun Uncoded 07/12/25 06:23 poisoning quickly Home Medications Medication Instructions Recorded Confirmed Type atorvastatin 40 mg tablet 40 mg PO QAM #30 tabs 06/22/25 07/12/25 Rx blood sugar diagnostic (ReliOn #100 ea 06/22/25 07/06/25 Rx Prime Test Strips) pen needle, diabetic 32 gauge x #100 ea 06/22/25 07/06/25 Rx 5/32" aspirin 81 mg tablet,delayed 81 mg PO QAM 07/05/25 07/12/25 History release docusate sodium 100 mg tablet 100 mg PO UD PRN Constipation 07/05/25 07/12/25 History (Stool Softener) insulin glargine 100 unit/mL (3 20 unit subcut QAM 07/05/25 07/12/25 History mL) subcutaneous pen (Basaglar KwikPen U-100 Insulin) metformin 1,000 mg tablet 1,000 mg PO QPM 07/05/25 07/12/25 History metformin 500 mg tablet 500 mg PO BID 07/05/25 07/12/25 History naproxen sodium 220 mg tablet 220 mg PO BID PRN Pain 07/05/25 07/12/25 History (Aleve) oxycodone 5 mg tablet 5 mg PO Q6H PRN pain #30 tabs 07/06/25 07/06/25 Rx acetaminophen 300 mg-codeine 30 mg 1 tab PO BID PRN Pain 07/12/25 07/12/25 History tablet melatonin 3 mg tablet 6 mg PO HS PRN Insomnia 07/12/25 07/12/25 History Patient History Medical History (Updated 07/12/25 @ 00:06 by Bushra Hendrickson) Hx of smoking quit 06/26/25 Diabetes mellitus, type 2 Gangrene right foot 3rd toe "dried gangrene" Abdominal aorta thrombosis High cholesterol CAD S/P percutaneous coronary angioplasty History of high blood pressure Hyperactive gag reflex Anxiety and depression controlled without medication. History of kidney stones no surgery required History of myocardial infarction 12/06/2019 Near syncope Jun 2023 - dehydration. had follow up with Dr. Duran office-denies any additional episodes Anemia unsure if current Surgical History (Updated 07/12/25 @ 15:51 by Chirag Tineo MD) History of colonoscopy History of tooth extraction History of heart artery stent 2019>2 stents placed History of anesthesia reaction with heart cath in 2019 "woke up screaming" - needed something else and put deeper. History of endoscopy Family History (Updated 07/05/25 @ 11:19 by Caterina Ross RN) Other Coronary heart disease Diabetes Dyslipidemia Hypertension Myocardial infarction No family history of adverse response to anesthesia Social History Smoking Status: Current some day smoker Tobacco Type: Cigarettes Cigarettes Per Day: quit 06/26/25>was smoking 10 cig daily; Second Hand Exposure: No; Do You Dip or Chew Tobacco: No; Hx Alcohol Use: Yes Alcohol type: beer, wine and hard liquor Hx Substance Use: No Preferred Language: Kinyarwanda Communication Ability: Effective Well Driller Helper Required: No Beliefs That Will Affect Care: None Current Living Situation: Alone Current Living Situation Comment: plans to move in with sister prior to surgery Feels Safe at Home: Yes Safety Concerns: Feels Safe At This Time Assistive Devices: Glasses Review of Systems Review of Systems: All systems reviewed & are unremarkable except as noted in HPI & below Physical Exam Physical Exam: Constitutional: Patient appears to be of their stated age. Mild distress due to pain. Eyes: Pupils are equal round and reactive to light. Conjunctivae are normal. Anicteric sclera. Ears nose, mouth and throat: Mallampati class 2. Normal posterior oropharynx. Uvula is midline. NG tube in place. Neck: Trachea is midline. Visual inspection is normal. Respiratory: Clear to auscultation bilaterally. No use of accessory muscles. No significant clubbing noted. Cardiovascular: Regular rate and rhythm. No murmurs. No edema. Lower extremities are warm. Pulses intact. Gastrointestinal: Large ventral incision noted with bandage over place. Musculoskeletal: No cyanosis. Patient is able to move all extremities. Skin: No rashes, warm dry and intact. Neurologic: No obvious focal neurological deficits seen. Psychiatric: Alert and oriented x3 with a euthymic affect. Results & Data Results & Data Vital Signs (Past 12 Hours) Vital Signs Temp Pulse Resp BP BP BP Pulse Ox 07/12/25 15:05 36.5 C 92 H 16 128/61 133/76 95 07/12/25 15:00 92 H 16 134/81 134/60 95 07/12/25 14:50 93 H 15 124/77 96 07/12/25 14:40 88 18 126/76 95 07/12/25 14:30 79 18 114/76 96 07/12/25 14:22 35.7 C L 96 H 18 87/50 L 156/117 H 98 07/12/25 07:02 88 162/99 H 07/12/25 06:02 36.7 C 100 H 18 156/117 H 99 07/12/25 06:02 O2 Del Method O2 Flow Rate 07/12/25 15:05 Room Air 0 07/12/25 15:00 Room Air 0 07/12/25 14:50 Room Air 0 07/12/25 14:40 Room Air 0 07/12/25 14:30 Nasal Cannula 2 07/12/25 14:22 Nasal Cannula 2 07/12/25 07:02 07/12/25 06:02 Room Air 07/12/25 06:02 Room Air Coding Level of Care Code 27555 CRITICAL CARE 1ST 30-74M Diagnoses PAD (peripheral artery disease) I73.9 Status post laparotomy Z98.890 Tobacco abuse Z72.0 Type II diabetes mellitus with neurological manifestations E11.49 Hypotension I95.9 Anemia D64.9
--- NOTE | 2025-07-12 16:29 | XRay Report ---
Clinical History: Line placement Technique: 2 frontal views of the chest were obtained Comparison is made to the prior examination dated 06/19/2025 Findings: There are no confluent pulmonary infiltrates. The heart size is within normal limits. No pleural effusion or definite pneumothorax is seen. There is no definite pulmonary nodule. There is a nasogastric tube with its tip and side-port within the stomach. There is a right jugular central venous line with its tip in the SVC. There are multiple leads overlying the chest. There is a possible right sided chest tube. There is lucency beneath the right hemidiaphragm Impression: 1. Nasogastric tube and right jugular central venous line in expected position 2. Possible free intraperitoneal air, which could be due to recent surgery. Clinical correlation is recommended ACT 112: Positive. There are findings on this exam that require communication between the performing entity and the patient following Patient Test Result Information Act ([place] ACT 112) guidelines. Electronically signed by Abdiel Silva 07-12-2025 4:28 PM
[2025-07-12 17:02] LABS: Hematocrit (blood only) 35.6 % (37.0-47.0); Hemoglobin 11.7 g/dl (12.0-16.0); Mean Corpuscular Hemoglobin 27.8 pg (25.0-34.0); Mean Corpuscular Volume 84.6 fL (80.0-100.0); Platelet Count 218 K/uL (130-400); RDW Standard Deviation 39.7 fL (36.4-46.3); Red Blood Count 4.21 M/uL (4.20-5.40); White Blood Count 18.02 K/ul (4.8-10.8)
[2025-07-12 17:04] LABS: Hematocrit (blood only) 35.7 % (37.0-47.0); Hemoglobin 11.9 g/dl (12.0-16.0)
[2025-07-12] MEDS: fentANYL 2 MCG/ML BUPIVacaine 0.125%-NSS 100ML BAG EPI PRN (17:06)
[2025-07-12] MEDS: LACTATED RINGER'S 1,000 ML IV SCH (17:15)
--- NOTE | 2025-07-12 17:18 | Vascular Surgery Progress Note ---
Date of Service July 12, 2025 Assessment & Plan (1) PAD (peripheral artery disease): Plan: Doing well s/p aortoiliac bypass. Awaiting epidural infusion for pain control. BP adequate, urine output adequate. Lower extremities well perfused. Family updated. Appreciate rackman care. Admission and Anticipated Discharge Date Admission Date: July 12, 2025 Subjective s/p [id number] bypass Resting comfortably Physical Exam Physical Exam: abdomen soft biphasic PT signals bilaterally Triphasic popliteal signals bilaterally Results & Data Vital Signs (Past 12 Hours) Vital Signs Temp Pulse Resp BP BP BP Pulse Ox 07/12/25 15:05 36.5 C 92 H 16 128/61 133/76 95 07/12/25 15:00 92 H 16 134/81 134/60 95 07/12/25 14:50 93 H 15 124/77 96 07/12/25 14:40 88 18 126/76 95 07/12/25 14:30 79 18 114/76 96 07/12/25 14:22 35.7 C L 96 H 18 87/50 L 156/117 H 98 07/12/25 07:02 88 162/99 H 07/12/25 06:02 36.7 C 100 H 18 156/117 H 99 07/12/25 06:02 O2 Del Method O2 Flow Rate 07/12/25 15:05 Room Air 0 07/12/25 15:00 Room Air 0 07/12/25 14:50 Room Air 0 07/12/25 14:40 Room Air 0 07/12/25 14:30 Nasal Cannula 2 07/12/25 14:22 Nasal Cannula 2 07/12/25 07:02 07/12/25 06:02 Room Air 07/12/25 06:02 Room Air PG Care Time/CCT Total # of Minutes Spent Total Time Spent with Patient: Total time spent is greater than 50% in coordination of care (as documented) at patient's floor/unit and/or counseling patient:
[2025-07-12 17:29] LABS: Immature Granulocytes # (auto) 0.44 K/uL (0.01-0.20); Immature Granulocytes % (auto) 2.4 %; RBC Morphology Unremarkable
[2025-07-12 17:32] LABS: INR 1.1 (0.9-1.1); Partial Thromboplastin Time 27 Seconds (21-31); Prothrombin Time 11.6 Seconds (9.0-12.0)
[2025-07-12] MEDS: SODIUM CHLORIDE 0.9% 1,000 ML IV SCH ×2 (17:46→20:01)
[2025-07-12] MEDS ORDERED: GLUCOSE 10 TAB/TUBE PO PRN (18:26)
[2025-07-12] MEDS ORDERED: DEXTROSE 50% 50 ML SYRINGE IV PRN (18:26)
[2025-07-12] MEDS ORDERED: GLUCAGON FOR INJ 1 MG VIAL SQ PRN (18:26)
[2025-07-12] MEDS ORDERED: CARBOHYDRATES FOR HYPOGLYCEMIA PO PRN (18:26)
[2025-07-12] MEDS ORDERED: GLUCOSE 40% GEL 15 GM TUBE PO PRN (18:26)
[2025-07-12] MEDS: INSULIN ASPART PER UNIT CHARGE SC STA (18:39)
[2025-07-12] MEDS: INSULIN ASPART PER UNIT CHARGE ONE (18:39)
[2025-07-12] MEDS: ICU ELECTROLYTE REPLACEMENT PROTOCOL SCH (18:40)
[2025-07-12 19:20] LABS: Anion Gap 14.0 (3-11); Blood Urea Nitrogen 19.0 mg/dl (6-23); Calcium 9.2 mg/dl (8.6-10.3); Carbon Dioxide 20.0 mmol/L (21-32); Chloride 108.0 mmol/L (98-107); Creatinine Clr Calc Pharmacy 59.2 ml/min; Glucose 304.0 mg/dl (70-99(Fasting)); Magnesium 1.2 mg/dl (1.7-2.4); Potassium 3.9 mmol/L (3.5-5.1); Sodium 142.0 mmol/L (136-145)
[2025-07-12] MEDS ORDERED: MODERATE STRESS LEVEL ONE (19:48)
[2025-07-12] MEDS ORDERED: STAT IV Infusion **Titration per Protocol STA (19:48)
[2025-07-12] MEDS ORDERED: INSULIN PROTOCOL GOAL RANGE ONE (19:48)
[2025-07-12] MEDS ORDERED: POTASSIUM CHLORIDE / WTR 20 MEQ/100 ML PLCT IV SCH (20:00)
[2025-07-12] MEDS: ENOXAPARIN INJ 40 MG/0.4 ML SYR SQ SCH (20:01)
[2025-07-12] MEDS: D5W AND 1/2NSS 1,000 ML IV SCH (20:01)
[2025-07-12] MEDS: ONDANSETRON INJ 2 MG/ML 2 ML VIAL IV PRN (20:08)
[2025-07-12] MEDS: POTASSIUM CHLORIDE / WTR 20 MEQ/100 ML PLCT IV ONE (20:26)
[2025-07-12] MEDS: MAGNESIUM SULFATE / D5W 1 GM/100 ML BAG IV SCH (20:27)
[2025-07-12] MEDS: INSULIN REGULAR 250 UNITS in SODIUM CHLORIDE 0.9% 247.5 ML IV SCH (20:27)
[2025-07-12] MEDS: NovoLIN-R BOLUS FROM BAG IV ONE (20:39)
[2025-07-12 20:45] LABS: iSTAT Art Bld Gas Base Excess -5.0 meg/L (-9-1.8); iSTAT Art Bld Gas pCO2 Correct 35 mmHg (35-46); iSTAT Art Bld Gas pH Corrected 7.371 (7.35-7.45); iSTAT Arterial Blood Gas pO2 C 84
[2025-07-12] MEDS: INSULIN ASPART PER UNIT CHARGE SC SCH (21:33)
[2025-07-13] MEDS: LACTATED RINGER'S 500 ML IV ONE (02:43)
[2025-07-13 05:10] LABS: Hematocrit (blood only) 29.4 % (37.0-47.0); Hemoglobin 10.3 g/dl (12.0-16.0); Immature Granulocytes # (auto) 0.03 K/uL (0.01-0.20); Immature Granulocytes % (auto) 0.3 %; Mean Corpuscular Hemoglobin 29.3 pg (25.0-34.0); Mean Corpuscular Volume 83.5 fL (80.0-100.0); Platelet Count 166 K/uL (130-400); RDW Standard Deviation 39.7 fL (36.4-46.3); Red Blood Count 3.52 M/uL (4.20-5.40); White Blood Count 11.19 K/ul (4.8-10.8)
[2025-07-13 05:26] LABS: Anion Gap 6.0 (3-11); Blood Urea Nitrogen 20.0 mg/dl (6-23); Calcium 8.4 mg/dl (8.6-10.3); Carbon Dioxide 23.0 mmol/L (21-32); Chloride 108.0 mmol/L (98-107); Creatinine Clr Calc Pharmacy 50.2 ml/min; Glucose 201.0 mg/dl (70-99(Fasting)); Magnesium 2.8 mg/dl (1.7-2.4); Potassium 3.9 mmol/L (3.5-5.1); Sodium 137.0 mmol/L (136-145)
[2025-07-13] MEDS: POTASSIUM CHLORIDE / WTR 20 MEQ/100 ML PLCT IV SCH (06:19)
[2025-07-13] MEDS: CALCIUM GLUCONATE 1,000 MG/60 ML BAG IV STA (08:06)
[2025-07-13] MEDS: PANTOprazole 40 MG/10 ML SYR IV SCH (08:07)
[2025-07-13] MEDS: ENOXAPARIN INJ 40 MG/0.4 ML SYR SQ SCH (08:07)
[2025-07-13] MEDS: LACTATED RINGER'S 1,000 ML IV ONE (08:08)
--- NOTE | 2025-07-13 08:16 | Vascular Surgery Progress Note ---
Date of Service July 13, 2025 Assessment & Plan (1) Status post laparotomy: Plan: POD 1 aortoiliac bypass and doing well NG tube removed overnight H/H stable Continue NPO for now Continue pain control with epidural, with adjustments per anesthesia/ICU-appre ciate assistance and recs OOB to chair with assistance this afternoon if OK from anesthesia/epidural standpoint Continue carmona to monitor output Adjust fluids as needed to maintain good urine output-appreciate ICU assistance replete electrolytes as needed Continue DVT prophylaxis (2) Acute blood loss anemia: Plan: secondary to laparotomy yesterday Hgb currently stable Continue CBC monitoring per ICU team no current need for transfusion (3) MART (acute kidney injury): Plan: likely related to third spacing from OR yesterday, which should improve in several days UOP improved with fluid bolus this morning Continue to monitor I/O Continue to monitor Cr 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 NG tube out overnight. Early this am noted to have low urine output, with 500ml bolus given. Complaining of some numbness in the right leg and abdominal pain this morning. Cr bumped to 1.26, hgb 10.3 and stable overnight. BP stable. Remains on epidural for pain control, Lovenox and SCDs for DVT prophylaxis Urine output: 290ml darker yellow urine slightly tachycardic on room air Review of Systems Review of Systems: see HPI Physical Exam Physical Exam: well developed, well nourished, lying in bed. Abdominal dressing C/D/I. abdomen is soft with some tenderness to palpation. Bilateral lower extremities are warm to touch. Doppler signals present bilateral DP and PT and improved from yesterday. 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 Results & Data Vital Signs (Past 12 Hours) Vital Signs Temp Pulse Pulse Resp BP BP Pulse Ox 07/13/25 06:00 99 H 18 135/80 148/66 H 97 07/13/25 05:00 100 H 18 151/84 H 153/70 H 97 07/13/25 04:00 37.0 C 98 H 18 134/77 146/66 H 97 07/13/25 03:00 98 H 20 128/74 139/62 96 07/13/25 02:00 100 H 18 118/70 125/58 L 97 07/13/25 01:00 93 H 20 123/82 134/61 97 07/13/25 00:01 92 H 20 115/67 119/57 L 97 07/13/25 00:00 96 H 07/12/25 23:30 97 H 22 97/61 L 104/51 L 97 07/12/25 23:00 37.0 C 97 H 20 111/73 95/60 L 97 07/12/25 22:30 99 H 20 119/75 96/61 L 96 07/12/25 22:00 36.6 C 103 H 20 116/72 115/72 96 07/12/25 21:00 103 H 20 117/72 96 O2 Del Method 07/13/25 06:00 Room Air 07/13/25 05:00 Room Air 07/13/25 04:00 Room Air 07/13/25 03:00 Room Air 07/13/25 02:00 Room Air 07/13/25 01:00 Room Air 07/13/25 00:01 Room Air 07/13/25 00:00 07/12/25 23:30 Room Air 07/12/25 23:00 Room Air 07/12/25 22:30 Room Air 07/12/25 22:00 Room Air 07/12/25 21:00 Room Air Laboratory Results 07/13/25 07/13/25 07/13/25 08:05 06:25 05:54 WBC RBC Hgb POC Hgb Hct POC Hct MCV MCH MCHC RDW Std Deviation RDW Coeff of Bishop Plt Count MPV Immature Gran % (Auto) Neut % (Auto) Lymph % (Auto) Routt % (Auto) Eos % (Auto) Baso % (Auto) Neut # (Auto) Lymph # (Auto) Routt # (Auto) Eos # (Auto) Baso # (Auto) Immature Gran # (Auto) RBC Morphology PT INR APTT PTT Ratio Activ Coag Time Kaolin Specimen Type Sample Site POC pH POC pCO2 POC pO2 POC HCO3 POC Base Excess O2 Sat Pulse Oximetry ABG pH (Temp Correct) ABG pCO2 (Temp Corrct POC ABG pO2 at Pt Temp POC ABG O2 Sat Abdoul Test O2 Delivery Device POC Sodium Sodium POC Potassium Potassium POC Chloride Chloride Carbon Dioxide POC Total CO2 Anion Gap POC Anion Gap POC BUN BUN Creatinine POC Creatinine Est Cr Clr Drug Dosing eGFR BUN/Creatinine Ratio Glucose POC Glucose 162 H 189 H 188 H POC Glucose (other) Calcium POC Ioniz Calcium Rakan Phosphorus Magnesium Nasal Screen MRSA (PCR) 07/13/25 07/13/25 07/13/25 04:56 04:45 03:25 WBC 11.19 H RBC 3.52 L Hgb 10.3 L POC Hgb Hct 29.4 L POC Hct MCV 83.5 MCH 29.3 MCHC 35.0 RDW Std Deviation 39.7 RDW Coeff of Bishop 13.1 Plt Count 166 MPV 10.5 Immature Gran % (Auto) 0.3 Neut % (Auto) 78.5 Lymph % (Auto) 10.6 Routt % (Auto) 10.5 Eos % (Auto) 0.0 Baso % (Auto) 0.1 Neut # (Auto) 8.78 H Lymph # (Auto) 1.19 L Routt # (Auto) 1.18 H Eos # (Auto) 0.00 Baso # (Auto) 0.01 Immature Gran # (Auto) 0.03 RBC Morphology PT INR APTT PTT Ratio Activ Coag Time Kaolin Specimen Type Sample Site POC pH POC pCO2 POC pO2 POC HCO3 POC Base Excess O2 Sat Pulse Oximetry ABG pH (Temp Correct) ABG pCO2 (Temp Corrct POC ABG pO2 at Pt Temp POC ABG O2 Sat Abdoul Test O2 Delivery Device POC Sodium Sodium 137 POC Potassium Potassium 3.9 POC Chloride Chloride 108 H Carbon Dioxide 23 POC Total CO2 Anion Gap 6 POC Anion Gap POC BUN BUN 20 Creatinine 1.26 H POC Creatinine Est Cr Clr Drug Dosing 50.2 eGFR 52.99 BUN/Creatinine Ratio 15.9 Glucose 201 H POC Glucose 195 H 208 H POC Glucose (other) Calcium 8.4 L POC Ioniz Calcium Rakan Phosphorus 3.3 Magnesium 2.8 H Nasal Screen MRSA (PCR) 07/13/25 07/13/25 07/12/25 02:36 00:39 Unknown WBC RBC Hgb POC Hgb Hct POC Hct MCV MCH MCHC RDW Std Deviation RDW Coeff of Bishop Plt Count MPV Immature Gran % (Auto) Neut % (Auto) Lymph % (Auto) Routt % (Auto) Eos % (Auto) Baso % (Auto) Neut # (Auto) Lymph # (Auto) Routt # (Auto) Eos # (Auto) Baso # (Auto) Immature Gran # (Auto) RBC Morphology PT INR APTT PTT Ratio Activ Coag Time Kaolin Specimen Type Sample Site POC pH POC pCO2 POC pO2 POC HCO3 POC Base Excess O2 Sat Pulse Oximetry ABG pH (Temp Correct) ABG pCO2 (Temp Corrct POC ABG pO2 at Pt Temp POC ABG O2 Sat Abdoul Test O2 Delivery Device POC Sodium Sodium 142 POC Potassium Potassium 3.9 POC Chloride Chloride 108 H Carbon Dioxide 20 L POC Total CO2 Anion Gap 14 H POC Anion Gap POC BUN BUN 19 Creatinine 1.02 POC Creatinine Est Cr Clr Drug Dosing 59.2 eGFR 68.28 BUN/Creatinine Ratio 18.6 Glucose 304 H* POC Glucose 228 H 224 H POC Glucose (other) Calcium 9.2 POC Ioniz Calcium Rakan Phosphorus Magnesium 1.2 L Nasal Screen MRSA (PCR) 07/12/25 07/12/25 07/12/25 23:50 23:42 22:38 WBC RBC Hgb POC Hgb Hct POC Hct MCV MCH MCHC RDW Std Deviation RDW Coeff of Bishop Plt Count MPV Immature Gran % (Auto) Neut % (Auto) Lymph % (Auto) Routt % (Auto) Eos % (Auto) Baso % (Auto) Neut # (Auto) Lymph # (Auto) Routt # (Auto) Eos # (Auto) Baso # (Auto) Immature Gran # (Auto) RBC Morphology PT INR APTT PTT Ratio Activ Coag Time Kaolin Specimen Type Sample Site POC pH POC pCO2 POC pO2 POC HCO3 POC Base Excess O2 Sat Pulse Oximetry ABG pH (Temp Correct) ABG pCO2 (Temp Corrct POC ABG pO2 at Pt Temp POC ABG O2 Sat Abdoul Test O2 Delivery Device POC Sodium Sodium POC Potassium Potassium POC Chloride Chloride Carbon Dioxide POC Total CO2 Anion Gap POC Anion Gap POC BUN BUN Creatinine POC Creatinine Est Cr Clr Drug Dosing eGFR BUN/Creatinine Ratio Glucose POC Glucose 227 H 224 H POC Glucose (other) Calcium POC Ioniz Calcium Rakan Phosphorus Magnesium Nasal Screen MRSA (PCR) Negative 07/12/25 07/12/25 07/12/25 21:29 20:31 18:17 WBC RBC Hgb POC Hgb 10.5 L Hct POC Hct 31 L MCV MCH MCHC RDW Std Deviation RDW Coeff of Bishop Plt Count MPV Immature Gran % (Auto) Neut % (Auto) Lymph % (Auto) Routt % (Auto) Eos % (Auto) Baso % (Auto) Neut # (Auto) Lymph # (Auto) Routt # (Auto) Eos # (Auto) Baso # (Auto) Immature Gran # (Auto) RBC Morphology PT INR APTT PTT Ratio Activ Coag Time Kaolin Specimen Type Arterial Sample Site Art Line POC pH 7.37 POC pCO2 35 POC pO2 84 POC HCO3 20 POC Base Excess -5.0 O2 Sat Pulse Oximetry 96 ABG pH (Temp Correct) 7.371 ABG pCO2 (Temp Corrct 35 POC ABG pO2 at Pt Temp 84 POC ABG O2 Sat 96.0 H Abdoul Test NA O2 Delivery Device Room Air POC Sodium 142 Sodium POC Potassium 3.8 Potassium POC Chloride Chloride Carbon Dioxide POC Total CO2 21 L Anion Gap POC Anion Gap POC BUN BUN Creatinine POC Creatinine Est Cr Clr Drug Dosing eGFR BUN/Creatinine Ratio Glucose POC Glucose 242 H 306 H* POC Glucose (other) Calcium POC Ioniz Calcium Rakan Phosphorus Magnesium Nasal Screen MRSA (PCR) 07/12/25 07/12/25 07/12/25 16:18 16:16 16:16 WBC RBC Hgb 11.9 L POC Hgb Hct 35.7 L 35.6 L POC Hct MCV 84.6 MCH 27.8 MCHC 32.9 RDW Std Deviation 39.7 RDW Coeff of Bishop 13.1 Plt Count 218 MPV 11.0 Immature Gran % (Auto) 2.4 Neut % (Auto) 84.9 Lymph % (Auto) 7.4 Routt % (Auto) 5.0 Eos % (Auto) 0.0 Baso % (Auto) 0.3 Neut # (Auto) 15.29 H Lymph # (Auto) 1.33 Routt # (Auto) 0.91 H Eos # (Auto) 0.00 Baso # (Auto) 0.05 Immature Gran # (Auto) 0.44 H RBC Morphology Unremarkable PT 11.6 INR 1.1 APTT 27 PTT Ratio 1.0 Activ Coag Time Kaolin Specimen Type Sample Site POC pH POC pCO2 POC pO2 POC HCO3 POC Base Excess O2 Sat Pulse Oximetry ABG pH (Temp Correct) ABG pCO2 (Temp Corrct POC ABG pO2 at Pt Temp POC ABG O2 Sat Abdoul Test O2 Delivery Device POC Sodium Sodium POC Potassium Potassium 3.8 POC Chloride Chloride Carbon Dioxide POC Total CO2 Anion Gap POC Anion Gap POC BUN BUN Creatinine POC Creatinine Est Cr Clr Drug Dosing eGFR BUN/Creatinine Ratio Glucose POC Glucose 265 H POC Glucose (other) Calcium POC Ioniz Calcium Rakan Phosphorus Magnesium Nasal Screen MRSA (PCR) 07/12/25 07/12/25 07/12/25 16:16 14:26 14:25 WBC 18.02 H RBC 4.21 Hgb 11.7 L POC Hgb Hct POC Hct MCV MCH MCHC RDW Std Deviation RDW Coeff of Bishop Plt Count MPV Immature Gran % (Auto) Neut % (Auto) Lymph % (Auto) Routt % (Auto) Eos % (Auto) Baso % (Auto) Neut # (Auto) Lymph # (Auto) Routt # (Auto) Eos # (Auto) Baso # (Auto) Immature Gran # (Auto) RBC Morphology PT INR APTT PTT Ratio Activ Coag Time Kaolin Specimen Type Sample Site POC pH POC pCO2 POC pO2 POC HCO3 POC Base Excess O2 Sat Pulse Oximetry ABG pH (Temp Correct) ABG pCO2 (Temp Corrct POC ABG pO2 at Pt Temp POC ABG O2 Sat Abdoul Test O2 Delivery Device POC Sodium Sodium POC Potassium Potassium POC Chloride Chloride Carbon Dioxide POC Total CO2 Anion Gap POC Anion Gap POC BUN BUN Creatinine POC Creatinine Est Cr Clr Drug Dosing eGFR BUN/Creatinine Ratio Glucose POC Glucose 247 H 264 H POC Glucose (other) Calcium POC Ioniz Calcium Rakan Phosphorus Magnesium Nasal Screen MRSA (PCR) 07/12/25 07/12/25 07/12/25 13:09 12:14 11:59 WBC RBC Hgb POC Hgb 8.5 L Hct POC Hct 25 L MCV MCH MCHC RDW Std Deviation RDW Coeff of Bishop Plt Count MPV Immature Gran % (Auto) Neut % (Auto) Lymph % (Auto) Routt % (Auto) Eos % (Auto) Baso % (Auto) Neut # (Auto) Lymph # (Auto) Routt # (Auto) Eos # (Auto) Baso # (Auto) Immature Gran # (Auto) RBC Morphology PT INR APTT PTT Ratio Activ Coag Time Kaolin 250 H 199 H Specimen Type Arterial Sample Site POC pH 7.38 POC pCO2 30 L POC pO2 212 H POC HCO3 18 L POC Base Excess -8.0 O2 Sat Pulse Oximetry ABG pH (Temp Correct) ABG pCO2 (Temp Corrct POC ABG pO2 at Pt Temp POC ABG O2 Sat 100.0 H Abdoul Test O2 Delivery Device POC Sodium 145 H Sodium POC Potassium 3.1 L Potassium POC Chloride Chloride Carbon Dioxide POC Total CO2 18 L Anion Gap POC Anion Gap POC BUN BUN Creatinine POC Creatinine Est Cr Clr Drug Dosing eGFR BUN/Creatinine Ratio Glucose POC Glucose POC Glucose (other) Calcium POC Ioniz Calcium Rakan Phosphorus Magnesium Nasal Screen MRSA (PCR) 07/12/25 07/12/25 07/12/25 11:15 11:10 10:55 WBC RBC Hgb POC Hgb 10.2 L Hct POC Hct 30 L MCV MCH MCHC RDW Std Deviation RDW Coeff of Bishop Plt Count MPV Immature Gran % (Auto) Neut % (Auto) Lymph % (Auto) Routt % (Auto) Eos % (Auto) Baso % (Auto) Neut # (Auto) Lymph # (Auto) Routt # (Auto) Eos # (Auto) Baso # (Auto) Immature Gran # (Auto) RBC Morphology PT INR APTT PTT Ratio Activ Coag Time Kaolin 233 H 199 H Specimen Type Sample Site POC pH POC pCO2 POC pO2 POC HCO3 POC Base Excess O2 Sat Pulse Oximetry ABG pH (Temp Correct) ABG pCO2 (Temp Corrct POC ABG pO2 at Pt Temp POC ABG O2 Sat Abdoul Test O2 Delivery Device POC Sodium 140 Sodium POC Potassium 4.1 Potassium POC Chloride 107 Chloride Carbon Dioxide POC Total CO2 22 L Anion Gap POC Anion Gap 17.0 POC BUN 16 BUN Creatinine POC Creatinine 0.7 Est Cr Clr Drug Dosing eGFR BUN/Creatinine Ratio Glucose POC Glucose POC Glucose (other) 228 H Calcium POC Ioniz Calcium Rakan 1.22 Phosphorus Magnesium Nasal Screen MRSA (PCR) 07/12/25 07/12/25 10:20 09:44 WBC RBC Hgb POC Hgb Hct POC Hct MCV MCH MCHC RDW Std Deviation RDW Coeff of Bishop Plt Count MPV Immature Gran % (Auto) Neut % (Auto) Lymph % (Auto) Routt % (Auto) Eos % (Auto) Baso % (Auto) Neut # (Auto) Lymph # (Auto) Routt # (Auto) Eos # (Auto) Baso # (Auto) Immature Gran # (Auto) RBC Morphology PT INR APTT PTT Ratio Activ Coag Time Kaolin 233 H 135 Specimen Type Sample Site POC pH POC pCO2 POC pO2 POC HCO3 POC Base Excess O2 Sat Pulse Oximetry ABG pH (Temp Correct) ABG pCO2 (Temp Corrct POC ABG pO2 at Pt Temp POC ABG O2 Sat Abdoul Test O2 Delivery Device POC Sodium Sodium POC Potassium Potassium POC Chloride Chloride Carbon Dioxide POC Total CO2 Anion Gap POC Anion Gap POC BUN BUN Creatinine POC Creatinine Est Cr Clr Drug Dosing eGFR BUN/Creatinine Ratio Glucose POC Glucose POC Glucose (other) Calcium POC Ioniz Calcium Rakan Phosphorus Magnesium Nasal Screen MRSA (PCR) Medications Administered Home Medications Medication Instructions Recorded Confirmed Last Taken atorvastatin 40 mg tablet 40 mg PO QAM #30 tabs 06/22/25 07/12/25 07/11/25 09:00 blood sugar diagnostic (ReliOn #100 ea 06/22/25 07/06/25 Unknown Prime Test Strips) pen needle, diabetic 32 gauge x #100 ea 06/22/25 07/06/25 Unknown " aspirin 81 mg tablet,delayed 81 mg PO QAM 07/05/25 07/12/25 07/11/25 09:00 release docusate sodium 100 mg tablet 100 mg PO UD PRN Constipation 07/05/25 07/12/25 07/08/25 (Stool Softener) insulin glargine 100 unit/mL (3 20 unit subcut QAM 07/05/25 07/12/25 06/22/25 mL) subcutaneous pen (Basaglar KwikPen U-100 Insulin) metformin 1,000 mg tablet 1,000 mg PO QPM 07/05/25 07/12/25 07/11/25 21:00 metformin 500 mg tablet 500 mg PO BID 07/05/25 07/12/25 07/11/25 23:00 naproxen sodium 220 mg tablet 220 mg PO BID PRN Pain 07/05/25 07/12/25 07/05/25 (Aleve) oxycodone 5 mg tablet 5 mg PO Q6H PRN pain #30 tabs 07/06/25 07/06/25 07/01/25 acetaminophen 300 mg-codeine 30 mg 1 tab PO BID PRN Pain 07/12/25 07/12/25 07/11/25 23:00 tablet melatonin 3 mg tablet 6 mg PO HS PRN Insomnia 07/12/25 07/12/25 07/11/25 23:00 Active Medications Generic Name Dose Route Start Last Admin Trade Name Richie PRN Reason Stop Dose Admin Enoxaparin Sodium 40 mg 07/13/25 09:00 07/13/25 08:07 Enoxaparin Inj 40 Mg/0.4 Ml Syr SQ 08/12/25 08:59 40 mg DAILY ERROL Administration Fentanyl/Bupivacaine/Sodium Chlor 100 ml 07/12/25 09:29 07/12/25 17:06 Fentanyl 2 Mcg/Ml Bupivacaine 0.125%-Nss 100ml Bag EPI 07/26/25 09:28 100 ml PRN PRN Administration Pain Protocol Sodium Chloride 1,000 mls @ 15 mls/hr 07/12/25 09:30 07/13/25 08:09 Nss IV 07/15/25 09:29 Not Given .Q24H ERROL Pantoprazole Sodium 40 mg in 10 mls @ 5 mls/min 07/13/25 09:00 07/13/25 08:07 Protonix IV 07/17/25 08:59 5 mls/min DAILY ERROL Administration Lactated Ringer's 1,000 mls @ 80 mls/hr 07/12/25 17:15 07/13/25 04:58 Lr IV 07/15/25 17:14 80 mls/hr .[id number] ERROL Administration Insulin Human Regular 250 250 mls @ 2 mls/hr 07/12/25 20:00 07/13/25 08:09 units/ Sodium Chloride IV 08/11/25 19:59 2 units/hr .Q24H ERROL 2 mls/hr Titration Protocol 2 UNITS/HR Potassium Chloride 20 meq in 100 mls @ 50 mls/hr 07/13/25 06:00 07/13/25 08:06 K James / Wtr IV 07/13/25 09:59 50 mls/hr Q2H ERROL Administration Protocol Lactated Ringer's 1,000 mls @ 999 mls/hr 07/13/25 07:51 07/13/25 08:08 Lr IV 07/13/25 08:51 999 mls/hr .[id number] ONE Administration Insulin Aspart 0 units 07/12/25 21:00 07/13/25 08:13 Insulin Aspart Per Unit Charge SC 08/11/25 20:59 Not Given ACHS ERROL Miscellaneous 1 each 07/12/25 18:00 07/13/25 05:40 Icu Electrolyte Replacement Protocol N/A 07/19/25 17:59 1 each BID@ ERROL Administration Protocol Ondansetron HCl 4 mg 07/12/25 09:29 07/13/25 08:07 Ondansetron Inj 2 Mg/Ml 2 Ml Vial IV 08/11/25 09:28 4 mg Q6H PRN Administration Nausea And Vomiting PG Care Time/CCT Total # of Minutes Spent Total Time Spent with Patient: Total time spent is greater than 50% in coordination of care (as documented) at patient's floor/unit and/or counseling patient:
[2025-07-13] MEDS: MoRPHine SULFATE 2 MG/ML CARP IV PRN (08:36)
[2025-07-13] MEDS ORDERED: PHARMACY GLYCEMIC MGMT CONSULT PRN ×2 (09:50→09:53)
--- NOTE | 2025-07-13 10:03 | Critical Care Progress Note ---
Date of Service July 13, 2025 Assessment & Plan (1) PAD (peripheral artery disease): (2) Status post laparotomy: (3) Tobacco abuse: (4) Type II diabetes mellitus with neurological manifestations: (5) Hypotension: (6) Anemia: Plan 49-year-old female with a history of tobacco abuse, type 2 diabetes mellitus, peripheral artery disease and severe claudication who presented for elective aortofemoral bypass. She underwent an open laparotomy on 07/12/25 and is postop day 1. Neurologic: Pain control per anesthesia services and vascular surgery team. Monitor mental status closely. Delirium precautions. Pulmonary: Patient with history of tobacco abuse. Monitor for signs of COPD exacerbation. Nebs as needed. CXR on 07/04/2025 there is a small amount of pleural effusion on the right/atelectasis. Will continue to monitor. Cardiovascular: Maintain mean arterial pressure above 65 mmHg. Patient likely with anesthesia induced hypertension. Bolus as needed with crystalloids and transfuse blood to maintain hemoglobin at adequate levels depending on hemodynamic status. Frequent neurovascular bundle checks. Vascular surgical team ordered D5 half- normal saline at 60 mL an hour. Gastrointestinal: NG tube removed on 07/12/25 due to irritation and gagging. Patient is high risk for likely ileus. Monitor electrolytes closely and maintain mag above 2 and potassium above 4. Stool softeners and motility agents per vascular surgery team when able to take p.o. Renal: Monitor urine output closely via Yuen catheter. Patient bolused a total of 1.5 liters of crystalloid with improvement of urine output this am. Infectious disease: Patient received cefazolin during perisurgical period. Hematologic: Monitor for active signs of bleeding. Transfuse hemoglobin as indicated by hemodynamics. Endocrine: Maintain euglycemia. Pharmacy consulted for hyperglycemia protocol. Lines and tubes: Right IJ 07/12/2025. Radial arterial line 07/12/2025 and Yuen catheter 07/12/2025. VTE prophylaxis: Lovenox 40 mg daily. Will need to hold am lovenox for 07/14/2025 if epidural t be doscontinued. CODE STATUS: Full Family at bedside: No available bedside Disposition: ICU I have personally spent 40 minutes of critical care time in the direct management of this patient. This is a life/limb threatening event. This includes time spent evaluating patient, direct bedside care, chart review, placing orders, interpretation of diagnostic studies, discussion with consultants, eulogio butcher, and family members, as well as other required patient management activities. This time is exclusive of all separately billable procedures, and teaching time and separate from and in addition to any other critical care service time. Admission and Anticipated Discharge Date Admission Date: July 12, 2025 Subjective "My pain is worse today." Patient complaining of abdominal spasms and tenderness which is worse than prior. Patient on ropivacaine/fentanyl epidural and anesthesiology asked to increase dosing to improve pain control. Patient creatinine with slight bump this am to 1.22 and urine output averaging 25ml/hr (0.15ml/kg/hr) patient given 500ml of crystalloid overnight and another 1 liter of LR this am. Patient hemodynamically stable. Review of Systems Review of Systems: All systems reviewed & are unremarkable except as noted in HPI & below Physical Exam Physical Exam: VITALS: Reviewed. WEIGHT/BMI reviewed. GEN: Stated age appearing, well-developed, NAD. PSYCH: Good Judgment. AOx3. Normal memory, mood, and affect. HEENT -Head: NC/AT; -Eyes: PERRL, EOMI. No discharge or redn ess; -Ears: External ears are normal. -Nose: Normal nares. NECK: Supple, with no masses. CV: RRR, no m/r/g. LUNGS: CTAB, no w/r/c. ABD: Soft, tender to light palpation and complaining of spasms. Hypoactive bowel sounds. : N/A SKIN: Warm, well perfused. No skin rashes or abnormal lesions. MSK: No deformities, Normal gait. EXT: No clubbing, cyanosis, or edema. Dopplerable posterior tibials in bilateral lower extremities. NEURO: Normal muscle strength and tone. No focal deficits. Results & Data Results & Data Vital Signs (Past 12 Hours) Vital Signs Temp Pulse Pulse Resp BP BP Pulse Ox 07/13/25 06:00 99 H 18 135/80 148/66 H 97 07/13/25 05:00 100 H 18 151/84 H 153/70 H 97 07/13/25 04:00 37.0 C 98 H 18 134/77 146/66 H 97 07/13/25 03:00 98 H 20 128/74 139/62 96 07/13/25 02:00 100 H 18 118/70 125/58 L 97 07/13/25 01:00 93 H 20 123/82 134/61 97 07/13/25 00:01 92 H 20 115/67 119/57 L 97 07/13/25 00:00 96 H 07/12/25 23:30 97 H 22 97/61 L 104/51 L 97 07/12/25 23:00 37.0 C 97 H 20 111/73 95/60 L 97 07/12/25 22:30 99 H 20 119/75 96/61 L 96 O2 Del Method 07/13/25 06:00 Room Air 07/13/25 05:00 Room Air 07/13/25 04:00 Room Air 07/13/25 03:00 Room Air 07/13/25 02:00 Room Air 07/13/25 01:00 Room Air 07/13/25 00:01 Room Air 07/13/25 00:00 07/12/25 23:30 Room Air 07/12/25 23:00 Room Air 07/12/25 22:30 Room Air Critical Care Results & Data Vital Signs (Past 12 Hours) Vital Signs Temp Pulse Pulse Resp BP BP Pulse Ox 07/13/25 06:00 99 H 18 135/80 148/66 H 97 07/13/25 05:00 100 H 18 151/84 H 153/70 H 97 07/13/25 04:00 37.0 C 98 H 18 134/77 146/66 H 97 07/13/25 03:00 98 H 20 128/74 139/62 96 07/13/25 02:00 100 H 18 118/70 125/58 L 97 07/13/25 01:00 93 H 20 123/82 134/61 97 07/13/25 00:01 92 H 20 115/67 119/57 L 97 07/13/25 00:00 96 H 07/12/25 23:30 97 H 22 97/61 L 104/51 L 97 07/12/25 23:00 37.0 C 97 H 20 111/73 95/60 L 97 07/12/25 22:30 99 H 20 119/75 96/61 L 96 O2 Del Method 07/13/25 06:00 Room Air 07/13/25 05:00 Room Air 07/13/25 04:00 Room Air 07/13/25 03:00 Room Air 07/13/25 02:00 Room Air 07/13/25 01:00 Room Air 07/13/25 00:01 Room Air 07/13/25 00:00 07/12/25 23:30 Room Air 07/12/25 23:00 Room Air 07/12/25 22:30 Room Air Lab & Micro Results (Past 24 Hours) RBC 3.52 M/uL (4.20-5.40) L 07/13/25 WBC 11.19 K/ul (4.8-10.8) H 07/13/25 Hgb 10.3 g/dl (12.0-16.0) L 07/13/25 Hct 29.4 % (37.0-47.0) L 07/13/25 MCV 83.5 fL (80.0-100.0) 07/13/25 MCH 29.3 pg (25.0-34.0) 07/13/25 MCHC 35.0 g/dL (32.0-36.0) 07/13/25 RDW Standard Deviation 39.7 fL (36.4-46.3) 07/13/25 RDW Coefficient of Variation 13.1 % (11.5-14.5) 07/13/25 Plt Count 166 K/uL (130-400) 07/13/25 MPV 10.5 fL (9.4-12.4) 07/13/25 Neutrophils (%) (Auto) 78.5 % 07/13/25 Lymphocytes (%) (Auto) 10.6 % 07/13/25 Monocytes # (Auto) 1.18 K/uL (0.11-0.59) H 07/13/25 Eosinophils # (Auto) 0.00 K/uL (0.00-0.50) 07/13/25 Immature Granulocyte % (Auto) 0.3 % 07/13/25 Neutrophils # (Auto) 8.78 K/uL (1.40-6.50) H 07/13/25 Lymphocytes # (Auto) 1.19 K/uL (1.20-3.40) L 07/13/25 Monocytes # (Auto) 1.18 K/uL (0.11-0.59) H 07/13/25 Eosinophils # (Auto) 0.00 K/uL (0.00-0.50) 07/13/25 Basophils # (Auto) 0.01 K/uL (0.00-0.20) 07/13/25 Immature Granulocyte # (Auto) 0.03 K/uL (0.01-0.20) 5 Red Blood Cell Morphology Unremarkable 07/12/25 Na 137 mmol/L (136-145) 07/13/25 K 3.9 mmol/L (3.5-5.1) 07/13/25 Cl 108 mmol/L (98-107) H 07/13/25 CO2 23 mmol/L (21-32) 07/13/25 Anion Gap 6 (3-11) 07/13/25 BUN 20 mg/dl (6-23) 07/13/25 Creatinine 1.26 mg/dl (0.6-1.2) H 07/13/25 BUN/Creatinine Ratio 15.9 (10-20) 07/13/25 Glu 201 mg/dl (70-99(Fasting)) H 07/13/25 Ca 8.4 mg/dl (8.6-10.3) L 07/13/25 Phosphorus Level 3.3 mg/dl (2.5-4.9) 07/13/25 Mg 2.8 mg/dl (1.7-2.4) H 07/13/25 04:45 Calcium Level 8.4 mg/dl (8.6-10.3) L 07/13/25 04:45 Prothromb Time International Ratio 1.1 (0.9-1.1) 07/12/25 16:1 6 Abdoul Test NA 07/12/25 20:31 Diagnostic Findings (Past 24 Hours) Chest X-Ray 07/12/25 15:48 Clinical History: Line placement Technique: 2 frontal views of the chest were obtained Comparison is made to the prior examination dated 06/19/2025 Findings: There are no confluent pulmonary infiltrates. The heart size is within normal limits. No pleural effusion or definite pneumothorax is seen. There is no definite pulmonary nodule. There is a nasogastric tube with its tip and side-port within the stomach. There is a right jugular central venous line with its tip in the SVC. There are multiple leads overlying the chest. There is a possible right sided chest tube. There is lucency beneath the right hemidiaphragm Impression: 1. Nasogastric tube and right jugular central venous line in expected position 2. Possible free intraperitoneal air, which could be due to recent surgery. Clinical correlation is recommended ACT 112: Positive. There are findings on this exam that require communication between the performing entity and the patient following Patient Test Result Information Act ([place] ACT 112) guidelines. Electronically signed by Abdiel Silva 07-12-2025 4:28 PM I & O Totals 24 Hours 07/12/25 07/13/25 07/14/25 06:59 06:59 06:59 Intake Total 6148.623 / 6148.623 1165.133 / 1165.133 Output Total 990 / 990 Balance 5158.623 / 5158.623 1165.133 / 1165.133 Cumulative 06/22/25 14:29 thru 07/13/25 09:04 Intake Total 7313.756 Output Total 990 Balance 6323.756 RT Ventilator Mngmt (Last Documented) Ventilator Ordered Settings Respiratory Rate 18 07/13/25 06:00 Ventilator - PT Measurements Respiratory Rate 18 Coding Level of Care Code 98480 CRITICAL CARE 1ST 30-74M Diagnoses PAD (peripheral artery disease) I73.9 Status post laparotomy Z98.890 Tobacco abuse Z72.0 Type II diabetes mellitus with neurological manifestations E11.49 Hypotension I95.9 Anemia D64.9
[2025-07-13] MEDS: LANTUS PER UNIT CHARGE SC ONE (10:15)
[2025-07-13] MEDS: INSULIN ASPART PER UNIT CHARGE SC SCH (12:14)
--- NOTE | 2025-07-13 13:32 | Pharmacy Report ---
Pharmacy Glycemic Short Note 2 - Date of Service July 13, 2025 - Glycemic Short BSG Results (Last 24 hours): 07/12/25 07/12/25 07/12/25 11:15 14:25 14:26 Glucose POC Glucose 264 H 247 H POC Glucose (other) 228 H 07/12/25 07/12/25 07/12/25 16:18 18:17 21:29 Glucose POC Glucose 265 H 306 H* 242 H POC Glucose (other) 07/12/25 07/12/25 07/12/25 22:38 23:42 Unknown Glucose 304 H* POC Glucose 224 H 227 H POC Glucose (other) 07/13/25 07/13/25 07/13/25 00:39 02:36 03:25 Glucose POC Glucose 224 H 228 H 208 H POC Glucose (other) 07/13/25 07/13/25 07/13/25 04:45 04:56 05:54 Glucose 201 H POC Glucose 195 H 188 H POC Glucose (other) 07/13/25 07/13/25 07/13/25 06:25 08:05 09:02 Glucose POC Glucose 189 H 162 H 136 H POC Glucose (other) 07/13/25 07/13/25 07/13/25 10:13 11:03 11:59 Glucose POC Glucose 119 H 135 H 118 H POC Glucose (other) OUTPATIENT ANTIDIABETIC REGIMEN: * Insulin glargin 20 units qAM, metformin 1500 mg qPM, 500mg qAM * A1c 12.5% 06/19/25 ASSESSMENT: * Patient s/p aortobiiliac bypass. Started on insulin infusion overnight for BSG in the 300s * BSGs have trended down and now consulted for transition off of insulin infusion * Patient will remain NPO for now. Insulin infusion has been running between 1.2 - 2 units/hr, at 1.6 units/hr at time of transition * Will transition with 15 units x 1. Start novolog with parameters similar to previous admission. PLAN FOR INPATIENT GLYCEMIC CONTROL: * Hold outpatient oral diabetes medications * Basal insulin * Lantus 15 units x 1 * Bolus insulin * NovoLog per scale ACHS or Q6hrs while NPO * Goal Range: Low 110 mg/dL - High 160 mg/dL * Correction Factor: 35 mg/dL/unit * Nutritional / Prandial insulin per carb ratio of 1 unit per 9 grams CHO consumed
[2025-07-13] MEDS: METOPROLOL TARTRATE 1 MG/ML VIAL IV SCH (14:37)
[2025-07-13] MEDS: HYDROmorphone INJ 0.5 MG/0.5 ML SYR IV PRN (14:38)
[2025-07-13] MEDS ORDERED: INSULIN ASPART PER UNIT CHARGE SC SCH (18:45)
--- NOTE | 2025-07-13 19:37 | Anesthesiology Progress Note ---
Date of Service July 13, 2025 Assessment & Plan (1) Epidural anesthesia catheter present: Plan: POD 1. Pain well controlled. Vitals and hydration status adequate. Patient is using her PCEA as needed to augment pain control. Will continue current epidura l infusion regimen. Admission and Anticipated Discharge Date Admission Date: July 12, 2025 Physical Exam Vital Signs: Last Vital Signs Temp 36.7 C 07/13/25 14:54 Pulse 98 H 07/13/25 18:00 Resp 24 07/13/25 18:00 BP 97/67 L 07/13/25 18:00 Pulse Ox 91 07/13/25 18:00 O2 Del Method Room Air 07/13/25 06:00 O2 Flow Rate 0 07/12/25 15:05 Constitutional: WD/WN, vitals as above Respiratory: normal respiratory effort, lungs clear to auscultation Cardiovascular: RRR, no murmur, no edema Results & Data ([facility]) Medications Administered Enoxaparin Sodium (Enoxaparin Inj 40 Mg/0.4 Ml Syr) 40 mg SQ DAILY ERROL Stop: 08/12/25 08:59 Last Admin: 07/13/25 08:07 Dose: 40 mg Documented By: ARIANNA Fentanyl/Bupivacaine/Sodium Chlor (Fentanyl 2 Mcg/Ml Bupivacaine 0.125%-Nss 100ml Bag) 100 ml EPI PRN PRN; Protocol PRN Reason: Pain Stop: 07/26/25 09:28 Last Admin: 07/13/25 08:40 Dose: 100 ml Documented By: ARIANNA Co-signed By: NIYA Admin: 07/12/25 17:06 Dose: 100 ml Documented By: SCOTTY Co-signed By: FAITH Hydromorphone HCl (Hydromorphone Inj 0.5 Mg/0.5 Ml Syr) 0.5 mg IV Q6H PRN PRN Reason: Breakthrough Pain Stop: 07/26/25 09:28 Last Admin: 07/13/25 14:38 Dose: 0.5 mg Documented By: ARIANNA Sodium Chloride (Nss) 1,000 mls @ 15 mls/hr IV .Q24H ERROL Stop: 07/15/25 09:29 Last Admin: 07/13/25 08:09 Dose: Not Given Documented By: Admin: 07/12/25 17:46 Dose: Not Given Documented By: FAITH Pantoprazole Sodium (Protonix) 40 mg in 10 mls @ 5 mls/min IV DAILY [facility] Stop: 07/17/25 08:59 Last Admin: 07/13/25 08:07 Dose: 5 mls/min Documented By: ARIANNA Lactated Ringer's (Lr) 1,000 mls @ 80 mls/hr IV .[id number] [facility] Stop: 07/15/25 17:14 Last Admin: 07/13/25 17:07 Dose: 80 mls/hr Documented By: Infusion: 07/13/25 17:07 Dose: Infused Documented By: Admin: 07/13/25 04:58 Dose: 80 mls/hr Documented By: Infusion: 07/13/25 04:58 Dose: Infused Documented By: Admin: 07/12/25 17:15 Dose: 80 mls/hr Documented By: FAITH Insulin Aspart (Insulin Aspart Per Unit Charge) 0 units SC Q6 [facility] Stop: 08/12/25 11:59 Last Admin: 07/13/25 17:07 Dose: Not Given Documented By: Admin: 07/13/25 12:14 Dose: Not Given Documented By: ARIANNA Metoprolol Tartrate (Metoprolol Tartrate 1 Mg/Ml Vial) 5 mg IV Q12H [facility] Stop: 08/12/25 14:14 Last Admin: 07/13/25 14:37 Dose: 5 mg Documented By: ARIANNA Miscellaneous (Icu Electrolyte Replacement Protocol) 1 each N/A BID@06,18 [facility]; Protocol Stop: 07/19/25 17:59 Last Admin: 07/13/25 14:58 Dose: Not Given Documented By: Admin: 07/13/25 05:40 Dose: 1 each Documented By: Admin: 07/12/25 18:40 Dose: Not Given Documented By: FAITH Morphine Sulfate (Morphine Sulfate 2 Mg/Ml Carp) 2 mg IV Q2H PRN PRN Reason: Breakthrough Pain Stop: 07/26/25 09:28 Last Admin: 07/13/25 17:18 Dose: 2 mg Documented By: Admin: 07/13/25 11:56 Dose: 2 mg Documented By: Admin: 07/13/25 08:36 Dose: 2 mg Documented By: ARIANNA Ondansetron HCl (Ondansetron Inj 2 Mg/Ml 2 Ml Vial) 4 mg IV Q6H PRN PRN Reason: Nausea And Vomiting Stop: 08/11/25 09:28 Last Admin: 07/13/25 14:38 Dose: 4 mg Documented By: Admin: 07/13/25 08:07 Dose: 4 mg Documented By: Admin: 07/12/25 20:08 Dose: 4 mg Documented By: SAUMYA
[2025-07-14 04:44] LABS: Hematocrit (blood only) 28.0 % (37.0-47.0); Hemoglobin 9.3 g/dl (12.0-16.0); Immature Granulocytes # (auto) 0.05 K/uL (0.01-0.20); Immature Granulocytes % (auto) 0.4 %; Mean Corpuscular Hemoglobin 28.7 pg (25.0-34.0); Mean Corpuscular Volume 86.4 fL (80.0-100.0); Platelet Count 155 K/uL (130-400); RDW Standard Deviation 41.6 fL (36.4-46.3); Red Blood Count 3.24 M/uL (4.20-5.40); White Blood Count 12.88 K/ul (4.8-10.8)
[2025-07-14 04:59] LABS: Anion Gap 6.0 (3-11); Blood Urea Nitrogen 19.0 mg/dl (6-23); Calcium 8.3 mg/dl (8.6-10.3); Carbon Dioxide 25.0 mmol/L (21-32); Chloride 106.0 mmol/L (98-107); Creatinine Clr Calc Pharmacy 45.5 ml/min; Glucose 137.0 mg/dl (70-99(Fasting)); Magnesium 2.0 mg/dl (1.7-2.4); Potassium 4.4 mmol/L (3.5-5.1); Sodium 137.0 mmol/L (136-145)
[2025-07-14] MEDS ORDERED: MAGNESIUM OXIDE 400 MG TAB PO SCH (05:30)
[2025-07-14] MEDS ORDERED: Nursing to Pharmacy Communication SCH (05:30)
[2025-07-14] MEDS: MAGNESIUM SULFATE / D5W 1 GM/100 ML BAG IV SCH (06:17)
--- NOTE | 2025-07-14 07:25 | Vascular Surgery Progress Note ---
Date of Service July 14, 2025 Assessment & Plan (1) PAD (peripheral artery disease): Plan: Overall satisfactory progress POD2 from [id number] bypass. Would keep epidural one more day given her ongoing use of [employer]. Continue Yuen while epidural is in. OOB to chair today would be good. Continue NPO. Creatinine rise is starting to plateau. Continue gentle hydration. Continue IVF. Beta natalie therapy to bring HR below 100 and preferably into the 80s Continue arterial line/CVL for now. Appreciate ICU care. Continue ICU while epidural/a-line in. Admission and Anticipated Discharge Date Admission Date: July 12, 2025 Subjective Awake. Alert. More comfortable than yesterday. Some nausea, no vomiting. Still with right leg numbness but able to wiggle toes/normal sensation. Physical Exam Physical Exam: P105s BP 120/70. U/O 30-50/hr Abdomen soft. Dressing dry. Multiphasic PT signals bilaterally. Results & Data Vital Signs (Past 12 Hours) Vital Signs Temp Pulse Resp BP Pulse Ox 07/14/25 06:03 109 H 19 91 07/14/25 06:00 124/79 07/14/25 05:57 112 H 19 91 07/14/25 05:00 115/74 07/14/25 05:00 111 H 23 07/14/25 04:00 130/84 07/14/25 04:00 112 H 18 07/14/25 03:09 111 H 19 91 07/14/25 03:00 133/76 07/14/25 02:51 112 H 26 H 92 07/14/25 02:25 113 H 121/75 07/14/25 02:03 111 H 21 90 07/14/25 02:00 121/75 07/14/25 02:00 36.7 C 07/14/25 01:45 113 H 15 90 07/14/25 01:09 114 H 23 89 L 07/14/25 00:00 120/70 07/14/25 00:00 110 H 24 07/13/25 23:30 109 H 07/13/25 23:00 109/66 07/13/25 23:00 109 H 21 07/13/25 22:12 111 H 24 91 07/13/25 22:00 117/72 07/13/25 21:54 109 H 22 91 07/13/25 21:09 108 H 26 H 91 07/13/25 21:00 123/73 07/13/25 20:48 105 H 23 93 07/13/25 20:03 105 H 20 93 07/13/25 20:00 120/73 07/13/25 20:00 36.8 C 07/13/25 19:48 103 H 23 93 PG Care Time/CCT Total # of Minutes Spent Total Time Spent with Patient: Total time spent is greater than 50% in coordination of care (as documented) at patient's floor/unit and/or counseling patient:
--- NOTE | 2025-07-14 08:22 | Communication Note ---
Date of Service: July 14, 2025 Dr Mcgrath asked the epidural be stopped for a few hours to evaluate the right leg numbness. epidural stopped at 820. can be restarted at 1220 after reev aluation.
[2025-07-14] MEDS: LANTUS PER UNIT CHARGE SC SCH (08:35)
--- NOTE | 2025-07-14 09:17 | Anesthesiology Progress Note ---
Date of Service July 14, 2025 Assessment & Plan (1) Epidural anesthesia catheter present: Plan Thoracic Epidural paused per surgeon request, will evaluate leg numbness later today and resume if indicated. Current plan to pull epidural tomorrow morning. Instructed nursing to hold lovenox dose on 07/15 until 4 hours post epidural removal. Admission and Anticipated Discharge Date Admission Date: July 12, 2025 Subjective Patient reporting pain feeling much better, has lower extremity numbness predominately on R side. Surgeon contacted anesthesia team requesting epidural be paused d/t leg numbness in order to exclude epidural hematoma. Of note, no back pain noted per patient. Epidural paused, will re-evaluate. Review of Systems Review of Systems: All systems reviewed & are unremarkable except as noted in HPI & below Constitutional: no fever and no chills Respiratory: no cough, no chest congestion, no dyspnea and no dyspnea on exertion Cardiovascular: no chest pain and no chest pain with activity Gastrointestinal: no nausea and no vomiting Hematologic / Lymphatic: no easy bleeding and no coagulopathy Physical Exam Vital Signs: Last Vital Signs Temp 98.1 F 07/14/25 02:00 Pulse 109 H 07/14/25 08:00 Resp 19 07/14/25 06:03 BP 124/79 07/14/25 06:00 Pulse Ox 91 07/14/25 06:03 O2 Del Method Room Air 07/13/25 06:00 O2 Flow Rate 0 07/12/25 15:05 Constitutional: WD/WN, vitals as above well developed; no acute distress Eyes: PERRL, conjunctivae normal, anicteric sclerae Respiratory: normal respiratory effort Cardiovascular: Rate/Rhythm: regular rate and regular rhythm Results & Data ([facility]) Medications Administered Enoxaparin Sodium (Enoxaparin Inj 40 Mg/0.4 Ml Syr) 40 mg SQ DAILY ERROL Stop: 08/12/25 08:59 Last Admin: 07/14/25 08:35 Dose: 40 mg Documented By: Admin: 07/13/25 08:07 Dose: 40 mg Documented By: ES Fentanyl/Bupivacaine/Sodium Chlor (Fentanyl 2 Mcg/Ml Bupivacaine 0.125%-Nss 100ml Bag) 100 ml EPI PRN PRN; Protocol PRN Reason: Pain Stop: 07/26/25 09:28 Last Admin: 07/13/25 22:13 Dose: 100 ml Documented By: LLP Co-signed By: SAUMYA Admin: 07/13/25 08:40 Dose: 100 ml Documented By: ARIANNA Co-signed By: NIYA Admin: 07/12/25 17:06 Dose: 100 ml Documented By: SCOTTY Co-signed By: FAITH Hydromorphone HCl (Hydromorphone Inj 0.5 Mg/0.5 Ml Syr) 0.5 mg IV Q6H PRN PRN Reason: Breakthrough Pain Stop: 07/26/25 09:28 Last Admin: 07/13/25 14:38 Dose: 0.5 mg Documented By: ARIANNA Sodium Chloride (Nss) 1,000 mls @ 15 mls/hr IV .Q24H ERROL Stop: 07/15/25 09:29 Last Admin: 07/13/25 08:09 Dose: Not Given Documented By: Admin: 07/12/25 17:46 Dose: Not Given Documented By: FAITH Pantoprazole Sodium (Protonix) 40 mg in 10 mls @ 5 mls/min IV DAILY ERROL Stop: 07/17/25 08:59 Last Admin: 07/14/25 08:36 Dose: 5 mls/min Documented By: Admin: 07/13/25 08:07 Dose: 5 mls/min Documented By: ARIANNA Lactated Ringer's (Lr) 1,000 mls @ 80 mls/hr IV .[id number] ERROL Stop: 07/15/25 17:14 Last Admin: 07/13/25 22:09 Dose: 80 mls/hr Documented By: Infusion: 07/13/25 22:07 Dose: Infused Documented By: Admin: 07/13/25 17:07 Dose: 80 mls/hr Documented By: Infusion: 07/13/25 17:07 Dose: Infused Documented By: Admin: 07/13/25 04:58 Dose: 80 mls/hr Documented By: Infusion: 07/13/25 04:58 Dose: Infused Documented By: Admin: 07/12/25 17:15 Dose: 80 mls/hr Documented By: FAITH Magnesium Sulfate/Dextrose (Magnesium Sulfate / D5w) 1 gm in 100 mls @ 50 mls/hr IV Q2H ERROL Stop: 07/14/25 09:29 Last Admin: 07/14/25 08:36 Dose: 50 mls/hr Documented By: Infusion: 07/14/25 08:17 Dose: Infused Documented By: Admin: 07/14/25 06:17 Dose: 50 mls/hr Documented By: SAUMYA Insulin Aspart (Insulin Aspart Per Unit Charge) 0 units SC Q6 ERROL Stop: 08/12/25 11:59 Last Admin: 07/14/25 05:38 Dose: Not Given Documented By: Admin: 07/14/25 00:30 Dose: Not Given Documented By: Admin: 07/13/25 17:07 Dose: Not Given Documented By: Admin: 07/13/25 12:14 Dose: Not Given Documented By: ARIANNA Insulin Glargine (Lantus Per Unit Charge) 15 units SC QAM [facility] Stop: 08/13/25 08:59 Last Admin: 07/14/25 08:35 Dose: 15 units Documented By: MARÍA Co-signed By: ASUNCION Miscellaneous (Icu Electrolyte Replacement Protocol) 1 each N/A BID@ [facility]; Protocol Stop: 07/19/25 17:59 Last Admin: 07/14/25 06:18 Dose: 1 each Documented By: Admin: 07/13/25 14:58 Dose: Not Given Documented By: Admin: 07/13/25 05:40 Dose: 1 each Documented By: Admin: 07/12/25 18:40 Dose: Not Given Documented By: FAITH Morphine Sulfate (Morphine Sulfate 2 Mg/Ml Carp) 2 mg IV Q2H PRN PRN Reason: Breakthrough Pain Stop: 07/26/25 09:28 Last Admin: 07/14/25 08:44 Dose: 2 mg Documented By: Admin: 07/14/25 00:55 Dose: 2 mg Documented By: Admin: 07/13/25 22:34 Dose: 2 mg Documented By: Admin: 07/13/25 17:18 Dose: 2 mg Documented By: Admin: 07/13/25 11:56 Dose: 2 mg Documented By: Admin: 07/13/25 08:36 Dose: 2 mg Documented By: ARIANNA Ondansetron HCl (Ondansetron Inj 2 Mg/Ml 2 Ml Vial) 4 mg IV Q6H PRN PRN Reason: Nausea And Vomiting Stop: 08/11/25 09:28 Last Admin: 07/13/25 14:38 Dose: 4 mg Documented By: Admin: 07/13/25 08:07 Dose: 4 mg Documented By: Admin: 07/12/25 20:08 Dose: 4 mg Documented By: SAUMYA
[2025-07-14] MEDS: METOPROLOL TARTRATE 1 MG/ML VIAL IV SCH (11:29)
--- NOTE | 2025-07-14 11:48 | Critical Care Progress Note ---
Date of Service July 14, 2025 Assessment & Plan (1) PAD (peripheral artery disease): (2) Status post laparotomy: (3) Tobacco abuse: (4) Type II diabetes mellitus with neurological manifestations: (5) Hypotension: (6) Anemia: Plan 49-year-old female with a history of tobacco abuse, type 2 diabetes mellitus, peripheral artery disease and severe claudication who presented for elective aortofemoral bypass. She underwent an open laparotomy on 07/12/25 and is postop day 1. Neurologic: Pain control per anesthesia services and vascular surgery team. Monitor mental status closely. Delirium precautions. Pulmonary: Patient with history of tobacco abuse. Monitor for signs of COPD exacerbation. Nebs as needed. CXR on 07/04/2025 there is a small amount of pleural effusion on the right/atelectasis. Will continue to monitor. Cardiovascular: Maintain mean arterial pressure above 65 mmHg. Patient likely with anesthesia induced hypertension. Bolus as needed with crystalloids and transfuse blood to maintain hemoglobin at adequate levels depending on hemodynamic status. Frequent neurovascular bundle checks. Patient on LR @ 80ml/hr. Gastrointestinal: NG tube removed on 07/12/25 due to irritation and gagging. Patient is high risk for likely ileus. Monitor electrolytes closely and maintain mag above 2 and potassium above 4. Stool softeners and motility agents per vascular surgery team when able to take p.o. Renal: Monitor urine output closely via Yuen catheter. Improved to 0.71ml/kg/hr. Creatinine slight increase this am. Continue to follow. Infectious disease: Patient received cefazolin during perisurgical period. Hematologic: Monitor for active signs of bleeding. Transfuse hemoglobin as indicated by hemodynamics. Endocrine: Maintain euglycemia. Pharmacy consulted for hyperglycemia protocol. Lines and tubes: Right IJ 07/12/2025. Radial arterial line 07/12/2025 and Yuen catheter 07/12/2025. Plan to discontinue invasive lines on 07/15/2025. VTE prophylaxis: Lovenox 40 mg daily. On hold after this am dose with plan to d/c epidural tomorrow am. Can restart 4hrs after epidural removed. CODE STATUS: Full Family at bedside: No available bedside Disposition: ICU 38 minutes is the time spent reviewing the chart, performing the physical exam, and updating the patient and coordinating with the surgical team and bedside nurse. Admission and Anticipated Discharge Date Admission Date: July 12, 2025 Subjective Patient improved this am still with pain but better than yesterday. Patient remains tachycardic and was started on metoprolol which was increased this am. Epidural paused to assess numbness or right lower extremity which on follow assessment is improved but not back to normal. Will continue to monitor and restart epidural once leg is back to baseline. Creatinine with slight increase this am but urine output has picked up to 0.71ml/kg/hr. Review of Systems 2 Review of Systems: All systems reviewed & are unremarkable except as noted in HPI & below Physical Exam 2 Physical Exam: VITALS: Reviewed. WEIGHT/BMI reviewed. GEN: Stated age appearing, well-developed, NAD. PSYCH: Good Judgment. AOx3. Normal memory, mood, and affect. HEENT -Head: NC/AT; -Eyes: PERRL, EOMI. No discharge or redn ess; -Ears: External ears are normal. -Nose: Normal nares. NECK: Supple, with no masses. CV: RRR, no m/r/g. LUNGS: CTAB, no w/r/c. ABD: Soft, tender to light palpation and complaining of spasms. Hypoactive bowel sounds. : N/A SKIN: Warm, well perfused. No skin rashes or abnormal lesions. MSK: No deformities, Normal gait. EXT: No clubbing, cyanosis, or edema. Dopplerable posterior tibials in bilateral lower extremities. NEURO: Normal muscle strength and tone. No focal deficits. Results & Data Results & Data Vital Signs (Past 12 Hours) Vital Signs Temp Pulse Resp BP Pulse Ox O2 Del Method 07/14/25 11:29 109 H 133/68 07/14/25 09:03 111 H 19 92 07/14/25 09:00 115/64 07/14/25 09:00 115/64 07/14/25 09:00 115/64 07/14/25 08:42 114 H 22 94 07/14/25 08:09 115 H 17 91 07/14/25 08:00 36.8 C 07/14/25 08:00 117/70 07/14/25 08:00 109 H 07/14/25 08:00 115 H 07/14/25 07:00 115 H 24 92 Room Air 07/14/25 07:00 133/78 07/14/25 06:03 109 H 19 91 07/14/25 06:00 124/79 07/14/25 05:57 112 H 19 91 07/14/25 05:00 115/74 07/14/25 05:00 111 H 23 07/14/25 04:00 130/84 07/14/25 04:00 112 H 18 07/14/25 03:09 111 H 19 91 07/14/25 03:00 133/76 07/14/25 02:51 112 H 26 H 92 07/14/25 02:25 113 H 121/75 07/14/25 02:03 111 H 21 90 07/14/25 02:00 121/75 07/14/25 02:00 36.7 C 07/14/25 01:45 113 H 15 90 07/14/25 01:09 114 H 23 89 L 07/14/25 00:00 120/70 07/14/25 00:00 110 H 24 Laboratory Results 07/14/25 04:09 07/14/25 04:09 Abnormal Lab Results 07/12/25 07/13/25 07/13/25 06:07 11:59 17:03 WBC RBC Hgb Hct MCV MCH MCHC RDW Std Deviation RDW Coeff of Bishop Plt Count MPV Immature Gran % (Auto) Neut % (Auto) Lymph % (Auto) Hitchcock % (Auto) Eos % (Auto) Baso % (Auto) Neut # (Auto) Lymph # (Auto) Hitchcock # (Auto) Eos # (Auto) Baso # (Auto) Immature Gran # (Auto) Sodium Potassium Chloride Carbon Dioxide Anion Gap BUN Creatinine Est Cr Clr Drug Dosing eGFR BUN/Creatinine Ratio Glucose POC Glucose 118 H 144 H Calcium Phosphorus Magnesium Crossmatch See Detail 07/14/25 07/14/25 07/14/25 00:30 04:09 05:35 WBC 12.88 H RBC 3.24 L Hgb 9.3 L Hct 28.0 L MCV 86.4 MCH 28.7 MCHC 33.2 RDW Std Deviation 41.6 RDW Coeff of Bishop 13.3 Plt Count 155 MPV 10.8 Immature Gran % (Auto) 0.4 Neut % (Auto) 74.9 Lymph % (Auto) 13.9 Hitchcock % (Auto) 10.6 Eos % (Auto) 0.0 Baso % (Auto) 0.2 Neut # (Auto) 9.66 H Lymph # (Auto) 1.79 Hitchcock # (Auto) 1.36 H Eos # (Auto) 0.00 Baso # (Auto) 0.02 Immature Gran # (Auto) 0.05 Sodium 137 Potassium 4.4 Chloride 106 Carbon Dioxide 25 Anion Gap 6 BUN 19 Creatinine 1.39 H Est Cr Clr Drug Dosing 45.5 eGFR 47.10 BUN/Creatinine Ratio 13.7 Glucose 137 H POC Glucose 139 H 134 H Calcium 8.3 L Phosphorus 3.3 Magnesium 2.0 Crossmatch 07/14/25 11:35 WBC RBC Hgb Hct MCV MCH MCHC RDW Std Deviation RDW Coeff of Bishop Plt Count MPV Immature Gran % (Auto) Neut % (Auto) Lymph % (Auto) Hitchcock % (Auto) Eos % (Auto) Baso % (Auto) Neut # (Auto) Lymph # (Auto) Hitchcock # (Auto) Eos # (Auto) Baso # (Auto) Immature Gran # (Auto) Sodium Potassium Chloride Carbon Dioxide Anion Gap BUN Creatinine Est Cr Clr Drug Dosing eGFR BUN/Creatinine Ratio Glucose POC Glucose 131 H Calcium Phosphorus Magnesium Crossmatch Diagnostic Findings -No recent imaging. Coding Level of Care Code 45374 SUB INP/OBS CARE 2/35MIN Diagnoses PAD (peripheral artery disease) I73.9 Status post laparotomy Z98.890 Tobacco abuse Z72.0 Type II diabetes mellitus with neurological manifestations E11.49 Hypotension I95.9 Anemia D64.9
--- NOTE | 2025-07-14 13:32 | Communication Note ---
Date of Service: July 14, 2025 RLE numbness resolving with epidural stopped, no concern for epidural hematoma, OK to resume epidural for pain mgmt.
[2025-07-15 05:59] LABS: Anion Gap 7.0 (3-11); Blood Urea Nitrogen 17.0 mg/dl (6-23); Calcium 8.5 mg/dl (8.6-10.3); Carbon Dioxide 25.0 mmol/L (21-32); Chloride 105.0 mmol/L (98-107); Creatinine Clr Calc Pharmacy 52.4 ml/min; Glucose 85.0 mg/dl (70-99(Fasting)); Magnesium 2.0 mg/dl (1.7-2.4); Potassium 4.6 mmol/L (3.5-5.1); Sodium 137.0 mmol/L (136-145)
--- NOTE | 2025-07-15 06:43 | Anesthesia Procedure Note ---
Date of Service July 15, 2025 Anesthesia Post Epidural Note Vital Signs Vital Signs: Temp Pulse Resp BP Pulse Ox O2 Del Method O2 Flow Rate 36.4 C L 90 18 117/71 100 Room Air 2 07/15/25 03:00 07/15/25 06:31 07/15/25 06:03 07/15/25 06:31 07/15/25 06:03 07/14/25 18:03 07/14/25 15:21 Pain Intensity Right Foot: Pain Intensity: 3 Abdomen: Pain Intensity: 5 Notes Mental Status: alert / awake / arousable and participated in evaluation Nausea / Vomiting: adequately controlled Pain: adequately controlled Airway Patency, RR, SpO2: stable & adequate BP & HR: stable & adequate Hydration State: stable & adequate Neuraxial Anesthesia: was administered and sensory block resolved Anesthetic Complications: no major complications apparent and Pt Satisfied with anesthetic care Epidural: Removed without complications and With tip intact Notes: lovenox was given 07/14 at ~0830 removed >12 hours
--- NOTE | 2025-07-15 07:45 | Vascular Surgery Progress Note ---
Date of Service July 15, 2025 Assessment & Plan (1) PAD (peripheral artery disease): Plan: Doing well s/p aorto-iliac bypass. Remove Yuen/CVL today (has adequate PIV access) OOB to chair, may ambulate with assistance. Sips of clears/ice chips today. OK to give meds (including pain meds) po. Would continue beta blockade as tolerated. Keep in ICU overnight and could go to floor over the weekend. Full weight bearing OK (I have communicated this with Physical Therapy) Admission and Anticipated Discharge Date Admission Date: July 12, 2025 Subjective Doing well this morning and overnight. Epidural out. A-line nonfunctioning and was removed. Having no nausea. Minimal flatus. Overall in much better spirits. Physical Exam Physical Exam: P20 BP 106/73 U/O 200-300/shift Cr 1.2 Abdomen soft, nontender, nondistended. Palpable right PT pulse. Weak left PT pulse - triphasic doppler. Results & Data Vital Signs (Past 12 Hours) Vital Signs Temp Pulse Resp BP Pulse Ox 07/15/25 06:46 81 102/71 07/15/25 06:31 90 117/71 07/15/25 06:03 90 18 100 07/15/25 06:00 117/71 07/15/25 06:00 117/71 07/15/25 05:57 85 18 99 07/15/25 05:09 87 17 98 07/15/25 05:00 105/74 07/15/25 04:45 91 H 21 98 07/15/25 04:06 89 21 98 07/15/25 04:00 107/76 07/15/25 03:51 89 14 98 07/15/25 03:00 92 H 22 98 07/15/25 03:00 101/66 07/15/25 03:00 36.4 C L 07/15/25 02:15 94 H 24 97 07/15/25 02:00 112/68 07/15/25 01:54 89 16 94 07/15/25 01:03 85 18 98 07/15/25 01:00 124/73 07/15/25 00:57 94 H 18 97 07/15/25 00:06 95 H 20 98 07/15/25 00:00 115/66 07/14/25 23:57 85 16 98 07/14/25 23:49 95 H 115/66 07/14/25 23:34 104 H 125/74 07/14/25 23:00 102 H 07/14/25 23:00 104 H 23 100 07/14/25 23:00 125/74 07/14/25 22:00 36.6 C 07/14/25 22:00 98 H 25 H 97 07/14/25 21:00 105/69 07/14/25 21:00 105/69 07/14/25 21:00 95 H 17 90 07/14/25 20:03 96 H 17 90 07/14/25 20:00 117/69 PG Care Time/CCT Total # of Minutes Spent Total Time Spent with Patient: Total time spent is greater than 50% in coordination of care (as documented) at patient's floor/unit and/or counseling patient:
[2025-07-15] MEDS: MAGNESIUM SULFATE / D5W 1 GM/100 ML BAG IV SCH (07:46)
[2025-07-15] MEDS: LANTUS PER UNIT CHARGE SC SCH (08:47)
[2025-07-15] MEDS: ASPIRIN 81 MG ECTAB PO SCH (08:53)
[2025-07-15] MEDS ORDERED: ACETAMINOPHEN 325 MG TAB PO PRN (09:52)
--- NOTE | 2025-07-15 10:07 | Critical Care Progress Note ---
Date of Service July 15, 2025 Assessment & Plan (1) PAD (peripheral artery disease): (2) Status post laparotomy: (3) Tobacco abuse: (4) Type II diabetes mellitus with neurological manifestations: (5) Hypotension: (6) Anemia: Plan 49-year-old female with a history of tobacco abuse, type 2 diabetes mellitus, peripheral artery disease and severe claudication who presented for elective aortofemoral bypass. She underwent an open laparotomy on 07/12/25 and is postop day 3. Neurologic: Epidural discontinued. Will add Tylenol every 8 hours and oxycodone 5 mg every 4 hours. Can always add IV opiate pain medications later if required. Pulmonary: Patient with history of tobacco abuse. Monitor for signs of COPD exacerbation. Nebs as needed. CXR on 07/04/2025 there is a small amount of pleural effusion on the right/atelectasis. Will continue to monitor. Oxygenation improved. Continue incentive spirometer and flutter as able. Cardiovascular: Maintain mean arterial pressure above 65 mmHg. Transition IV metoprolol to p.o. as patient able to take p.o. now. Will start 25 mg p.o. metoprolol tartrate twice daily. Aspirin started by vascular surgical team. Gastrointestinal: Patient starting clear diet today. Monitor for signs of ileus. Consider addition of stool softeners. Deferred to surgical service. Renal: Creatinine and urine output improving. Electrolytes being replaced. Infectious disease: Patient received cefazolin during perisurgical period. Hematologic: Monitor for active signs of bleeding. Transfuse hemoglobin as indicated by hemodynamics. Hemoglobin stable. Endocrine: Maintain euglycemia. Pharmacy consulted for hyperglycemia protocol. Lines and tubes: Invasive lines to be discontinued today. VTE prophylaxis: Patient mobile. SCDs when laying in bed. CODE STATUS: Full Family at bedside: No available bedside Disposition: Possible downgrade later today to PCU. 40 minutes is the time spent reviewing the chart, performing the physical exam, and updating the patient and coordinating with the surgical team and bedside nurse. Admission and Anticipated Discharge Date Admission Date: July 12, 2025 Subjective Epidural discontinued by anesthesiology. Patient doing well hemodynamically and from a respiratory standpoint. No significant issues. Discussed on multidisciplinary rounds. Review of Systems Review of Systems: All systems reviewed & are unremarkable except as noted in HPI & below Physical Exam Physical Exam: VITALS: Reviewed. WEIGHT/BMI reviewed. GEN: Stated age appearing, well-developed, NAD. PSYCH: Good Judgment. AOx3. Normal memory, mood, and affect. HEENT -Head: NC/AT; -Eyes: PERRL, EOMI. No discharge or redn ess; -Ears: External ears are normal. -Nose: Normal nares. NECK: Supple, with no masses. CV: RRR, no m/r/g. LUNGS: CTAB, no w/r/c. ABD: Soft, tender to light palpation and complaining of spasms. Hypoactive bowel sounds. : N/A SKIN: Warm, well perfused. No skin rashes or abnormal lesions. MSK: No deformities, Normal gait. EXT: No clubbing, cyanosis, or edema. Dopplerable posterior tibials in bilateral lower extremities. NEURO: Normal muscle strength and tone. No focal deficits. Results & Data Results & Data Vital Signs (Past 12 Hours) Vital Signs Temp Pulse Resp BP Pulse Ox 07/15/25 09:00 118/78 07/15/25 08:54 98 H 16 99 07/15/25 08:06 92 H 17 98 07/15/25 08:00 129/82 07/15/25 08:00 129/82 07/15/25 08:00 93 H 07/15/25 07:00 80 18 98 07/15/25 07:00 106/73 07/15/25 06:58 102/71 07/15/25 06:48 92 H 18 99 07/15/25 06:46 81 102/71 07/15/25 06:31 90 117/71 07/15/25 06:03 90 18 100 07/15/25 06:00 117/71 07/15/25 06:00 117/71 07/15/25 05:57 85 18 99 07/15/25 05:09 87 17 98 07/15/25 05:00 105/74 07/15/25 04:45 91 H 21 98 07/15/25 04:06 89 21 98 07/15/25 04:00 107/76 07/15/25 03:51 89 14 98 07/15/25 03:00 92 H 22 98 07/15/25 03:00 101/66 07/15/25 03:00 36.4 C L 07/15/25 02:15 94 H 24 97 07/15/25 02:00 112/68 07/15/25 01:54 89 16 94 07/15/25 01:03 85 18 98 07/15/25 01:00 124/73 07/15/25 00:57 94 H 18 97 07/15/25 00:06 95 H 20 98 07/15/25 00:00 115/66 07/14/25 23:57 85 16 98 07/14/25 23:49 95 H 115/66 07/14/25 23:34 104 H 125/74 07/14/25 23:00 102 H 07/14/25 23:00 104 H 23 100 07/14/25 23:00 125/74 Coding Level of Care Code 47632 SUB INP/OBS CARE 235MIN Diagnoses PAD (peripheral artery disease) I73.9 Status post laparotomy Z98.890 Tobacco abuse Z72.0 Type II diabetes mellitus with neurological manifestations E11.49 Hypotension I95.9 Anemia D64.9
[2025-07-15] MEDS: METOPROLOL TARTRATE 25 MG TAB PO SCH (10:12)
[2025-07-15] MEDS: INSULIN ASPART PER UNIT CHARGE SC SCH (12:25)
[2025-07-15] MEDS: MoRPHine SULFATE 2 MG/ML CARP ONE (13:04)
--- NOTE | 2025-07-15 13:15 | Pharmacy Report ---
Pharmacy Glycemic Short Note 2 - Date of Service July 15, 2025 - Glycemic Short BSG Results (Last 24 hours): 07/14/25 07/14/25 07/15/25 17:47 23:43 05:23 Glucose 85 POC Glucose 123 H 100 H 07/15/25 11:27 Glucose POC Glucose 181 H OUTPATIENT ANTIDIABETIC REGIMEN: * Insulin glargin 20 units qAM, metformin 1500 mg qPM, 500mg qAM * A1c 12.5% 06/19/25 ASSESSMENT: 07/15 * BSGs [id number] mg/dL with 15 units of basal while NPO * Fasting this morning 85 mg/dL, did reduce lantus this AM * Diet advanced to clears with breakfast, monitor BSG trend with start of diet 07/13 * Patient s/p aortobiiliac bypass. Started on insulin infusion overnight for BSG in the 300s * BSGs have trended down and now consulted for transition off of insulin infusion * Patient will remain NPO for now. Insulin infusion has been running between 1.2 - 2 units/hr, at 1.6 units/hr at time of transition * Will transition with 15 units x 1. Start novolog with parameters similar to previous admission. PLAN FOR INPATIENT GLYCEMIC CONTROL: * Hold outpatient oral diabetes medications * Basal insulin * Lantus 10 units qAM * Bolus insulin * NovoLog per scale ACHS or Q6hrs while NPO * Goal Range: Low 110 mg/dL - High 160 mg/dL * Correction Factor: 35 mg/dL/unit * Nutritional / Prandial insulin per carb ratio of 1 unit per 9 grams CHO consumed
[2025-07-16 05:43] LABS: Anion Gap 6.0 (3-11); Blood Urea Nitrogen 14.0 mg/dl (6-23); Calcium 8.4 mg/dl (8.6-10.3); Carbon Dioxide 27.0 mmol/L (21-32); Chloride 104.0 mmol/L (98-107); Creatinine Clr Calc Pharmacy 63.5 ml/min; Glucose 105.0 mg/dl (70-99(Fasting)); Magnesium 1.9 mg/dl (1.7-2.4); Potassium 4.2 mmol/L (3.5-5.1); Sodium 137.0 mmol/L (136-145)
[2025-07-16] MEDS: MAGNESIUM OXIDE 400 MG TAB PO SCH (06:28)
--- NOTE | 2025-07-16 07:43 | Vascular Surgery Progress Note ---
Date of Service July 16, 2025 Assessment & Plan (1) PAD (peripheral artery disease): Plan: Satisfactory progress POD4 from aorto-iliac bypass. Creatinine back to baseline. Can go to floor from ICU from my perspective. Discussed with hospitalist service yesterday. OK to advance diet as tolerated. Ambulate with assistance/PT. No weight bearing restrictions. Can give all meds po. Would give prn IV morphine as needed for breakthrough pain although she has not required any overnight. Discharge planning - rehab vs home with VNA/home PT depending on how she does with ambulation over the weekend. Call/text with any questions. Admission and Anticipated Discharge Date Admission Date: July 12, 2025 Subjective Doing well. Sitting up in bed. Tolerating clear liquids without nausea/vomiting. Physical Exam Physical Exam: P70s BP 125/73. Abdomen soft, NT, ND. No flatus. Good signals in feet bilaterally. Toes dry. No pain. Results & Data Vital Signs (Past 12 Hours) Vital Signs Temp Pulse Resp BP Pulse Ox O2 Del Method O2 Flow Rate 07/16/25 06:12 74 14 100 Nasal Cannula 2 07/16/25 06:00 105/69 07/16/25 05:54 76 9 L 100 07/16/25 05:08 82 27 H 97 07/16/25 05:07 141/94 H 07/16/25 05:07 141/94 H 07/16/25 04:45 78 13 99 Nasal Cannula 2 07/16/25 04:29 36.8 C 72 14 95/65 L 98 Nasal Cannula 2 07/16/25 04:12 73 12 98 Nasal Cannula 2 07/16/25 04:00 95/65 L 07/16/25 03:54 82 15 98 Nasal Cannula 2 07/16/25 03:00 36.5 C 79 22 97/66 L 98 Nasal Cannula 2 07/16/25 02:00 74 14 113/69 99 Nasal Cannula 2 07/16/25 01:00 72 15 93/59 L 97 Nasal Cannula 2 07/16/25 00:00 75 13 106/76 97 Nasal Cannula 2 07/16/25 00:00 77 07/15/25 23:00 80 16 124/67 100 Nasal Cannula 2 07/15/25 22:00 36.6 C 78 18 101/73 99 Nasal Cannula 2 07/15/25 21:00 78 19 114/76 99 Nasal Cannula 2 07/15/25 20:39 77 07/15/25 20:12 76 116/75 100 Nasal Cannula 2 07/15/25 20:12 78 116/75 07/15/25 20:00 99/63 L 07/15/25 19:57 77 13 99 PG Care Time/CCT Total # of Minutes Spent Total Time Spent with Patient: Total time spent is greater than 50% in coordination of care (as documented) at patient's floor/unit and/or counseling patient:
[2025-07-16] MEDS: ATORVASTATIN 40 MG TAB PO SCH (08:28)
--- NOTE | 2025-07-16 11:39 | Hospitalist Progress Note ---
Date of Service July 16, 2025 Assessment & Plan (1) PAD (peripheral artery disease): Plan: Etiology of PAD is most probably due to 30 pack year history of tobacco abuse, which concluded on 06/26/2025 as per patient's report. Patient presented to [facility] ER on 07/12/2025 with complaints of progressive, intermittent claudication of the bilateral lower extremities and rest pain. Patient subsequently underwent aortic bi-iliac bypass grafting (07/12/2025, 8:00am) with Vascular Surgeon Dr. Scooby Benton. Patient tolerated this procedure very well and now receives secondary prophylaxis against PAD utilizing ASA 81mg PO daily and atorvastatin 40mg PO qam. Patient awaits anticipated D/C to [facility] on Friday (07/18/2025) pending coordination with Case Management Service, which has already submitted a referral to [facility]. (2) Type II diabetes mellitus with neurological manifestations: Plan: Long-term glycemic control is poor with HbA1c 12.5% (06/19/2025, 7:20am), and which is most likely an underestimate of patient's true HbA1c level. The reason that the patient's HbA1c 12.5% (06/19/2025, 7:20am) is an underestimate of patient's true HbA1c level is because this patient also suffers from chronic normocytic, normochromic anemia with a baseline Hb range of 11.3 g/dL (12/07/2019, 7:04am) to 9.0 g/dL (06/20/2023, 7:35am). cf., Hb 11.9 g/dL, MCV 84.6, MCHC 32.9 (07/12/2025, 4:16pm). cf., Hb 10.3 g/dL, MCV 83.5, MCHC 35.0 (07/13/2025, 4:45am). cf., Hb 9.3 g/dL, MCV 86.4, MCHC 33.2 (07/14/2025, 4:09am). In anemic states, increased RBC turnover leads to concomitant reductions in both Hb and HbA1c levels. In non-anemic states, the lack of increased RBC turnover does not affect HbA1c levels. Hence, attention turns towards serum glucose levels: cf., glucose 304 mg/dL (07/12/2025, time unknown). cf., glucose 201 mg/dL (07/13/2025, 4:45am). cf., glucose 137 mg/dL (07/14/2025, 4:09am). cf., glucose 85 mg/dL (07/15/2025, 5:23am). cf., glucose 105 mg/dL (07/16/2025, 4:43am). Continue carbohydrate consistent diet, lantus 10 units SQ qam, aspart insulin sliding scale qac + qhs, and POC glucose qac + qhs while patient remains in [facility]. (3) HLD (hyperlipidemia): Plan: As stated in bullet #1 above, patient continues to receive secondary prophylaxis against PAD utilizing ASA 81mg PO daily and atorvastatin 40mg PO qam. (4) Hx of smoking: Plan: Patient reports that she has not been diagnosed with COPD and does not utilize oxygen or steroids at home. Patient continues to breathe comfortably on room air with RR 18 breaths/minute and O2 saat 94% on room air (07/16/2025, 10:06am). Plan Anticipate D/C to [facility] on 07/18/2025 pending coordination with Case Management Service, which has already submitted a referral to [facility]. Admission and Anticipated Discharge Date Admission Date: July 12, 2025 Anticipated date of discharge: 07/18/25 Subjective "I feel fine. No problems. I have much less pain in my legs after the bypass surgery (e.g., [id number] bypass on 07/12/2025, 8:00am, Vascular Surgeon Dr. Scooby Benton); the pain is now a 2 (out of 10 pain). Before the surgery, the pain was a 10 (out of 10 pain) in my legs at rest." Review of Systems Constitutional: Negative for antecedent/coincident fevers, chills, diaphoresis, cough, wheeze, sore throat, hemoptysis, shortness of breath, dyspnea on exertion, chest pains, palpitations, pleurisy, nausea, vomiting, diarrhea, abdominal pain, pelvic pain, hematemesis, hematochezia, melena, hematuria, dysuria, frequency, urgency, flank pain, headaches, dizziness, lightheadedness, visual changes, hearing changes, weakness, falls, syncope, trauma, travel history, sick contacts, or food/drug ingestions novel or new. All other review of systems are reported as negative by the patient on 07/16/2025. Physical Exam Constitutional: General: Comfortable, cooperative, coherent. Wide awake and alert. Not confused, lethargic, or obtunded. Patient speaks in complete, fluent, and articulate sentences without pause, interruption, cough, or wheeze. HEENT: Normocephalic, atraumatic. Extra-ocular muscles intact. Pupils equally round and reactive to light. No nystagmus, gaze paresis, anisocoria, miosis, mydriasis, hyphema, chemosis, scleral injection, conjunctivitis, or pterygium. No otorrhea or rhinorrhea. No pharyngeal discharge or exudate. Neck: Supple, no stridor or bruit. Jugular venous pressure is estimated to be 3 cm above the sternal angle of Miguel, which is, by definition, 5 cm above the level of the right atrium. Hence, jugular venous pressure of 8 cm is not elevated on 07/16/2025. Lymphatics: No anterior/posterior cervical, infraclavicular, supraclavicular, axillary, epitrochlear, or inguinal adenopathy. Chest: Symmetric rise and fall with respirations. Non-tender to palpation. Lungs: Clear to auscultation and percussion. No audible expiratory wheeze, egophony, pectoriloquy, increase in tactile fremitus, or flatness/dullness to percussion at the bases. Heart: Regular rate and rhythm. S1 and S2 noted. No S3 or S4 summation gallop. No tripartite friction rub. Grade II/ early systolic murmur at left lower sternal border without radiation to the carotids, axilla, or back, and which remains invariant in regards to the respiratory cycle. Abdomen: Soft, non-tender, non-distended. No rebound, guarding, Real's sign, or organomegaly. Bowel sounds auscultated in all 4 quadrants. Extremities: No clubbing, cyanosis, or edema. 2+ pedal pulses bilaterally. Skin: No decubitus ulcer, exanthem, or enanthem. Urology: No carmona catheter. No purewick. No urethral discharge. Neurology: No myoclonus, tremors, or tics. Psychiatry: No flat affect. No monotone voice. Smiles appropriately. Results & Data Results & Data Vital Signs (Past 12 Hours) Vital Signs Temp Pulse Resp BP Pulse Ox O2 Del Method O2 Flow Rate 07/16/25 10:06 71 18 94 Room Air 07/16/25 10:00 103/66 07/16/25 10:00 Room Air 07/16/25 09:48 68 14 97 07/16/25 09:03 71 15 93 Room Air 07/16/25 09:01 93/59 L 07/16/25 08:57 74 10 L 93 07/16/25 08:42 143/78 H 07/16/25 08:30 76 22 99 07/16/25 08:00 75 07/16/25 08:00 73 16 100 07/16/25 08:00 36.6 C 07/16/25 07:00 81 14 100 07/16/25 07:00 125/73 07/16/25 07:00 125/73 07/16/25 06:12 74 14 100 Nasal Cannula 2 07/16/25 06:00 105/69 07/16/25 05:54 76 9 L 100 07/16/25 05:08 82 27 H 97 07/16/25 05:07 141/94 H 07/16/25 05:07 141/94 H 07/16/25 04:45 78 13 99 Nasal Cannula 2 07/16/25 04:29 36.8 C 72 14 95/65 L 98 Nasal Cannula 2 07/16/25 04:12 73 12 98 Nasal Cannula 2 07/16/25 04:00 95/65 L 07/16/25 03:54 82 15 98 Nasal Cannula 2 07/16/25 03:00 36.5 C 79 22 97/66 L 98 Nasal Cannula 2 07/16/25 02:00 74 14 113/69 99 Nasal Cannula 2 07/16/25 01:00 72 15 93/59 L 97 Nasal Cannula 2 07/16/25 00:00 75 13 106/76 97 Nasal Cannula 2 07/16/25 00:00 77 Laboratory Results Abnormal lab results 07/15/25 07/15/25 07/16/25 Range/Units 16:04 20:11 04:43 Glucose 105 H (70-99(Fasting)) mg/dl POC Glucose 107 H 106 H (70-99) mg/dl Calcium 8.4 L (8.6-10.3) mg/dl 07/16/25 07/16/25 Range/Units 07:15 10:41 Glucose (70-99(Fasting)) mg/dl POC Glucose 102 H 179 H (70-99) mg/dl Calcium (8.6-10.3) mg/dl PG Care Time/CCT Total # of Minutes Spent Total Time Spent with Patient: Total time spent is greater than 50% in coordination of care (as documented) at patient's floor/unit and/or counseling patient: Coding Level of Care Code 48622 SUB INP/OBS CARE 2MIN Diagnoses PAD (peripheral artery disease) I73.9 Type II diabetes mellitus with neurological manifestations E11.49 Hyperlipidemia, unspecified hyperlipidemia type E78.5 Hyperlipidemia type: unspecified Hx of smoking Z87.891 (3) HLD (hyperlipidemia) Hyperlipidemia type: unspecified Qualified Code(s): E78.5 - Hyperlipidemia, unspecified
[2025-07-16] MEDS: MoRPHine SULFATE 2 MG/ML CARP IV PRN (14:16)
[2025-07-17 07:58] VITALS: RESP 16
[2025-07-17 08:12] LABS: Anion Gap 7.0 (3-11); Blood Urea Nitrogen 17.0 mg/dl (6-23); Calcium 8.3 mg/dl (8.6-10.3); Carbon Dioxide 29.0 mmol/L (21-32); Chloride 104.0 mmol/L (98-107); Creatinine Clr Calc Pharmacy 54.7 ml/min; Glucose 105.0 mg/dl (70-99(Fasting)); Magnesium 1.7 mg/dl (1.7-2.4); Potassium 3.7 mmol/L (3.5-5.1); Sodium 140.0 mmol/L (136-145)
--- NOTE | 2025-07-17 21:04 | Hospitalist Progress Note ---
Date of Service July 17, 2025 Assessment & Plan (1) PAD (peripheral artery disease): Plan: Etiology of PAD is most probably due to 30 pack year history of tobacco abuse, which concluded on 06/26/2025 as per patient's report. Patient presented to [facility] ER on 07/12/2025 with complaints of progressive, intermittent claudication of the bilateral lower extremities and rest pain. Patient subsequently underwent aortic bi-iliac bypass grafting (07/12/2025, 8:00am) with Vascular Surgeon Dr. Scooby Benton. Patient tolerated this procedure very well and now receives secondary prophylaxis against PAD utilizing ASA 81mg PO daily and atorvastatin 40mg PO qam. Patient awaits anticipated D/C to [facility] on Friday (07/18/2025) pending coordination with Case Management Service of Ms. Ninoska Ruano, and who has already submitted a referral to [facility]. (2) Type II diabetes mellitus with neurological manifestations: Plan: Long-term glycemic control is poor with HbA1c 12.5% (06/19/2025, 7:20am), and which is most likely an underestimate of patient's true HbA1c level. The reason that the patient's HbA1c 12.5% (06/19/2025, 7:20am) is an underestimate of patient's true HbA1c level is because this patient also suffers from chronic normocytic, normochromic anemia with a baseline Hb range of 11.3 g/dL (12/07/2019, 7:04am) to 9.0 g/dL (06/20/2023, 7:35am). cf., Hb 11.9 g/dL, MCV 84.6, MCHC 32.9 (07/12/2025, 4:16pm). cf., Hb 10.3 g/dL, MCV 83.5, MCHC 35.0 (07/13/2025, 4:45am). cf., Hb 9.3 g/dL, MCV 86.4, MCHC 33.2 (07/14/2025, 4:09am). In anemic states, increased RBC turnover leads to concomitant reductions in both Hb and HbA1c levels. In non-anemic states, the lack of increased RBC turnover does not affect HbA1c levels. Hence, attention turns towards serum glucose levels: cf., glucose 304 mg/dL (07/12/2025, time unknown). cf., glucose 201 mg/dL (07/13/2025, 4:45am). cf., glucose 137 mg/dL (07/14/2025, 4:09am). cf., glucose 85 mg/dL (07/15/2025, 5:23am). cf., glucose 105 mg/dL (07/16/2025, 4:43am). cf., glucose 105 mg/dL (07/17/2025, 6:58am). Continue carbohydrate consistent diet, lantus 10 units SQ qam, aspart insulin sliding scale qac + qhs, and POC glucose qac + qhs while patient remains in [facility]. (3) HLD (hyperlipidemia): Plan: As stated in bullet #1 above, patient continues to receive secondary prophylaxis against PAD utilizing ASA 81mg PO daily and atorvastatin 40mg PO qam. (4) Hx of smoking: Plan: Patient reports that she has not been diagnosed with COPD and does not utilize oxygen or steroids at home. Patient continues to breathe comfortably on room air with RR 18 breaths/minute and O2 sat 94% on room air (07/16/2025, 10:06am). Patient continues to breathe comfortably on room air with RR 16 breaths/minute and O2 sat 98% on room air (07/17/2025, 3:45pm). Plan Anticipate D/C to [facility] on 07/18/2025 pending coordination with Case Management Service of Kendall Ninoska Runao, who has already submitted a referral to [facility]. Admission and Anticipated Discharge Date Admission Date: July 12, 2025 Subjective "I feel fine. No problems. I have much less pain in my legs after the bypass surgery (e.g., [id number] bypass on 07/12/2025, 8:00am, Vascular Surgeon Dr. Scooby Benton); the pain is now a 2 (out of 10 pain). Before the surgery, the pain was a 10 (out of 10 pain) in my legs at rest." Review of Systems Constitutional: Negative for antecedent/coincident fevers, chills, diaphoresis, cough, wheeze, sore throat, hemoptysis, shortness of breath, dyspnea on exertion, chest pains, palpitations, pleurisy, nausea, vomiting, diarrhea, abdominal pain, pelvic pain, hematemesis, hematochezia, melena, hematuria, dysuria, frequency, urgency, flank pain, headaches, dizziness, lightheadedness, visual changes, hearing changes, weakness, falls, syncope, trauma, travel history, sick contacts, or food/drug ingestions novel or new. All other review of systems are reported as negative by the patient on 07/17/2025. Physical Exam Constitutional: General: Comfortable, cooperative, coherent. Wide awake and alert. Not confused, lethargic, or obtunded. Patient speaks in complete, fluent, and articulate sentences without pause, interruption, cough, or wheeze. HEENT: Normocephalic, atraumatic. Extra-ocular muscles intact. Pupils equally round and reactive to light. No nystagmus, gaze paresis, anisocoria, miosis, mydriasis, hyphema, chemosis, scleral injection, conjunctivitis, or pterygium. No otorrhea or rhinorrhea. No pharyngeal discharge or exudate. Neck: Supple, no stridor or bruit. Jugular venous pressure is estimated to be 3 cm above the sternal angle of Miguel, which is, by definition, 5 cm above the level of the right atrium. Hence, jugular venous pressure of 8 cm is not elevated on 07/17/2025. Lymphatics: No anterior/posterior cervical, infraclavicular, supraclavicular, axillary, epitrochlear, or inguinal adenopathy. Chest: Symmetric rise and fall with respirations. Non-tender to palpation. Lungs: Clear to auscultation and percussion. No audible expiratory wheeze, egophony, pectoriloquy, increase in tactile fremitus, or flatness/dullness to percussion at the bases. Heart: Regular rate and rhythm. S1 and S2 noted. No S3 or S4 summation gallop. No tripartite friction rub. Grade II/ early systolic murmur at left lower sternal border without radiation to the carotids, axilla, or back, and which remains invariant in regards to the respiratory cycle. Abdomen: Soft, non-tender, non-distended. No rebound, guarding, Real's sign, or organomegaly. Bowel sounds auscultated in all 4 quadrants. Extremities: No clubbing, cyanosis, or edema. 2+ pedal pulses bilaterally. Skin: No decubitus ulcer, exanthem, or enanthem. Urology: No carmona catheter. No purewick. No urethral discharge. Neurology: No myoclonus, tremors, or tics. Psychiatry: No flat affect. No monotone voice. Smiles appropriately. Results & Data Results & Data Vital Signs (Past 12 Hours) Vital Signs Temp Pulse Resp BP Pulse Ox O2 Del Method 07/17/25 15:45 36.8 C 77 16 99/65 L 98 Room Air Laboratory Results Abnormal lab results 07/17/25 07/17/25 07/17/25 Range/Units 06:58 07:41 11:14 Glucose 105 H (70-99(Fasting)) mg/dl POC Glucose 119 H 126 H (70-99) mg/dl Calcium 8.3 L (8.6-10.3) mg/dl 07/17/25 07/17/25 Range/Units 16:22 20:32 Glucose (70-99(Fasting)) mg/dl POC Glucose 119 H 114 H (70-99) mg/dl Calcium (8.6-10.3) mg/dl PG Care Time/CCT Total # of Minutes Spent Total Time Spent with Patient: Total time spent is greater than 50% in coordination of care (as documented) at patient's floor/unit and/or counseling patient: Coding Level of Care Code 94124 SUB INP/OBS CARE 235MIN Diagnoses PAD (peripheral artery disease) I73.9 Type II diabetes mellitus with neurological manifestations E11.49 Hyperlipidemia, unspecified hyperlipidemia type E78.5 Hyperlipidemia type: unspecified Hx of smoking Z87.891 (3) HLD (hyperlipidemia) Hyperlipidemia type: unspecified Qualified Code(s): E78.5 - Hyperlipidemia, unspecified
[2025-07-18 06:32] LABS: Anion Gap 6.0 (3-11); Blood Urea Nitrogen 17.0 mg/dl (6-23); Calcium 8.3 mg/dl (8.6-10.3); Carbon Dioxide 27.0 mmol/L (21-32); Chloride 105.0 mmol/L (98-107); Creatinine Clr Calc Pharmacy 52.1 ml/min; Glucose 115.0 mg/dl (70-99(Fasting)); Magnesium 1.7 mg/dl (1.7-2.4); Potassium 4.3 mmol/L (3.5-5.1); Sodium 138.0 mmol/L (136-145)
[2025-07-18 07:50] VITALS: BP 99/65; PULSE 75; TEMP 98.1; O2SAT 98
--- NOTE | 2025-07-18 08:33 | Vascular Surgery Progress Note ---
Date of Service July 18, 2025 Assessment & Plan (1) PAD (peripheral artery disease): Plan: POD 6 s/p aortoiliac bypass recovering well from surgery, tolerating PO and is now on floor with hopes to discharge to [facility] today Continue aspirin and atorvastatin Discussed with her that her edema in her feet will continue to improve over the next couple of months- would recommend elevating legs when sitting to help reduce edema Follow up with Vascular surgery in 1 month with ABIs. Admission and Anticipated Discharge Date Admission Date: July 12, 2025 Subjective POD 6 s/p aortoiliac bypass for ischemic rest pain/gangrene. Was transferred to floor over weekend. Tolerating solids well without nausea or vomiting. + fl atus, but no bowel movement yet, however she feels like she may have one soon. Has occasional incisional pain, which is currently a 6/10. Also has some edema in her feet due to sitting in her chair a lot, but it is not bothersome to her, and she denies any pain in her feet currently. She walked 3 laps in hallway yesterday without pain in her legs or feet and is looking forward to potential discharge to [facility] today. Review of Systems Review of Systems: see HPI, otherwise negative Physical Exam Constitutional: WDWN, sitting in chair eating breakfast Neck: bandage over previous CVL site, C/D/I Cardiovascular: +1 edema in feet bilaterally capillary refill is brisk dry gangrene to right 3rd and 4th toes left 3rd toe with darker discoloration, stable from last week. + doppler signals PT and DP bilaterally Skin: abdominal incision covered with dressing, C/D/I. Results & Data Vital Signs (Past 12 Hours) Vital Signs Temp Pulse Resp BP Pulse Ox O2 Del Method 07/18/25 07:49 36.7 C 75 16 99/65 L 98 Room Air 07/17/25 20:32 36.8 C 78 16 116/78 97 Room Air Laboratory Results 07/18/25 07/18/25 07/17/25 07:36 05:51 20:32 Sodium 138 Potassium 4.3 Chloride 105 Carbon Dioxide 27 Anion Gap 6 BUN 17 Creatinine 1.20 Est Cr Clr Drug Dosing 52.1 eGFR 56.19 BUN/Creatinine Ratio 14.2 Glucose 115 H POC Glucose 112 H 114 H Calcium 8.3 L Phosphorus 3.3 Magnesium 1.7 07/17/25 07/17/25 16:22 11:14 Sodium Potassium Chloride Carbon Dioxide Anion Gap BUN Creatinine Est Cr Clr Drug Dosing eGFR BUN/Creatinine Ratio Glucose POC Glucose 119 H 126 H Calcium Phosphorus Magnesium Medications Administered Home Medications Medication Instructions Recorded Confirmed Last Taken atorvastatin 40 mg tablet 40 mg PO QAM #30 tabs 06/22/25 07/12/25 07/11/25 09:00 blood sugar diagnostic (ReliOn #100 ea 06/22/25 07/06/25 Unknown Prime Test Strips) pen needle, diabetic 32 gauge x #100 ea 06/22/25 07/06/25 Unknown " aspirin 81 mg tablet,delayed 81 mg PO QAM 07/05/25 07/12/25 07/11/25 09:00 release docusate sodium 100 mg tablet 100 mg PO UD PRN Constipation 07/05/25 07/12/25 07/08/25 (Stool Softener) insulin glargine 100 unit/mL (3 20 unit subcut QAM 07/05/25 07/12/25 06/22/25 mL) subcutaneous pen ([place] Cormier U-100 Insulin) metformin 1,000 mg tablet 1,000 mg PO QPM 07/05/25 07/12/25 07/11/25 21:00 metformin 500 mg tablet 500 mg PO BID 07/05/25 07/12/25 07/11/25 23:00 naproxen sodium 220 mg tablet 220 mg PO BID PRN Pain 07/05/25 07/12/25 07/05/25 (Aleve) oxycodone 5 mg tablet 5 mg PO Q6H PRN pain #30 tabs 07/06/25 07/06/25 07/01/25 acetaminophen 300 mg-codeine 30 mg 1 tab PO BID PRN Pain 07/12/25 07/12/25 07/11/25 23:00 tablet melatonin 3 mg tablet 6 mg PO HS PRN Insomnia 07/12/25 07/12/25 07/11/25 23:00 Active Medications Generic Name Dose Route Start Last Admin Trade Name Freq PRN Reason Stop Dose Admin Aspirin 81 mg 07/15/25 09:00 07/18/25 08:23 Aspirin 81 Mg Ectab PO 08/14/25 08:59 81 mg QAM ERROL Administration Atorvastatin Calcium 40 mg 07/16/25 09:00 07/18/25 08:23 Atorvastatin 40 Mg Tab PO 08/15/25 08:59 40 mg QAM ERROL Administration Insulin Aspart 0 units 07/15/25 11:30 07/18/25 08:20 Insulin Aspart Per Unit Charge SC 08/12/25 11:59 1 units ACHS ERROL Administration Insulin Glargine 10 units 07/15/25 09:00 07/18/25 08:21 Lantus Per Unit Charge SC 08/13/25 08:59 10 units QAM ERROL Administration Metoprolol Tartrate 25 mg 07/15/25 10:00 07/18/25 08:26 Metoprolol Tartrate 25 Mg Tab PO 08/14/25 09:59 25 mg BID ERROL Administration Morphine Sulfate 1 - 2 mg 07/15/25 13:00 07/17/25 17:20 Morphine Sulfate 2 Mg/Ml Carp IV 07/29/25 12:59 2 mg Q4H PRN Administration Pain Oxycodone HCl 5 mg 07/15/25 09:53 07/18/25 08:22 Oxycodone Hcl Ir 5 Mg Tab (Immediate Release) PO 07/29/25 09:52 5 mg Q4H PRN Administration SEVERE PAIN Protocol Pantoprazole Sodium 40 mg 07/16/25 09:00 07/18/25 08:23 Pantoprazole 40 Mg Tab PO 08/15/25 08:59 40 mg QAM ERROL Administration PG Care Time/CCT Total # of Minutes Spent Total Time Spent with Patient: Total time spent is greater than 50% in coordination of care (as documented) at patient's floor/unit and/or counseling patient:
--- NOTE | 2025-07-18 10:00 | Discharge Summary ---
Discharge Summary Date of Service July 18, 2025 Principal Dx & Hospital Course #1 = Principal Diagnosis (1) PAD (peripheral artery disease): Etiology of PAD is most probably due to 30 pack year history of tobacco abuse, which concluded on 06/26/2025 as per patient's report. Patient presented to [facility] ER on 07/12/2025 with complaints of progressive, intermittent claudication of the bilateral lower extremities and rest pain. Patient subsequently underwent aortic bi-iliac bypass grafting (07/12/2025, 8:00am) with Vascular Surgeon Dr. Scooby Benton. Patient tolerated this procedure very well and now receives secondary prophylaxis against PAD utilizing ASA 81mg PO daily and atorvastatin 40mg PO qam. Patient awaits anticipated D/C to [facility] on Friday (07/18/2025) pending coordination with Case Management Service of Ms. Ninoska Ruano, and who has already submitted a referral to [facility]. (2) Type II diabetes mellitus with neurological manifestations: Long-term glycemic control is poor with HbA1c 12.5% (06/19/2025, 7:20am), and which is most likely an underestimate of patient's true HbA1c level. The reason that the patient's HbA1c 12.5% (06/19/2025, 7:20am) is an underestimate of patient's true HbA1c level is because this patient also suffers from chronic normocytic, normochromic anemia with a baseline Hb range of 11.3 g/dL (12/07/2019, 7:04am) to 9.0 g/dL (06/20/2023, 7:35am). cf., Hb 11.9 g/dL, MCV 84.6, MCHC 32.9 (07/12/2025, 4:16pm). cf., Hb 10.3 g/dL, MCV 83.5, MCHC 35.0 (07/13/2025, 4:45am). cf., Hb 9.3 g/dL, MCV 86.4, MCHC 33.2 (07/14/2025, 4:09am). In anemic states, increased RBC turnover leads to concomitant reductions in both Hb and HbA1c levels. In non-anemic states, the lack of increased RBC turnover does not affect HbA1c levels. Hence, attention turns towards serum glucose levels: cf., glucose 304 mg/dL (07/12/2025, time unknown). cf., glucose 201 mg/dL (07/13/2025, 4:45am). cf., glucose 137 mg/dL (07/14/2025, 4:09am). cf., glucose 85 mg/dL (07/15/2025, 5:23am). cf., glucose 105 mg/dL (07/16/2025, 4:43am). cf., glucose 105 mg/dL (07/17/2025, 6:58am). Continue carbohydrate consistent diet, lantus 10 units SQ qam, aspart insulin sliding scale qac + qhs, and POC glucose qac + qhs while patient remains in [facility]. (3) HLD (hyperlipidemia): As stated in bullet #1 above, patient continues to receive secondary prophylaxis against PAD utilizing ASA 81mg PO daily and atorvastatin 40mg PO qam. (4) Hx of smoking: Patient reports that she has not been diagnosed with COPD and does not utilize oxygen or steroids at home. Patient continues to breathe comfortably on room air with RR 18 breaths/minute and O2 sat 94% on room air (07/16/2025, 10:06am). Patient continues to breathe comfortably on room air with RR 16 breaths/minute and O2 sat 98% on room air (07/17/2025, 3:45pm). Plan Anticipate D/C to [facility] on 07/18/2025 pending coordination with Case Management Service of Ninoska Alden, who has already submitted a referral to [facility]. Discharge Exam GENERAL APPEARANCE NAD, activity normal for age, well developed/ well nourished, no cyanosis, pallor, or diaphoresis. EYES lids/conjunctiva normal. EARS/NOSE/THROAT Mucous membranes moist, nares normal, lips/teeth normal uvula midline without oral pharyngeal erythema, exudate or swelling TMs normal bilaterally. No lymphangitis/lymphedema. HEAD/NECK normocephalic atraumatic, no facial trauma, neck is supple. RESPIRATORY respiratory effort normal, speaks in full sentences, no tripod position, no accessory muscle use. Lungs clear to auscultation without rhonchi, wheezes, rales CARDIAC Regular rate and rhythm, no edema. ABDOMINAL Soft, ND/NT. No evidence of fluid wave. No pulsatile masses on exam, rebound tenderness, Real sign or pain over Mcburney's point. MUSCLES/EXTREMITIES No abnormal range of motion, no swelling. SKIN Warm, pink and dry. No rashes, dermatoses, petechiae or lesions. NEUROLOGICAL Speech is clear and appropriate. Normal level of consciousness. Gait and coordination are normal. 5/5 strength in all extremities. PSYCH Normal mood and affect. Judgement/competence is appropriate Discharge Plan Discharge Items Patient Disposition: Transfer Assisted Fac Reason For Visit: POST OP AORTOBILIAC BYPASS Discharge Diagnosis: lower ext claudication Activity: Resume your previous activity Lifting: No more than 5 pounds Bathing Comment: OK to shower, gently pat incision dry Driving/Machine Use: No driving until seen/cleared by Dr. Benton Non-emergency contact: Primary Care Provider Call non-emergency contact if: you have any medication questions Follow-up/Referrals: PCP,NO [Primary Care Provider] - Diet: Regular Ambulatory Orders: US ankle/brachial index ltd (Routine) Timeframe: 1 Month Facility: [facility] - Location: Cardiology [place] Ordered By: Aleah Orta Attending Provider Instructions: Follow up with PMD in 1 week Marivel Layup Worker Provider Instructions: Follow up with Dr. Benton in 1 month with vascular testing (FREEMAN test) Please call/return sooner if you have any problems with your incision such as incision opening, redness around incision, increased drainage from incision, or any concerns about your circulation in your feet. Pending Studies at Discharge: No Stand-Alone Forms: [facility] Skilled Items Patient informed of condition?: No DNR: No Discharge Level of Care: Skilled Communicable Disease: No Discharge Prognosis: Stable Lines: None Urinary Catheter: No Medications and DC Order Prescriptions: Continued oxycodone 5 mg tablet 5 mg PO Q6H PRN (Reason: pain) Qty: 30 0RF Rx Instructions: take 1-2 tablets by mouth every 6 hours as needed for pain atorvastatin 40 mg Tablet 40 mg PO QAM Qty: 30 1RF (DME) pen needle, diabetic 32 gauge x 5/32" needle See Rx Instructions .Route Qty: 100 1RF Rx Instructions: inject glargine insulin oncedaily (DME) ReliOn Prime Test Strips Strip See Rx Instructions .Route Qty: 100 0RF Rx Instructions: As directed metformin 500 mg Tablet 500 mg PO BID naproxen sodium [Aleve] 220 mg Tablet 220 mg PO BID PRN (Reason: Pain) docusate sodium [Stool Softener] 100 mg Tablet 100 mg PO UD PRN (Reason: Constipation) aspirin 81 mg tablet,delayed release (DR/EC) 81 mg PO QAM metformin 1,000 mg tablet 1,000 mg PO QPM Rx Instructions: start with half tab daily with dinner for one week then increase to 1 tab insulin glargine [Basaglar KwikPen U-100 Insulin] 100 unit/mL (3 mL) insulin pen 20 unit subcut QAM melatonin 3 mg Tablet 6 mg PO HS PRN (Reason: Insomnia) acetaminophen-codeine 300-30 mg Tablet 1 tab PO BID PRN (Reason: Pain) Patient Comments: Pt unsure of dosing regimen, used last tablet 07/11/25 Discharge Orders: Discharge Order (Routine); Ordered 07/18/25 Ordered By: Anton Yanes Admission Data Admit Date/Time: 07/12/25 14:25 Attending Provider: Anton Yanes Admit Provider: Scooby Benton Primary Care Provider: PCP,NO Other Providers: [facility]; [place],[facility]; [facility]; Scooby Benton; Evert Davila; Chirag Tineo; Vern Montana; Fareed Garay; Can Myers; Evelia De Leon; Dev Garcia; Kathryn Martin [facility] Stay Data Consultations 07/12/25 14:26 Consult Can Filler Routine 07/12/25 17:14 Consult Can Filler Routine 07/15/25 12:16 Consult Hospitalist Routine Procedures Performed Operation Date: 07/12/25 08:00 Actual Procedures p [id number] Bypass(Not Applicable) - Scooby Benton MD Pending Results Patient Have Any Pending Studies at Discharge: No Discharge Instructions Given to Patient (Per Discharging Provider) Follow up with PMD in 1 week Total Time Total Time Spent Total Time Spent (In Minutes): 50 Coding Level of Care Code 94463 INP/OBS DISCH >30 MIN Diagnoses PAD (peripheral artery disease) I73.9 Type II diabetes mellitus with neurological manifestations E11.49 Hyperlipidemia, unspecified hyperlipidemia type E78.5 Hyperlipidemia type: unspecified Hx of smoking Z87.891
[2025-07-18] MEDS: DOCUSATE SODIUM 100 MG CAP PO SCH (12:22)
== END 2025-07-18 13:06 | DRG 271 ==
LOC: ASU 06:02 → SUATTDRO 14:25 → 1E 14:25 → 3W 07-16 12:55

== ENCOUNTER 2025-10-13 11:59 | Observation (INO) ==
--- NOTE | 2025-10-05 14:18 | Anesthesiology Consultation ---
Date of Service October 05, 2025 Assessment & Plan (1) Encounter for pre-operative examination: Plan - check BSG am DOS. - s/p aorto bi-iliac bypass Grade 1 view, MAC 3, ETT 7. - Determination/coordination of anticoagulation adjustments regarding a potential beti-op epidural is to surgeon's management. - Per social research assistant on 10/05/25: No known infectious disease contacts, current infectious disease symptoms in past 10 days or COVID positive test result in the past 30 days. Chart Review Chart Review: Acceptable Risk for Surgery and Patient NOT seen in Pre Admission Testing History Surgery Operation Date: 10/13/25 10:50 Proposed Procedures p Right Amputation 3rd and 4th Toes - Scooby Benton MD Height/Weight Height: 5 ft 2.25 in Weight: 62.142 kg Allergies Allergy/AdvReac Type Severity Reaction Status Date / Time pork derived (porcine) Allergy Severe throat Verified 10/05/25 13:42 feels like it is closing up coconut AdvReac Mild toasted Verified 10/05/25 13:42 coconut, nauseated allopurinol AdvReac Unknown wants Verified 10/05/25 13:42 listed>mother and sister allergic to sun Allergy Unknown get sun Uncoded 10/05/25 13:42 poisoning quickly Medications Home Medications Medication Instructions Recorded Confirmed Last Taken blood sugar diagnostic (ReliOn #100 ea 06/22/25 09/08/25 Unknown Prime Test Strips) pen needle, diabetic 32 gauge x #100 ea 06/22/25 09/08/25 Unknown 5/32" aspirin 81 mg tablet,delayed 81 mg PO QAM 07/05/25 10/05/25 07/11/25 09:00 release blood-glucose sensor (FreeStyle #2 ea 08/11/25 09/08/25 Unknown Char 3 Plus Sensor device) COVID vac -(12up)(Pfi)(PF) 30 0.3 ml IM ONCE #0.3 mL 09/08/25 09/08/25 Unknown mcg/0.3 mL IM syringe (Comirnaty (12y up)(PF)) metformin 500 mg tablet 1,000 mg (2 x 500 mg) PO BID 90 09/08/25 10/05/25 Unknown days #360 tabs oxycodone 5 mg tablet 5 mg PO Q8H PRN pain #20 tabs 09/27/25 10/05/25 Unknown atorvastatin 80 mg tablet 80 mg PO QAM 10/05/25 10/05/25 Unknown hydroxyzine HCl 50 mg tablet 50 mg PO HS 10/05/25 10/05/25 Unknown lisinopril 10 mg tablet 10 mg PO QAM 10/05/25 10/05/25 Unknown metoprolol succinate 25 mg 25 mg PO QAM 10/05/25 10/05/25 Unknown tablet,extended release 24 hr Past Medical History Medical History Abdominal aorta thrombosis hx, 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 had follow up with Dr. Duran office-denies any additional episodes PAD (peripheral artery disease) Type 2 diabetes mellitus NIDDM Past Family History Family History Father Anxiety Depression Diabetes Heart disease Hypertension Mother Diabetes Hypertension Kidney disease Coronary heart disease Sister Gallbladder disease Kidney stone Hypothyroidism Anxiety Sister Alcohol abuse Drug abuse Hypertension Rheumatoid arthritis Osteoporosis Anxiety Uncle Melanoma Grandfather (Maternal) Myocardial infarction Grandfather (Paternal) , in his 80s Heart failure Sister Hypothyroidism Anxiety Sister No problems noted. Grandmother (Maternal) Pulmonary embolism Grandmother (Paternal) , 99 No problems noted. Brother Diabetes Heart disease Other Dyslipidemia No family history of adverse response to anesthesia Denies family history of Ovarian cancer Breast cancer Colorectal cancer Uterine cancer Past Surgical History Surgical History History of anesthesia reaction with heart cath in 2019 "woke up screaming" - needed something else and put deeper. History of rusel-[id number] bypass -History of aorto bi iliac bypass -Dr. Scooby Benton- 07/12/2025 - [facility] History of colonoscopy ~2022 History of endoscopy History of heart artery stent QUALITY CONTROL HEAD to distal circumflex and distal RCA History of tooth extraction Social History Smoking Status: Former smoker tobacco type: cigarettes Smoking cigarettes per day: quit 06/26/25>was smoking 10 cig daily Do You Dip or Chew Tobacco: No Smoking End Date: 06/2025 Hx Alcohol Use: Yes Alcohol type: beer, wine and hard liquor alcohol intake frequency: holidays/special occasions only Hx Substance Use: Yes substance use type: former substance user and marijuana Substance Use Type Other:: marijuana on occ/last use was months (advised) Last Used Substance: Days (ago) Last Used Substance Other:: couple years ago Lab Results Anesthesia Preop Results Results Anesthesia Widget: WBC 7.79 K/ul (4.8-10.8) 09/08/25 Hgb 12.1 g/dl (12.0-16.0) 09/08/25 Hct 36.6 % (37.0-47.0) L 09/08/25 Plt 161 K/uL (130-400) 09/08/25 Na 139 mmol/L (136-145) 09/08/25 K 4.1 mmol/L (3.5-5.1) 09/08/25 Cl 105 mmol/L (98-107) 09/08/25 CO2 22 mmol/L (21-32) 09/08/25 BUN 14 mg/dl (6-23) 09/08/25 Creat 0.71 mg/dl (0.6-1.2) 09/08/25 Glucose Level 170 mg/dl (70-99(Fasting)) H 09/08/25 HA1c 6.4 % (4.5-5.6) H 09/08/25 Testing Electrocardiogram Date: 06/19/25 NSR, rate nonspecific ST elevation anterolateral leads No significant change vs 06/19/23 EKG Chest X-Ray Date: 06/19/25 *1 view* 1. Normal chest X-ray. No acute cardiopulmonary abnormalities are identified. 2. No changes since the last study. Echocardiogram Date: 06/19/25 LVEF 55-60% Base to mid moderate inferolateral hypokinesis No significant valvular pathology Mild cLVH Normal estimated PA pressure Stress Test Date: 06/22/25 MPHR 98% Normal pharmacologic stress echocardiogram No echocardiographic or ECG evidence of myocardial ischemia having achieved heart rate adequate for diagnostic purposes Stress wall motion was normal Low risk dobutamine stress echo
[2025-10-13] MEDS ORDERED: LIDOCAINE 2% 2 ML VIAL/AMP(20MG/ML) INFIL ONE (12:10)
[2025-10-13] MEDS ORDERED: PROPOFOL IV EMULSION 10 MG/ML 20 ML VIAL IV ONE (12:10)
[2025-10-13 12:13] LABS: Hematocrit (blood only) 32.1 % (37.0-47.0); Hemoglobin 10.9 g/dL (12.0-16.0); Mean Corpuscular Hemoglobin 27.5 pg (25.0-34.0); Mean Corpuscular Volume 81.1 fL (80.0-100.0); Platelet Count 205 K/uL (130-400); RDW Standard Deviation 42.1 fL (36.4-46.3); Red Blood Count 3.96 M/uL (4.20-5.40); White Blood Count 8.06 K/ul (4.8-10.8)
[2025-10-13 12:28] LABS: Anion Gap 9.0 (3-11); Blood Urea Nitrogen 17.0 mg/dl (6-23); Calcium 9.1 mg/dl (8.6-10.3); Carbon Dioxide 24.0 mmol/L (21-32); Chloride 106.0 mmol/L (98-107); Creatinine Clr Calc Pharmacy 76.0 ml/min; Glucose 130.0 mg/dl (70-99(Fasting)); Potassium 4.3 mmol/L (3.5-5.1); Sodium 139.0 mmol/L (136-145)
[2025-10-13] MEDS ORDERED: ONDANSETRON INJ 2 MG/ML 2 ML VIAL IV PRN (12:42)
[2025-10-13] MEDS ORDERED: FLUMAZENIL 0.1 MG/1 ML 10 ML VIAL IV PRN (12:42)
[2025-10-13] MEDS ORDERED: PROMETHAZINE HCL 6.25 MG in SODIUM CHLORIDE 0.9% 50 ML IV PRN (12:42)
[2025-10-13] MEDS ORDERED: NALOXONE HCL 0.4 MG/1 ML VIAL/CARP IV PRN (12:42)
[2025-10-13] MEDS ORDERED: HYDROmorphone INJ 1 MG/ML SYRINGE IV PRN (12:42)
[2025-10-13] MEDS ORDERED: ATROPINE SULFATE 0.1 MG/ML 10ML SYR IV PRN (12:42)
[2025-10-13] MEDS: LR 15ML/HR IV SCH (12:44)
[2025-10-13] MEDS: LACTATED RINGER'S 1,000 ML IV SCH (12:45)
[2025-10-13] MEDS ORDERED: MIDAZOLAM HCL 1 MG/ML 2ML VIAL ONE (13:17)
--- NOTE | 2025-10-13 13:30 | History & Physical Bridge Note ---
Date of Service October 13, 2025 History & Physical Bridge Note I have examined the patient, reviewed the History & Physical and in the interval since the performance of the History & Physical I have noted the following changes of clinical significance: no changes noted. Plan for right 3rd/4th toe amputation today.
[2025-10-13] MEDS ORDERED: DEXAMETHASONE SOD INJ 4 MG/ML VIAL ONE (14:21)
[2025-10-13] MEDS ORDERED: ONDANSETRON INJ 2 MG/ML 2 ML VIAL ONE (14:21)
[2025-10-13] MEDS: BUPIVACAINE 0.25% PF 30 ML VIAL ONE (14:51)
[2025-10-13] MEDS: LIDOCAINE 1% LOCAL 20 ML VIAL ONE (14:51)
--- NOTE | 2025-10-13 14:59 | Post Operative Brief Note ---
Immediate Post Op Note Date of Surgery October 13, 2025 Pre & Post Diagnosis Operation Date: 10/13/25 12:55 Pre-Op Diagnosis: Peripheral Vascular Disease Ischemic 3rd and 4th toe Post-Op Diagnosis: Peripheral Vascular Disease Ischemic 3rd and 4th toe I identified the patient and participated in the time-out.: Yes Procedure Operation Date: 10/13/25 12:55 Actual Procedures p Right Amputation 3rd and 4th Toes(Right) - Scooby Benton MD Surgeon Scooby Benton MD Certified Personal Chef Aleah Patiño PA-C Estimated Blood Loss 20 Findings Consistent with Post-Op Diagnosis Specimens R 3rd toe R 4th toe Anesthesia Type General Complications none Disposition Accompanied Patient To Recovery: Yes Disposition: Recovery Room
[2025-10-13] MEDS ORDERED: IBUPROFEN 600 MG TAB PO PRN (15:10)
[2025-10-13] MEDS ORDERED: ACETAMINOPHEN 500 MG TAB PO PRN (15:10)
--- NOTE | 2025-10-13 15:16 | Operative Report ---
PG Post Operative Report Pre & Post Diagnosis Operation Date: 10/13/25 12:55 Pre-Op Diagnosis: Peripheral Vascular Disease Ischemic 3rd and 4th toe Post-Op Diagnosis: Peripheral Vascular Disease Ischemic 3rd and 4th toe I identified the patient and participated in the time-out.: Yes Procedure Operation Date: 10/13/25 12:55 Actual Procedures p Right Amputation 3rd and 4th Toes(Right) - Scooby Benton MD Surgeon Scooby Benton MD Resident Care Aide Aleah Patiño PA-C Estimated Blood Loss 20 Findings Consistent with Post-Op Diagnosis Specimens Right 3rd toe Right 4th toe Anesthesia Type General Complications none Disposition Accompanied Patient To Recovery: Yes Disposition: Recovery Room Indications 50-year-old female with ischemic right 3rd and 4th toes with dry gangrene. She has undergone revascularization. The toes have demarcated. She presents for toe amputation of the right 3rd and 4th toes. The risks goals and alternatives were discussed with the patient who understood and gave consent to proceed. Description of Procedure A timeout was performed and the patient was identified and the procedure verified. General anesthesia by laryngeal mask was induced without incident. The patient received preoperative antibiotics within 1 hour of incision time. The right foot was circumferentially prepped and draped in the usual sterile fashion. A circular incision was made around the base of the third toe. The necrotic portion was amputated and delivered from the field. The midportion of the proximal phalanx was then amputated sharply and the edges smoothed with a rasp. Hemostasis was achieved with cautery. There was very brisk arterial bleeding. Attention was then directed to the fourth toe. A similar circular incision was made closer to the base given the greater extent of dry necrosis. This was extended along the dorsal surface of the toe in order to more thoroughly and appropriately expose the metatarsal phalangeal joint. The toe was disarticulated at the metatarsal phalangeal joint and delivered from the field. Hemostasis was similarly achieved. The wounds were debrided and cleared of any remaining necrotic debris. Bleeding was adequate. After assuring hemostasis both incisions were closed with vertical mattress sutures of 3-0 nylon. Xeroform and padded gauze and then an Terrence bandage were applied. An ankle block of a 50-50 mixture of quarter percent Marcaine and 1% lidocaine was then injected around the base of the ankle taking care to avoid major arterial structures. The patient was awakened and taken recovery room in stable condition he tolerated procedure well without immediate complication. I attest to the content of the Intraoperative Record and any orders documented therein. Any exceptions are noted below.
--- NOTE | 2025-10-13 16:13 | Anesthesiology Progress Note ---
Date of Service October 13, 2025 Anesthesia Post Procedure Vital Signs Vital Signs: Temp Pulse Pulse Resp BP BP Pulse Ox 10/13/25 15:50 36.6 C 84 12 102/64 95 10/13/25 15:40 82 12 127/89 95 10/13/25 15:30 85 12 111/73 95 10/13/25 15:20 82 12 122/69 96 10/13/25 15:10 36.0 C L 93 H 16 134/79 100 10/13/25 12:20 36.5 C 92 H 16 136/89 96 O2 Del Method O2 Flow Rate 10/13/25 15:50 Room Air 10/13/25 15:40 Room Air 10/13/25 15:30 Room Air 10/13/25 15:20 Room Air 10/13/25 15:10 Oxymask 4 10/13/25 12:20 Room Air Pain Intensity Right Foot: Pain Intensity: 5 Transfer of Care Handoff Completed per policy Notes Mental Status: alert / awake / arousable Patient Amnestic to Procedure: Yes Nausea / Vomiting: adequately controlled Pain: adequately controlled Airway Patency, RR, SpO2: stable & adequate BP & HR: stable & adequate Hydration State: stable & adequate Anesthetic Complications: no major complications apparent
--- NOTE | 2025-10-14 08:05 | Vascular Surgery Progress Note ---
Date of Service October 14, 2025 Assessment & Plan (1) Ischemic toe: Plan: s/p phalangeal amputation of right 3rd toe s/p metatarsalphalangeal joint amputation of 4th toe Doing well. Can heel weight bear today. Will ask Physical Therapy to see and provide with Darco Wedge shoe. After rewrapping RADHA bandage with shellfish meat separator operator compression her foot feels much better. Can leave Xeroform on wounds over the weekend. Will plan to see her as outpatient next week. Admission and Anticipated Discharge Date Admission Date: October 13, 2025 Subjective Had some discomfort in the foot (not toes) overnight. Otherwise doing well. Physical Exam Physical Exam: Dressing changed. Wounds clean. No bleeding. Xeroform in place. Results & Data Vital Signs (Past 12 Hours) Vital Signs Temp Pulse Resp BP Pulse Ox O2 Del Method 10/14/25 07:30 36.5 C 85 16 138/89 98 Room Air 10/14/25 03:44 36.5 C 87 18 125/80 97 Room Air 10/13/25 23:24 36.4 C L 99 H 18 128/79 96 Room Air 10/13/25 20:10 36.6 C 103 H 16 106/64 98 Room Air PG Care Time/CCT Total # of Minutes Spent Total Time Spent with Patient: Total time spent is greater than 50% in coordination of care (as documented) at patient's floor/unit and/or counseling patient:
[2025-10-14] MEDS: ASPIRIN 81 MG ECTAB PO SCH (08:36)
[2025-10-14] MEDS: ATORVASTATIN 40 MG TAB PO SCH (08:37)
[2025-10-14] MEDS: METOPROLOL SUCC 25MG EXT REL TAB PO SCH (08:37)
[2025-10-14 11:28] VITALS: BP 97/64; PULSE 91; RESP 18; TEMP 97.9; O2SAT 97
== END 2025-10-14 16:00 | disposition home or self-care (01) ==
LOC: ASU 11:59 → 3W 11:59

== ENCOUNTER 2025-10-15 12:58 | Observation (INO) ==
--- NOTE | 2025-10-15 13:30 | Emergency Department Note ---
Impression & Plan TIA (transient ischemic attack), PAD (peripheral artery disease), Leg weakness, Anemia ED Provider Note NAME: AVTAR CONNOLLY AGE: 50 SEX: F : 1975 ARRIVES VIA: Walk-In INFORMANT: Patient ED PROVIDER(S): Bj Reed DO CHIEF COMPLAINT: Left lower extremity weakness and numbness HPI: Patient is a 50-year-old female with a past medical history of diabetes, CAD, hyperlipidemia and hypertension as well as peripheral artery disease who presents to the ER for left lower extremity weakness and numbness. She notes last night around 10:00 she noticed numbness in her leg. She does have pain in the hip. This morning she was unable to move her left leg and was dragging it. She notes the weakness has improved. She notes that she can feel but she has tingling. Weakness started around 8 to 9 AM. No chest pain or shortness of breath. No nausea, vomiting, or diarrhea. No dysuria, urgency, or frequency. No other exacerbating or remitting factors. No back pain. ADDITIONAL HISTORY OBTAINED: Per HPI Chronic Medical/Social Conditions Affecting Care: Per HPI PAST MEDICAL HISTORY:See Below PAST SURGICAL HISTORY:See Below FAMILY HISTORY:See Below SOCIAL HISTORY:See Below HOME MEDICATIONS:See Below ALLERGIES:See Below VITALS:See Below PHYSICAL EXAMINATION: GENERAL: Sitting up in bed, alert, well appearing, well nourished, no distress, non-toxic EYE EXAM: normal conjunctiva. PERRL and EOM's grossly intact. OROPHARYNX: no exudate, no erythema, lips, buccal mucosa, and tongue normal and mucous membranes are moist NECK: supple, no nuchal rigidity, no adenopathy, non-tender LUNGS: Clear to auscultation. Normal chest wall mechanics HEART: no murmurs, S1 normal and S2 normal ABDOMEN: abdomen soft, non-tender, normo-active bowel sounds, no masses, no rebound or guarding. BACK: Back is symmetrical on inspection and there is no deformity, no midline tenderness, no CVA tenderness. UPPER EXTREMITIES: upper extremities are grossly normal. LOWER EXTREMITIES: No pitting edema. NEURO EXAM: Normal sensorium, cranial nerves II-XII grossly intact, normal speech, no gross weakness of arms, no gross weakness of legs. No drift. Ssuyfd-wy-teys intact. MEDICAL DECISION MAKING: Patient is a 50-year-old female with the above-stated past medical history who presents to the ER for paresthesias and weakness of the left lower extremity. The weakness has resolved. Labs showed no significant leukocytosis. Mild anemia at 10.4. INR unremarkable. BMP with LFTs bilirubin was unremarkable. Mag at 1.5. Troponin negative. CT angios of the head and neck showed no acute pathology. Ultrasound arterial formal read was not back but confirmed by tech that it was consistent with [place] scan. Discussed with her she telestroke neurology and patient is not a candidate for TNK due to paresthesias starting last night. Case was discussed with the hospitalist for further evaluation management treatment. Consults/Care Managements Discussions: Per [facility] Triage Nursing notes reviewed. Limited review of prior medical records performed Vital Signs: reviewed and remarkable for no significant abnormalities Differential diagnosis: Differential Diagnosis includes but is not limited to ischemic Stroke, hemorrhagic stroke, bells palsy, mass, neoplasm, migraine headache, seizure, subarachnoid hemorrhage, TIA, and transient global amnesia. ER treatment provided: See below Diagnostics interpreted by me include EKG and cardiac monitoring as listed below: -Cardiac Monitoring: An order was placed for continuous cardiac monitoring. The monitor shows a rate of 80 with sinus rhythm. -ECG: Sinus rhythm rate 78 Normal axis No PVCs QTc 437 -Laboratory studies:Interpreted by me as stated above in MDM and shown below. 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 had follow up with Dr. Duran office-denies any additional episodes PAD (peripheral artery disease) Type 2 diabetes mellitus NIDDM Surgical History History of anesthesia reaction with heart cath in 2019 "woke up screaming" - needed something else and put deeper. History of ezkyx-bpxtz-blmykjj bypass -History of aorto bi iliac bypass -Dr. Scooby Benton- 07/12/2025 - [facility] History of colonoscopy ~2022 History of endoscopy History of heart artery stent 2019> PRODUCER ASSISTANT to distal circumflex and distal RCA History of tooth extraction Family History Father Anxiety Depression Diabetes Heart disease Hypertension Mother Diabetes Hypertension Kidney disease Coronary heart disease Sister Gallbladder disease Kidney stone Hypothyroidism Anxiety Sister Alcohol abuse Drug abuse Hypertension Rheumatoid arthritis Osteoporosis Anxiety Uncle Melanoma Grandfather (Maternal) Myocardial infarction Grandfather (Paternal) , in his 80s Heart failure Sister Hypothyroidism Anxiety Sister No problems noted. Grandmother (Maternal) Pulmonary embolism Grandmother (Paternal) , 99 No problems noted. Brother Diabetes Heart disease Other Dyslipidemia No family history of adverse response to anesthesia Denies family history of Ovarian cancer Breast cancer Colorectal cancer Uterine cancer Social History (Updated 09/08/25 @ 08:47 by ARETHA Fajardo) Smoking Status: Former smoker Tobacco Type: Cigarettes Age Started Using Tobacco: 20; packs per day: 1; Cigarettes Per Day: quit 06/26/25>was smoking 10 cig daily; Second Hand Exposure: No; Do You Dip or Chew Tobacco: No; Hx Alcohol Use: Yes Alcohol type: beer, wine and hard liquor Hx Substance Use: Yes Last Used Substance: Days (ago) Last Used Substance Other:: couple years ago Substance Use Type Other:: marijuana on occ/last use was months (advised) Preferred Language: Amharic Communication Ability: Effective Drapery Worker Required: No Beliefs That Will Affect Care: None marital status: Single Current Living Situation: Alone Current Living Situation Comment: plans to move in with sister prior to surgery per SDS note current occupational status: employed 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 How many Children do You have: 0 Feels Safe at Home: Yes Childhood Exposure to Second-Hand Smoke: No Diet: regular caffeine: Yes Dental Care, Regularly: No Physical Activity Frequency: Daily Seatbelt Use: always Sunscreen Use: Yes Assistive Devices: None Allergies Allergies Allergy/AdvReac Type Severity Reaction Status Date / Time pork derived (porcine) Allergy Severe throat Verified 10/13/25 12:17 feels like it is closing up coconut AdvReac Mild toasted Verified 10/13/25 12:17 coconut, nauseated allopurinol AdvReac Unknown wants Verified 10/13/25 12:17 listed>mother and sister allergic to sun Allergy Unknown get sun Uncoded 10/05/25 13:42 poisoning quickly Home Meds Home Medications Medication Instructions Recorded Confirmed aspirin 81 mg tablet,delayed 81 mg PO QAM 07/05/25 10/15/25 release atorvastatin 80 mg tablet 80 mg PO QAM 10/05/25 10/15/25 hydroxyzine HCl 50 mg tablet 50 mg PO HS 10/05/25 10/15/25 lisinopril 10 mg tablet 10 mg PO QAM 10/05/25 10/15/25 metoprolol succinate 25 mg 25 mg PO QAM 10/05/25 10/15/25 tablet,extended release 24 hr gabapentin 100 mg capsule 100 mg PO HS 10/15/25 10/15/25 Previous Rx's Medication Instructions Recorded blood sugar diagnostic (ReliOn #100 ea 06/22/25 Prime Test Strips) pen needle, diabetic 32 gauge x #100 ea 06/22/2532" blood-glucose sensor (FreeStyle #2 ea 08/11/25 Char 3 Plus Sensor device) metformin 500 mg tablet 1,000 mg (2 x 500 mg) PO BID 90 09/08/25 days #360 tabs oxycodone 5 mg tablet 5 mg PO Q8H PRN pain, severe #20 10/14/25 tabs Results & Data (ED) Vital Signs Vital Signs - 24 hr 10/15/25 13:06 10/15/25 13:48 10/15/25 13:59 Temperature 36.6 C Temperature Source Temporal Artery Scan Pulse Rate 85 81 Pulse Rate [Apical] 82 Pulse Rate from SpO2 Sensor 81 Respiratory Rate 18 16 20 Respiratory Effort / Characteristics Non-Labored Spontaneous Non-Labored Respiratory Depth Normal Normal Respiratory Pattern Regular Blood Pressure 130/79 163/91 H Blood Pressure [Right Arm] 140/74 Blood Pressure Mean 96 115 Blood Pressure Mean [Right Arm] 96 Pulse Oximetry 99 97 98 Oxygen Delivery Method Room Air Room Air Sepsis Recent Fever Within 48 Hours No Sepsis New/Unexplained Change in Mental Status No Sepsis Action Taken by Nursing No Action Required 10/15/25 14:00 10/15/25 14:08 10/15/25 14:15 Temperature Temperature Source Pulse Rate 84 80 77 Pulse Rate [Apical] Pulse Rate from SpO2 Sensor 81 77 Respiratory Rate 19 13 Respiratory Effort / Characteristics Respiratory Depth Respiratory Pattern Blood Pressure 140/74 131/75 Blood Pressure [Right Arm] Blood Pressure Mean 96 93 Blood Pressure Mean [Right Arm] Pulse Oximetry 96 99 Oxygen Delivery Method Sepsis Recent Fever Within 48 Hours Sepsis New/Unexplained Change in Mental Status Sepsis Action Taken by Nursing 10/15/25 14:30 10/15/25 14:45 10/15/25 15:00 Temperature Temperature Source Pulse Rate 79 81 80 Pulse Rate [Apical] Pulse Rate from SpO2 Sensor 78 82 80 Respiratory Rate 13 17 15 Respiratory Effort / Characteristics Respiratory Depth Respiratory Pattern Blood Pressure 115/72 102/73 121/74 Blood Pressure [Right Arm] Blood Pressure Mean 86 82 89 Blood Pressure Mean [Right Arm] Pulse Oximetry 99 98 99 Oxygen Delivery Method Sepsis Recent Fever Within 48 Hours Sepsis New/Unexplained Change in Mental Status Sepsis Action Taken by Nursing Laboratory Data 10/15/25 13:28 10/15/25 13:28 Lab Results 10/15/25 Range/Units 13:28 WBC 10.16 (4.8-10.8) K/ul RBC 3.87 L (4.20-5.40) M/uL Hgb 10.4 L (12.0-16.0) g/dL Hct 31.9 L (37.0-47.0) % MCV 82.4 (80.0-100.0) fL MCH 26.9 (25.0-34.0) pg MCHC 32.6 (32.0-36.0) g/dL RDW Std Deviation 43.7 (36.4-46.3) fL RDW Coeff of Bishop 14.7 H (11.5-14.5) % Plt Count 199 (130-400) K/uL MPV 10.2 (9.4-12.4) fL Immature Gran % (Auto) 0.5 % Neut % (Auto) 59.5 % Lymph % (Auto) 31.5 % Cass % (Auto) 7.0 % Eos % (Auto) 0.9 % Baso % (Auto) 0.6 % Neut # (Auto) 6.05 (1.40-6.50) K/uL Lymph # (Auto) 3.20 (1.20-3.40) K/uL Cass # (Auto) 0.71 H (0.11-0.59) K/uL Eos # (Auto) 0.09 (0.00-0.50) K/uL Baso # (Auto) 0.06 (0.00-0.20) K/uL Immature Gran # (Auto) 0.05 (0.01-0.20) K/uL PT 10.0 (9.0-12.0) Seconds INR 0.9 (0.9-1.1) APTT 22 (21-31) Seconds PTT Ratio 0.8 Sodium 136 (136-145) mmol/L Potassium 3.8 (3.5-5.1) mmol/L Chloride 102 (98-107) mmol/L Carbon Dioxide 22 (21-32) mmol/L Anion Gap 12 H (3-11) BUN 33 H (6-23) mg/dl Creatinine 0.86 (0.6-1.2) mg/dl Est Cr Clr Drug Dosing Not Reportable eGFR 83.28 BUN/Creatinine Ratio 38.4 H (10-20) Glucose 172 H (70-99(Fasting)) mg/dl Calcium 9.2 (8.6-10.3) mg/dl Magnesium 1.5 L (1.7-2.4) mg/dl Total Bilirubin 0.3 (0.2-1.0) mg/dl AST 12 L (13-39) U/L ALT 13 (7-52) U/L Alkaline Phosphatase 87 (34-104) U/L Troponin I High Sens < 2.3 (0-14) pg/ml Total Protein 7.9 (6.0-8.3) gm/dl Albumin 4.1 (3.4-5.0) gm/dl Globulin 3.8 (2.5-4.0) gm/dl Albumin/Globulin Ratio 1.1 (0.9-2) Administered Medications Discontinued Medications Ioversol (Optiray 320 125ml) 119 ml IV ONCE ONE Stop: 10/15/25 13:37 Last Admin: 10/15/25 13:38 Dose: 119 ml Documented By: EDK Imaging Data Radiologist's Impression: Chest X-Ray 10/15/25 13:23 Technique: A frontal view of the chest was obtained Comparison is made to the prior examination dated 07/12/2025 Findings: There are no confluent pulmonary infiltrates. The heart size is within normal limits. No pleural effusion or pneumothorax is seen. There is mild linear atelectasis in both lung bases. No fracture is noted. No foreign body is seen Impression: Mild bilateral lung base atelectasis Electronically signed by Abdiel Silva 10-15-2025 13:[address] 10/15/25 13:23 Clinical History: Left-sided weakness. Technique: Axial computed tomography images were obtained of the brain from the vertex to the skull base without intravenous contrast. Comparison is made to the prior CT dated 06/19/2023 Findings: There is no sign of intracranial hemorrhage. There is normal hood-white matter differentiation with no sign of acute or old infarction. No midline shift or other form of herniation is identified. There is no hydrocephalus. No obvious mass lesion is seen on this noncontrast examination. The visualized portions of the orbits and paranasal sinuses appear unremarkable. The mastoid air cells appear clear Impression: Unremarkable noncontrast CT of the brain Electronically signed by Abdiel Silva 10-15-2025 13:49 PM Head CTA 10/15/25 13:23 Clinical history: Left-sided weakness Technique: Axial computed tomography images were obtained of the brain after the administration of intravenous contrast according to the CT angiogram protocol Findings: No definite stenosis or aneurysm is seen of the anterior, middle, or posterior cerebral artery circulations. The visualized vertebral arteries and the basilar artery appear unremarkable Impression: No definite stenosis or aneurysm of the intracranial arteries Electronically signed by Abdiel Silva 10-15-2025 13:52 PM Neck CTA 10/15/25 13:23 Clinical history: Left-sided weakness Technique: Axial computed tomography images were obtained of the neck after the administration of intravenous contrast according to the CT angiogram protocol Findings: There is a mild stenosis of the distal right common carotid artery with 30-40% diameter narrowing. No stenosis is seen of the left common carotid artery. There is mild soft plaque within the carotid bulbs bilaterally, without significant stenosis. There is tortuosity of the mid internal carotid arteries bilaterally. No stenosis of the external carotid arteries is seen The vertebral arteries are patent bilaterally with no significant stenosis seen. The visualized thoracic aorta appears unremarkable There is multilevel degenerative disc disease and osteoarthritis of the cervical spine. Impression: 1. Mild stenosis of the distal right CCA 2. Mild plaque in the carotid bulbs bilaterally, without significant stenosis Electronically signed by Abdiel Silva 10-15-2025 13:55 PM Discharge Plan Visit Data Chief Complaint: Leg Injury/Pain Stated Complaint: L LEG ASLEEP FOR MORE THAN 12 HOURS ED Provider: Bj Reed Discharge Problem: TIA (transient ischemic attack), PAD (peripheral artery disease), Leg weakness, Anemia Condition: Fair Forms Stand Alone Forms: [facility] [employer] Prescriptions Prescriptions: No Action metformin 500 mg tablet 1,000 mg PO BID 90 Days Qty: 360 3RF (DME) FreeStyle Char 3 Plus Sensor Device See Rx Instructions .Route Qty: 2 3RF Rx Instructions: As directed (DME) pen needle, diabetic 32 gauge x 5/32" needle See Rx Instructions .Route Qty: 100 1RF Rx Instructions: inject glargine insulin oncedaily (DME) ReliOn Prime Test Strips Strip See Rx Instructions .Route Qty: 100 0RF Rx Instructions: As directed gabapentin 100 mg capsule 100 mg PO HS aspirin 81 mg tablet,delayed release (DR/EC) 81 mg PO QAM atorvastatin 80 mg tablet 80 mg PO QAM hydroxyzine HCl 50 mg tablet 50 mg PO HS lisinopril 10 mg tablet 10 mg PO QAM metoprolol succinate 25 mg tablet extended release 24 hr 25 mg PO QAM oxycodone 5 mg tablet 5 mg PO Q8H PRN (Reason: pain, severe) Qty: 20 0RF Referrals Referrals: Margot Sullivan MD [Primary Care Provider] - Discharge Problem: Leg weakness Qualifiers: Laterality: left Qualified Code(s): R29.898 - Other symptoms and signs involving the musculoskeletal system Anemia Qualifiers: Anemia type: unspecified type Qualified Code(s): D64.9 - Anemia, unspecified
[2025-10-15] MEDS: OPTIRAY 320 125ml IV ONE (13:38)
--- NOTE | 2025-10-15 13:50 | CT Scan Report ---
Clinical History: Left-sided weakness. Technique: Axial computed tomography images were obtained of the brain from the vertex to the skull base without intravenous contrast. Comparison is made to the prior CT dated 06/19/2023 Findings: There is no sign of intracranial hemorrhage. There is normal hood-white matter differentiation with no sign of acute or old infarction. No midline shift or other form of herniation is identified. There is no hydrocephalus. No obvious mass lesion is seen on this noncontrast examination. The visualized portions of the orbits and paranasal sinuses appear unremarkable. The mastoid air cells appear clear Impression: Unremarkable noncontrast CT of the brain Electronically signed by Abdiel Silva 10-15-2025 13:49 PM
--- NOTE | 2025-10-15 13:50 | XRay Report ---
Technique: A frontal view of the chest was obtained Comparison is made to the prior examination dated 07/12/2025 Findings: There are no confluent pulmonary infiltrates. The heart size is within normal limits. No pleural effusion or pneumothorax is seen. There is mild linear atelectasis in both lung bases. No fracture is noted. No foreign body is seen Impression: Mild bilateral lung base atelectasis Electronically signed by Abdiel Silva 10-15-2025 13:50 PM
--- NOTE | 2025-10-15 13:53 | CT Scan Report ---
Clinical history: Left-sided weakness Technique: Axial computed tomography images were obtained of the brain after the administration of intravenous contrast according to the CT angiogram protocol Findings: No definite stenosis or aneurysm is seen of the anterior, middle, or posterior cerebral artery circulations. The visualized vertebral arteries and the basilar artery appear unremarkable Impression: No definite stenosis or aneurysm of the intracranial arteries Electronically signed by Abdiel Silva 10-15-2025 13:52 PM
--- NOTE | 2025-10-15 13:55 | CT Scan Report ---
Clinical history: Left-sided weakness Technique: Axial computed tomography images were obtained of the neck after the administration of intravenous contrast according to the CT angiogram protocol Findings: There is a mild stenosis of the distal right common carotid artery with 30-40% diameter narrowing. No stenosis is seen of the left common carotid artery. There is mild soft plaque within the carotid bulbs bilaterally, without significant stenosis. There is tortuosity of the mid internal carotid arteries bilaterally. No stenosis of the external carotid arteries is seen The vertebral arteries are patent bilaterally with no significant stenosis seen. The visualized thoracic aorta appears unremarkable There is multilevel degenerative disc disease and osteoarthritis of the cervical spine. Impression: 1. Mild stenosis of the distal right CCA 2. Mild plaque in the carotid bulbs bilaterally, without significant stenosis Electronically signed by Abdiel Silva 10-15-2025 13:55 PM
[2025-10-15 14:02] LABS: Hematocrit (blood only) 31.9 % (37.0-47.0); Hemoglobin 10.4 g/dL (12.0-16.0); Immature Granulocytes # (auto) 0.05 K/uL (0.01-0.20); Immature Granulocytes % (auto) 0.5 %; Mean Corpuscular Hemoglobin 26.9 pg (25.0-34.0); Mean Corpuscular Volume 82.4 fL (80.0-100.0); Platelet Count 199 K/uL (130-400); RDW Standard Deviation 43.7 fL (36.4-46.3); Red Blood Count 3.87 M/uL (4.20-5.40); White Blood Count 10.16 K/ul (4.8-10.8)
[2025-10-15 14:19] LABS: Alanine Aminotransferase 13 U/L (7-52); Albumin Globulin Ratio 1.1 (0.9-2); Albumin Level 4.1 gm/dl (3.4-5.0); Alkaline Phosphatase 87 U/L (34-104); Anion Gap 12 (3-11); Bilirubin,Total 0.3 mg/dl (0.2-1.0); Blood Urea Nitrogen 33 mg/dl (6-23); Calcium 9.2 mg/dl (8.6-10.3); Carbon Dioxide 22 mmol/L (21-32); Chloride 102 mmol/L (98-107); Globulin 3.8 gm/dl (2.5-4.0); Glucose 172 mg/dl (70-99(Fasting)); Magnesium 1.5 mg/dl (1.7-2.4); Potassium 3.8 mmol/L (3.5-5.1); Sodium 136 mmol/L (136-145); Total Protein 7.9 gm/dl (6.0-8.3)
[2025-10-15 14:43] LABS: INR 0.9 (0.9-1.1); Partial Thromboplastin Time 22 Seconds (21-31); Prothrombin Time 10.0 Seconds (9.0-12.0)
--- NOTE | 2025-10-15 17:07 | History & Physical Report ---
Date of Service October 15, 2025 Assessment & Plan (1) Leg weakness: Plan: Suspected compression neuropathy of the left lower extremity which is now resolving. No evidence of CVA. Supportive care. Continue current medications. Observation (2) PAD (peripheral artery disease): Plan: Recent amputation of right 4th and 5th toes from vascular insufficiency. Bandage changes per podiatry (3) Type 2 diabetes mellitus: Plan: ADA diet. Sliding scale coverage. Metformin is temporarily on hold. (4) CAD S/P percutaneous coronary angioplasty: Plan: Currently stable. Continue current medical (5) Hypertension: Plan: Stable. Continue current medical management Plan Hopeful discharge to home tomorrow, if her left lower extremity function has returned to baseline History of Present Illness Chief Complaint: Left lower extremity weakness and numbness Primary Care Provider: Margot Sullivan MD 50-year-old female who is recently hospitalized and discharged after elective amputation of the right 4th and 5th toes from peripheral vascular insufficiency. She states that she was sleeping on her bed at home with her legs dangling over the edge of the bed today. When she awoke her left leg was numb and weak but is now getting better. Head CT scan is negative for CVA. Head and neck CTA revealed 30 to 40% distal right ICA stenosis. Arterial ultrasound of the left lower extremity was performed and the final report is pending. This appears to be a compression neuropathy involving the left lower extremity that is gradually resolving. She is placed in observation status for further evaluation. She denies any upper extremity weakness, dysarthria, swallowing difficulty. Allergies Allergy/AdvReac Type Severity Reaction Status Date / Time pork derived (porcine) Allergy Severe throat Verified 10/13/25 12:17 feels like it is closing up coconut AdvReac Mild toasted Verified 10/13/25 12:17 coconut, nauseated allopurinol AdvReac Unknown wants Verified 10/13/25 12:17 listed>mother and sister allergic to sun Allergy Unknown get sun Uncoded 10/05/25 13:42 poisoning quickly Home Medications Medication Instructions Recorded Confirmed Type blood sugar diagnostic (ReliOn #100 ea 06/22/25 10/15/25 Rx Prime Test Strips) pen needle, diabetic 32 gauge x #100 ea 06/22/25 10/15/25 Rx " aspirin 81 mg tablet,delayed 81 mg PO QAM 07/05/25 10/15/25 History release blood-glucose sensor (FreeStyle #2 ea 08/11/25 10/15/25 Rx Char 3 Plus Sensor device) metformin 500 mg tablet 1,000 mg (2 x 500 mg) PO BID 90 09/08/25 10/15/25 Rx days #360 tabs atorvastatin 80 mg tablet 80 mg PO QAM 10/05/25 10/15/25 History hydroxyzine HCl 50 mg tablet 50 mg PO HS 10/05/25 10/15/25 History lisinopril 10 mg tablet 10 mg PO QAM 10/05/25 10/15/25 History metoprolol succinate 25 mg 25 mg PO QAM 10/05/25 10/15/25 History tablet,extended release 24 hr oxycodone 5 mg tablet 5 mg PO Q8H PRN pain, severe #20 10/14/25 10/15/25 Rx tabs gabapentin 100 mg capsule 100 mg PO HS 10/15/25 10/15/25 History Past Med/Surg History Problem List (Updated 10/15/25 @ 16:46 by Bj Reed DO) Anemia (Acute) Leg weakness (Acute) TIA (transient ischemic attack) (Acute) Vitamin B12 deficiency Type 2 diabetes mellitus Insomnia 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 had follow up with Dr. Duran office-denies any additional episodes PAD (peripheral artery disease) Type 2 diabetes mellitus NIDDM Surgical History History of anesthesia reaction with heart cath in 2019 "woke up screaming" - needed something else and put deeper. History of [id number] bypass -History of aorto bi iliac bypass -Dr. Scooby Benton- 07/12/2025 - [facility] History of colonoscopy ~2022 History of endoscopy History of heart artery stent 2019> [employer] to distal circumflex and distal RCA History of tooth extraction Family History Father Anxiety Depression Diabetes Heart disease Hypertension Mother Diabetes Hypertension Kidney disease Coronary heart disease Sister Gallbladder disease Kidney stone Hypothyroidism Anxiety Sister Alcohol abuse Drug abuse Hypertension Rheumatoid arthritis Osteoporosis Anxiety Uncle Melanoma Grandfather (Maternal) Myocardial infarction Grandfather (Paternal) , in his 80s Heart failure Sister Hypothyroidism Anxiety Sister No problems noted. Grandmother (Maternal) Pulmonary embolism Grandmother (Paternal) , 99 No problems noted. Brother Diabetes Heart disease Other Dyslipidemia No family history of adverse response to anesthesia Denies family history of Ovarian cancer Breast cancer Colorectal cancer Uterine cancer Social History (Updated 09/08/25 @ 08:47 by ARETHA Fajardo) Smoking Status: Former smoker Tobacco Type: Cigarettes Age Started Using Tobacco: 20; packs per day: 1; Cigarettes Per Day: quit 06/26/25>was smoking 10 cig daily; Second Hand Exposure: No; Do You Dip or Chew Tobacco: No; Hx Alcohol Use: Yes Alcohol type: beer, wine and hard liquor Hx Substance Use: Yes Last Used Substance: Days (ago) Last Used Substance Other:: couple years ago Substance Use Type Other:: marijuana on occ/last use was months (advised) Preferred Language: Latvian Communication Ability: Effective Head Of Merchandise Buying Required: No Beliefs That Will Affect Care: None marital status: Single Current Living Situation: Alone Current Living Situation Comment: plans to move in with sister prior to surgery per SDS note current occupational status: employed 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 How many Children do You have: 0 Feels Safe at Home: Yes Childhood Exposure to Second-Hand Smoke: No Diet: regular caffeine: Yes Dental Care, Regularly: No Physical Activity Frequency: Daily Seatbelt Use: always Sunscreen Use: Yes Assistive Devices: None Review of Systems 2 Review of Systems: Constitutionalno fever or chills ENTno blurred vision, no double vision, no epistaxis, no sore throat Respiratoryno cough, no wheezing, no shortness of breath Cardiacno palpitations, no chest pain, no syncope Richa nausea, vomiting, diarrhea, melena, hematochezia GUno urinary retention, no urinary incontinence, no dysuria, no hematuria Musculoskeletalno joint pain, no muscle tenderness. Left lower extremity numbness has completely resolved and the weakness has improved considerably since she came to the ED. Skinno bruising, no rashes, no pruritus Neurono isolated weakness, no paresthesia Psychno depression, no anxiety Physical Exam 2 Physical Exam: General-alert and oriented x3, no fever, no chills HEENT-head atraumatic and normocephalic, pupils equal and reactive to light, extraocular muscles intact Neck-no lymphadenopathy or thyromegaly, trachea midline Chest-clear to auscultation. No rales, wheezing or rhonchi Cardiac-regular rate and rhythm, normal S1 and S2 Abdomen-normal bowel sounds, no hepatosplenomegaly Extremities-no cyanosis, clubbing, or edema. Right forefoot is heavily bandaged after recent amputation of right 4th and 5th toes Neuro-cranial nerves II through XII intact, motor and sensory function within normal limits, strength symmetrical, no focal deficits. She is able to wiggle the toes on the left foot now and able to lift the left leg off the bed Psych-normal affect, normal mood Results & Data Results & Data Vital Signs (Past 12 Hours) Vital Signs Temp Pulse Pulse Resp BP BP Pulse Ox 10/15/25 15:00 80 15 121/74 99 10/15/25 14:45 81 17 102/73 98 10/15/25 14:30 79 13 115/72 99 10/15/25 14:15 77 13 131/75 99 10/15/25 14:08 80 10/15/25 14:00 84 19 140/74 96 10/15/25 13:59 82 20 140/74 98 10/15/25 13:48 81 16 163/91 H 97 10/15/25 13:06 36.6 C 85 18 130/79 99 O2 Del Method 10/15/25 15:00 10/15/25 14:45 10/15/25 14:30 10/15/25 14:15 10/15/25 14:08 10/15/25 14:00 10/15/25 13:59 Room Air 10/15/25 13:48 10/15/25 13:06 Room Air Laboratory Results 10/15/25 13:28 10/15/25 13:28 Code Status & VTE Plan Code Status Full code PG Care Time/CCT Total # of Minutes Spent Total Time Spent with Patient: Total time spent is greater than 50% in coordination of care (as documented) at patient's floor/unit and/or counseling patient: Coding Level of Care Code 63375 INT INP/OBS CARE 3/75MIN Diagnoses Leg weakness R29.898 Laterality: left PAD (peripheral artery disease) I73.9 Type 2 diabetes mellitus E11.9 CAD S/P percutaneous coronary angioplasty I25.10; Z98.61 Hypertension I10 (1) Leg weakness Laterality: left Qualified Code(s): R29.898 - Other symptoms and signs involving the musculoskeletal system
--- NOTE | 2025-10-15 17:37 | Ultrasound Report ---
LEFT LOWER EXTREMITY ARTERIAL DUPLEX ULTRASOUND INDICATION: Pain TECHNIQUE: Ultrasound of the left lower extremity arteries was performed. A duplex Doppler study was performed, consisting of integrated 2-dimensional (2D) real-time imaging: Color flow Doppler and Doppler spectral analysis. COMPARISON: CTA RUNOFF June 19, 2025 FINDINGS: Blood flow velocities are generally decreased. There are scattered calcified and noncalcified atherosclerotic plaques resulting in mild luminal narrowing, particularly in the infrapopliteal arteries. Blood flow velocities and waveforms are as follows: MAINTENANCE APPRENTICE: 53 cm/s, monophasic Profunda femoris: 31 cm/s, monophasic Proximal SFA: 58 cm/s, monophasic Mid SFA: 29 cm/s, monophasic Distal SFA: 20 cm/s, monophasic Popliteal: 19 cm/s, monophasic UTE: 9 cm/s, monophasic Peroneal artery: 10 cm/s, monophasic DENTAL OFFICE COORDINATOR: 21 cm/s, monophasic DPA: 6 cm/s, monophasic IMPRESSION: Generally decreased blood flow velocities with monophasic waveforms may be due to a proximal stenosis, possibly at the level of the abdominal aorta Electronically signed by Mayur Galicia 10-15-2025 5:36 PM
[2025-10-15] MEDS ORDERED: GLUCOSE 10 TAB/TUBE PO PRN (17:57)
[2025-10-15] MEDS ORDERED: GLUCOSE 40% GEL 15 GM TUBE PO PRN (17:57)
[2025-10-15] MEDS ORDERED: ONDANSETRON INJ 2 MG/ML 2 ML VIAL IV PRN (17:57)
[2025-10-15] MEDS ORDERED: DEXTROSE 50% 50 ML SYRINGE IV PRN (17:57)
[2025-10-15] MEDS ORDERED: ACETAMINOPHEN 325 MG TAB PO PRN (17:57)
[2025-10-15] MEDS ORDERED: CARBOHYDRATES FOR HYPOGLYCEMIA PO PRN (17:57)
[2025-10-15] MEDS ORDERED: GLUCAGON FOR INJ 1 MG VIAL SQ PRN (17:57)
[2025-10-15] MEDS: GABAPENTIN 100 MG CAP PO SCH (21:40)
[2025-10-15] MEDS: INSULIN ASPART PER UNIT CHARGE SC SCH (21:40)
[2025-10-15 23:19] VITALS: O2SAT 97
[2025-10-16 07:26] VITALS: BP 107/70; PULSE 75; RESP 17; TEMP 97.5
[2025-10-16] MEDS: METOPROLOL SUCC 25MG EXT REL TAB PO SCH (08:06)
[2025-10-16] MEDS: ASPIRIN 81 MG ECTAB PO SCH (08:06)
[2025-10-16] MEDS: ATORVASTATIN 40 MG TAB PO SCH (08:06)
--- NOTE | 2025-10-16 10:10 | Discharge Summary ---
Discharge Summary Date of Service October 16, 2025 Principal Dx & Hospital Course #1 = Principal Diagnosis (1) Leg weakness: Suspected compression neuropathy of the left lower extremity which is still present but much improved. She is able to ambulate and she is able to lift her left leg off the bed. This will probably need further outpatient follow-up. There is no evidence of acute CVA however. (2) PAD (peripheral artery disease): Recent amputation of right 4th and 5th toes from vascular insufficiency. Bandage changes per podiatry (3) Type 2 diabetes mellitus: ADA diet. Sliding scale coverage. Metformin was held while hospitalized and will be restarted at discharge (4) CAD S/P percutaneous coronary angioplasty: Currently stable. Continue current medical management (5) Hypertension: Stable. Continue current medical management Plan Home today, October 16 Admission HPI Per Admitting Provider 50-year-old female who is recently hospitalized and discharged after elective amputation of the right 4th and 5th toes from peripheral vascular insufficiency. She states that she was sleeping on her bed at home with her legs dangling over the edge of the bed today. When she awoke her left leg was numb and weak but is now getting better. Head CT scan is negative for CVA. Head and neck CTA revealed 30 to 40% distal right ICA stenosis. Arterial ultrasound of the left lower extremity was performed and the final report is pending. This appears to be a compression neuropathy involving the left lower extremity that is gradually resolving. She is placed in observation status for further evaluation. She denies any upper extremity weakness, dysarthria, swallowing difficulty. Discharge Exam General-alert and oriented x3, no fever, no chills HEENT-head atraumatic and normocephalic, pupils equal and reactive to light, extraocular muscles intact Neck-no lymphadenopathy or thyromegaly, trachea midline Chest-clear to auscultation. No rales, wheezing or rhonchi Cardiac-regular rate and rhythm, normal S1 and S2 Abdomen-normal bowel sounds, no hepatosplenomegaly Extremities-no cyanosis, clubbing, or edema. Right forefoot is heavily bandaged after recent amputation of right 4th and 5th toes Neuro-cranial nerves II through XII intact, motor and sensory function within normal limits, strength symmetrical, no focal deficits. She is able to wiggle the toes on the left foot now and able to lift the left leg off the bed Psych-normal affect, normal mood Discharge Plan Discharge Items Patient Disposition: Home - Self-Care Reason For Visit: LLE PARASTHESIA/WEAKNESS Discharge Diagnosis: Suspected peripheral neuropathy from compression of the left lower extremity Condition on Discharge: Good Activity: Resume your previous activity Non-emergency contact: Primary Care Provider Call non-emergency contact if: your symptoms worsen Follow-up/Referrals: Margot Sullivan MD [Primary Care Provider] - Diet: Carb Consistent or DM2 and Heart Healthy Addtl Attending Provider Instructions: See your primary care provider as soon as possible who may possibly refer you to a neurologist in the outpatient setting. All medications remain the same. Pending Studies at Discharge: No Stand-Alone Forms: [email or web address], Smoking Cessation Medications and DC Order Prescriptions: Continued metformin 500 mg tablet 1,000 mg PO BID 90 Days Qty: 360 3RF (DME) FreeStyle Char 3 Plus Sensor Device See Rx Instructions .Route Qty: 2 3RF Rx Instructions: As directed (DME) pen needle, diabetic 32 gauge x 5/32" needle See Rx Instructions .Route Qty: 100 1RF Rx Instructions: inject glargine insulin oncedaily (DME) ReliOn Prime Test Strips Strip See Rx Instructions .Route Qty: 100 0RF Rx Instructions: As directed gabapentin 100 mg capsule 100 mg PO HS aspirin 81 mg tablet,delayed release (DR/EC) 81 mg PO QAM atorvastatin 80 mg tablet 80 mg PO QAM hydroxyzine HCl 50 mg tablet 50 mg PO HS lisinopril 10 mg tablet 10 mg PO QAM metoprolol succinate 25 mg tablet extended release 24 hr 25 mg PO QAM oxycodone 5 mg tablet 5 mg PO Q8H PRN (Reason: pain, severe) Qty: 20 0RF Discharge Orders: Discharge Order (Routine); Ordered 10/16/25 Ordered By: Marcelino Blackburn Admission Data Admit Date/Time: 10/15/25 16:56 Attending Provider: Marcelino Blackburn Admit Provider: Marcelino Blackburn Primary Care Provider: Margot Sullivan Other Providers: Marcelino Blackburn Hospital Stay Data Consultations 10/15/25 16:28 ED Decision to Admit Stat Diagnostic Imagining Performed 10/15/25 13:23 CT angio head w con Stat CT angio neck with con Stat CT head/brain wo con Stat 10/15/25 14:02 US arterial duplex LE LT Stat Pending Results Patient Have Any Pending Studies at Discharge: No Discharge Instructions Given to Patient (Per Discharging Provider) See your primary care provider as soon as possible who may possibly refer you to a neurologist in the outpatient setting. All medications remain the same. Total Time Total Time Spent Total Time Spent (In Minutes): 45 minutes. Total time included patient exam, discharge planning, medication reconciliation Coding Level of Care Code 04133 INP/OBS DISCH >30 MIN Diagnoses Leg weakness R29.898 Laterality: left PAD (peripheral artery disease) I73.9 Type 2 diabetes mellitus E11.9 CAD S/P percutaneous coronary angioplasty I25.10; Z98.61 Hypertension I10
--- NOTE | 2025-10-17 06:06 | Electrocardiogram Report ---
Test Reason : Blood Pressure : */* mmHG Vent. Rate : 78 BPM Atrial Rate : 78 BPM P-R Int : 152 ms QRS Dur : 72 ms QT Int : 384 ms P-R-T Axes : 57 33 60 degrees QTcB Int : 437 ms Normal sinus rhythm Normal ECG When compared with ECG of 19-Jun-2025 01:10, No significant change was found Confirmed by Moise Bah ([id number]) on 10/17/2025 6:06:26 AM Referred By: REFERRED SELF Confirmed By: Moise Bah
== END 2025-10-16 13:04 | disposition home or self-care (01) ==
LOC: SUATTDRO → ED 12:58 → 3E 12:58